=== PATIENT | female | born 1940 | race Caucasian/White ===

== ENCOUNTER → 2017-01-25 | Outpatient (CLI) | payer BC, MEDICARE ==
[2017-01-25 11:00] LABS: Anion Gap 10 mmol/L; Blood Urea Nitrogen 24 mg/dL (7-17); Calcium 8.8 mg/dL (8.4-10.2); Carbon Dioxide 24 mmol/L (22-30); Chloride 103 mmol/L (98-107); Glucose 117 mg/dL (74-99); Non-African American GFR(MDRD) >60 (>60 ml/min/1.73 sqM); Sodium 137 mmol/L (137-145)
[2017-01-26 11:56] LABS: Hemoglobin A1C 6.5 % (4.2-6.1)
== END | disposition home or self-care (01) ==
LOC: LABWHC1 09:34
PROVIDERS: ATTEND Internal Medicine
DX: E87.8 Other disorders of electrolyte and fluid balance, not elsewhere classified (principal); E11.69 Type 2 diabetes mellitus with other specified complication
CPT/HCPCS: 36415; 80048; 83036

== ENCOUNTER → 2017-06-18 | Outpatient (CLI) | payer MEDICARE ==
[2017-06-18 10:38] LABS: ALT 47 U/L (9-52); AST 24 U/L (14-36); Cholesterol 118 mg/dL (<200); HDL Cholesterol 54 mg/dL (40-60)
== END | disposition home or self-care (01) ==
LOC: LABWHC1 09:17
PROVIDERS: ATTEND Internal Medicine Cardiovascular Disease
DX: E78.2 Mixed hyperlipidemia (principal)
CPT/HCPCS: 36415; 80061; 84450; 84460

== ENCOUNTER → 2017-07-08 | Outpatient (CLI) | payer MEDICARE ==
[2017-07-08 09:24] LABS: CH 33.3; CHCM 33.7; HDW 2.33; HGB 11.8 gm/dL (11.4-16.0); MCH 31.8 pg (25.0-35.0); MCHC 31.9 g/dL (31.0-37.0); MCV 99.5 fL (80.0-100.0); Mean Platelet Volume 6.3; RBC 3.72 m/uL (3.80-5.40); RDW 12.3 % (11.5-15.5); WBC 5.9 k/uL (3.8-10.6)
[2017-07-08 10:07] LABS: ALT 44 U/L (9-52); AST 25 U/L (14-36); Alkaline Phosphatase 61 U/L (38-126); Anion Gap 11 mmol/L; Blood Urea Nitrogen 17 mg/dL (7-17); Calcium 9.1 mg/dL (8.4-10.2); Carbon Dioxide 25 mmol/L (22-30); Chloride 91 mmol/L (98-107); Glucose 118 mg/dL (74-99); Non-African American GFR(MDRD) >60 (>60 ml/min/1.73 sqM); Potassium 4.8 mmol/L (3.5-5.1); Sodium 127 mmol/L (137-145); Total Bilirubin 0.4 mg/dL (0.2-1.3); Total Protein 6.8 g/dL (6.3-8.2)
== END | disposition home or self-care (01) ==
LOC: LABWHC1 08:13
PROVIDERS: ATTEND Internal Medicine
DX: E87.8 Other disorders of electrolyte and fluid balance, not elsewhere classified (principal); E11.69 Type 2 diabetes mellitus with other specified complication; R53.83 Other fatigue
CPT/HCPCS: 36415; 80053; 83036; 84443; 85027

== ENCOUNTER → 2017-10-21 | Outpatient (CLI) | payer MEDICARE ==
[2017-10-21 10:24] LABS: Anion Gap 13 mmol/L; Blood Urea Nitrogen 17 mg/dL (7-17); Calcium 9.4 mg/dL (8.4-10.2); Carbon Dioxide 26 mmol/L (22-30); Chloride 95 mmol/L (98-107); Glucose 111 mg/dL (74-99); Potassium 4.8 mmol/L (3.5-5.1); Sodium 134 mmol/L (137-145)
[2017-10-21 15:54] LABS: Hemoglobin A1C 5.7 % (4.0-6.0)
== END | disposition home or self-care (01) ==
LOC: LABWHC1 09:09
PROVIDERS: ATTEND Internal Medicine
DX: E87.8 Other disorders of electrolyte and fluid balance, not elsewhere classified (principal); E11.69 Type 2 diabetes mellitus with other specified complication; M79.1 Myalgia
CPT/HCPCS: 36415; 80048; 83036; 84443

== ENCOUNTER → 2017-10-21 | Outpatient (CLI) | payer MEDICARE ==
--- NOTE | 2017-10-21 09:58 | XR ---
EXAMINATION TYPE: XR chest 2V DATE OF EXAM: 10/21/2017 COMPARISON: 08/11/2016 TECHNIQUE: PA and lateral views submitted. HISTORY: Breast cancer FINDINGS: The lungs are clear and there is no pneumothorax, pleural effusion, or focal pneumonia. Postsurgica l change involving the mediastinum. Atherosclerotic change aorta. Arthropathy of the right shoulder. No overt failure. Subsegmental linear changes at the lung bases most typical atelectasis. Degenerativ e change of the spine. Surgical clips in the abdomen. The lateral view there is vascular calcificatio ns anteriorly likely related to the aorta. IMPRESSION: 1. No acute process.
== END | disposition home or self-care (01) ==
LOC: RADXRMAIN 09:27
PROVIDERS: ATTEND Internal Medicine Hematology & Oncology
DX: C50.411 Malignant neoplasm of upper-outer quadrant of right female breast (principal); C50.112 Malignant neoplasm of central portion of left female breast; R60.9 Edema, unspecified; Z17.0 Estrogen receptor positive status [ER+]
CPT/HCPCS: 71046

== ENCOUNTER → 2018-01-20 | Outpatient (CLI) | payer MEDICARE ==
[2018-01-20 10:22] LABS: Basophils % (A) 0 %; Eosinophils # (A) 0.1 k/uL (0-0.7); Eosinophils % (A) 1 %; HCT 33.1 % (34.0-46.0); HGB 11.2 gm/dL (11.4-16.0); Lymphocytes # (A) 1.5 k/uL (1.0-4.8); Lymphocytes % (A) 28 %; MCHC 33.9 g/dL (31.0-37.0); MCV 94.3 fL (80.0-100.0); Mean Platelet Volume 6.7; Monocytes # (A) 0.3 k/uL (0-1.0); Monocytes % (A) 6 %; Neutrophils # (A) 3.3 k/uL (1.3-7.7); Neutrophils % (A) 62 %; Platelet Count 210 k/uL (150-450); RBC 3.51 m/uL (3.80-5.40); RDW 12.6 % (11.5-15.5); WBC 5.3 k/uL (3.8-10.6)
[2018-01-20 10:58] LABS: Anion Gap 12 mmol/L; Blood Urea Nitrogen 15 mg/dL (7-17); Calcium 8.7 mg/dL (8.4-10.2); Carbon Dioxide 26 mmol/L (22-30); Chloride 94 mmol/L (98-107); Cholesterol 103 mg/dL (<200); Glucose 111 mg/dL (74-99); HDL Cholesterol 52 mg/dL (40-60); LDL Cholesterol,Calculated 35 mg/dL (0-99); Potassium 4.5 mmol/L (3.5-5.1); Sodium 132 mmol/L (137-145); Triglycerides 80 mg/dL (<150)
[2018-01-20 17:15] LABS: Hemoglobin A1C 5.4 % (4.0-6.0)
== END | disposition home or self-care (01) ==
LOC: LABWHC1 09:11
PROVIDERS: ATTEND Internal Medicine
DX: E78.4 Other hyperlipidemia (principal); E11.69 Type 2 diabetes mellitus with other specified complication; E87.8 Other disorders of electrolyte and fluid balance, not elsewhere classified; R53.83 Other fatigue
CPT/HCPCS: 36415; 80048; 80061; 83036; 84443; 85025

== ENCOUNTER → 2018-02-24 | Outpatient (CLI) | payer MEDICARE ==
--- NOTE | 2018-02-24 12:19 | P.GSHP ---
History of Present Illness H&P Date: 02/24/18 Patient is a 78-year-old white female status post bilateral mastectomy for Cancer of both breasts. The left side was removed initially approximately 7 or 8 years ago in the right side was removed and August 2016. The patient did not receive any chemo radiation or hormonal therapy. The patient does not complain of any lumps or masses on her chest wall. She does have intermittent right axillary shooting discomfort. Family history: 1. Maternal grandmother cancer uncertain of the type Past surgical history: 1. Bilateral mastectomy 2. Cholecystectomy 3. Hysterectomy ovaries were not removed 4. Open heart surgery 5. Cardiac stents placed 6. Hemorrhoidectomy 7. Trigeminal neuralgia surgery Past medical history: 1. Hypertension 2. High cholesterol 3. Diabetes 4. Arthritis Social history: Smoke: Negative Alcohol: Negative Drugs: Negative - Constitutional Constitutional: Denies chills, Denies fever - EENT Comment: wears glasses Eyes: denies blurred vision, denies pain Ears: deny: decreased hearing, tinnitus Ears, nose, mouth and throat: Reports headache, Denies sore throat - Breasts Breasts: bilateral: as per HPI - Cardiovascular Comment: bypass times 5 Cardiovascular: Denies shortness of breath - Respiratory Respiratory: Denies cough, Denies 7 - Gastrointestinal Gastrointestinal: Denies abdominal pain, Denies diarrhea, Denies nausea, Denies vomiting - Genitourinary (Female) Genitourinary: Denies dysuria, Denies hematuria - Menstruation Menstruation: Reports as per HPI - Musculoskeletal Comment: arthritis - Integumentary Integumentary: Denies pruritus, Denies rash - Neurological Neurological: Reports numbness, Denies weakness - Psychiatric Psychiatric: Reports anxiety, Denies depression - Endocrine Endocrine: Reports weight change, Denies fatigue - Hematologic/Lymphatic Comment: aspirin, plavix - Allergic/Immunologic Allergic/Immunologic: Reports seasonal allergies Past Medical History Past Medical History: Coronary Artery Disease (CAD), Cancer, Chest Pain / Angina , Diabetes Mellitus, Hyperlipidemia, Hypertension, Thyroid Disorder Additional Past Medical History / Comment(s): frequent constipation, arthritis, anemia, hx breast cancer History of Any Multi-Drug Resistant Organisms: None Reported Past Surgical History: Breast Surgery, Cholecystectomy, Coronary Bypass/CABG, Heart Catheterization, Hysterectomy Additional Past Surgical History / Comment(s): left mastectomy, trigeminal nerve surgery, hemorrhoidectomy Past Anesthesia/Blood Transfusion Reactions: Motion Sickness Past Psychological History: No Psychological Hx Reported Smoking Status: Former smoker Past Alcohol Use History: Rare Past Drug Use History: None Reported - Past Family History Mother Family Medical History: No Reported History Medications and Allergies Home Medications Medication Instructions Recorded Confirmed Type Acarbose [Precose] 50 mg PO TID 04/29/15 08/18/16 History Aspirin 81 mg PO DAILY 04/29/15 08/18/16 History Gabapentin [Neurontin] 300 mg PO BID 04/29/15 08/18/16 History Levothyroxine Sodium [Synthroid] 150 mcg PO DAILY 04/29/15 08/18/16 History Metoprolol Succinate [Toprol XL] 50 mg PO AC-LUNCH 04/29/15 08/18/16 History Pioglitazone HCl [Actos] 45 mg PO HS 04/29/15 08/18/16 History carBAMazepine [TEGretol] 200 mg PO Q12H 04/29/15 08/18/16 History glipiZIDE [Glucotrol] 5 mg PO 1200 04/29/15 08/18/16 History metFORMIN HCL 1,000 mg PO BID 04/29/15 08/18/16 History Ascorbic Acid [Vitamin C] 500 mg PO DAILY@1200 04/30/15 08/18/16 History Cinnamon Bark [Cinnamon] 500 mg PO DAILY 04/30/15 08/18/16 History Multivit-Min/FA/Lycopene/Lut 1 each PO DAILY 04/30/15 08/18/16 History [Centrum Silver Tablet] Ubidecarenone [Co Q-10] 400 mg PO DAILY 04/30/15 08/18/16 History Vitamin B Complex 1 each PO DAILY 04/30/15 08/18/16 History Atorvastatin [Lipitor] 80 mg PO HS #30 tab 05/02/15 08/18/16 Rx Clopidogrel [Plavix] 75 mg PO DAILY #30 tab 05/02/15 08/18/16 Rx Isosorbide Mononitrate ER [Imdur] 30 mg PO DAILY #30 tab.er.24h 05/02/15 Rx Nitroglycerin Sl Tabs [Nitrostat] 0.4 mg SUBLINGUAL Q5M PRN #25 tab 05/02/1502/26 Rx amLODIPine [Norvasc] 10 mg PO HS #30 tab 05/02/15 08/18/16 Rx Losartan [Cozaar] 50 mg PO 1200,1700 08/17/16 08/18/16 History Allergies Allergy/AdvReac Type Severity Reaction Status Date / Time doxycycline calcium Allergy Unknown Verified 08/18/16 19:45 [From Vibramycin] doxycycline hyclate Allergy Unknown Verified 08/18/16 19:45 [From Vibramycin] doxycycline monohydrate Allergy Unknown Verified 08/18/16 19:45 [From Vibramycin] Penicillins Allergy Rash/Hives Verified 08/18/16 19:45 Sulfa (Sulfonamide Allergy Rash/Hives Verified 08/18/16 19:45 Antibiotics) sulfamethoxazole Allergy Unknown Verified 08/18/16 19:45 [From Septra] trimethoprim [From Septra] Allergy Unknown Verified 08/18/16 19:45 Surgical - Exam - General obese - Eyes normal ocular movement, no icteric - ENT no hearing loss, no congestion - Neck no masses, trachea midline - Respiratory normal respiratory effort, clear to auscultation - Cardiovascular Rhythm: regular Heart Sounds: normal: S1, S2 - Abdomen Abdomen: soft, non tender, no guarding, no rigid, no rebound - Integumentary incisions clean and dry no rash - Neurologic no disoriented, no combative - Musculoskeletal normal gait, normal posture - Psychiatric oriented to time, oriented to person, oriented to place, speech is normal, memory intact chest wall: no evidence of recurrent cancer, no axillary adenopathy of concern incisions clean and dry Assessment and Plan Assessment: Incision clean and dry: 1. Status post bilateral mastectomy for breast cancer 2. Diabetes 3. Arthritis 4. Anxiety related to family issues Plan: 1. Follow-up in 6 months related to breast cancer 2. Medical management of medical problems Cc: Dr. Crow
[2018-02-24 12:35] VITALS: BP 183/71; PULSE 64; TEMP 98.5; BMI 30.9
== END | disposition home or self-care (01) ==
LOC: WWCWWP 11:33
PROVIDERS: ATTEND Surgery
DX: Z53.9 Procedure and treatment not carried out, unspecified reason (principal)

== ENCOUNTER → 2018-08-26 | Outpatient (CLI) | payer MEDICARE ==
[2018-08-26 12:10] VITALS: BP 163/77; PULSE 70; RESP 20; TEMP 98.7; BMI 27.9
--- NOTE | 2018-08-26 12:33 | P.PN ---
Subjective Progress Note Date: 08/26/18 Principal diagnosis: bilateral breast cancer 78-year-old white female status post bilateral mastectomy for cancer. Left side was removed approximately 8 years ago in the right side was removed in August 2016. Patient did not have any chemo or radiation or hormonal therapy. The patient does complain of some intermittent right axillary shooting discomfort the pain may occur approximately once a month. It occurs when she raises her arm clinically. It does not last. It is not debilitating for the patient. The patient has had weight loss related to stress. Medical history: 1. Hypertension 2. High cholesterol 3. Diabetes 4. Arthritis Surgical history: 1. Bilateral mastectomy 2. Cholecystectomy 3. Hysterectomy ovaries were not removed 4. Open heart surgery 5. Cardiac stents 6. Hemorrhoidectomy 7. Trigeminal neuralgia surgery Social history: Smoke: Negative Alcohol: Negative Drugs: Negative Objective - Vital Signs Vital signs: Vital Signs Temp 98.7 F 08/26/18 11:54 Pulse 70 08/26/18 11:54 Resp 20 08/26/18 11:54 BP 163/77 08/26/18 11:54 Pulse Ox 96 08/26/18 11:54 Intake & Output 08/25/18 08/26/18 08/26/18 18:59 06:59 18:59 Weight 64.864 kg - Exam BMI 27.9 - Constitutional General appearance: Present: average body habitus, cooperative - EENT Eyes: Present: EOMI - Neck Neck: Present: normal ROM - Respiratory Respiratory: bilateral: CTA - Cardiovascular Rhythm: regular Heart sounds: normal: S1, S2 - Gastrointestinal General gastrointestinal: Present: soft - Integumentary Integumentary Comment(s): Small raised skin area on her left cheek Integumentary: Present: normal turgor - Psychiatric Psychiatric: Present: A&O x's 3, appropriate affect, intact judgment & insight - Additional findings Additional findings: chest wall: no recurrent cancer on the chest wall Assessment and Plan Assessment: Impression: 1. bilateral breast cancer 2. Skin change left cheek 3. Hypertension 4. High cholesterol 5. Diabetes 6. Arthritis Plan: 1. Repeat examination here in 6 months related to bilateral mastectomy 2. Consider dermatology evaluation for skin cheek lesion left cheek 3. Medical management of medical conditions Cc: Dr. Solis
== END ==
LOC: WWCWWP 11:25
PROVIDERS: ATTEND Surgery
DX: Z53.9 Procedure and treatment not carried out, unspecified reason (principal)

== ENCOUNTER → 2018-09-15 | Outpatient (CLI) | payer MEDICARE ==
--- NOTE | 2018-09-15 15:29 | BD ---
EXAMINATION TYPE: Axial Bone Density DATE OF EXAM: 09/15/2018 COMPARISON: NONE CLINICAL HISTORY: Postmenopausal female. Osteoporosis screening. Height: 5 FT Weight: 151 FRAX RISK QUESTIONS: RISK FACTORS HISTORY OF: Postmenopausal woman: PART HYST LATE 30'S Take estrogen and/or progesterone medications: STATES SHE TOOK NOT SURE WHEN OR FOR HOW LONG Poor Health: YES MEDICATIONS: Thyroid Medications: YES Which medication: LEVOTHYROXINE How Long: LONG TIME Osteoporosis Medications: YES Which medication: ACTONEL How Long: UNSURE HOW LONG Additional Medications: PLAVIX, ASPIRIN, LOPRESSOR, IMDUR, NORVASC, FEMARAL,ACTONEL , LEVOTHYROXINE, TEGRETOL, PRECOSE,METFORMIN,GLIPIZIDE, LOSARTIN, LIPITOR,NEURONTIN Additional History: EXAM MEASUREMENTS: Bone mineral densitometry was performed using the [employer] System. Bone mineral density as measured about the Lumbar spine is: ----- L1-L4(G/cm2): 0.988 T Score Values are as follows: ----- L2: -1.9 ----- L3: -1.5 ----- L4: -1.4 ----- L1-L4: -1.6 Bone mineral density has: DECREASED -2.1 % since study of: 2015 Bone mineral density about the R hip (g/cm2): 0.672 Bone mineral density about the L hip (g/cm2): 0.708 T Score values are as follows: -----R Neck: -2.6 -----L Neck: -2.4 -----R Total: -2.7 -----L Total: -2.3 Bone mineral density has: DECREASED -0.9 % since study of: 2015 IMPRESSION: Osteoporosis (T Score less than -2.5) with regards to the right femur. There is increased fracture risk and therapy is usually indicated based on age. Re-Screen 1-2 years. NOTE: T-SCORE=SD OF THE YOUNG ADULT MEAN.
== END | disposition home or self-care (01) ==
LOC: RADBDWWP 13:10
PROVIDERS: ATTEND Internal Medicine Hematology & Oncology
DX: M81.0 Age-related osteoporosis without current pathological fracture (principal); C50.411 Malignant neoplasm of upper-outer quadrant of right female breast
CPT/HCPCS: 77080

== ENCOUNTER → 2019-03-10 | Outpatient (CLI) | payer MEDICARE ==
[2019-03-10 10:17] VITALS: BP 178/67; PULSE 57; RESP 16; TEMP 98.1
--- NOTE | 2019-03-10 10:50 | P.PN ---
Subjective Progress Note Date: 03/10/19 Principal diagnosis: Right breast Stage 1A, Left breast ? stage (9 years ago) Michelle is an 79 year old white female with a history of bilateral breast cancer, and bilateral mastectomy. The patient did not have any chemo or radiation therapy. She is on an aromatase inhibitor at this time. She has no complaints related to her breast. She continues to follow with Dr. Deutsch. Family history: 1. maternal grandmother: cancer ? type 2. daughter: breast cancer Surgical history: 1. Bilateral mastectomy 2. Cholecystectomy 3. Hysterectomy ovaries not removed 4. Open heart surgery 5. Cardiac stents 6. Hemorrhoidectomy 7. Trigeminal neuralgia Medical history: 1. Hypertension 2. High cholesterol 3. Diabetes 4. Arthritis Social history: Smoke: Negative Alcohol: Negative Drugs: Negative Review of systems: HEENT: Wears glasses, diabetic retinopathy in eye lungs: negative heart: HTN GI: constipation : negative, hysterectomy Musculoskeletal: Arthritis Psychiatric: negative Objective - Vital Signs Vital signs: Vital Signs Temp 98.1 F 03/10/19 09:59 Pulse 57 L 03/10/19 09:59 Resp 16 03/10/19 09:59 BP 178/67 03/10/19 09:59 Pulse Ox 98 03/10/19 09:59 Intake & Output 03/09/19 03/10/19 03/10/19 18:59 06:59 18:59 Weight 69.853 kg - Exam BMI 30.1 - Constitutional General appearance: Present: obese - EENT Eyes: Present: EOMI ENT: Present: hearing grossly normal - Neck Neck: Present: normal ROM - Respiratory Respiratory: bilateral: CTA - Cardiovascular Rhythm: regular Heart sounds: normal: S1, S2 - Gastrointestinal Gastrointestinal Comment(s): no guarding or rebound General gastrointestinal: Present: soft - Integumentary Integumentary: Present: normal turgor - Musculoskeletal Musculoskeletal Comment(s): gait "wobbly" - Psychiatric Psychiatric: Present: A&O x's 3, appropriate affect, intact judgment & insight - Additional findings Additional findings: Breast exam: Breast biopsy absolutely well. Chest wall: No evidence of recurrent disease incision clean and dry well-healed Right axilla: No adenopathy of concern Left chest wall: Incision clean and dry well-healed no evidence of recurrent disease Left axilla: No adenopathy of concern Assessment and Plan Assessment: Impression: 1. Hypertension 2. High cholesterol 3. Diabetes 4. Arthritis 5. bilateral breast cancer, no evidence of recurrence 6. patient on Letrazole Plan: 1. continue present therapy 2. medical management of medical conditions 3. follow up in 6 months CC: DR. Solis
== END ==
LOC: WWCWWP 09:52
PROVIDERS: ATTEND Surgery
DX: Z53.9 Procedure and treatment not carried out, unspecified reason (principal)

== ENCOUNTER → 2019-03-24 | Outpatient (CLI) | payer MEDICARE ==
--- NOTE | 2019-03-24 12:34 | XR ---
EXAMINATION TYPE: XR chest 2V DATE OF EXAM: 03/24/2019 COMPARISON: 10/21/2017 TECHNIQUE: PA and lateral views submitted. HISTORY: Chest pain FINDINGS: The lungs are clear and there is no pneumothorax, pleural effusion, or focal pneumonia. Postsurgica l changes are seen in the pulmonary arteries are prominent compatible with pulmonary arterial hyperte nsion. No overt failure. Arthropathy of the shoulders. IMPRESSION: 1. No acute process. Correlate for pulmonary arterial hypertension.
== END | disposition home or self-care (01) ==
LOC: RADXRMAIN 12:08
PROVIDERS: ATTEND Internal Medicine
DX: R07.9 Chest pain, unspecified (principal)
CPT/HCPCS: 71046

== ENCOUNTER → 2019-09-22 | Outpatient (CLI) | payer MEDICARE ==
[2019-09-22 11:16] VITALS: BP 185/67; PULSE 54; RESP 18; TEMP 98.2
--- NOTE | 2019-09-22 11:35 | P.PN ---
Subjective Progress Note Date: 09/22/19 Principal diagnosis: surveillance bilateral breast cancer; right Stage IA, ? left Michelle is an 79 year old white female with a history of bilateral breast cancer, and bilateral mastectomy. Her first mastectomy was the left breast 9-10 years ago. She had the right mastectomy August 18, 2016. The patient did not have any chemo or radiation therapy after either of the surgeries. She is presently taking Femara (letrazole). She has no complaints related to her chest wall. She does not complain of any lumps masses or nodules on her chest wall. She continues to follow with Dr. Deutsch. Family history: 1. maternal grandmother: cancer ? type 2. daughter: breast cancer Surgical history: 1. Bilateral mastectomy 2. Cholecystectomy 3. Hysterectomy ovaries not removed 4. Open heart surgery 5. Cardiac stents 6. Hemorrhoidectomy 7. Trigeminal neuralgia Medical history: 1. Hypertension 2. High cholesterol 3. Diabetes 4. Arthritis 5. history of bilateral breast cancer Social history: Smoke: Negative Alcohol: Negative Drugs: Negative Review of systems: HEENT: Wears glasses, diabetic retinopathy in eye lungs: negative heart: HTN, status post cardiac surgery GI: constipation : negative, hysterectomy Musculoskeletal: Arthritis Psychiatric: negative hematologic: aspirin/plavix integument: none allergies: as per HPI/ seasonal allergies history of bilateral breast cancer Objective - Vital Signs Vital signs: Intake & Output 09/21/19 09/22/19 09/22/19 18:59 06:59 18:59 Weight 72.575 kg - Exam BMI 31.2 - Constitutional General appearance: Present: average body habitus - EENT Eyes: Present: EOMI ENT: Present: hearing grossly normal - Neck Neck: Present: lymphadenopathy, normal ROM Thyroid: bilateral: normal size - Respiratory Respiratory: bilateral: CTA - Cardiovascular Rhythm: regular Heart sounds: normal: S1, S2 - Gastrointestinal General gastrointestinal: Present: normal bowel sounds, soft - Integumentary Integumentary: Present: normal turgor - Musculoskeletal Musculoskeletal Comment(s): kyphosis gait unstable - Psychiatric Psychiatric: Present: A&O x's 3, appropriate affect, intact judgment & insight - Additional findings Additional findings: breast exam: Chest wall: Right side no evidence of recurrent disease Right axilla: No adenopathy of concern Left chest wall: No evidence of recurrent disease Left axilla: No adenopathy of concern Assessment and Plan Assessment: Impression: 1. Status post bilateral mastectomy; right breast [id number] ER/AK+ Her2-; stage 1A; ? stage on the left side 2. Patient on Femara 3. No evidence of recurrent cancer at this time 4. Hypertension 5. High cholesterol 6. Diabetes 7. Arthritis 8. Back pain 9. Unstable gait Plan: 1. Continue femora 2. Have given the patient option of radiographs of her back suspect she has some arthritis however at this time she has declined 3. Medical management of medical conditions 4. repeat appointment in 6 months Cc: Dr. Mena encounter 20 minutes > 50% of time in planning or counselling Time with Patient: Less than 30
== END ==
LOC: WWCWWP 10:49
PROVIDERS: ATTEND Surgery
DX: Z53.9 Procedure and treatment not carried out, unspecified reason (principal)

== ENCOUNTER → 2020-03-22 | Outpatient (CLI) | payer MEDICARE ==
[2020-03-22 11:03] VITALS: BP 161/74; PULSE 60; RESP 16; TEMP 98.1
--- NOTE | 2020-03-22 11:32 | P.PN ---
Subjective Progress Note Date: 03/22/20 Principal diagnosis: bilateral mastectomies/ bilateral breast cancer left January 2007, right mastectomy August 2016 Michelle is an 80 year old white female with a history of bilateral breast cancer, and bilateral mastectomy. Her first mastectomy was the left breast January 2007. She had the right mastectomy, August 2016. The patient did not have any chemo or radiation therapy after either of the surgeries. She is presently taking Femara (letrazole). She has no complaints related to her chest wall. She does not complain of any lumps masses or nodules on her chest wall. She does complain of intermittent right axillary discomfort, and some limitation of motion which has not changed. She states she sees a chiropractor regarding back pain. She continues to follow with Dr. Deutsch. Family history: 1. maternal grandmother: cancer ? type 2. daughter: breast cancer Surgical history: 1. Bilateral mastectomy 2. Cholecystectomy 3. Hysterectomy ovaries not removed 4. Open heart surgery 5. Cardiac stents 6. Hemorrhoidectomy 7. Trigeminal neuralgia Medical history: 1. Hypertension 2. High cholesterol 3. Diabetes 4. Arthritis 5. history of bilateral breast cancer Social history: Smoke: Negative Alcohol: Negative Drugs: Negative Review of systems: HEENT: Wears glasses, diabetic retinopathy in eye lungs: negative heart: HTN, status post cardiac surgery GI: constipation : negative, hysterectomy Musculoskeletal: Arthritis Psychiatric: negative hematologic: aspirin/plavix integument: none allergies: as per HPI/ seasonal allergies history of bilateral breast cancer Objective - Vital Signs Vital signs: Vital Signs Temp 98.1 F 03/22/20 10:58 Pulse 60 03/22/20 10:58 Resp 16 03/22/20 10:58 BP 161/74 03/22/20 10:58 Pulse Ox 97 03/22/20 10:58 Intake & Output 03/21/20 03/22/20 03/22/20 18:59 06:59 18:59 Weight 73.482 kg - Exam BMI 31.6 - Constitutional General appearance: Present: average body habitus - EENT Eyes: Present: EOMI ENT: Present: hearing grossly normal - Neck Neck: Present: normal ROM - Respiratory Respiratory: bilateral: CTA - Cardiovascular Rhythm: regular Heart sounds: normal: S1, S2 - Gastrointestinal General gastrointestinal: Present: normal bowel sounds, soft - Integumentary Integumentary: Present: normal turgor - Musculoskeletal Musculoskeletal Comment(s): gait normal - Psychiatric Psychiatric: Present: A&O x's 3, appropriate affect, intact judgment & insight - Additional findings Additional findings: Chest wall examination: Bilateral mastectomy incisions clean and dry no evidence of any recurrent cancer Right axilla: No adenopathy of concern Left axilla: No adenopathy of concern Patient has some limited mobility of the right shoulder but this does not appear to be related to the mastectomy or axillary surgery she is seeing presently a chiropractor Assessment and Plan Assessment: Impression: 1. Hypertension 2. High cholesterol 3. Diabetes 4. Arthritis 5. history of bilateral breast cancer/no evidence of recurrence at this time 6. Somewhat limited mobility right shoulder this is not changed Plan: 1. Continued surveillance for breast cancer follow-up in 6 months 2. Patient is continuing on Femara as per Dr. Beckman 3. Medical management of medical conditions 4. Patient was given the option to see a physical therapist and does not wish to at this time CC: Dr. Mena encounter 20 minutes, > 50% of time in planning and counselling
== END | disposition home or self-care (01) ==
LOC: WWCWWP 10:48
PROVIDERS: ATTEND Surgery
DX: Z53.9 Procedure and treatment not carried out, unspecified reason (principal)

== ENCOUNTER → 2020-09-16 | Outpatient (CLI) | payer MEDICARE ==
--- NOTE | 2020-09-16 14:46 | BD ---
EXAMINATION TYPE: Axial Bone Density DATE OF EXAM: 09/16/2020 COMPARISON: 09/11/2016 CLINICAL HISTORY: 78-year-old female postmenopausal screening Height: 4 FT 11 1/2 IN Weight: 162 FRAX RISK QUESTIONS: Alcohol (3 or more units per day): NO Family History (Parent hip fracture): NO Glucocorticoids (More than 3mos): NO (Ex: prednisone, prednisolone, methylprednisolone, dexamethasone, and hydrocortisone). History of Fracture in Adulthood: NO Secondary Osteoporosis: 1. Type 1 Diabetes: NO 2. Hyperthyroidism: NO 3. Menopause before 45: UNSURE 4. Malnutrition: NO 5. Chronic liver disease: NO Rheumatoid Arthritis: NO Current Tobacco Use: NO RISK FACTORS HISTORY OF: Family History of Osteoporosis: UNKNOWN Active: YES Diet low in dairy products/other sources of calcium: NO Postmenopausal woman: PART HYST LATE 30'S Take estrogen and/or progesterone medications: TOOK HRT NOT SURE WHEN AND FOR HOW LONG Lost more than 2 inches in height since high school: YES Frequent falls: HAS FALLEN NOT RECENTLY MEDICATIONS: Thyroid Medications: YES Which medication: LEVOTHYROXINE How Long: A LONG TIME Osteoporosis Medications: YES Which medication: ACTONEL How Long: UNSURE Additional Medications: LEVOTHYROXINE, TEGRETOL, NEURONTIN, PRECOSE, GLUCOPHAGE, GLUCOTROL, COZAAR, L IPITOR, FEERA, ACTONEL,PLAVIX, ASPIRIN, IMDUR, NORVASC Additional History: BREAST CANCER 2015AND 2008 NO CHEMO OR RADIATION ON FEMERA EXAM MEASUREMENTS: Bone mineral densitometry was performed using the [employer] System. Bone mineral density as measured about the Lumbar spine is: ----- L1-L4(G/cm2): 1.062 T Score Values are as follows: ----- L2: -2.1 ----- L3: -0.8 ----- L4: 0.1 ----- L1-L4: -1.0 Bone mineral density has: INCREASED 6.9 % since study of: 2015 Bone mineral density about the R hip (g/cm2): 0.676 Bone mineral density about the L hip (g/cm2): 0.702 T Score values are as follows: -----R Neck: -2.6 -----L Neck: -2.4 -----R Total: -3.2 -----L Total: -2.9 Bone mineral density has: DECREASED -10.3 % since study of: 2016 IMPRESSION: Osteoporosis (T Score less than -2.5). There is increased fracture risk and therapy is usually indicated based on age. Re-Screen 1-2 years. NOTE: T-SCORE=SD OF THE YOUNG ADULT MEAN.
== END | disposition home or self-care (01) ==
LOC: RADBDWWP 12:45
PROVIDERS: ATTEND Internal Medicine Hematology & Oncology
DX: M81.0 Age-related osteoporosis without current pathological fracture (principal); Z88.0 Allergy status to penicillin; Z88.2 Allergy status to sulfonamides; Z79.890 Hormone replacement therapy
CPT/HCPCS: 36415; 77080; 82565; 84520

== ENCOUNTER → 2020-09-20 | Outpatient (CLI) | payer MEDICARE ==
[2020-09-20 11:53] VITALS: BP 145/76; PULSE 64; RESP 18; TEMP 98.1
--- NOTE | 2020-09-20 12:04 | P.PN ---
Subjective Progress Note Date: 09/20/20 Principal diagnosis: bilateral breast cancer bilateral mastectomies/ bilateral breast cancer left January 2007, right mastectomy August 2016 Michelle is an 80 year old white female with a history of bilateral breast cancer, and bilateral mastectomy. Her first mastectomy was the left breast January 2007. She had the right mastectomy, August 2016. The patient did not have any chemo or radiation therapy after either of the surgeries. She is presently taking Femara (letrazole). She does complain of some discomfort on her right chest wall. She does not complain of any lumps masses or nodules on her chest wall. She does complain of intermittent right axillary discomfort, and some limitation of motion which has not changed. She states she sees a chiropractor regarding back pain. She continues to follow with Dr. Deutsch. Family history: 1. maternal grandmother: cancer ? type 2. daughter: breast cancer Surgical history: 1. Bilateral mastectomy 2. Cholecystectomy 3. Hysterectomy ovaries not removed 4. Open heart surgery 5. Cardiac stents 6. Hemorrhoidectomy 7. Trigeminal neuralgia 8. left cataract surgery Medical history: 1. Hypertension 2. High cholesterol 3. Diabetes 4. Arthritis 5. history of bilateral breast cancer Social history: Smoke: Negative Alcohol: Negative Drugs: Negative Review of systems: HEENT: Wears glasses, diabetic retinopathy in eye lungs: negative heart: HTN, status post cardiac surgery GI: constipation : negative, hysterectomy Musculoskeletal: Arthritis Psychiatric: negative hematologic: aspirin/plavix integument: none allergies: as per HPI/ seasonal allergies history of bilateral breast cancer Objective - Vital Signs Vital signs: Vital Signs Temp 98.1 F 09/20/20 11:48 Pulse 64 09/20/20 11:48 Resp 18 09/20/20 11:48 BP 145/76 09/20/20 11:48 Pulse Ox 97 09/20/20 11:48 Intake & Output 09/19/20 09/20/20 09/20/20 18:59 06:59 18:59 Weight 73.482 kg - Exam BMI 32.7 - Constitutional General appearance: Present: average body habitus - EENT Eyes: Present: EOMI ENT: Present: hearing grossly normal - Neck Neck: Present: normal ROM - Respiratory Respiratory: bilateral: CTA - Cardiovascular Rhythm: regular Heart sounds: normal: S1, S2 - Gastrointestinal General gastrointestinal: Present: normal bowel sounds, soft - Integumentary Integumentary: Present: normal turgor - Musculoskeletal Musculoskeletal: Present: gait normal - Psychiatric Psychiatric: Present: A&O x's 3 - Additional findings Additional findings: chest wall exam: Incisions bilateral clean and dry no evidence of any recurrent cancer Assessment and Plan Assessment: Impression: 1. Hypertension 2. High cholesterol 3. Diabetes 4. Arthritis 5. history of bilateral breast cancer Plan: 1. Repeat examination in one year 2. Patient to call sooner if any concerns 3. Patient encouraged to use creams or heating pad on the chest wall if it is uncomfortable. This time there is no evidence of any recurrent cancer CC: Dr. Mena encounter 10 minutes, > 50% of time on planning and counselling
== END | disposition home or self-care (01) ==
LOC: WWCWWP 11:39
PROVIDERS: ATTEND Surgery
DX: Z53.9 Procedure and treatment not carried out, unspecified reason (principal)

== ENCOUNTER → 2021-07-30 | Outpatient (CLI) | payer MEDICARE ==
--- NOTE | 2021-07-31 02:13 | US ---
EXAMINATION TYPE: US kidneys/renal and bladder DATE OF EXAM: 07/30/2021 COMPARISON: NONE CLINICAL HISTORY: N28.9 CKD. Diabetic. EXAM MEASUREMENTS: Right Kidney: 9.3 x 5.2 x 4.3 cm Left Kidney: 8.6 x 5.5 x 4.5 cm Post Void Residual Volume: NA as patient stated was unable to void. Right Kidney: No hydronephrosis. No shadowing nephrolithiasis. Normal cortical thickness. Mildly incr eased cortical echogenicity. There are simple benign renal cysts of the interpolar kidney measuring 1 .3 cm and the lower pole measuring 0.7 cm. Trace nonspecific extracapsular perinephric edema. Left Kidney: No hydronephrosis. No shadowing nephrolithiasis. Normal cortical thickness. Mildly incre ased cortical echogenicity. Simple benign cyst of the upper pole measuring 1.2 cm. Bladder: Incompletely distended. Bilateral Jets seen: yes IMPRESSION: 1. No hydronephrosis bilaterally. 2. Mildly increased cortical echogenicity may represent medical renal disease. 3. Incomplete distention of the urinary bladder.
== END ==
LOC: RADUSWWP 16:04
PROVIDERS: ATTEND Family Medicine
DX: E11.22 Type 2 diabetes mellitus with diabetic chronic kidney disease (principal); N18.9 Chronic kidney disease, unspecified
CPT/HCPCS: 76770

== ENCOUNTER → 2021-08-01 | Outpatient (CLI) | payer MEDICARE ==
[2021-08-01 18:44] LABS: HCT 31.4 % (37.2-46.3); HGB 10.7 g/dL (12.0-15.0); MCH 33.9 pg (27.0-32.0); MCHC 34.1 g/dL (32.0-37.0); MCV 99.4 fL (80.0-97.0); Mean Platelet Volume 9.1 fL (9.5-12.2); Platelet Count 176 X 10*3/uL (140-440); RBC 3.16 X 10*6/uL (4.10-5.20); RDW 12.4 % (11.5-14.5); WBC 6.47 X 10*3/uL (4.50-10.00)
[2021-08-01 20:03] LABS: African American GFR (CKD) 60.8 (60.0-200.0); Anion Gap 10.5 mmol/L (4.00-12.00); BUN/Creat Ratio 27.5 Ratio (12.00-20.00); Blood Urea Nitrogen 27.5 mg/dL (9.0-27.0); Calcium 8.4 mg/dL (8.7-10.3); Carbon Dioxide 23.5 mmol/L (21.6-31.8); Non-African American GFR(CKD) 52.4 (60.0-200.0); Potassium 5.1 mmol/L (3.5-5.5)
== END | disposition home or self-care (01) ==
LOC: LABWHC1 12:05
PROVIDERS: ATTEND Internal Medicine Cardiovascular Disease
DX: R07.2 Precordial pain (principal)
CPT/HCPCS: 36415; 80048; 85027

== ENCOUNTER 2021-08-21 01:44 | Observation (INO) | payer MEDICARE ==
--- NOTE | 2021-08-21 02:13 | ED ---
Chest Pain HPI - General Stated Complaint: Chest Pain Time Seen by Provider: 08/21/21 01:45 Source: RN notes reviewed, old records reviewed Limitations: no limitations - History of Present Illness Initial Comments: This is a 81-year-old female to the emergency. Patient Dese for eval should've chest pain chest pain or back jaw and arm. Symptoms began with his own arrival. Patient states she felt lightheaded like she may pass out but those symptoms quickly went away. She has history of diabetes high blood pressure high cholesterol. History of CAD. Patient has no other complaints no fever cough or congestion. Patient states her chest pain is improved on arrival to the emergency department. Patient states her heart rate is always low MD Complaint: chest pain, other (Shortness of breath) -: hour(s) Onset: during rest Pain Location: substernal Pain Radiation: LUE Severity: mild Severity scale (1-10): 3 Quality: tightness Consistency: constant Improves With: nothing Worsens With: nothing Anginal Symptoms: sense of impending doom Other Symptoms: cough, palpitations Treatments Prior to Arrival: none - Related Data Home Medications Medication Instructions Recorded Confirmed Acarbose [Precose] 50 mg PO BID 04/29/15 09/20/20 Aspirin 81 mg PO PC-LUNCH 04/29/15 09/20/20 Gabapentin [Neurontin] 300 mg PO BID 04/29/15 09/20/20 Levothyroxine Sodium [Synthroid] 137 mcg PO QAM 04/29/15 09/20/20 carBAMazepine [TEGretol] 200 mg PO BID 04/29/15 09/20/20 glipiZIDE [Glucotrol] 5 mg PO 1200 04/29/15 09/20/20 metFORMIN HCL [Glucophage] 1,000 mg PO HS 04/29/15 09/20/20 Multivit-Min/FA/Lycopene/Lut 1 each PO QAM 04/30/15 09/20/20 [Centrum Silver Tablet] Ubidecarenone [Co Q-10] 1 tablet PO QAM 04/30/15 09/20/20 Losartan [Cozaar] 50 mg PO BID 08/17/16 09/20/20 Isosorbide Mononitrate ER [Imdur] 30 mg PO PC-SUPPER 02/24/18 09/20/20 Letrozole 2.5 mg PO QAM 02/24/18 09/20/20 Risedronate Sodium [Actonel] 35 mg PO Q7DAYS 02/24/18 09/20/20 Calcium Carbonate/Vitamin D3 1 each PO QAM 09/27/19 09/20/20 [Caltrate 600 Plus D3 Tablet] Clopidogrel [Plavix] 75 mg PO QAM 09/27/19 09/20/20 Cyanocobalamin (Vitamin B-12) 1,000 mcg PO QAM 09/27/19 09/20/20 [Vitamin B-12] Krill/Om-3/Dha/Epa/Phospho/Ast 500 mg PO QAM 09/27/19 09/20/20 [Grover-3 Krill Oil 300 mg Sfgl] Cod Liver Oil 1 each PO QAM 03/22/20 09/20/20 Turmeric Root Extract [Turmeric] 500 mg PO QAM 03/22/20 09/20/20 Previous Rx's Medication Instructions Recorded Atorvastatin [Lipitor] 80 mg PO HS #30 tab 05/02/15 Nitroglycerin Sl Tabs [Nitrostat] 0.4 mg SUBLINGUAL Q5M PRN #25 tab 05/02/15 amLODIPine [Norvasc] 10 mg PO HS #30 tab 05/02/15 Allergies Allergy/AdvReac Type Severity Reaction Status Date / Time doxycycline calcium Allergy Unknown Verified 09/20/20 11:54 [From Vibramycin] doxycycline hyclate Allergy Unknown Verified 09/20/20 11:54 [From Vibramycin] doxycycline monohydrate Allergy Unknown Verified 09/20/20 11:54 [From Vibramycin] Penicillins Allergy Rash/Hives Verified 09/20/20 11:54 Sulfa (Sulfonamide Allergy Rash/Hives Verified 09/20/20 11:54 Antibiotics) sulfamethoxazole Allergy Unknown Verified 09/20/20 11:54 [From Septra] trimethoprim [From Septra] Allergy Unknown Verified 09/20/20 11:54 Review of Systems ROS Statement: Those systems with pertinent positive or pertinent negative responses have been documented in the HPI. ROS Other: All systems not noted in ROS Statement are negative. EKG Findings - EKG Comments: EKG Findings:: EKG shows sinus tachycardia 101 WI 128 QRS 100 QTc 448. Repeat. EKG shows abnormal P axis 57 WI 132 QRS 96 QTc 422. Repeat. EKG shows sinus bradycardia 50 WI 140 QRS 108 QTc 41 Past Medical History Past Medical History: Coronary Artery Disease (CAD), Cancer, Chest Pain / Angina, Diabetes Mellitus, Hyperlipidemia, Hypertension, Thyroid Disorder Additional Past Medical History / Comment(s): frequent constipation, arthritis, anemia, hx breast cancer History of Any Multi-Drug Resistant Organisms: None Reported Past Surgical History: Breast Surgery, Cholecystectomy, Coronary Bypass/CABG, Heart Catheterization, Hysterectomy Additional Past Surgical History / Comment(s): left mastectomy, trigeminal nerve surgery, hemorrhoidectomy, right mastectomy 08/2016 Past Anesthesia/Blood Transfusion Reactions: Motion Sickness Past Psychological History: No Psychological Hx Reported Smoking Status: Former smoker Past Alcohol Use History: Rare Past Drug Use History: None Reported - Past Family History Mother Family Medical History: No Reported History General Exam General appearance: alert, in no apparent distress, anxious Head exam: Present: atraumatic, normocephalic, normal inspection Eye exam: Present: normal appearance, PERRL, EOMI. Absent: scleral icterus, conjunctival injection, periorbital swelling ENT exam: Present: normal exam, mucous membranes moist Neck exam: Present: normal inspection. Absent: tenderness, meningismus, lymphadenopathy Respiratory exam: Present: normal lung sounds bilaterally. Absent: respiratory distress, wheezes, rales, rhonchi, stridor Cardiovascular Exam: Present: normal rhythm, bradycardia, normal heart sounds. Absent: systolic murmur, diastolic murmur, rubs, gallop, clicks GI/Abdominal exam: Present: soft, normal bowel sounds. Absent: distended, tenderness, guarding, rebound, rigid Extremities exam: Present: normal inspection, full ROM, normal capillary refill. Absent: tenderness, pedal edema, joint swelling, calf tenderness Back exam: Present: normal inspection Neurological exam: Present: alert, oriented X3, CN II-XII intact Psychiatric exam: Present: normal affect, normal mood Skin exam: Present: warm, dry, intact, normal color. Absent: rash Course Vital Signs 08/21/21 08/21/21 01:52 02:52 Temperature 97.7 F Pulse Rate 99 50 L Respiratory 20 18 Rate Blood Pressure 147/89 145/61 O2 Sat by Pulse 99 97 Oximetry - Reevaluation(s) Reevaluation #1: 08/21/21 02:24 Record is reviewed Reevaluation #2: 08/21/21 02:24 Patient still has mild chest pain here in the emergency department Reevaluation #3: 08/21/21 04:03 She does so with episodic chest pain here in the ER Reevaluation #4: 08/21/21 04:06 Patient informed results and questions answered - Consultations Consultation #1: Spoke with sound physician stool admit this patient Chest Pain MDM - MDM 81 female DF for evaluation of chest pain with history of [place] and CAD. Patient be admitted for chest pain observation indeterminate jump and troponin. Chest pain is typical in nature. Critical Care Time Critical Care Time: Yes Total Critical Care Time: 31 Disposition Clinical Impression: Hx of CABG, Chest pain, Unstable angina pectoris Disposition: ADMITTED IP TO THIS HOSP Condition: Fair Is patient prescribed a controlled substance at d/c from ED?: No Referrals: Daniela Mena MD [Primary Care Provider] - 1-2 days
--- NOTE | 2021-08-21 02:38 | XR ---
EXAMINATION TYPE: XR chest 2V DATE OF EXAM: 08/21/2021 COMPARISON: NONE HISTORY: Chest pain TECHNIQUE: 2 views FINDINGS: There is no heart failure nor confluent pneumonic infiltrate. There are chest leads. There are sternal wires. Costophrenic angles are clear. IMPRESSION: No active cardiopulmonary disease. No adverse change.
[2021-08-21 02:45] LABS: Basophils % (A) 0 %; Eosinophils # (A) 0.2 k/uL (0-0.7); Eosinophils % (A) 2 %; HCT 39.7 % (34.0-46.0); Lymphocytes % (A) 21 %; MCH 33.2 pg (25.0-35.0); MCHC 32.8 g/dL (31.0-37.0); MCV 101.1 fL (80.0-100.0); Mean Platelet Volume 6.9; Monocytes # (A) 0.5 k/uL (0-1.0); Monocytes % (A) 5 %; Neutrophils # (A) 6.8 k/uL (1.3-7.7); Neutrophils % (A) 71 %; Platelet Count 212 k/uL (150-450); RBC 3.93 m/uL (3.80-5.40); RDW 13.1 % (11.5-15.5); WBC 9.7 k/uL (3.8-10.6)
[2021-08-21 02:52] LABS: INR 0.9 (<1.2); Prothrombin Time 9.6 sec (9.0-12.0)
[2021-08-21 02:59] LABS: Appearance,Urine Clear (Clear); Bilirubin,Urine Negative (Negative); Blood,Urine Negative (Negative); Color,Urine Light Yellow; Glucose,Urine (UA) Negative (Negative); Ketones,Urine Negative (Negative); Leukocyte Esterase,Urine Negative (Negative); Nitrite,Urine Negative (Negative); Protein,Urine 2+ (Negative); RBC,Urine <1 /hpf (0-5); Specific Gravity,Urine 1.006 (1.001-1.035); Urobilinogen,Urine <2.0 mg/dL (<2.0); WBC,Urine 1 /hpf (0-5)
[2021-08-21 03:12] LABS: Partial Thromboplastin Time 21.3 sec (22.0-30.0)
[2021-08-21 03:17] LABS: Albumin 4.6 g/dL (3.5-5.0); Calcium 9.2 mg/dL (8.4-10.2); Total Bilirubin 0.4 mg/dL (0.2-1.3); Total Protein 7.6 g/dL (6.3-8.2)
[2021-08-21 03:57] LABS: Magnesium 1.5 mg/dL (1.6-2.3); Phosphorus 4.4 mg/dL (2.5-4.5); Potassium 4.6 mmol/L (3.5-5.1)
[2021-08-21] MEDS ORDERED: HEPARIN SODIUM 1,000 UN/ML (10ML VL) IV ONE (04:02)
[2021-08-21] MEDS ORDERED: MORPHINE SULFATE 4 MG/ML SYRINGE IV PRN (04:02)
[2021-08-21] MEDS ORDERED: NITROGLYCERIN SL TABS 0.4 MG TAB SUBLINGUAL PRN (04:02)
[2021-08-21] MEDS ORDERED: ASPIRIN 81 MG PO STA (04:02)
[2021-08-21] MEDS: HEPARIN SOD,PORK IN 0.45% NACL 25,000 UNIT in 0.45% NACL 1 250ML.BAG IV SCH (04:34)
[2021-08-21] MEDS ORDERED: PANTOPRAZOLE 40 MG/10 ML VIAL IVP ONE (05:32)
--- NOTE | 2021-08-21 05:41 | P.HPIM ---
History of Present Illness H&P Date: 08/21/21 Chief Complaint: chest pain 81 year old female with HTN , CAD s/p stents 6 years ago , DM Patient comes in today with sudden onset chest pain started around 11:30 PM she wasn't able to get comfortable eventually she started taking some nitro with no improvement she describes the pain as heaviness retrosternal in the middle of her chest radiating to her jaw after taking multiple nitro medications she noticed no improvement she started having diaphoresis and shortness of breath while sitting doing nothing pain was getting worse for which she decided to come to the hospital for evaluation he was feeling nauseous but no vomiting. Otherwise she reports that she's been at her baseline status of health able to do chores around the house and walk around with no limitations but sometimes if she pushes herself she would get some shortness of breath. She denies any fevers chills coughing denies any vomiting changes in her bowel habits or urinary habits denies any abdominal pain. She does recall having a heavy dinner with some pepper sauce sometimes she does get some upset stomach however this time the pain was so severe that she was worried about her heart. Patient denies any recent traveling or hospitalization patient denies any traumas. Initial workup in the ED showed lactic acidosis, hyponatremia, hypomagnesemia. Troponins were negative. EKG showed no acute ST changes Review of Systems Pertinent positives as noted in HPI. All other systems were reviewed and are negative Past Medical History Past Medical History: Coronary Artery Disease (CAD), Cancer, Chest Pain / Sonal na, Diabetes Mellitus, Hyperlipidemia, Hypertension, Thyroid Disorder Additional Past Medical History / Comment(s): frequent constipation, arthritis, anemia, hx breast cancer History of Any Multi-Drug Resistant Organisms: None Reported Past Surgical History: Breast Surgery, Cholecystectomy, Coronary Bypass/CABG, Heart Catheterization, Hysterectomy Additional Past Surgical History / Comment(s): left mastectomy, trigeminal nerve surgery, hemorrhoidectomy, right mastectomy 08/2016 Past Anesthesia/Blood Transfusion Reactions: Motion Sickness Past Psychological History: No Psychological Hx Reported Smoking Status: Former smoker Past Alcohol Use History: Rare Past Drug Use History: None Reported - Past Family History Mother Family Medical History: No Reported History Medications and Allergies Home Medications Medication Instructions Recorded Confirmed Type Acarbose [Precose] 50 mg PO BID 04/29/15 09/20/20 History Aspirin 81 mg PO PC-LUNCH 04/29/15 09/20/20 History Gabapentin [Neurontin] 300 mg PO BID 04/29/15 09/20/20 History Levothyroxine Sodium [Synthroid] 137 mcg PO QAM 04/29/15 09/20/20 History carBAMazepine [TEGretol] 200 mg PO BID 04/29/15 09/20/20 History glipiZIDE [Glucotrol] 5 mg PO 1200 04/29/15 09/20/20 History metFORMIN HCL [Glucophage] 1,000 mg PO HS 04/29/15 09/20/20 History Multivit-Min/FA/Lycopene/Lut 1 each PO QAM 04/30/15 09/20/20 History [Centrum Silver Tablet] Ubidecarenone [Co Q-10] 1 tablet PO QAM 04/30/15 09/20/20 History Atorvastatin [Lipitor] 80 mg PO HS #30 tab 05/02/15 09/20/20 Rx Nitroglycerin Sl Tabs [Nitrostat] 0.4 mg SUBLINGUAL Q5M PRN #25 tab 05/02/15 09/20/20 Rx amLODIPine [Norvasc] 10 mg PO HS #30 tab 05/02/15 09/20/20 Rx Losartan [Cozaar] 50 mg PO BID 08/17/16 09/20/20 History Isosorbide Mononitrate ER [Imdur] 30 mg PO PC-SUPPER 02/24/18 09/20/20 History Letrozole 2.5 mg PO QAM 02/24/18 09/20/20 History Risedronate Sodium [Actonel] 35 mg PO Q7DAYS 02/24/18 09/20/20 History Calcium Carbonate/Vitamin D3 1 each PO QAM 09/27/19 09/20/20 History [Caltrate 600 Plus D3 Tablet] Clopidogrel [Plavix] 75 mg PO QAM 09/27/19 09/20/20 History Cyanocobalamin (Vitamin B-12) 1,000 mcg PO QAM 09/27/19 09/20/20 History [Vitamin B-12] Krill/Om-3/Dha/Epa/Phospho/Ast 500 mg PO QAM 09/27/19 09/20/20 History [[place]-3 Krill Oil 300 mg Sfgl] Cod Liver Oil 1 each PO QAM 03/22/20 09/20/20 History Turmeric Root Extract [Turmeric] 500 mg PO QAM 03/22/20 09/20/20 History Allergies Allergy/AdvReac Type Severity Reaction Status Date / Time doxycycline calcium Allergy Unknown Verified 09/20/20 11:54 [From Vibramycin] doxycycline hyclate Allergy Unknown Verified 09/20/20 11:54 [From Vibramycin] doxycycline monohydrate Allergy Unknown Verified 09/20/20 11:54 [From Vibramycin] Penicillins Allergy Rash/Hives Verified 09/20/20 11:54 Sulfa (Sulfonamide Allergy Rash/Hives Verified 09/20/20 11:54 Antibiotics) sulfamethoxazole Allergy Unknown Verified 09/20/20 11:54 [From Septra] trimethoprim [From Septra] Allergy Unknown Verified 09/20/20 11:54 Physical Exam Vitals: Vital Signs Temp Pulse Resp BP Pulse Ox 08/21/21 04:41 52 L 18 162/66 97 08/21/21 03:14 56 L 18 145/72 98 08/21/21 02:52 50 L 18 145/61 97 08/21/21 01:52 97.7 F 99 20 147/89 99 Intake and Output 08/20/21 08/20/21 08/21/21 14:59 22:59 06:59 Other: Weight 73.936 kg Constitutional: No acute distress, conversant, pleasant Eyes: Anicteric sclerae, moist conjunctiva, Pupils equal round reactive to light ENMT: NC/AT Oropharynx clear, no erythema, or exudates Neck: Supple, FROM, no masses, or JVD No carotid bruits No thyromegaly Lungs: Clear to auscultation Clear to percussion Normal respiratory effort, no accessory muscle use Cardiovascular: Heart regular in rate and rhythm, No murmurs, gallops, or rubs No peripheral edema Abdominal: Soft Nontender, no guarding, rebound or rigidity Abdomen moving with respiration Normoactive bowel sounds No hepatomegaly, No splenomegaly No palpable mass No abdominal wall hernia noted Skin: Normal temperature, tone, texture, turgor No induration No subcutaneous nodules No rash, lesions No ulcers Extremities: No digital cyanosis No clubbing Pedal pulses intact and symmetrical Radial pulses intact and symmetrical No calf tenderness Psychiatric: Alert and oriented to person, place and time Appropriate affect fair judgement Neuro Muscles Strength 4/5 in all 4 extremities Sensation to light touch grossly present throughout Cranial nerves II-XII grossly intact No focal sensory deficits Lymphatics: no palpable cervical or supraclavicular , or inguinal lymph nodes Results CBC & Chem 7: 08/21/21 02:25 08/21/21 02:25 Labs: Abnormal Lab Results - Last 24 Hours (Table) 08/21/21 08/21/21 08/21/21 Range/Units 02:25 02:25 02:25 MCV 101.1 H (80.0-100.0) fL APTT 21.3 L (22.0-30.0) sec Sodium (137-145) mmol/L Chloride (98-107) mmol/L Carbon Dioxide (22-30) mmol/L BUN (7-17) mg/dL Glucose (74-99) mg/dL Plasma Lactic Acid Nino (0.7-2.0) mmol/L Magnesium (1.6-2.3) mg/dL AST (14-36) U/L ALT (4-34) U/L Urine Protein 2+ H (Negative) 08/21/21 08/21/21 Range/Units 02:25 02:25 MCV (80.0-100.0) fL APTT (22.0-30.0) sec Sodium 132 L (137-145) mmol/L Chloride 97 L (98-107) mmol/L Carbon Dioxide 21 L (22-30) mmol/L BUN 26 H (7-17) mg/dL Glucose 121 H (74-99) mg/dL Plasma Lactic Acid Nino 3.0 H* (0.7-2.0) mmol/L Magnesium 1.5 L (1.6-2.3) mg/dL AST 45 H (14-36) U/L ALT 43 H (4-34) U/L Urine Protein (Negative) Assessment and Plan Assessment: Atypical chest pain rule out ACS History of CAD status post stents 6 years ago Patient initiated on heparin drip, full dose aspirin Continue statin Monitor and trend troponins night monitor Monitor vital signs Cardiology consult Check echocardiogram Check lipid profile Hypomagnesemia replace and follow-up levels Hyponatremia possible component of dehydration Lactic acidosis Patient initiated on IV fluid hydration with normal saline Chronic conditions Hypertension resume cardiac home meds Diabetes mellitus hold oral hypoglycemic agents, initiate insulin sliding scale Hypothyroidism resume levothyroxine Patient is full code DVT prophylaxis currently on heparin drip for ACS protocol Anticipated length of stay less than 2 midnights
[2021-08-21 07:57] LABS: Glucose,Whole Blood 147 mg/dL (75-99)
[2021-08-21] MEDS: LEVOTHYROXINE 137 MCG TAB PO SCH (07:57)
[2021-08-21] MEDS: INSULIN ASPART (NovoLOG) 100 UNIT/ML VIAL SQ SCH ×4 (08:37→21:33)
[2021-08-21] MEDS ORDERED: ALPRAZolam 0.5 MG TAB PO PRN (08:56)
[2021-08-21] MEDS ORDERED: ALPRAZolam 0.25 MG TAB PO PRN (08:56)
[2021-08-21] MEDS: CHOLECALCIFEROL 25 MCG (1000 IU) TABLET PO SCH (10:08)
[2021-08-21] MEDS: carBAMazepine 200 MG TAB PO SCH ×2 (10:08→21:33)
[2021-08-21] MEDS: CLOPIDOGREL 75 MG TAB PO SCH (10:08)
[2021-08-21] MEDS: CYANOCOBALAMIN 500 MCG TAB PO SCH (10:08)
[2021-08-21] MEDS: CALCIUM CARB-VIT D 500 MG-5 MCG TAB PO SCH (10:08)
[2021-08-21] MEDS ORDERED: Magnesium Replacement Protocol 1 EACH MISC MISCELLANE PRN (10:09)
[2021-08-21] MEDS: LETROZOLE 2.5 MG TAB PO SCH (10:10)
[2021-08-21] MEDS: LOSARTAN 50 MG TAB PO SCH ×2 (10:10→21:33)
[2021-08-21] MEDS: METOPROLOL SUCCINATE (ER) 50 MG TAB.ER.24H PO SCH (10:10)
--- NOTE | 2021-08-21 10:14 | P.CRDCN ---
History of Present Illness History of present illness: HISTORY OF PRESENTING ILLNESS This is a pleasant 81-year-old female past medical history significant for coronary artery disease s/p 5 vessel CABG 1996 (MOODY-LAD, VG-OM1, VG-OM2, VG-D1, VG-RCA), PCI to SVG to circumflex 2014, type 2 diabetes, hypertension, dyslipidemia. She follows in the office with Dr. Ventura. We have been asked to see in consultation for chest pain. Patient presents to the emergency department with complaints of chest pressure.She states she was going to bed last night 08/20/21, and felt chest pressure in the center of her chest. It radiated up to her neck/jaw bilaterally. She had associated nausea and diaphoresis. She states she took old nitro, with no relief. She opened a new bottle of nitroglycerin and took 2 additional nitros with no relief. EMS was called. Patient continued to have constant chest pressure. She was given 4 81mg aspirins from EMS, by the time she presented to the emergency department her chest pressure was relieving. She denies chest pressure at this time. She denies any specific aggravating or alleviating factors.she denies any shortness of breath, lightheadedness, dizziness, syncope or near syncope. She denies any symptoms of orthopnea or PND. In March 2021 patient underwent a Lexiscan stress test in the office that was abnormal, revealed inferolateral reversible perfusion defect. Dr. Ventura spoke to patient about undergoing cardiac catheterization, she opted for medical therapy. DIAGNOSTICS -Initial EKG Reveals sinus tachycardia, heart rate 101, ST depression and downsloping in the inferior lateral leads. -EKG this morning reveals improvement in the ST changes, sinus bradycardia, heart rate 50, incomplete left bundle branch block. -Last Cardiac Catheterization 04/2015, which revealed all the [place] vessels are closed off with MOODY to LAD patent, vein graft to the obtuse marginal branch had a 95% stenosis in the body of the graft which was stented and vein graft to diagonal branch -which was patent in 2010 is closed off. She underwent PCI to SVG to circumflex. -Telemetry tracings indicate Sinus bradycardia HR in the upper 50s -Most recent echocardiogram 2012- EF 60%, mild concentric hypertrophy, moderate ly dilated left atrium, mild aortic regurgitation, mild mitral rotation, mild tricuspid regurgitation. -Chest xray no acute cardiopulmonary process. -Laboratory reviewed, troponin 0.18-->0.38, sodium 132, potassium 4.6, BUN 26, serum crit 0.8, lactate 3.0. repeat 1.7, magnesium 1.5, proBNP 829, COVID 19 PCR negative -Current home medications include amlodipine 10 mg nightly, metoprolol succinate 50 mg daily, losartan 50 mg twice a day, Imdur 60 mg daily, Plavix 75 mg daily, atorvastatin 80 mg nightly, aspirin 81 mg daily, metformin, glipizide gabapentin REVIEW OF SYSTEMS At the time of my exam: CONSTITUTIONAL: Denies fever or chills. +diaphoresis CARDIOVASCULAR: +chest pain, Denies shortness of breath, orthopnea, PND or palpitations. RESPIRATORY: Denies cough. GASTROINTESTINAL: +nausea Denies abdominal pain, diarrhea, constipation, vomiting. MUSCULOSKELETAL: Denies myalgias. NEUROLOGIC: Denies numbness, tingling, headache or weakness. ENDOCRINE: Denies fatigue, weight change, polydipsia or polyurina. GENITOURINARY: Denies burning, hematuria or urgency with micturation. HEMATOLOGIC: Denies history of anemia or bleeding. PHYSICAL EXAMINATION Blood pressure 154/91, heart rate 50, afebrile, oxygen saturation is greater than 92% on room air CONSTITUTIONAL: No apparent distress. HEENT: Head is normocephalic. Pupils are equal, round. Sclerae anicteric. Mucous membranes of the mouth are moist. No JVD. No carotid bruit. CHEST EXAMINATION: Lungs are clear to auscultation. No chest wall tenderness is noted on palpation or with deep breathing. HEART EXAMINATION: Regular rate and rhythm. S1, S2 heard. No murmurs, gallops or rub. ABDOMEN: Soft, nontender. Positive bowel sounds. EXTREMITIES: 2+ peripheral pulses, trace bilateral lower extremity edema and no calf tenderness. SKIN: warm, dry NEUROLOGIC EXAMINATION: Patient is awake, alert and oriented x3. ASSESSMENT NSTEMI Coronary artery disease s/p 5 vessel CABG 1996 (MOODY-LAD, VG-OM1, VG-OM2, VG-D1, VG-RCA), PCI to SVG to circumflex 2014 Type 2 diabetes Hypertension Dyslipidemia PLAN -We recommend cardiac catheterization. Patient is agreeable, however, wants to talk to her family and today. Will plan for cardiac catheterization with Dr. Ventura 08/22/21 -Obtain 2D echocardiogram and doppler study to assess cardiac structure and function. -Continue IV heparin -Continue aspirin, statin, Plavix, Imdur, losartan, metoprolol succinate -I have discussed the risks, benefits and alternative therapies for the above- mentioned procedure and for both sedation/analgesia as well as necessary blood product administration, if indicated, as they pertain to this patient. The patient has indicated understanding and acceptance of the risks and procedures discussed. Questions have been answered appropriately and she is agreeable to move forward with the above-stated procedure. NPO after midnight Thank you kindly for this consultation. Nurse Practitioner note has been reviewed, I agree with a documented findings and plan of care. Patient was seen and examined. lact Past Medical History Past Medical History: Coronary Artery Disease (CAD), Cancer, Chest Pain / A ngina, Diabetes Mellitus, Hyperlipidemia, Hypertension, Thyroid Disorder Additional Past Medical History / Comment(s): frequent constipation, arthritis, anemia, hx breast cancer History of Any Multi-Drug Resistant Organisms: None Reported Past Surgical History: Breast Surgery, Cholecystectomy, Coronary Bypass/CABG, Heart Catheterization, Hysterectomy Additional Past Surgical History / Comment(s): left mastectomy, trigeminal nerve surgery, hemorrhoidectomy, right mastectomy 08/2016 Past Anesthesia/Blood Transfusion Reactions: Motion Sickness Past Psychological History: No Psychological Hx Reported Smoking Status: Former smoker Past Alcohol Use History: Rare Past Drug Use History: None Reported - Past Family History Mother Family Medical History: No Reported History Medications and Allergies Home Medications Medication Instructions Recorded Confirmed Type Acarbose [Precose] 50 mg PO TID 04/29/15 08/21/21 History Aspirin 81 mg PO W/LUNCH 04/29/15 08/21/21 History Gabapentin [Neurontin] 300 mg PO BID@1200,1700 04/29/15 08/21/21 History Levothyroxine Sodium [Synthroid] 137 mcg PO DAILY 04/29/15 08/21/21 History carBAMazepine [TEGretol] 200 mg PO BID 04/29/15 08/21/21 History glipiZIDE [Glucotrol] 5 mg PO DAILY@1200 04/29/15 08/21/21 History metFORMIN HCL [Glucophage] 1,000 mg PO W/SUPPER 04/29/15 08/21/21 History Multivit-Min/FA/Lycopene/Lut 1 tab PO DAILY 04/30/15 08/21/21 History [Centrum Silver Tablet] Atorvastatin [Lipitor] 80 mg PO HS #30 tab 05/02/15 08/21/21 Rx Nitroglycerin Sl Tabs [Nitrostat] 0.4 mg SUBLINGUAL Q5M PRN #25 tab 05/02/15 08/21/21 Rx amLODIPine [Norvasc] 10 mg PO HS #30 tab 05/02/15 08/21/21 Rx Losartan [Cozaar] 50 mg PO BID@1200,1700 08/17/16 08/21/21 History Letrozole 2.5 mg PO DAILY 02/24/18 08/21/21 History Risedronate Sodium [Actonel] 35 mg PO MITCHELL 02/24/18 08/21/21 History Calcium Carbonate/Vitamin D3 1 tab PO DAILY 09/27/19 08/21/21 History [Caltrate 600 Plus D3 Tablet] Clopidogrel [Plavix] 75 mg PO DAILY 09/27/19 08/21/21 History Cyanocobalamin (Vitamin B-12) 1,000 mcg PO DAILY 09/27/19 08/21/21 History [Vitamin B-12] Cod Liver Oil 1 cap PO BID 03/22/20 08/21/21 History Cholecalciferol [Vitamin D3 (25 50 mcg PO DAILY 08/21/21 08/21/21 History Mcg = 1000 Iu)] Extra Strength Krill Oil 500 mg PO DAILY 08/21/21 08/21/21 History Isosorbide Mononitrate ER [Imdur] 60 mg PO DAILY 08/21/21 08/21/21 History Metoprolol Succinate (ER) [Toprol 50 mg PO DAILY 08/21/21 08/21/21 History Xl] Ubidecarenone [Co Q-10] 400 mg PO DAILY 08/21/21 08/21/21 History Allergies Allergy/AdvReac Type Severity Reaction Status Date / Time doxycycline calcium Allergy Unknown Verified 08/21/21 07:12 [From Vibramycin] doxycycline hyclate Allergy Unknown Verified 08/21/21 07:12 [From Vibramycin] doxycycline monohydrate Allergy Unknown Verified 08/21/21 07:12 [From Vibramycin] Penicillins Allergy Rash/Hives Verified 08/21/21 07:12 Sulfa (Sulfonamide Allergy Rash/Hives Verified 08/21/21 07:12 Antibiotics) sulfamethoxazole Allergy Unknown Verified 08/21/21 07:12 [From ] trimethoprim [From ] Allergy Unknown Verified 08/21/21 07:12 Physical Exam Vitals: Vital Signs Temp Pulse Resp BP Pulse Ox 08/21/21 08:06 50 L 16 154/91 98 08/21/21 04:41 52 L 18 162/66 97 08/21/21 03:14 56 L 18 145/72 98 08/21/21 02:52 50 L 18 145/61 97 08/21/21 01:52 97.7 F 99 20 147/89 99 Intake and Output 08/20/21 08/21/21 08/21/21 22:59 06:59 14:59 Other: Weight 73.936 kg Results 08/21/21 02:25 08/21/21 02:25 Cardiac Enzymes 08/21/21 08/21/21 08/21/21 Range/Units 02:25 02:25 06:19 AST 45 H (14-36) U/L Troponin I 0.018 0.384 H* (0.000-0.034) ng/mL Coagulation 08/21/21 Range/Units 02:25 PT 9.6 (9.0-12.0) sec APTT 21.3 L (22.0-30.0) sec CBC 08/21/21 Range/Units 02:25 WBC 9.7 (3.8-10.6) k/uL RBC 3.93 (3.80-5.40) m/uL Hgb 13.0 (11.4-16.0) gm/dL Hct 39.7 (34.0-46.0) % Plt Count 212 (150-450) k/uL Comprehensive Metabolic Panel 08/21/21 Range/Units 02:25 Sodium 132 L (137-145) mmol/L Potassium 4.6 (3.5-5.1) mmol/L Chloride 97 L (98-107) mmol/L Carbon Dioxide 21 L (22-30) mmol/L BUN 26 H (7-17) mg/dL Creatinine 0.87 (0.52-1.04) mg/dL Glucose 121 H (74-99) mg/dL Calcium 9.2 (8.4-10.2) mg/dL AST 45 H (14-36) U/L ALT 43 H (4-34) U/L Alkaline Phosphatase 61 (38-126) U/L Total Protein 7.6 (6.3-8.2) g/dL Albumin 4.6 (3.5-5.0) g/dL Current Medications Generic Name Dose Route Start Last Admin Trade Name Freq PRN Reason Stop Dose Admin Amlodipine Besylate 10 mg 08/21/21 21:00 Amlodipine 10 Mg Tab PO HS [facility] Aspirin 81 mg 08/22/21 09:00 Aspirin 81 Mg PO DAILY [facility] Atorvastatin Calcium 80 mg 08/21/21 21:00 Atorvastatin 80 Mg Tab PO HS [facility] Calcium Carbonate 1 each 08/21/21 09:00 Calcium Carb-Vit D 500 Mg-5 Mcg Tab PO DAILY [facility] Carbamazepine 200 mg 08/21/21 09:00 Carbamazepine 200 Mg Tab PO BID [facility] Cholecalciferol 50 mcg 08/21/21 09:00 Cholecalciferol 25 Mcg (1000 Iu) Tablet PO DAILY [facility] Clopidogrel Bisulfate 75 mg 08/21/21 09:00 Clopidogrel 75 Mg Tab PO QAM [facility] Cyanocobalamin 1,000 mcg 08/21/21 09:00 Cyanocobalamin 500 Mcg Tab PO DAILY [facility] Gabapentin 300 mg 08/21/21 12:00 Gabapentin 300 Mg Cap PO BID@1200,1700 [facility] Heparin Sodium/Sodium Chloride 250 mls @ 8.872 mls/hr 08/21/21 04:15 08/21/21 04:34 25,000 unit/ Sodium Chloride IV 12 units/kg/hr .Q24H [place] 8.872 mls/hr Administration Protocol 12 UNITS/KG/HR Insulin Aspart 0 unit 08/21/21 07:30 08/21/21 08:37 Insulin Aspart (Novolog) 100 Unit/Ml Vial SQ Not Given ACHS [facility] Protocol Isosorbide Mononitrate 30 mg 08/21/21 18:30 Isosorbide Mononitrate Er 30 Mg Tab.Er.24h PO PC-SUPPER [facility] Letrozole 2.5 mg 08/21/21 09:00 Letrozole 2.5 Mg Tab PO DAILY [facility] Levothyroxine Sodium 137 mcg 08/21/21 06:30 08/21/21 07:57 Levothyroxine 137 Mcg Tab PO 137 mcg QAM@0630 [facility] Administration Losartan Potassium 50 mg 08/21/21 09:00 Losartan 50 Mg Tab PO BID [place] Metoprolol Succinate 50 mg 08/21/21 09:00 Metoprolol Succinate (Er) 50 Mg Tab.Er.24h PO DAILY [place] Morphine Sulfate 4 mg 08/21/21 04:02 Morphine Sulfate 4 Mg/Ml Syringe IV Q4HR PRN Chest Pain Nitroglycerin 0.4 mg 08/21/21 04:02 Nitroglycerin Sl Tabs 0.4 Mg Tab SUBLINGUAL Q5M PRN Chest Pain Pantoprazole Sodium 40 mg 08/22/21 07:30 Pantoprazole 40 Mg Tablet PO AC-BRKFST [facility] Intake and Output 08/20/21 08/21/21 08/21/21 22:59 06:59 14:59 Other: Weight 73.936 kg 08/21/21 02:25 08/21/21 02:25
[2021-08-21] MEDS: GABAPENTIN 300 MG CAP PO SCH ×2 (11:48→16:45)
[2021-08-21] MEDS: MAGNESIUM SULFATE-D5W PMX 1 GM in DEXTROSE/WATER 1 100ML.BAG IVPB SCH ×2 (11:48→13:03)
--- NOTE | 2021-08-21 12:41 | ECHOF ---
Referral Reason:elevTrop MEASUREMENTS -------- HEIGHT: 152.4 cm WEIGHT: 73.9 kg BP: 162/66 IVSd: 1.3 cm (0.6 - 1.1) LVIDd: 4.9 cm (3.9 - 5.3) LVPWd: 1.3 cm (0.6 - 1.1) EDV(Teich): 110 ml IVSs: 1.7 cm LVIDs: 3.1 cm LVPWs: 1.6 cm %IVS Thck: 36 % ESV(Teich): 39 ml EF(Teich): 65 % %FS: 36 % SV(Teich): 71 ml LVOT Diam: 2.0 cm LA Diam: 4.3 cm (2.7 - 3.8) RVIDd: 3.3 cm (< 3.3) LALs A4C: 5.1 cm LAAs A4C: 20.4 cm LAESV A-L A4C: 69 ml LAESV MOD A4C: 66 ml LALs A2C: 5.2 cm LAAs A2C: 19.4 cm LAESV A-L A2C: 61 ml LAESV MOD A2C: 59 ml LAESV(A-L): 66 ml LAESV Index (A-L): 38.42 ml/m Ao Diam: 3.0 cm (2.0 - 3.7) AV Cusp: 1.3 cm (1.5 - 2.6) EPSS: 0.7 cm MV E Ben: 1.34 m/s MV DecT: 204 ms MV Dec Scurry: 6.6 m/s MV A Ben: 0.90 m/s MV E/A Ratio: 1.50 MV PHT: 59 ms LVOT Vmax: 0.85 m/s LVOT maxP.86 mmHg AV Vmax: 2.31 m/s AV maxP.33 mmHg RAFAEL Vmax, Pt: 1.1 cm AV Vmax: 2.33 m/s AV Vmean: 1.48 m/s AV maxP.65 mmHg AV meanP.33 mmHg AV Env.Ti: 383 ms AV VTI: 56.6 cm RAFAEL Vmax, Pt: 1.1 cm AR Vmax: 4.01 m/s AR maxP.21 mmHg AR PHT: 427 ms AR Dec Time: 1474 ms AR Dec Scurry: 2.7 m/s TR Vmax: 2.65 m/s TR maxP.10 mmHg RAP: 5.00 mmHg RVSP: 33.10 mmHg MV EF SLOPE: 41.49 mm/s (70 - 150) MV EXCURSION: 14.64 mm (> 18.000) FINDINGS -------- Suboptimal image quality - poor subcostal views. The left ventricular size is normal. There is mild concentric left ventricular hypertrophy. Overa ll left ventricular systolic function is normal with, an EF between 65 - 70 %. The right ventricle is mildly enlarged. LA is moderately dilated 34-39 ml/m2 The right atrium is normal in size. Interatrial and interventricular septum intact. There is mild aortic valve sclerosis. There is mild aortic regurgitation. There is mild aortic st enosis present. Peak/mean gradient across the Aortic Valve is 21.65mmHg / 10.33mmHg. Mild mitral regurgitation is present. Mild tricuspid regurgitation present. There is borderline pulmonary hypertension. The right ventr icular systolic pressure, as measured by Doppler, is 33.10mmHg. Trace/mild (physiologic) pulmonic regurgitation. The aortic root size is normal. IVC Not well visulized. There is no pericardial effusion. CONCLUSIONS -------- 1. The left ventricular size is normal. 2. There is mild concentric left ventricular hypertrophy. 3. Overall left ventricular systolic function is normal with, an EF between 65 - 70 %. 4. The right ventricle is mildly enlarged. 5. LA is moderately dilated 34-39 ml/m2 6. There is mild aortic valve sclerosis. 7. There is mild aortic regurgitation. 8. There is mild aortic stenosis present. 9. Peak/mean gradient across the Aortic Valve is 21.65mmHg / 10.33mmHg. 10. Mild mitral regurgitation is present. 11. Mild tricuspid regurgitation present. 12. There is borderline pulmonary hypertension. 13. The right ventricular systolic pressure, as measured by Doppler, is 33.10mmHg. 14. Trace/mild (physiologic) pulmonic regurgitation. 15. There is no pericardial effusion. PACKAGING TECHNICIAN: Eugenie Valiente RDCS
--- NOTE | 2021-08-21 12:52 | P.PN ---
Progress Note - Text Progress Note Date: 08/21/21 I saw and evaluated patient independently today and I agree with the documented assessment and plan by my colleague earlier this morning. Patient has a non-ST elevation FL, with increasing troponins. Her pain is well-controlled at this time. She is on aspirin, Plavix, statin, metoprolol, heparin drip, Imdur. Plan for left heart catheterization on 08/22. Patient will be nothing by mouth at midnight
[2021-08-21] MEDS: ISOSORBIDE MONONITRATE ER 30 MG TAB.ER.24H PO SCH (16:45)
[2021-08-21 16:50] LABS: Glucose,Whole Blood 113 mg/dL (75-99)
[2021-08-21 20:34] LABS: Glucose,Whole Blood 153 mg/dL (75-99)
[2021-08-21] MEDS: ATORVASTATIN 80 MG TAB PO SCH (21:33)
[2021-08-21] MEDS: amLODIPine 10 MG TAB PO SCH (21:33)
[2021-08-22 05:59] LABS: Glucose,Whole Blood 142 mg/dL (75-99)
[2021-08-22] MEDS: CLOPIDOGREL 75 MG TAB PO SCH (06:20)
[2021-08-22] MEDS: METOPROLOL SUCCINATE (ER) 50 MG TAB.ER.24H PO SCH (06:20)
[2021-08-22] MEDS: ASPIRIN 81 MG PO SCH (06:20)
[2021-08-22] MEDS: PANTOPRAZOLE 40 MG TABLET PO SCH (06:20)
[2021-08-22] MEDS: INSULIN ASPART (NovoLOG) 100 UNIT/ML VIAL SQ SCH ×4 (06:21→21:16)
[2021-08-22] MEDS: LEVOTHYROXINE 137 MCG TAB PO SCH (06:21)
[2021-08-22] MEDS ORDERED: HEPARIN SODIUM,PORCINE 10,000 UNIT in SODIUM CHLORIDE 0.9% 1,000 ML IRRIGATION PRN (07:00)
[2021-08-22] MEDS ORDERED: HEPARIN SODIUM,PORCINE 2,500 UNIT in SODIUM CHLORIDE 0.9% 250 ML IRRIGATION PRN (07:00)
[2021-08-22] MEDS ORDERED: IV FLUID CONTINUATION 600 ML IV ONE (07:30)
[2021-08-22] MEDS ORDERED: LIDOCAINE 1% INJ 10MG/ML (20 ML MDV) ONE (07:35)
[2021-08-22] MEDS: MIDAZOLAM 2 MG/2 ML VIAL IV ONE ×2 (07:42→07:53)
[2021-08-22] MEDS ORDERED: fentaNYL (PF) 50 MCG/ML 5 ML AMP IV ONE (07:42)
[2021-08-22] MEDS ORDERED: LIDOCAINE 2% (PF) 20 MG/ML 5 ML VIAL SQ ONE (07:45)
[2021-08-22] MEDS ORDERED: HEPARIN SODIUM 1,000 UN/ML (10ML VL) ONE (08:11)
[2021-08-22] MEDS ORDERED: HEPARIN SODIUM 1,000 UN/ML (10ML VL) IV ONE (08:12)
[2021-08-22] MEDS ORDERED: niCARdipine Syringe (1,000 mcg/10 mL) INTRACORON ONE (08:20)
[2021-08-22] MEDS ORDERED: niCARdipine 25 MG/10 ML VIAL ONE (08:20)
[2021-08-22] MEDS ORDERED: MAG HYDROX/AL HYDROX/SIMETH 30 ML CUP PO PRN (08:33)
[2021-08-22] MEDS ORDERED: ATROPINE SULFATE 0.1 MG/ML 10ML SYRINGE IV PRN (08:33)
[2021-08-22] MEDS ORDERED: RX INFO: IV CONTRAST WAS GIVEN 1 EACH MISC MISCELLANE PRN (08:33)
[2021-08-22] MEDS ORDERED: NITROGLYCERIN SL TABS 0.4 MG TAB SUBLINGUAL PRN (08:33)
[2021-08-22] MEDS ORDERED: ZOLPIDEM 5 MG TAB PO PRN (08:33)
[2021-08-22] MEDS ORDERED: CLOPIDOGREL 75 MG TAB ONE (08:33)
[2021-08-22] MEDS ORDERED: SODIUM CHLORIDE 0.9% 1,000 ML IV SCH (08:45)
[2021-08-22] MEDS ORDERED: CLOPIDOGREL 75 MG TAB PO ONE (08:45)
[2021-08-22] MEDS ORDERED: ASPIRIN 325 MG TAB PO SCH (09:00)
--- NOTE | 2021-08-22 09:29 | CONS ---
CONSULTATION INDICATION: Acute tkt-[id number]-elevation MN. PROCEDURE NOTE: After obtaining informed consent, left heart catheterization, coronary angiogram and selective injection of the bypass grafts were performed via the right femoral artery using standard Loulou catheters. The right Loulou was used to engage the venous graft and the MOODY. The patient received moderate conscious sedation. Total sedation time was 28 minutes. FINDINGS: HEMODYNAMICS: Central aortic pressure is 180/90 mm. LEFT VENTRICULOGRAM: Left ventriculogram is not performed. CORONARY ANGIOGRAM: [place] CORONARIES: LEFT MAIN CORONARY ARTERY appears patent, divides into left anterior descending coronary artery and circumflex coronary artery. LEFT ANTERIOR DESCENDING CORONARY ARTERY: LAD appears totally occluded in the proximal part. CIRCUMFLEX CORONARY ARTERY: Circumflex coronary artery shows a 90% stenosis proximally. It is diffusely diseased throughout. There are [id number] collaterals to the distal RCA. RIGHT CORONARY ARTERY: Right coronary artery is totally occluded proximally. VENOUS GRAFT TO DIAG: Occluded which is a chronic occlusion. VENOUS GRAFT TO THE OM BRANCH appears patent. There is an area of plaque rupture in the body of the graft with 70% stenosis. MOODY to LAD appears patent and is free of significant stenosis both at the proximal and distal anastomotic site. There is no stenosis. The body of the graft is patent and the tuscarora LAD is free of significant disease. CONCLUSIONS: Severe three-vessel coronary artery disease with a chronically occluded venous graft to diagonal, patent MOODY to LAD, patent venous graft to circ, previously occluded venous graft to the right coronary artery. PLAN: Patient will undergo angioplasty of the venous graft to the circ which seems to be the culprit vessel angiogram. Angiograms were reviewed by Dr. Nelson the on-call back up machine operator who will proceed with angioplasty of the same. MMODL / IJN: [id number] /
--- NOTE | 2021-08-22 09:35 | PTCA ---
PERCUTANEOUSTRANS CORORONARY ANGIOGRAPHY DATE OF SERVICE: August 22, 2021. PERFORMING PHYSICIAN: Gabriel Nelson MD. PROCEDURE PERFORMED: 1. Successful stenting of the SVG to diagonal using a 3.25 x 15 mm Xience LEEANN with an excellent angiographic results and reduction of stenosis from 70% to 0%. INDICATIONS: This is an 81-year-old female patient who sees Dr. Ventura in the office as an outpatient with history of coronary artery disease and prior coronary artery bypass grafting as well as stenting, who was admitted to the hospital with chest discomfort and ruled in for acute coronary event. She underwent a heart catheterization by Dr. Ventura earlier today and that revealed severe triple-vessel coronary artery disease with patent MOODY to LAD and severe disease involving the SVG to diagonal. APPROACH: Right common femoral artery. COMPLICATION: None. LEVEL OF SEDATION: Moderate with sedation length of 11 minutes. PROCEDURE DESCRIPTION: After obtaining informed consent, the patient was brought to the cardiac catheterization laboratory technician. Please refer to the diagnostic part of the procedure, which was performed by Dr. Ventura. Anticoagulation was initiated using heparin. The patient was given a total of 3000 units of heparin IV. After that I did engage the SVG to diagonal using LCB guide. I did wire it using a run- through wire. After that, I did direct stenting of the lesion using 3.25 x 15 mm Xience drug-eluting stent where the stent was positioned under fluoroscopy guidance and deployed under its nominal pressure. The following angiogram showed excellent angiographic results and the procedure was completed without any complication. POSTPROCEDURE MANAGEMENT: 1. Dual anti-platelet therapy. 2. Aggressive cholesterol control. 3. Risk factor modifications. 4. Follow up with the patient. MMODL / IJN: [id number] /
[2021-08-22] MEDS: CALCIUM CARB-VIT D 500 MG-5 MCG TAB PO SCH ×2 (10:00→13:55)
[2021-08-22] MEDS: carBAMazepine 200 MG TAB PO SCH ×2 (10:00→21:15)
[2021-08-22] MEDS: LETROZOLE 2.5 MG TAB PO SCH (10:01)
[2021-08-22] MEDS: CHOLECALCIFEROL 25 MCG (1000 IU) TABLET PO SCH ×2 (10:01→13:55)
[2021-08-22] MEDS: LOSARTAN 50 MG TAB PO SCH ×2 (10:01→21:16)
[2021-08-22] MEDS: CYANOCOBALAMIN 500 MCG TAB PO SCH ×2 (10:01→13:55)
[2021-08-22 11:01] VITALS: BMI 31.8
[2021-08-22] MEDS ORDERED: hydrALAZINE HCL 20 MG/ML 1 ML VIAL ONE (11:37)
[2021-08-22] MEDS ORDERED: HYDROmorphone 1 MG/ML 1 ML SYRINGE ONE (12:14)
[2021-08-22] MEDS ORDERED: HYDROmorphone 1 MG/ML 1 ML SYRINGE IVP ONE (12:15)
[2021-08-22] MEDS ORDERED: ONDANSETRON 4 MG/2 ML VIAL IVP ONE (12:16)
[2021-08-22] MEDS ORDERED: ONDANSETRON 4 MG/2 ML VIAL ONE (12:18)
[2021-08-22 13:11] LABS: Basophils % (A) 0 %; Eosinophils # (A) 0.1 k/uL (0-0.7); Eosinophils % (A) 1 %; HCT 36.3 % (34.0-46.0); HGB 12.2 gm/dL (11.4-16.0); Lymphocytes # (A) 2.1 k/uL (1.0-4.8); Lymphocytes % (A) 37 %; MCH 34.1 pg (25.0-35.0); MCHC 33.6 g/dL (31.0-37.0); MCV 101.4 fL (80.0-100.0); Macrocytosis Slight; Mean Platelet Volume 6.7; Monocytes # (A) 0.3 k/uL (0-1.0); Monocytes % (A) 5 %; Neutrophils # (A) 3.1 k/uL (1.3-7.7); Neutrophils % (A) 54 %; Platelet Count 210 k/uL (150-450); RBC 3.59 m/uL (3.80-5.40); RDW 13.2 % (11.5-15.5); WBC 5.7 k/uL (3.8-10.6)
[2021-08-22 13:54] LABS: Calcium 8.3 mg/dL (8.4-10.2)
[2021-08-22] MEDS: GABAPENTIN 300 MG CAP PO SCH ×2 (14:03→17:21)
[2021-08-22 14:28] LABS: Magnesium 1.8 mg/dL (1.6-2.3)
[2021-08-22] MEDS: SODIUM CHLORIDE 0.9% 1,000 ML in EMPTY BAG 1 BAG IV SCH ×3 (14:28→21:17)
[2021-08-22 16:43] LABS: Glucose,Whole Blood 178 mg/dL (75-99)
[2021-08-22] MEDS: ISOSORBIDE MONONITRATE ER 30 MG TAB.ER.24H PO SCH (17:21)
--- NOTE | 2021-08-22 17:23 | P.PN ---
Subjective Progress Note Date: 08/22/21 No new complaints, doing well after her catheterization today in which she had the drug-eluting stent to the SVG that leads to the left circumflex. Doing well postoperatively Objective - Vital Signs Vital signs: Vital Signs Temp 98.2 F 08/22/21 13:30 Pulse 54 L 08/22/21 13:30 Resp 20 08/22/21 13:30 BP 155/68 08/22/21 13:30 Pulse Ox 95 08/22/21 13:30 Intake & Output 08/21/21 08/22/21 08/22/21 18:59 06:59 18:59 Intake Total 240 450 Output Total 200 850 Balance 240 -200 -400 Weight 73.936 kg 73.936 kg Intake: IV 450 Oral 240 Output: Urine 200 850 Other: Voiding Method Toilet # Voids 1 - Exam Gen: awake, alert HEENT: normocephalic, atraumatic, good hearing acuity, moist mucous membranes Resp: good air exchange, breathing comfortably with no accessory muscle use CVS: good distal perfusion x 4, GI: soft, NTTP, ND : no SPT, no CVAT, pierce catheter not present MSK: no pitting edema, no clubbing Neuro: non-focal, moving all extremities Psych: cooperative, euthymic mood - Labs CBC & Chem 7: 08/22/21 12:53 08/22/21 12:53 Labs: Abnormal Lab Results - Last 24 Hours (Table) 08/21/21 08/22/21 08/22/21 Range/Units 20:27 05:55 12:53 RBC 3.59 L (3.80-5.40) m/uL MCV 101.4 H (80.0-100.0) fL Sodium (137-145) mmol/L BUN (7-17) mg/dL Glucose (74-99) mg/dL POC Glucose (mg/dL) 153 H 142 H (75-99) mg/dL Calcium (8.4-10.2) mg/dL 08/22/21 08/22/21 Range/Units 12:53 16:41 RBC (3.80-5.40) m/uL MCV (80.0-100.0) fL Sodium 132 L (137-145) mmol/L BUN 18 H (7-17) mg/dL Glucose 162 H (74-99) mg/dL POC Glucose (mg/dL) 178 H (75-99) mg/dL Calcium 8.3 L (8.4-10.2) mg/dL Assessment and Plan Assessment: NSTEMI History of CAD status post stents 6 years ago Patient initiated on heparin drip, full dose aspirin Continue statin Monitor and trend troponins property assessment monitor Monitor vital signs Cardiology consult Check echocardiogram Check lipid profile Hypomagnesemia replace and follow-up levels Hyponatremia possible component of dehydration Lactic acidosis Patient initiated on IV fluid hydration with normal saline Chronic conditions Hypertension resume cardiac home meds Diabetes mellitus hold oral hypoglycemic agents, initiate insulin sliding scale Hypothyroidism resume levothyroxine Patient is full code DVT prophylaxis currently on heparin drip for ACS protocol Anticipated length of stay less than 2 midnights
[2021-08-22 20:45] LABS: Glucose,Whole Blood 214 mg/dL (75-99)
[2021-08-22] MEDS: ATORVASTATIN 80 MG TAB PO SCH (21:15)
[2021-08-22] MEDS: amLODIPine 10 MG TAB PO SCH (21:15)
[2021-08-23] MEDS: HEPARIN SOD,PORK IN 0.45% NACL 25,000 UNIT in 0.45% NACL 1 250ML.BAG IV SCH (01:50)
[2021-08-23 03:22] VITALS: RESP 16
[2021-08-23 05:59] LABS: Glucose,Whole Blood 120 mg/dL (75-99)
[2021-08-23] MEDS: INSULIN ASPART (NovoLOG) 100 UNIT/ML VIAL SQ SCH (06:02)
[2021-08-23] MEDS: LEVOTHYROXINE 137 MCG TAB PO SCH (06:05)
[2021-08-23] MEDS: PANTOPRAZOLE 40 MG TABLET PO SCH (06:05)
--- NOTE | 2021-08-23 07:03 | P.PN ---
Subjective Progress Note Date: 08/23/21 Principal diagnosis: Acute coronary syndrome The patient is a pleasant 81-year-old female patient with coronary artery disease and prior revascularization who was admitted to the hospital with a chest discomfort and ruled in for acute coronary event. She underwent a heart catheterization and stenting of the SVG to diagonal. She was seen today [place] is chest pain-free. Hemodynamically she is stable. The right groin is soft and nontender and without any bruises. From a ca rdiovascular standpoint of view, she can be discharged home Objective - Vital Signs Vital signs: Vital Signs Temp 98.6 F 08/23/21 03:21 Pulse 56 L 08/23/21 03:21 Resp 16 08/23/21 03:21 BP 154/64 08/23/21 03:21 Pulse Ox 96 08/23/21 03:21 Intake & Output 08/22/21 08/23/21 08/23/21 18:59 06:59 18:59 Intake Total 450 Output Total 850 Balance -400 Weight 73.936 kg 73.7 kg Intake: IV 450 Output: Urine 850 Other: Voiding Method Toilet # Voids 1 - Constitutional General appearance: Present: no acute distress - Respiratory Respiratory: bilateral: CTA - Cardiovascular Rhythm: regular Heart sounds: normal: S1, S2 - Labs CBC & Chem 7: 08/22/21 12:53 08/23/21 04:01 Labs: Abnormal Lab Results - Last 24 Hours (Table) 08/22/21 08/22/21 08/22/21 Range/Units 12:53 12:53 16:41 RBC 3.59 L (3.80-5.40) m/uL MCV 101.4 H (80.0-100.0) fL Sodium 132 L (137-145) mmol/L BUN 18 H (7-17) mg/dL Glucose 162 H (74-99) mg/dL POC Glucose (mg/dL) 178 H (75-99) mg/dL Calcium 8.3 L (8.4-10.2) mg/dL 08/22/21 08/23/21 Range/Units 20:35 05:53 RBC (3.80-5.40) m/uL MCV (80.0-100.0) fL Sodium (137-145) mmol/L BUN (7-17) mg/dL Glucose (74-99) mg/dL POC Glucose (mg/dL) 214 H 120 H (75-99) mg/dL Calcium (8.4-10.2) mg/dL Assessment and Plan Assessment: Assessment #1 acute coronary syndrome #2 CAD with prior revascularization #3 hypertension #4 hyperlipidemia Plan #1 the patient can be discharged home #2 follow-up with Dr. Ventura
[2021-08-23] MEDS: LOSARTAN 50 MG TAB PO SCH (08:40)
[2021-08-23] MEDS: CLOPIDOGREL 75 MG TAB PO SCH (08:40)
[2021-08-23] MEDS: carBAMazepine 200 MG TAB PO SCH (08:40)
[2021-08-23] MEDS: LETROZOLE 2.5 MG TAB PO SCH (08:40)
[2021-08-23] MEDS: ASPIRIN 81 MG PO SCH (08:40)
[2021-08-23] MEDS: CYANOCOBALAMIN 500 MCG TAB PO SCH (08:40)
[2021-08-23] MEDS: CHOLECALCIFEROL 25 MCG (1000 IU) TABLET PO SCH (08:40)
[2021-08-23] MEDS: CALCIUM CARB-VIT D 500 MG-5 MCG TAB PO SCH (08:40)
[2021-08-23] MEDS: METOPROLOL SUCCINATE (ER) 50 MG TAB.ER.24H PO SCH (08:40)
[2021-08-23 09:28] LABS: Chol/HDL Ratio 2.11 Ratio; LDL Cholesterol,Calculated 47.6 mg/dL (0.0-131.0); VLDL Calculation 19.76 mg/dL (5.00-40.00)
[2021-08-23 09:54] VITALS: BP 130/56; PULSE 57; TEMP 97.9
--- NOTE | 2021-08-23 10:41 | P.DS ---
Providers Date of admission: 08/21/21 09:16 Expected date of discharge: 08/23/21 Attending physician: Blaze Shannon MD Consults: 08/21/21 04:02 Consult Physician Urgent Consulting Provider: Cari Esqueda Consult Reason/Comments: cp Do you want consulting provider notified?: Yes 08/22/21 08:33 Consult Physician Routine Consulting Provider: [facility] Consult Reason/Comments: Post Interventional patient Do you want consulting provider notified?: Already Contacted Primary care physician: Daniela Mena [facility] Course: NSTEMI History of CAD status post stents 6 years ago Patient admitted for chest pain. She had her ASA/Plavix/Statin resumed and patient initiated on heparin drip. Cardiology was consulted. Troponins trended up. Pt was taken to labor relations officer on 08/22 and had LEEANN placed to SVG leading to LCx. She was stable following the procedure and cleared by cardiology to go home with f/u. Echo with good EF and no WMA. Imdur dose was reduced to 30mg, otherwise no change to medications. Hypertension resumed cardiac home meds with changes noted above Diabetes mellitus resumed oral hypoglycemic agents on discharge Hypothyroidism patients home dose levothyroxine was supposed to be 137mcg but she was receiving 150mcg pills, these were reordered appropriately and sent to pharmacy. I spent 35 minutes coordinating this discharge. Assessment: Gen: awake, alert HEENT: normocephalic, atraumatic, good hearing acuity, moist mucous membranes Resp: good air exchange, breathing comfortably with no accessory muscle use CVS: good distal perfusion x 4, GI: soft, NTTP, ND : no SPT, no CVAT, pierce catheter not present MSK: no pitting edema, no clubbing Neuro: non-focal, moving all extremities Psych: cooperative, euthymic mood Patient Condition at Discharge: Good Plan - Discharge Summary Discharge Rx Participant: No New Discharge Prescriptions: New Levothyroxine Sodium [Synthroid] 137 mcg PO QAM@0630 #30 tab Continue carBAMazepine [TEGretol] 200 mg PO BID Acarbose [Precose] 50 mg PO TID glipiZIDE [Glucotrol] 5 mg PO DAILY@1200 Aspirin 81 mg PO W/LUNCH Gabapentin [Neurontin] 300 mg PO BID@1200,1700 metFORMIN HCL [Glucophage] 1,000 mg PO W/SUPPER Multivit-Min/FA/Lycopene/Lut [Centrum Silver Tablet] 1 tab PO DAILY Atorvastatin [Lipitor] 80 mg PO HS #30 tab Nitroglycerin Sl Tabs [Nitrostat] 0.4 mg SUBLINGUAL Q5M PRN #25 tab PRN Reason: Chest Pain amLODIPine [Norvasc] 10 mg PO HS #30 tab Losartan [Cozaar] 50 mg PO BID@1200,1700 Risedronate Sodium [Actonel] 35 mg PO MITCHELL Letrozole 2.5 mg PO DAILY Cyanocobalamin (Vitamin B-12) [Vitamin B-12] 1,000 mcg PO DAILY Clopidogrel [Plavix] 75 mg PO DAILY Calcium Carbonate/Vitamin D3 [Caltrate 600 Plus D3 20 Mcg (800 Iu)] 1 tab PO DAILY Cod Liver Oil 1 cap PO BID Extra Strength Krill Oil 500 mg PO DAILY Cholecalciferol [Vitamin D3 (25 Mcg = 1000 Iu)] 50 mcg PO DAILY Metoprolol Succinate (ER) [Toprol XL] 50 mg PO DAILY Ubidecarenone [Co Q-10] 400 mg PO DAILY Changed Isosorbide Mononitrate ER [Imdur] 30 mg PO DAILY #0 Discontinued Levothyroxine Sodium [Synthroid] 137 mcg PO DAILY Discharge Medication List Acarbose [Precose] 50 mg PO TID 04/29/15 [History] Aspirin 81 mg PO W/LUNCH 04/29/15 [History] Gabapentin [Neurontin] 300 mg PO BID@1200,1700 04/29/15 [History] carBAMazepine [TEGretol] 200 mg PO BID 04/29/15 [History] glipiZIDE [Glucotrol] 5 mg PO DAILY@1200 04/29/15 [History] metFORMIN HCL [Glucophage] 1,000 mg PO W/SUPPER 04/29/15 [History] Multivit-Min/FA/Lycopene/Lut [Centrum Silver Tablet] 1 tab PO DAILY 04/30/15 [History] Atorvastatin [Lipitor] 80 mg PO HS #30 tab 05/02/15 [Rx] Nitroglycerin Sl Tabs [Nitrostat] 0.4 mg SUBLINGUAL Q5M PRN #25 tab 05/02/15 [Rx] amLODIPine [Norvasc] 10 mg PO HS #30 tab 05/02/15 [Rx] Losartan [Cozaar] 50 mg PO BID@1200,1700 08/17/16 [History] Letrozole 2.5 mg PO DAILY 02/24/18 [History] Risedronate Sodium [Actonel] 35 mg PO MITCHELL 02/24/18 [History] Calcium Carbonate/Vitamin D3 [Caltrate 600 Plus D3 20 Mcg (800 Iu)] 1 tab PO DAILY 09/27/19 [History] Clopidogrel [Plavix] 75 mg PO DAILY 09/27/19 [History] Cyanocobalamin (Vitamin B-12) [Vitamin B-12] 1,000 mcg PO DAILY 09/27/19 [History] Cod Liver Oil 1 cap PO BID 03/22/20 [History] Cholecalciferol [Vitamin D3 (25 Mcg = 1000 Iu)] 50 mcg PO DAILY 08/21/21 [History] Extra Strength Krill Oil 500 mg PO DAILY 08/21/21 [History] Metoprolol Succinate (ER) [Toprol XL] 50 mg PO DAILY 08/21/21 [History] Ubidecarenone [Co Q-10] 400 mg PO DAILY 08/21/21 [History] Isosorbide Mononitrate ER [Imdur] 30 mg PO DAILY #0 08/23/21 [Rx] Levothyroxine Sodium [Synthroid] 137 mcg PO QAM@0630 #30 tab 08/23/21 [Rx] Follow up Appointment(s)/Referral(s): [facility], [NON-STAFF] - Daniela Mena MD [Primary Care Provider] - 1-2 days Amadou Ventura MD [STAFF PHYSICIAN] - 1 Week Patient Instructions/Handouts: Chest Pain (DC) Discharge Disposition: HOME WITH HOME HEALTH SERVICES
== END 2021-08-23 11:28 | disposition home health service (06) ==
LOC: EC 01:44 → 1SOBS 04:02 → 3SCARD 09:14 → OBSVTOIN 09:16 → INTOOBSV 09:16 → 3SCARD 15:24 → UNDODISIN 08-23 11:28
PROVIDERS: ADMIT Internal Medicine; ATTEND Internal Medicine
PROC: 027034Z Dilation of Coronary Artery, One Artery with Drug-eluting Intraluminal Device, Percutaneous Approach (ICD-10-PCS; principal; 2021-08-22 07:30)
PROC: B2111ZZ Fluoroscopy of Multiple Coronary Arteries using Low Osmolar Contrast (ICD-10-PCS; 2021-08-22 07:30)
PROC: B2131ZZ Fluoroscopy of Multiple Coronary Artery Bypass Grafts using Low Osmolar Contrast (ICD-10-PCS; 2021-08-22 07:30)
PROC: 4A023N7 Measurement of Cardiac Sampling and Pressure, Left Heart, Percutaneous Approach (ICD-10-PCS; 2021-08-22 07:30)
PROC: B2181ZZ Fluoroscopy of Left Internal Mammary Bypass Graft using Low Osmolar Contrast (ICD-10-PCS; 2021-08-22 07:30)
DX: I21.4 Non-ST elevation (NSTEMI) myocardial infarction (principal); E87.2 Acidosis; E87.1 Hypo-osmolality and hyponatremia; I25.710 Atherosclerosis of autologous vein coronary artery bypass graft(s) with unstable angina pectoris; I11.9 Hypertensive heart disease without heart failure; I25.110 Atherosclerotic heart disease of native coronary artery with unstable angina pectoris; I08.3 Combined rheumatic disorders of mitral, aortic and tricuspid valves; E11.9 Type 2 diabetes mellitus without complications; E83.42 Hypomagnesemia; E78.00 Pure hypercholesterolemia, unspecified; E78.5 Hyperlipidemia, unspecified; E03.9 Hypothyroidism, unspecified; D64.9 Anemia, unspecified; K59.00 Constipation, unspecified; M19.90 Unspecified osteoarthritis, unspecified site; I25.2 Old myocardial infarction; I44.7 Left bundle-branch block, unspecified; R00.1 Bradycardia, unspecified; Z20.822 Contact with and (suspected) exposure to COVID-19; Z79.82 Long term (current) use of aspirin; Z79.890 Hormone replacement therapy; Z79.84 Long term (current) use of oral hypoglycemic drugs; Z79.811 Long term (current) use of aromatase inhibitors; Z79.02 Long term (current) use of antithrombotics/antiplatelets; Z79.899 Other long term (current) drug therapy; Z88.0 Allergy status to penicillin; Z88.1 Allergy status to other antibiotic agents; Z88.2 Allergy status to sulfonamides; Z95.1 Presence of aortocoronary bypass graft; Z95.5 Presence of coronary angioplasty implant and graft; Z87.891 Personal history of nicotine dependence; Z90.49 Acquired absence of other specified parts of digestive tract; Z90.13 Acquired absence of bilateral breasts and nipples; Z85.3 Personal history of malignant neoplasm of breast; Z90.710 Acquired absence of both cervix and uterus
CPT/HCPCS: 96365; 96366; 96375; 99291; 36415; 93005; 93306; 93455; 83880; 80061; 80053; 80048; 82565; 83605; 83735 ×2; 84100; 84484; 85025 ×2; 85610; 85730; 81001; 87635; 71046; G0378 ×4; C9604; C1769 ×4; C1887; C1894; C1874; J2250; J2405; J3010; J1644 ×3; J1170; J3475; C9113; J2001

== ENCOUNTER → 2021-09-19 | Outpatient (CLI) | payer MEDICARE ==
--- NOTE | 2021-09-19 12:18 | P.PN ---
Subjective Progress Note Date: 09/19/21 Principal diagnosis: bilateral breast cancer bilateral breast cancer bilateral mastectomies/ bilateral breast cancer left January 2007, right mastectomy August 2016 Michelle is an 81 year old white female with a history of bilateral breast cancer, and bilateral mastectomy. Her first mastectomy was the left breast January 2007. She had the right mastectomy, August 2016. The patient did not have any chemo or radiation therapy after either of the surgeries. She is presently taking Femara (letrazole). She is not complaining of any pain in her chest at this time. She does not complain of any lumps masses or nodules on her chest wall. She had a coronary stent placed on [id number]. She does complain of intermittent right axillary discomfort, and some limitation of motion which has not changed. She continues to follow with Dr[place] [id number] reviewed Family history: 1. maternal grandmother: cancer ? type 2. daughter: breast cancer Surgical history: 1. Bilateral mastectomy 2. Cholecystectomy 3. Hysterectomy ovaries not removed 4. Open heart surgery 5. Cardiac stents 6. Hemorrhoidectomy 7. Trigeminal neuralgia 8. left cataract surgery 9. Coronary stint 08-22-21 Medical history: 1. Hypertension 2. High cholesterol 3. Diabetes 4. Arthritis 5. history of bilateral breast cancer 6. 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 [place] GI: constipation : negative, hysterectomy Musculoskeletal: Arthritis Psychiatric: negative hematologic: aspirin/plavix integument: none allergies: as per HPI/ seasonal allergies history of bilateral breast cancer Objective - Constitutional General appearance: Present: cooperative - EENT Eyes: Present: EOMI ENT: Present: hearing grossly normal - Neck Neck: Present: normal ROM - Respiratory Respiratory: bilateral: CTA - Cardiovascular Rhythm: regular Heart sounds: normal: S1, S2 - Gastrointestinal General gastrointestinal: Present: soft - Integumentary Integumentary: Present: normal turgor - Psychiatric Psychiatric: Present: A&O x's 3, appropriate affect, intact judgment & insight - Additional findings Additional findings: Chest Wall Exam: Inspection: Status post bilateral mastectomies Palpation: Right chest wall: No evidence of recurrent disease Right axilla: No adenopathy of concern Left chest wall: No evidence of recurrent disease Left axilla: No adenopathy of concern Assessment and Plan Assessment: Impression: 1. Hypertension 2. High cholesterol 3. Diabetes 4. Arthritis 5. history of bilateral breast cancer 6. [place] 7. No evidence of any recurrent breast cancer Plan: 1. Continue Femara 2. Continue follow-up with medical oncology 3. Follow-up urine 1 year 4. Follow up sooner if any questions or concerns 5. There is no anatomic lesion identified which would be causing discomfort intermittently in the right axilla on the left chest wall CC: Beatriz Angeles
[2021-09-19 12:29] VITALS: RESP 16
== END ==
LOC: WWCWWP 11:30
PROVIDERS: ATTEND Surgery
DX: Z85.3 Personal history of malignant neoplasm of breast (principal); I10 Essential (primary) hypertension; E78.00 Pure hypercholesterolemia, unspecified; E11.9 Type 2 diabetes mellitus without complications; M19.90 Unspecified osteoarthritis, unspecified site; I25.2 Old myocardial infarction; Z88.1 Allergy status to other antibiotic agents; Z88.0 Allergy status to penicillin; Z88.2 Allergy status to sulfonamides

== ENCOUNTER → 2022-03-24 | Outpatient (CLI) | payer MEDICARE | END | disposition home or self-care (01) | LOC: LABWHC1 10:21 | PROVIDERS: ATTEND Internal Medicine Interventional Cardiology | DX: I48.0 Paroxysmal atrial fibrillation (principal) | CPT/HCPCS: 36415; 84443; 84450; 84460 ==

== ENCOUNTER → 2022-07-31 | Outpatient (CLI) | payer MEDICARE ==
--- NOTE | 2022-07-31 16:13 | US ---
EXAMINATION TYPE: US carotid duplex BILAT DATE OF EXAM: 07/31/2022 COMPARISON: NONE CLINICAL HISTORY: I65.22 occulsion stenosis left carotid artery. bruit on the left TECHNIQUE: Carotid duplex ultrasound examination. Indirect Doppler criteria was utilized. FINDINGS: EXAM MEASUREMENTS: RIGHT: Peak Systolic Velocity (PSV) cm/sec ----- Right CCA: 82.5 ----- Right ICA: 94.8 ----- Right ECA: 80.9 ICA/CCA ratio: 1.1 RIGHT: End Diastole cm/sec ----- Right CCA: 11.0 ----- Right ICA: 24.1 ----- Right ECA: 10.6 LEFT: Peak Systolic Velocity (PSV) cm/sec ----- Left CCA: 91.9 ----- Left ICA: 92.7 ----- Left ECA: 81.4 ICA/CCA ratio: 1.0 LEFT: End Diastole cm/sec ----- Left CCA: 11.6 ----- Left ICA: 26.4 ----- Left ECA: 9.0 VERTEBRALS (direction of flow): Right Vertebral: Antegrade Left Vertebral: Antegrade Rhythm: Normal PULMONARY DISEASE SPECIALIST NOTES: Heterogeneous plaque with no significant stenosis IMPRESSION: No evidence for hemodynamically significant stenosis. Criteria for Assigning % of Stenosis / Diameter reduction (Estimation based on the indirect measurements of the internal carotid artery velocities (ICA PSV). 1. Normal (no stenosis)=ICA PSV < 125 cm/s: ratio < 2.0: ICA EDV<40 cm/s. 2. Less than 50% stenosis=ICA PSV < 125 cm/s: ratio < 2.0: ICA EDV<40 cm/s. 3. 50 to 69% stenosis=ICA PSV of 125 to 230 cm/s: ration 2.0 ? 4.0: ICA EDV 40-100 cm/s. 4. Greater than 70% stenosis to near occlusion= ICA PSV > 230 cm/s: ratio > 4.0: ICA EDV > 100 cm/s. 5. Near occlusion= ICA PSV velocities may be low or undetectable: variable ratio and ICA EDV. 6. Total occlusion=unable to detect flow.
== END | disposition home or self-care (01) ==
LOC: RADUSWWP 14:50
PROVIDERS: ATTEND Internal Medicine Geriatric Medicine
DX: I65.22 Occlusion and stenosis of left carotid artery (principal)
CPT/HCPCS: 93880

== ENCOUNTER → 2022-09-18 | Outpatient (CLI) | payer MEDICARE ==
[2022-09-18 11:23] VITALS: BP 188/68; PULSE 52; RESP 18; TEMP 98.1
--- NOTE | 2022-09-18 11:29 | P.PN ---
Subjective Progress Note Date: 09/18/22 Principal diagnosis: bilateral breast cancer/bilateral mastectomies bilateral breast cancer bilateral mastectomies/ bilateral breast cancer left January 2007, right mastectomy August 2016 Michelle is an 82 year old white female with a history of bilateral breast cancer, and bilateral mastectomy. Her first mastectomy was the left breast January 2007. She had the right mastectomy, August 2016. The patient did not have any chemo or radiation therapy after either of the surgeries. She is presently taking Femara (letrazole). She is not complaining of any pain in her chest at this time. She does not complain of any lumps masses or nodules on her chest wall. She had a coronary stent placed on 12091014. She does complain of intermittent right axillary discomfort, this has been present since 2015 and some limitation of motion which has not changed. She continues to follow with Dr. Deutsch. Family history: 1. maternal grandmother: cancer ? type 2. daughter: breast cancer Surgical history: 1. Bilateral mastectomy 2. Cholecystectomy 3. Hysterectomy ovaries not removed 4. Open heart surgery 5. Cardiac stents 6. Hemorrhoidectomy 7. Trigeminal neuralgia 8. left cataract surgery 9. Coronary stint 08-22-21 Medical history: 1. Hypertension 2. High cholesterol 3. Diabetes 4. Arthritis 5. history of bilateral breast cancer 6. [place] 7. 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 [place] GI: constipation : negative, hysterectomy Musculoskeletal: Arthritis Psychiatric: negative hematologic: aspirin/plavix integument: none allergies: as per HPI/ seasonal allergies history of bilateral breast cancer Objective - Vital Signs Vital signs: Intake & Output 09/17/22 09/18/22 09/18/22 18:59 06:59 18:59 Weight 72.575 kg - Constitutional General appearance: Present: cooperative - EENT Eyes: Present: EOMI ENT: Present: hearing grossly normal - Neck Neck: Present: normal ROM - Respiratory Respiratory: bilateral: CTA - Cardiovascular Heart sounds: normal: S1, S2 Abnormal Heart Sounds: Present: systolic murmur - Gastrointestinal General gastrointestinal: Present: soft - Integumentary Integumentary: Present: normal turgor - Psychiatric Psychiatric: Present: A&O x's 3, appropriate affect, intact judgment & insight - Additional findings Additional findings: Chest Wall Exam: Inspection: Status post bilateral mastectomies Palpation: Right chest wall: No evidence of recurrent disease Right axilla: No adenopathy of concern Left chest wall: No evidence of recurrent disease Left axilla: No adenopathy of concern Assessment and Plan Assessment: Impression: 1. Hypertension 2. High cholesterol 3. Diabetes 4. Arthritis 5. history of bilateral breast cancer 6. [place] 7. No evidence of any recurrent breast cancer 8. heart murmur Plan: 1. Continue Femara 2. Continue follow-up with medical oncology 3. Follow-up here 1 year 4. Follow up sooner if any questions or concerns 5. There is no anatomic lesion identified which would be causing discomfort intermittently in the right axilla on the left chest wall 6. recent bone density will follow with Dr. Deutsch CC: DR. Oreilly
== END ==
LOC: WWCWWP 09:57
PROVIDERS: ATTEND Surgery
DX: R92.8 Other abnormal and inconclusive findings on diagnostic imaging of breast (principal); I10 Essential (primary) hypertension; E78.00 Pure hypercholesterolemia, unspecified; E11.9 Type 2 diabetes mellitus without complications; M19.90 Unspecified osteoarthritis, unspecified site; I25.2 Old myocardial infarction; Z88.0 Allergy status to penicillin; Z88.2 Allergy status to sulfonamides; Z88.1 Allergy status to other antibiotic agents

== ENCOUNTER → 2022-09-18 | Outpatient (CLI) | payer MEDICARE ==
--- NOTE | 2022-09-18 11:02 | BD ---
EXAMINATION TYPE: Axial Bone Density DATE OF EXAM: 09/18/2022 COMPARISON: 09.16.2020 CLINICAL HISTORY: 82 years year old Female. ICD-10 CODE: M81.0 Osteoporosis Height: 58.8 Weight: 160 FRAX RISK QUESTIONS: Secondary Osteoporosis: YES 3. Menopause before 45: YES RISK FACTORS HISTORY OF: Family History of Osteoporosis: YES, SISTER AND MOTHER Postmenopausal woman: HYST LATE 30's.... Take estrogen and/or progesterone medications: YES, FOR SHORT WHILE, NONE NOW Lost more than 2 inches in height since high school: YES Frequent falls: MAYBE Hyperparathyroidism: NO Adrenal Insufficiency: NO MEDICATIONS: Thyroid Medications: YES, SYNTHROID...MANY YRS Osteoporosis Medications: YES, ACTONEL, FOR 4 YRS Additional Medications: BP MEDS, GLUCOTROL, GLUCOPHAGE, METFORMIN, THYROID, FEMARA, CHOLESTEROL MEDS. PAIN MEDS, HEART MEDS, HX OF BREAST CANCER, BILAT MASTECTOMY, MULTIVITAMIN, LASIX, CALCIUM AND VIT D Additional History: DIABETIC, CHOLESTEROL, HX OF BREAST CANCER WITH MASTECTOMY, LASIX, BLOOD THINNERS , HEART CONDITION, PAIN, THYROID, HYPERTENSION, EXAM MEASUREMENTS: Bone mineral densitometry was performed using the [employer] System. Bone mineral density as measured about the Lumbar spine is: ----- L1-L4(G/cm2): 1.087 T Score Values are as follows: ----- L1: -1.0 ----- L2: -1.5 ----- L3: -1.1 ----- L4: 0.1 ----- L1-L4: -0.8 Bone mineral density has: Increased 2.4% since study of: 09.16.2020 Bone mineral density about the R hip (g/cm2): 0.668 Bone mineral density about the L hip (g/cm2): 0.683 T Score values are as follows: -----R Neck: -2.6 -----L Neck: -2.4 -----R Total: -2.7 -----L Total: -2.6 Bone mineral density has: Increased 7.8% since study of: 09.16.2020 FRAX%s: The graph provided illustrates a 19.2% chance for a major osteoporotic fx and a 7.0% chance f or the hips probability for fx in 10 years time. IMPRESSION: Osteoporosis (T Score less than -2.5). There is increased fracture risk and therapy is usually indicated based on age. Re-Screen 1-2 years. NOTE: T-SCORE=SD OF THE YOUNG ADULT MEAN.
== END | disposition home or self-care (01) ==
LOC: RADBDWWP 09:59
PROVIDERS: ATTEND Internal Medicine Hematology & Oncology
DX: M81.0 Age-related osteoporosis without current pathological fracture (principal); M85.89 Other specified disorders of bone density and structure, multiple sites; Z78.0 Asymptomatic menopausal state; Z79.890 Hormone replacement therapy
CPT/HCPCS: 77080

== ENCOUNTER 2023-04-22 05:00 | Observation (INO) | payer MEDICARE ==
--- NOTE | 2023-04-22 05:22 | ED ---
General Adult HPI - General Chief complaint: Chest Pain Stated complaint: Chest Pain Time Seen by Provider: 04/22/23 05:01 Source: patient, EMS, RN notes reviewed, old records reviewed Mode of arrival: EMS - History of Present Illness Initial comments: 83-year-old female presenting for evaluation of chest pain and palpitations. Patient has history of atrial fibrillation. She was transported by paramedics with chief complaint of chest pain. Noted to be in atrial fibrillation with rapid ventricular response. Patient had taken 3 total nitroglycerin without significant relief. She states she does have anginal chest pain from time to time which is typically relieved by nitroglycerin. No cough or fever. No vomiting. Chest pain resolved at the time my evaluation. - Related Data Home Medications Medication Instructions Recorded Confirmed Acarbose [Precose] 50 mg PO TID-W/MEALS 04/29/15 09/18/22 glipiZIDE [Glucotrol] 5 mg PO W/LUNCH 04/29/15 09/18/22 metFORMIN HCL [Glucophage] 1,000 mg PO W/SUPPER 04/29/15 09/18/22 Multivit-Min/FA/Lycopene/Lut 1 tab PO DAILY 04/30/15 09/18/22 [Centrum Silver Tablet] Losartan [Cozaar] 50 mg PO BID@1200,1700 08/17/16 09/18/22 Letrozole 2.5 mg PO DAILY 02/24/18 09/18/22 Risedronate Sodium [Actonel] 35 mg PO MITCHELL 02/24/18 09/18/22 Calcium Carbonate/Vitamin D3 1 tab PO DAILY 09/27/19 09/18/22 [Caltrate 600 Plus D3 20 Mcg (800 Iu)] Clopidogrel [Plavix] 75 mg PO DAILY 09/27/19 09/18/22 Cyanocobalamin (Vitamin B-12) 1,000 mcg PO Q7D 09/27/19 09/18/22 [Vitamin B-12] Isosorbide Mononitrate ER [Imdur] 30 mg PO DAILY 01/27/22 09/18/22 Ubidecarenone [Co Q-10] 100 mg PO DAILY 01/27/22 09/18/22 Zinc 50 mg PO Q7D 01/27/22 09/18/22 Fluticasone Nasal [place]ell [Flonase 1 puff NASAL DAILY PRN 09/18/22 09/18/22 Nasal [place]ell] Propranolol HCl [Inderal] 60 mg PO DAILY 09/18/22 09/18/22 Previous Rx's Medication Instructions Recorded Atorvastatin [Lipitor] 80 mg PO HS #30 tab 05/02/15 Nitroglycerin Sl Tabs [Nitrostat] 0.4 mg SUBLINGUAL Q5M PRN #25 tab 05/02/15 amLODIPine [Norvasc] 10 mg PO HS #30 tab 05/02/15 Apixaban [Eliquis] 5 mg PO BID 30 Days #30 tab 01/29/22 Levothyroxine Sodium [Synthroid] 125 mcg PO DAILY@0630 30 Days #30 01/29/22 tab Allergies Allergy/AdvReac Type Severity Reaction Status Date / Time doxycycline calcium Allergy Unknown Verified 09/18/22 11:06 [From Vibramycin] doxycycline hyclate Allergy Unknown Verified 09/18/22 11:06 [From Vibramycin] doxycycline monohydrate Allergy Unknown Verified 09/18/22 11:06 [From Vibramycin] Penicillins Allergy Rash/Hives Verified 09/18/22 11:06 Sulfa (Sulfonamide Allergy Rash/Hives Verified 09/18/22 11:06 Antibiotics) sulfamethoxazole Allergy Unknown Verified 09/18/22 11:06 [From Septra] trimethoprim [From Septra] Allergy Unknown Verified 09/18/22 11:06 Review of Systems ROS Statement: Those systems with pertinent positive or pertinent negative responses have been documented in the HPI. ROS Other: All systems not noted in ROS Statement are negative. Past Medical History Past Medical History: Coronary Artery Disease (CAD), Cancer, Chest Pain / Angin a, Diabetes Mellitus, Hyperlipidemia, Hypertension, Thyroid Disorder Additional Past Medical History / Comment(s): frequent constipation, arthritis, anemia, hx breast cancer, [place] 08/21/21 History of Any Multi-Drug Resistant Organisms: None Reported Past Surgical History: Breast Surgery, Cholecystectomy, Coronary Bypass/CABG, Heart Catheterization, Heart Catheterization With Stent, Hysterectomy Additional Past Surgical History / Comment(s): left mastectomy, trigeminal nerve surgery, hemorrhoidectomy, right mastectomy 08/2016, stent 08/22/21 Past Anesthesia/Blood Transfusion Reactions: Motion Sickness Date of Last Stent Placement:: unknown Past Psychological History: No Psychological Hx Reported Smoking Status: Never smoker Past Alcohol Use History: Rare Past Drug Use History: None Reported - Past Family History Mother Family Medical History: No Reported History General Exam General appearance: alert, in no apparent distress Head exam: Present: atraumatic, normocephalic Eye exam: Present: normal appearance, PERRL ENT exam: Present: normal exam Neck exam: Present: normal inspection. Absent: tenderness Respiratory exam: Present: normal lung sounds bilaterally. Absent: respiratory distress, wheezes Cardiovascular Exam: Present: regular rate, normal rhythm GI/Abdominal exam: Present: soft. Absent: distended, tenderness, guarding Extremities exam: Present: normal inspection, normal capillary refill. Absent: pedal edema Neurological exam: Present: alert, oriented X3 Psychiatric exam: Present: normal affect, normal mood Skin exam: Present: warm, dry, intact. Absent: cyanosis, diaphoretic Course Vital Signs 04/22/23 04/22/23 05:04 06:11 Temperature 98.7 F Pulse Rate 125 H 56 L Respiratory 19 17 Rate Blood Pressure 159/84 146/74 O2 Sat by Pulse 100 Oximetry Medical Decision Making - Medical Decision Making Was pt. sent in by a medical professional or institution (, PA, DIRECTOR FACILITIES MAINTENANCE, urgent care, hospital, or detention...) When possible be specific @ -No Did you speak to anyone other than the patient for history (EMS, parent, family, police, friend...)? What history was obtained from this source @ -No Did you review nursing and triage notes (agree or disagree)? Why? @ -I reviewed and agree with nursing and triage notes Were old charts reviewed (outside hosp., previous admission, EMS record, old EKG, old radiological studies, urgent care reports/EKG's, detention records)? Report findings @ -No old charts were reviewed Differential Diagnosis (chest pain, altered mental status, abdominal pain women, abdominal pain men, vaginal bleeding, weakness, fever, dyspnea, syncope, headache, dizziness, GI bleed, back pain, seizure, CVA, palpatations, mental health, musculoskeletal)? @ Differential Chest Pain: Stable Angina, Unstable Angina, STEMI, NSTEMI Aortic Dissection, Pneumothorax, Musculoskeletal, Esophageal Spasm GERD, Cholecystitis, Pancreatitis, Zoster, this is not meant to be an all-inclusive list. EKG interpreted by me (3pts min.). @ -[Initial EKG at 0 510 showing a 2 fibrillation with rapid ventricular response with diffuse ST segment depression and ST segment elevation in aVR. Ventricular rate of 132, QRS duration 114, QTC 320 Repeat EKG at 05 20, showing no complex regular rhythm suspect sinus mechanism rate of 54, AZ interval 105, QRS duration 106, QTC 411 X-rays interpreted by me (1pt min.). @ -No acute cardiopulmonary findings CT interpreted by me (1pt min.). @ -None done U/S interpreted by me (1pt. min.). @ -None done What testing was considered but not performed or refused? (CT, X-rays, U/S, labs)? Why? @ -None What meds were considered but not given or refused? Why? @ -None Did you discuss the management of the patient with other professionals (professionals i.e. , PA, DIRECTOR FACILITIES MAINTENANCE, lab, RT, psych nurse, neonatal social worker, him analyst, teacher, environmental compliance officer, dependency case manager)? Give summary @ -[EMH Was smoking cessation discussed for >3mins.? @ -No Was critical care preformed (if so, how long)? @ -No Were there social determinants of health that impacted care today? How? (Homelessness, low income, unemployed, alcoholism, drug addiction, transportation, low edu. Level, literacy, decrease access to med. care, fdc, rehab)? @ -No Was there de-escalation of care discussed even if they declined (Discuss DNR or withdrawal of care, Hospice)? DNR status @ -No What co-morbidities impacted this encounter? (DM, HTN, Smoking, COPD, CAD, Cancer, CVA, ARF, Chemo, Hep., AIDS, mental health diagnosis, sleep apnea, morbid obesity)? @ -[Atrial fibrillation Was patient admitted / discharged? Hospital course, mention meds given and route, prescriptions, significant lab abnormalities, going to OR and other pertinent info. @83-year-old female presenting for evaluation of chest pain which was resolved by the time I evaluated the patient. She was initially in nature fibrillation with rapid ventricular response but spontaneously converted to sinus rhythm which did alleviate her symptoms of chest pain. Her EKG in rapid A. fib was ischemic-appearing but her repeat EKG did not show any ST segment elevation or depression. Patient remained chest pain-free while in sinus rhythm. She had a negative initial troponin but will be observed over night for serial cardiac enzymes, telemetry, cardiology consultation. Undiagnosed new problem with uncertain prognosis? @ -No Drug Therapy requiring intensive monitoring for toxicity (Heparin, Nitro, Ins ulin, Cardizem)? @ -No Were any procedures done? @ -No Diagnosis/symptom? @ -A fibrillation with RVR, chest pain Acute, or Chronic, or Acute on Chronic? @ -acute Uncomplicated (without systemic symptoms) or Complicated (systemic symptoms)? @ -default Side effects of treatment? @ -No Exacerbation, Progression, or Severe Exacerbation? @ -No Poses a threat to life or bodily function? How? (Chest pain, USA, PA, pneumonia, PE, COPD, DKA, ARF, appy, cholecystitis, CVA, Diverticulitis, Homicidal, Suicidal, threat to staff... and all critical care pts) @ -[Yes, arrhythmia, chest pain - Lab Data Result diagrams: 04/22/23 05:18 04/22/23 05:18 Lab Results 04/22/23 04/22/23 04/22/23 Range/Units 05:18 05:18 05:18 WBC 8.0 (3.8-10.6) k/uL RBC 3.70 L (3.80-5.40) m/uL Hgb 11.7 (11.4-16.0) gm/dL Hct 34.5 (34.0-46.0) % MCV 93.4 (80.0-100.0) fL MCH 31.8 (25.0-35.0) pg MCHC 34.0 (31.0-37.0) g/dL RDW 14.5 (11.5-15.5) % Plt Count 167 (150-450) k/uL MPV 7.6 Neutrophils % 62 % Lymphocytes % 27 % Monocytes % 4 % Eosinophils % 5 % Basophils % 0 % Neutrophils # 5.0 (1.3-7.7) k/uL Lymphocytes # 2.1 (1.0-4.8) k/uL Monocytes # 0.3 (0-1.0) k/uL Eosinophils # 0.4 (0-0.7) k/uL Basophils # 0.0 (0-0.2) k/uL PT 10.5 (9.0-12.0) sec INR 1.0 (<1.2) APTT 22.7 (22.0-30.0) sec Sodium 137 (137-145) mmol/L Potassium 4.5 (3.5-5.1) mmol/L Chloride 105 (98-107) mmol/L Carbon Dioxide 19 L (22-30) mmol/L Anion Gap 13 mmol/L BUN 44 H (7-17) mg/dL Creatinine 1.22 H (0.52-1.04) mg/dL Est GFR (CKD-EPI)AfAm 47 (>60 ml/min/1.73 sqM) Est GFR (CKD-EPI)NonAf 41 (>60 ml/min/1.73 sqM) Glucose 153 H (74-99) mg/dL Calcium 9.3 (8.4-10.2) mg/dL Magnesium 1.9 (1.6-2.3) mg/dL Total Bilirubin 0.5 (0.2-1.3) mg/dL AST 36 (14-36) U/L ALT 28 (4-34) U/L Alkaline Phosphatase 71 (38-126) U/L Troponin I (0.000-0.034) ng/mL Total Protein 7.1 (6.3-8.2) g/dL Albumin 4.3 (3.5-5.0) g/dL 04/22/23 Range/Units 05:18 WBC (3.8-10.6) k/uL RBC (3.80-5.40) m/uL Hgb (11.4-16.0) gm/dL Hct (34.0-46.0) % MCV (80.0-100.0) fL MCH (25.0-35.0) pg MCHC (31.0-37.0) g/dL RDW (11.5-15.5) % Plt Count (150-450) k/uL MPV Neutrophils % % Lymphocytes % % Monocytes % % Eosinophils % % Basophils % % Neutrophils # (1.3-7.7) k/uL Lymphocytes # (1.0-4.8) k/uL Monocytes # (0-1.0) k/uL Eosinophils # (0-0.7) k/uL Basophils # (0-0.2) k/uL PT (9.0-12.0) sec INR (<1.2) APTT (22.0-30.0) sec Sodium (137-145) mmol/L Potassium (3.5-5.1) mmol/L Chloride (98-107) mmol/L Carbon Dioxide (22-30) mmol/L Anion Gap mmol/L BUN (7-17) mg/dL Creatinine (0.52-1.04) mg/dL Est GFR (CKD-EPI)AfAm (>60 ml/min/1.73 sqM) Est GFR (CKD-EPI)NonAf (>60 ml/min/1.73 sqM) Glucose (74-99) mg/dL Calcium (8.4-10.2) mg/dL Magnesium (1.6-2.3) mg/dL Total Bilirubin (0.2-1.3) mg/dL AST (14-36) U/L ALT (4-34) U/L Alkaline Phosphatase (38-126) U/L Troponin I 0.015 (0.000-0.034) ng/mL Total Protein (6.3-8.2) g/dL Albumin (3.5-5.0) g/dL Disposition Clinical Impression: Chest pain, Atrial fibrillation with RVR Disposition: ADMITTED IP TO THIS HOSP Condition: Stable Is patient prescribed a controlled substance at d/c from ED?: No Time of Disposition: 06:15
[2023-04-22 05:35] LABS: Basophils % (A) 0 %; Eosinophils # (A) 0.4 k/uL (0-0.7); Eosinophils % (A) 5 %; HCT 34.5 % (34.0-46.0); HGB 11.7 gm/dL (11.4-16.0); Lymphocytes # (A) 2.1 k/uL (1.0-4.8); Lymphocytes % (A) 27 %; MCH 31.8 pg (25.0-35.0); MCV 93.4 fL (80.0-100.0); Mean Platelet Volume 7.6; Monocytes # (A) 0.3 k/uL (0-1.0); Monocytes % (A) 4 %; Neutrophils % (A) 62 %; Platelet Count 167 k/uL (150-450); RDW 14.5 % (11.5-15.5)
[2023-04-22 05:43] LABS: Partial Thromboplastin Time 22.7 sec (22.0-30.0); Prothrombin Time 10.5 sec (9.0-12.0)
[2023-04-22 05:45] LABS: ALT 28 U/L (4-34); AST 36 U/L (14-36); African American GFR (CKD) 47 (>60 ml/min/1.73 sqM); Albumin 4.3 g/dL (3.5-5.0); Alkaline Phosphatase 71 U/L (38-126); Anion Gap 13 mmol/L; Blood Urea Nitrogen 44 mg/dL (7-17); Calcium 9.3 mg/dL (8.4-10.2); Carbon Dioxide 19 mmol/L (22-30); Chloride 105 mmol/L (98-107); Glucose 153 mg/dL (74-99); Magnesium 1.9 mg/dL (1.6-2.3); Non-African American GFR(CKD) 41 (>60 ml/min/1.73 sqM); Potassium 4.5 mmol/L (3.5-5.1); Sodium 137 mmol/L (137-145); Total Bilirubin 0.5 mg/dL (0.2-1.3); Total Protein 7.1 g/dL (6.3-8.2)
[2023-04-22] MEDS ORDERED: ACETAMINOPHEN TAB 325 MG TAB PO PRN (06:10)
[2023-04-22] MEDS ORDERED: NALOXONE 0.4 MG/ML 1 ML VIAL IV PRN (06:10)
--- NOTE | 2023-04-22 06:45 | XR ---
EXAMINATION TYPE: XR chest 2V DATE OF EXAM: 04/22/2023 5:44 AM COMPARISON: Chest radiographs from 01/27/2022 TECHNIQUE: XR chest 2V Frontal and lateral views of the chest. CLINICAL INDICATION:Female, 83 years old with history of Chest Pain; FINDINGS: Lungs/Pleura: There is no evidence of pleural effusion, focal consolidation, or pneumothorax. Chroni c senescent parenchymal change. Similar elevation the right hemidiaphragm. Pulmonary vascularity: Unremarkable. Heart/mediastinum: Cardiomediastinal silhouette is enlarged and stable. Atherosclerotic calcificatio ns are seen in the aorta. Musculoskeletal: No acute osseous pathology. Midline sternotomy wires are noted and stable. Degenerat ginger changes of the thoracic spine. Other: surgical clips in the upper abdomen. IMPRESSION: Chronic changes without evidence for acute process.
[2023-04-22] MEDS ORDERED: DRONEDARONE 400 MG TAB PO SCH (10:45)
[2023-04-22] MEDS: APIXABAN 5 MG TAB PO SCH ×2 (11:43→19:42)
[2023-04-22] MEDS: DRONEDARONE 400 MG TAB PO SCH ×2 (12:07→17:06)
[2023-04-22] MEDS: METOPROLOL TARTRATE 25 MG TAB PO SCH ×2 (12:34→19:41)
--- NOTE | 2023-04-22 12:48 | P.CRDCN ---
History of Present Illness History of present illness: HISTORY OF PRESENT ILLNESS: This is a 83-year-old female with a past medical history significant for coronary artery disease with previous CABG, hypertension, hyperlipidemia, diabetes, and paroxysmal atrial fibrillation. Patient follows in the office with Dr. Ventura. We have been asked to see the patient in consultation for A. fib with RVR. Patient examined at the bedside in the emergency room. Patient presented to the hospital for chief complaint of chest pain and shaking of her extremities. She does not recall having palpitations. She states that she used to be on amiodarone however this was discontinued by Dr. Acevedo. She is unsure of the reason it was discontinued. She states that she has had shaking in her extremities since her amio was discontinued. The patient was found to be in A. fib with RVR. She has since converted and is maintaining sinus mechanism at the time of examination. * EKG reveals A. fib with RVR with ST depression. Repeat EKG reveals sinus mechanism with incomplete right bundle branch block and ST depression in lead 1 and V4V6 * Chest xray chronic changes without evidence for acute process * Laboratory data: WBC 8.0. Hemoglobin 11.7. Platelet count 167. Sodium 137. Potassium 4.5. BUN 44. Creatinine 1.22. Troponin 0.015. 1.620 * Current home cardiac medications include Eliquis 5mg BID, aspirin 81 mg daily, Lipitor 80 mg at night, Lasix 20 mg every 2 days, Imdur 30 mg daily, losartan 50 mg daily, propanolol 60 mg with breakfast, amlodipine 10mg at night * Most recent echocardiogram obtained in January 2022 revealed ejection fraction 50- 55%, moderate MR, mild TR * Cardiac catheterization history: August 2021 with stenting of SVG to diagonal REVIEW OF SYSTEMS: At the time of my exam: CONSTITUTIONAL: Denies fever or chills. HEENT: Denies blurred vision, vision changes, or eye pain. Denies hemoptysis CARDIOVASCULAR: Denies chest pain. Denies orthopnea. Denies PND. Denies pal pitations RESPIRATORY: Denies shortness of breath. GASTROINTESTINAL: Denies abdominal pain. Denies nausea or vomiting. HEMATOLOGIC: Denies bleeding disorders. GENITOURINARY: Denies any blood in urine. SKIN: Denies pruitis. Denies rash. PHYSICAL EXAM: VITAL SIGNS: Reviewed. GENERAL: Well-developed in no acute distress. HEENT: Head is normocephalic. Pupils are equal, round. Sclerae anicteric. Mucous membranes of the mouth are moist. Neck supple. No JVD or thyromegaly LUNGS: Respirations even and unlabored. Lungs essentially clear to auscultation bilaterally. HEART: Regular rate and rhythm. S1 and S2 heard. Systolic murmur noted ABDOMEN: Soft. Nondistended. Nontender. EXTREMITIES: Normal range of motion. No clubbing or cyanosis. Peripheral pulses intact. No lower extremity edema NEUROLOGIC: Awake and alert. Oriented x 3. ASSESSMENT: Paroxysmal atrial fibrillation with RVR Chest pain, secondary to above Elevated troponin secondary to type II [place] Coronary artery disease with previous CABG and subsequent stenting Hypertension Hyperlipidemia Diabetes PLAN: Resume home cardiac medications Check TSH Discontinue propanolol Begin metoprolol tartrate 25 mg twice a day Begin Multaq 400mg BID Continue telemetry monitoring Continue Eliquis. Patient states this is expensive for her and she is requesting further information on co-pays for other blood thinners. Will consult case management for assistance. Further recommendations pending patient course Nurse practitioner note has been reviewed by physician. Signing provider agrees with the documented findings, assessment, and plan of care. Past Medical History Past Medical History: Coronary Artery Disease (CAD), Cancer, Chest Pain / Angina, Diabetes Mellitus, Hyperlipidemia, Hypertension, Thyroid Disorder Additional Past Medical History / Comment(s): frequent constipation, arthritis, anemia, hx breast cancer, [place] 08/21/21 History of Any Multi-Drug Resistant Organisms: None Reported Past Surgical History: Breast Surgery, Cholecystectomy, Coronary Bypass/CABG, Heart Catheterization, Heart Catheterization With Stent, Hysterectomy Additional Past Surgical History / Comment(s): left mastectomy, trigeminal nerve surgery, hemorrhoidectomy, right mastectomy 08/2016, stent 08/22/21 Past Anesthesia/Blood Transfusion Reactions: Motion Sickness Date of Last Stent Placement:: unknown Past Psychological History: No Psychological Hx Reported Smoking Status: Never smoker Past Alcohol Use History: Rare Past Drug Use History: None Reported - Past Family History Mother Family Medical History: No Reported History Medications and Allergies Home Medications Medication Instructions Recorded Confirmed Type Acarbose [Precose] 50 mg PO TID-W/MEALS 04/29/15 04/22/23 History glipiZIDE [Glucotrol] 5 mg PO W/LUNCH 04/29/15 04/22/23 History metFORMIN HCL [Glucophage] 1,000 mg PO W/SUPPER 04/29/15 04/22/23 History Multivit-Min/FA/Lycopene/Lut 1 tab PO W/BRKFST 04/30/15 04/22/23 History [Centrum Silver Tablet] Atorvastatin [Lipitor] 80 mg PO HS #30 tab 05/02/15 04/22/23 Rx amLODIPine [Norvasc] 10 mg PO HS #30 tab 05/02/15 04/22/23 Rx Losartan [Cozaar] 50 mg PO AC-BID@1200,1700 08/17/16 04/22/23 History Letrozole 2.5 mg PO DAILY 02/24/18 04/22/23 History Risedronate Sodium [Actonel] 35 mg PO MITCHELL 02/24/18 04/22/23 History Calcium Carbonate/Vitamin D3 1 tab PO W/BRKFST 09/27/19 04/22/23 History [Caltrate 600 Plus D3 20 Mcg (800 Iu)] Cyanocobalamin (Vitamin B-12) 5,000 mcg PO Q7D 09/27/19 04/22/23 History [Vitamin B-12] Isosorbide Mononitrate ER [Imdur] 30 mg PO AC-BRKFST 01/27/22 04/22/23 History Ubidecarenone [Co Q-10] 100 mg PO DAILY 01/27/22 04/22/23 History Zinc 50 mg PO Q7D 01/27/22 04/22/23 History Apixaban [Eliquis] 5 mg PO BID@1030,2230 04/22/23 04/22/23 History Aspirin EC [Ecotrin Low Dose] 81 mg PO DAILY 04/22/23 04/22/23 History Docusate [Colace] 100 mg PO DAILY 04/22/23 04/22/23 History Furosemide [Lasix] 20 mg PO Q2D 04/22/23 04/22/23 History Gabapentin [Neurontin] 100 mg PO HS 04/22/23 04/22/23 History Levothyroxine Sodium [Synthroid] 125 mcg PO AC-BRKFST 04/22/23 04/22/23 History Nitroglycerin Sl Tabs [Nitrostat] 0.4 mg SL Q5M PRN 04/22/23 04/22/23 History Propranolol LA [Inderal LA] 60 mg PO W/BRKFST 04/22/23 04/22/23 History Allergies Allergy/AdvReac Type Severity Reaction Status Date / Time doxycycline calcium Allergy Unknown Verified 04/22/23 11:41 [From Vibramycin] doxycycline hyclate Allergy Unknown Verified 04/22/23 11:41 [From Vibramycin] doxycycline monohydrate Allergy Unknown Verified 04/22/23 11:41 [From Vibramycin] Penicillins Allergy Rash/Hives Verified 04/22/23 11:41 Sulfa (Sulfonamide Allergy Rash/Hives Verified 04/22/23 11:42 Antibiotics) sulfamethoxazole Allergy Rash/Hives Verified 04/22/23 11:42 [From Septra] trimethoprim [From Septra] Allergy Rash/Hives Verified 04/22/23 11:42 Physical Exam Vitals: Vital Signs Temp Pulse Resp BP Pulse Ox 04/22/23 07:08 57 L 17 156/67 04/22/23 06:11 56 L 17 146/74 04/22/23 05:04 98.7 F 125 H 19 159/84 100 Intake and Output 04/21/23 04/22/23 04/22/23 22:59 06:59 14:59 Other: Weight 69.4 kg Results 04/22/23 05:18 04/22/23 05:18 Cardiac Enzymes 04/22/23 04/22/23 Range/Units 05:18 05:18 AST 36 (14-36) U/L Troponin I 0.015 (0.000-0.034) ng/mL Coagulation 04/22/23 Range/Units 05:18 PT 10.5 (9.0-12.0) sec APTT 22.7 (22.0-30.0) sec CBC 04/22/23 Range/Units 05:18 WBC 8.0 (3.8-10.6) k/uL RBC 3.70 L (3.80-5.40) m/uL Hgb 11.7 (11.4-16.0) gm/dL Hct 34.5 (34.0-46.0) % Plt Count 167 (150-450) k/uL Comprehensive Metabolic Panel 04/22/23 Range/Units 05:18 Sodium 137 (137-145) mmol/L Potassium 4.5 (3.5-5.1) mmol/L Chloride 105 (98-107) mmol/L Carbon Dioxide 19 L (22-30) mmol/L BUN 44 H (7-17) mg/dL Creatinine 1.22 H (0.52-1.04) mg/dL Glucose 153 H (74-99) mg/dL Calcium 9.3 (8.4-10.2) mg/dL AST 36 (14-36) U/L ALT 28 (4-34) U/L Alkaline Phosphatase 71 (38-126) U/L Total Protein 7.1 (6.3-8.2) g/dL Albumin 4.3 (3.5-5.0) g/dL Current Medications Generic Name Dose Route Start Last Admin Trade Name Freq PRN Reason Stop Dose Admin Acetaminophen 650 mg 04/22/23 06:10 Acetaminophen Tab 325 Mg Tab PO Q6HR PRN Mild Pain or Fever > 100.5 Naloxone HCl 0.2 mg 04/22/23 06:10 Naloxone 0.4 Mg/Ml 1 Ml Vial IV Q2M PRN Opioid Reversal Intake and Output 04/21/23 04/22/23 04/22/23 22:59 06:59 14:59 Other: Weight 69.4 kg 04/22/23 05:18 04/22/23 05:18
--- NOTE | 2023-04-22 12:58 | HP ---
HISTORY AND PHYSICAL CHIEF COMPLAINT: Chest pain. HISTORY OF PRESENT ILLNESS: This is an 83-year-old woman with a past medical history of multiple medical problems including atrial fibrillation, who was found to have chest pain. The patient was found to have atrial fibrillation with rapid ventricular rate. The patient took some nitroglycerin without relief. The patient came to [facility]. The patient was given Multaq. The heart rate is better. There is no history of any fever, rigor, or chills. Cardiology evaluation in progress. PAST MEDICAL HISTORY: Reviewed includes CAD. Rest of the history and rest of the chart also reviewed. HOME MEDICATIONS: Not confirmed include Glucophage. Doses and rest of the medications reviewed. ALLERGIES: Reviewed include doxycycline. Multiple allergies are reviewed. FAMILY HISTORY: No history of heart disease or stroke in the family. SOCIAL HISTORY: No history of smoking or alcohol intake. REVIEW OF SYSTEMS: Fourteen-point review is negative except as mentioned earlier. PHYSICAL EXAMINATION: VITAL SIGNS: Pulse is 57, irregular. Blood pressure 156/57. Respirations 17. HEENT: Conjunctivae are normal. NECK: No jugular venous distention. CARDIOVASCULAR: S1 and S2. Irregular. CHEST: Clear to auscultation. ABDOMEN: Soft. NERVOUS SYSTEM: Nonfocal. LABORATORY DATA: Labs are reviewed. EKG reviewed. ASSESSMENT: 1. Chest pain, possible unstable angina. 2. Atrial fibrillation with rapid ventricular rate, paroxysmal, reverted to normal sinus rhythm. 3. History of coronary artery disease. 4. Diabetes mellitus, type 2. 5. Hypertension. 6. Hyperlipidemia. 7. Multiple medical issues. RECOMMENDATIONS AND DISCUSSION: In this 83-year-old woman presented with multiple complex medical issues, we will monitor the patient closely. We will obtain Cardiology consultation and resume the home medications. Prognosis is guarded because of multiple complex medical issues as detailed above. Further recommendations to follow. Discussed with the patient. Follow closely with Cardiology. MMODL / IJN: [id number] /
[2023-04-22 14:14] LABS: T4, Free (Free Thyroxine) 1.95 ng/dL (0.78-2.19)
[2023-04-22 16:30] LABS: Glucose,Whole Blood 185 mg/dL (70-110)
[2023-04-22] MEDS: LOSARTAN 50 MG TAB PO SCH (17:05)
[2023-04-22 20:17] LABS: Glucose,Whole Blood 203 mg/dL (70-110)
[2023-04-22] MEDS ORDERED: amLODIPine 10 MG TAB PO SCH (21:00)
[2023-04-22] MEDS ORDERED: ATORVASTATIN 80 MG TAB PO SCH (21:00)
[2023-04-23 06:02] LABS: Glucose,Whole Blood 139 mg/dL (70-110)
[2023-04-23] MEDS: DRONEDARONE 400 MG TAB PO SCH (06:06)
[2023-04-23] MEDS ORDERED: ISOSORBIDE MONONITRATE ER 30 MG TAB.ER.24H PO SCH (07:30)
[2023-04-23] MEDS ORDERED: FUROSEMIDE 20 MG TAB PO SCH (09:00)
[2023-04-23] MEDS ORDERED: ASPIRIN 81 MG PO SCH (09:00)
[2023-04-23] MEDS: METOPROLOL TARTRATE 25 MG TAB PO SCH (09:15)
[2023-04-23] MEDS: APIXABAN 5 MG TAB PO SCH (09:16)
[2023-04-23 11:45] LABS: Glucose,Whole Blood 251 mg/dL (70-110)
[2023-04-23 12:18] VITALS: BP 93/52; PULSE 56; RESP 19; TEMP 98.4
[2023-04-23] MEDS ORDERED: AMIODARONE 200 MG TAB PO SCH (12:30)
--- NOTE | 2023-04-23 12:43 | P.PN ---
Subjective HISTORY OF PRESENT ILLNESS: This is a 83-year-old female with a past medical history significant for coronary artery disease with previous CABG, hypertension, hyperlipidemia, diabetes, and paroxysmal atrial fibrillation. Patient follows in the office with Dr. Ventura. We have been asked to see the patient in consultation for A. fib with RVR. Patient examined at the bedside in the emergency room. Patient presented to the hospital for chief complaint of chest pain and shaking of her extremities. She does not recall having palpitations. She states that she used to be on amiodarone however this was discontinued by Dr. Acevedo. She is unsure of the reason it was discontinued. She states that she has had shaking in her e xtremities since her amio was discontinued. The patient was found to be in A. fib with RVR. She has since converted and is maintaining sinus mechanism at the time of examination. * EKG reveals A. fib with RVR with ST depression. Repeat EKG reveals sinus mechanism with incomplete right bundle branch block and ST depression in lead 1 and V4V6 * Chest xray chronic changes without evidence for acute process * Laboratory data: WBC 8.0. Hemoglobin 11.7. Platelet count 167. Sodium 137. Potassium 4.5. BUN 44. Creatinine 1.22. Troponin 0.015. 1.620 * Current home cardiac medications include Eliquis 5mg BID, aspirin 81 mg daily, Lipitor 80 mg at night, Lasix 20 mg every 2 days, Imdur 30 mg daily, losartan 50 mg daily, propanolol 60 mg with breakfast, amlodipine 10mg at night * Most recent echocardiogram obtained in January 2022 revealed ejection fraction 50- 55%, moderate MR, mild TR * Cardiac catheterization history: August 2021 with stenting of SVG to diagonal 04/23/2023 Patient examined this morning at the bedside. Patient denies chest pain or pressure. Denies SOB. Telemetry reveals sinus bradycardia. Vital signs are stable. PHYSICAL EXAM: VITAL SIGNS: Reviewed. GENERAL: Well-developed in no acute distress. HEENT: Head is normocephalic. Pupils are equal, round. Sclerae anicteric. Mucous membranes of the mouth are moist. Neck supple. No JVD or thyromegaly LUNGS: Respirations even and unlabored. Lungs essentially clear to auscultation bilaterally. HEART: Regular rate and rhythm. S1 and S2 heard. Systolic murmur noted ABDOMEN: Soft. Nondistended. Nontender. EXTREMITIES: Normal range of motion. No clubbing or cyanosis. Peripheral pulses intact. No lower extremity edema NEUROLOGIC: Awake and alert. Oriented x 3. ASSESSMENT: Paroxysmal atrial fibrillation with RVR Chest pain, secondary to above Elevated troponin secondary to type II DC Coronary artery disease with previous CABG and subsequent stenting Hypertension Hyperlipidemia Diabetes PLAN: Patient unable to afford Multaq as its $188 a month. Will discontinue Multaq begin amiodarone 400 mg daily. After 1 month, patient to decrease dose to 200 mg daily Case management checked coverage for various anticoagulants. Pradaxa was the cheapest at $39 a month. She states this is cheaper than her Eliquis that she is currently taking. Will DC Eliquis and start patient on Pradaxa Continue metoprolol Patient may be discharged home today from a cardiac standpoint Nurse practitioner note has been reviewed by physician. Signing provider agrees with the documented findings, assessment, and plan of care. Objective - Vital Signs Vital signs: Vital Signs Temp 98.4 F 04/23/23 11:50 Pulse 56 L 04/23/23 11:50 Resp 19 04/23/23 11:50 BP 93/52 04/23/23 11:50 Pulse Ox 97 04/23/23 11:50 FiO2 Intake & Output 04/22/23 04/23/23 04/23/23 18:59 06:59 18:59 Intake Total 236 Output Total 400 700 600 Balance -164 -700 -600 Weight 69.4 kg Intake: Oral 236 Output: Urine 400 700 600 Other: Voiding Method External Catheter External Catheter # Voids 1 # Bowel Movements 1 - Labs CBC & Chem 7: 04/22/23 05:18 04/22/23 05:18 Labs: Abnormal Lab Results - Last 24 Hours (Table) 04/22/23 04/22/23 04/22/23 Range/Units 12:15 12:15 16:27 POC Glucose (mg/dL) 185 H (70-110) mg/dL Troponin I 3.900 H* (0.000-0.034) ng/mL TSH 0.284 L (0.465-4.680) mIU/L 04/22/23 04/23/23 04/23/23 Range/Units 20:16 06:00 11:38 POC Glucose (mg/dL) 203 H 139 H 251 H (70-110) mg/dL Troponin I (0.000-0.034) ng/mL TSH (0.465-4.680) mIU/L
[2023-04-23] MEDS: LOSARTAN 50 MG TAB PO SCH ×2 (13:23→13:24)
[2023-04-23] MEDS ORDERED: DABIGATRAN 150 MG CAP PO SCH (21:00)
--- NOTE | 2023-04-26 15:21 | P.DS ---
Providers Date of admission: 04/22/23 06:11 Expected date of discharge: 04/23/23 Attending physician: Giovana Alonzo Consults: 04/22/23 06:10 Consult Physician Routine Consulting Provider: Gabriel Nelson Consult Reason/Comments: CP Do you want consulting provider notified?: Yes Primary care physician: Elmer Oreilly [facility] Course: Final diagnosis Chest pain, possible unstable angina Atrial fibrillation with RVR, paroxysmal refer to to normal sinus rhythm History of coronary artery disease with previous CABG and stenting Elevated troponins, secondary to type II myocardial infarction Diabetes mellitus, type II Hypertension history Hyperlipidemia history Obesity with a BMI of 36.9 GI prophylaxis DVT Proflex is Full code Discharge disposition Patient is being discharged in a stable condition with guarded prognosis to home . Patient will follow-up with Dr. Oreilly in the outpatient setting upon discharge. Patient is to continue with current medications as prescribed below and close outpatient follow-up with cardiology as scheduled. Total time taken is greater than 35 minutes. Hospital course This is a 83-year-old female who was recently admitted with chest pain found to be in atrial fibrillation with RVR. Patient was started on change in medications per cardiology and encouraged to follow-up in the outpatient setting and has been cleared for discharge. Patient also noted to have some elevation in troponins although cardiology feels secondary to atrial fibrillation with RVR. Patient to follow-up with pairer inspector this week. Please refer to cardiology notes for further HPI. Patient is extremely anxious and wants to go home reports feeling fine. Patient denies any chest pain or palpitations. Currently no reports of chest pain, shortness of breath, or palpitations. Patient is afebrile. No reports of nausea or vomiting and patient is tolerating diet. Patient will be discharged home today. Guarded prognosis. Physical exam: Gen: This is a 83-year-old female who is awake, alert and oriented 3, well- developed, well-nourished, obese HEENT: Head is atraumatic, normocephalic. Pupils equal, round. Sclerae is anicteric. NECK: Supple. No JVD. No lymphadenopathy. No thyromegaly. LUNGS: Clear to auscultation. No wheezes or rhonchi. No intercostal retractions. HEART: S1, S2 are muffled ABDOMEN: Soft. Bowel sounds are present. No masses. No tenderness. EXTREMITIES: No pedal edema. No calf tenderness. NEUROLOGICAL: Patient is awake, alert and oriented x3. Cranial nerves 2 through 12 are grossly intact. Please refer to medication reconciliation sheet for a list of medications. The impression and plan of care has been dictated by Betty Longoria, Nurse Practitioner as directed. Dr. Clinton MD I have performed a history and examination and MDM of this patient, discussed the same with the dictator, and agree with the dictator's assessment and plan as written ,documented as a scribe. Based on total visit time, I have performed more than 50% of the visit. Patient Condition at Discharge: Stable Plan - Discharge Summary Discharge Rx Participant: Yes New Discharge Prescriptions: New Metoprolol Tartrate [Lopressor] 25 mg PO BID #60 tab Acetaminophen Tab [Tylenol] 650 mg PO Q6HR PRN tab PRN Reason: Mild Pain Or Fever > 100.5 Dabigatran [Pradaxa] 150 mg PO BID #60 capsule Amiodarone [Cordarone] 200 mg PO DAILY #120 tab Continue Acarbose [Precose] 50 mg PO TID-W/MEALS glipiZIDE [Glucotrol] 5 mg PO W/LUNCH metFORMIN HCL [Glucophage] 1,000 mg PO W/SUPPER Multivit-Min/FA/Lycopene/Lut [Centrum Silver Tablet] 1 tab PO W/BRKFST Atorvastatin [Lipitor] 80 mg PO HS #30 tab amLODIPine [Norvasc] 10 mg PO HS #30 tab Losartan [Cozaar] 50 mg PO AC-BID@1200,1700 Risedronate Sodium [Actonel] 35 mg PO MITCHELL Letrozole 2.5 mg PO DAILY Cyanocobalamin (Vitamin B-12) [Vitamin B-12] 5,000 mcg PO Q7D Calcium Carbonate/Vitamin D3 [Caltrate 600 Plus D3 20 Mcg (800 Iu)] 1 tab PO W/BRKFST Zinc 50 mg PO Q7D Isosorbide Mononitrate ER [Imdur] 30 mg PO AC-BRKFST Ubidecarenone [Co Q-10] 100 mg PO DAILY Levothyroxine Sodium [Synthroid] 125 mcg PO AC-BRKFST Nitroglycerin Sl Tabs [Nitrostat] 0.4 mg SL Q5M PRN PRN Reason: Chest Pain Gabapentin [Neurontin] 100 mg PO HS Docusate [Colace] 100 mg PO DAILY Furosemide [Lasix] 20 mg PO Q2D Aspirin EC [Ecotrin Low Dose] 81 mg PO DAILY Discontinued Propranolol LA [Inderal LA] 60 mg PO W/BRKFST Apixaban [Eliquis] 5 mg PO BID@1030,2230 Discharge Medication List Acarbose [Precose] 50 mg PO TID-W/MEALS 04/29/15 [History] glipiZIDE [Glucotrol] 5 mg PO W/LUNCH 04/29/15 [History] metFORMIN HCL [Glucophage] 1,000 mg PO W/SUPPER 04/29/15 [History] Multivit-Min/FA/Lycopene/Lut [Centrum Silver Tablet] 1 tab PO W/BRKFST 04/30/15 [History] Atorvastatin [Lipitor] 80 mg PO HS #30 tab 05/02/15 [Rx] amLODIPine [Norvasc] 10 mg PO HS #30 tab 05/02/15 [Rx] Losartan [Cozaar] 50 mg PO AC-BID@1200,1700 08/17/16 [History] Letrozole 2.5 mg PO DAILY 02/24/18 [History] Risedronate Sodium [Actonel] 35 mg PO MITCHELL 02/24/18 [History] Calcium Carbonate/Vitamin D3 [Caltrate 600 Plus D3 20 Mcg (800 Iu)] 1 tab PO W/BRKFST 09/27/19 [History] Cyanocobalamin (Vitamin B-12) [Vitamin B-12] 5,000 mcg PO Q7D 09/27/19 [History] Isosorbide Mononitrate ER [Imdur] 30 mg PO AC-BRKFST 01/27/22 [History] Ubidecarenone [Co Q-10] 100 mg PO DAILY 01/27/22 [History] Zinc 50 mg PO Q7D 01/27/22 [History] Aspirin EC [Ecotrin Low Dose] 81 mg PO DAILY 04/22/23 [History] Docusate [Colace] 100 mg PO DAILY 04/22/23 [History] Furosemide [Lasix] 20 mg PO Q2D 04/22/23 [History] Gabapentin [Neurontin] 100 mg PO HS 04/22/23 [History] Levothyroxine Sodium [Synthroid] 125 mcg PO AC-BRKFST 04/22/23 [History] Nitroglycerin Sl Tabs [Nitrostat] 0.4 mg SL Q5M PRN 04/22/23 [History] Acetaminophen Tab [Tylenol] 650 mg PO Q6HR PRN tab 04/23/23 [Rx] Amiodarone [Cordarone] 200 mg PO DAILY #120 tab 04/23/23 [Rx] Dabigatran [Pradaxa] 150 mg PO BID #60 capsule 04/23/23 [Rx] Metoprolol Tartrate [Lopressor] 25 mg PO BID #60 tab 04/23/23 [Rx] Follow up Appointment(s)/Referral(s): Elmer Oreilly MD [Primary Care Provider] - 1-2 days (Wednesday, April 26 11:30) Amadou Ventura MD [STAFF PHYSICIAN] - 1 Week (April 29 8:15) Patient Instructions/Handouts: A-fib (Atrial Fibrillation) (DC) Activity/Diet/Wound Care/Special Instructions: Activity Limited until follow-up Follow-up with primary care provider on discharge Follow-up with cardiology this week Continue taking medications as prescribed Recommending holding blood pressure medications of blood pressure is systolic 110 or less and notify cardiology Discharge Disposition: HOME SELF-CARE
== END 2023-04-23 14:39 | disposition home or self-care (01) ==
LOC: EC 05:00 → 3SCARD 06:11
PROVIDERS: ADMIT Hospitalist; ATTEND Hospitalist
DX: I48.0 Paroxysmal atrial fibrillation (principal); I21.A1 Myocardial infarction type 2; I10 Essential (primary) hypertension; E78.5 Hyperlipidemia, unspecified; E11.9 Type 2 diabetes mellitus without complications; I45.10 Unspecified right bundle-branch block; D64.9 Anemia, unspecified; K59.00 Constipation, unspecified; M19.90 Unspecified osteoarthritis, unspecified site; I25.2 Old myocardial infarction; R00.1 Bradycardia, unspecified; E66.9 Obesity, unspecified; Z68.36 Body mass index [BMI] 36.0-36.9, adult; Z79.02 Long term (current) use of antithrombotics/antiplatelets; Z79.01 Long term (current) use of anticoagulants; Z79.84 Long term (current) use of oral hypoglycemic drugs; Z79.890 Hormone replacement therapy; Z79.811 Long term (current) use of aromatase inhibitors; Z79.899 Other long term (current) drug therapy; Z79.82 Long term (current) use of aspirin; Z88.0 Allergy status to penicillin; Z88.1 Allergy status to other antibiotic agents; Z88.2 Allergy status to sulfonamides; Z95.1 Presence of aortocoronary bypass graft; Z95.5 Presence of coronary angioplasty implant and graft; Z85.3 Personal history of malignant neoplasm of breast; Z90.49 Acquired absence of other specified parts of digestive tract; Z90.710 Acquired absence of both cervix and uterus; Z90.13 Acquired absence of bilateral breasts and nipples; Z98.890 Other specified postprocedural states
CPT/HCPCS: 99285; 36415; 94760; 93005; 84439; 80053; 84443; 83735; 84484; 85025; 85610; 85730; 71046; G0378 ×2

== ENCOUNTER 2023-08-31 18:07 | Inpatient (IN) | payer MEDICARE ==
[2023-08-31] MEDS ORDERED: NITROGLYCERIN OINT 1 INCH/GM PACKET TOPICAL STA (19:09)
[2023-08-31] MEDS ORDERED: ASPIRIN 81 MG PO STA (19:09)
[2023-08-31 20:02] LABS: Basophils % (A) 0 %; Eosinophils # (A) 0.2 k/uL (0-0.7); Eosinophils % (A) 2 %; HCT 32.5 % (34.0-46.0); HGB 10.8 gm/dL (11.4-16.0); Lymphocytes # (A) 1.2 k/uL (1.0-4.8); Lymphocytes % (A) 16 %; MCHC 33.2 g/dL (31.0-37.0); MCV 96.6 fL (80.0-100.0); Mean Platelet Volume 7.3; Monocytes # (A) 0.3 k/uL (0-1.0); Monocytes % (A) 4 %; Neutrophils # (A) 6.1 k/uL (1.3-7.7); Neutrophils % (A) 77 %; Platelet Count 245 k/uL (150-450); RBC 3.37 m/uL (3.80-5.40); RDW 13.7 % (11.5-15.5); WBC 7.9 k/uL (3.8-10.6)
[2023-08-31 20:11] LABS: INR 1.1 (<1.2); Partial Thromboplastin Time 28.7 sec (22.0-30.0); Prothrombin Time 12.2 sec (10.0-12.5)
--- NOTE | 2023-08-31 20:16 | XR ---
EXAMINATION TYPE: XR chest 2V DATE OF EXAM: 08/31/2023 8:12 PM CLINICAL INDICATION:Female, 83 years old with history of Chest Pain; COMPARISON: Chest radiograph 04/22/2023. TECHNIQUE: XR chest 2V Frontal and lateral views of the chest. FINDINGS: Lungs/Pleura: Hazy airspace opacities are present in the right middle lung with partial obscuration o f the right heart border. No evidence of pleural effusion or pneumothorax. Pulmonary vascularity: Unremarkable. Heart/mediastinum: The heart silhouette is mildly prominent in size. Musculoskeletal: No acute osseous pathology. Rhinotomy wires are identified. IMPRESSION: Findings concerning for right middle lung airspace disease.
[2023-08-31 20:35] LABS: ALT 28 U/L (4-34); AST 39 U/L (14-36); African American GFR (CKD) 37 (>60 ml/min/1.73 sqM); Albumin 3.6 g/dL (3.5-5.0); Alkaline Phosphatase 67 U/L (38-126); Anion Gap 10 mmol/L; Blood Urea Nitrogen 32 mg/dL (7-17); Calcium 8.6 mg/dL (8.4-10.2); Carbon Dioxide 20 mmol/L (22-30); Chloride 105 mmol/L (98-107); Glucose 251 mg/dL (74-99); Non-African American GFR(CKD) 32 (>60 ml/min/1.73 sqM); Potassium 4.4 mmol/L (3.5-5.1); Sodium 135 mmol/L (137-145); Total Bilirubin 0.5 mg/dL (0.2-1.3); Total Protein 6.3 g/dL (6.3-8.2)
[2023-08-31 20:43] LABS: NT-Pro-B-Type Natriuretic Pept 8480 pg/mL
[2023-08-31] MEDS ORDERED: HEPARIN SODIUM 1,000 UN/ML (10ML VL) IV PRN (20:52)
[2023-08-31] MEDS ORDERED: HEPARIN SODIUM 1,000 UN/ML (10ML VL) IV ONE (20:52)
--- NOTE | 2023-08-31 20:54 | ED ---
Chest Pain HPI - General Chief Complaint: Chest Pain Stated Complaint: Chest Pain Time Seen by Provider: 08/31/23 19:00 Source: patient, EMS Mode of arrival: EMS Limitations: no limitations - History of Present Illness Initial Comments: This 83-year-old female presents with complaint of some chest pain. She states that it is in the midsternal region and describes as pressure in nature. It will radiate into her jaw as well as into her back. She denies any difficulty in breathing. There is no leg pain or swelling. She denies any history of DVT or PE. She does relate a significant cardiac history. She had a 5 vessel CABG when she was in her 30s. She's had a couple of cardiac stents since. She had a stress test last week and was told by her pulverizer tender that it is abnormal in that she needs a heart catheterization. She has been waiting for the office to get back with her scheduled a heart catheterization. She states that this chest pain has been intermittent over the past one week. It'll come on with any degree of exertion and will resolve with rest and sublingual nitroglycerin. No other complaints or modifying factors. - Related Data Home Medications Medication Instructions Recorded Confirmed Acarbose [Precose] 50 mg PO TID-W/MEALS 04/29/15 04/22/23 glipiZIDE [Glucotrol] 5 mg PO W/LUNCH 04/29/15 04/22/23 metFORMIN HCL [Glucophage] 1,000 mg PO W/SUPPER 04/29/15 04/22/23 Multivit-Min/FA/Lycopene/Lut 1 tab PO W/BRKFST 04/30/15 04/22/23 [Centrum Silver Tablet] Losartan [Cozaar] 50 mg PO AC-BID@1200,1700 08/17/16 04/22/23 Letrozole 2.5 mg PO DAILY 02/24/18 04/22/23 Risedronate Sodium [Actonel] 35 mg PO MITCHELL 02/24/18 04/22/23 Calcium Carbonate/Vitamin D3 1 tab PO W/BRKFST 09/27/19 04/22/23 [Caltrate 600 Plus D3 20 Mcg (800 Iu)] Cyanocobalamin (Vitamin B-12) 5,000 mcg PO Q7D 09/27/19 04/22/23 [Vitamin B-12] Isosorbide Mononitrate ER [Imdur] 30 mg PO -BRKFST 01/27/22 04/22/23 Ubidecarenone [Co Q-10] 100 mg PO DAILY 01/27/22 04/22/23 Zinc 50 mg PO Q7D 01/27/22 04/22/23 Aspirin EC [Ecotrin Low Dose] 81 mg PO DAILY 04/22/23 04/22/23 Docusate [Colace] 100 mg PO DAILY 04/22/23 04/22/23 Furosemide [Lasix] 20 mg PO Q2D 04/22/23 04/22/23 Gabapentin [Neurontin] 100 mg PO HS 04/22/23 04/22/23 Levothyroxine Sodium [Synthroid] 125 mcg PO -KT 04/22/23 04/22/23 Nitroglycerin Sl Tabs [Nitrostat] 0.4 mg SL Q5M PRN 04/22/23 04/22/23 rOPINIRole HCL [Requip] 0.25 - 0.5 mg PO HS 08/31/23 08/31/23 Previous Rx's Medication Instructions Recorded Atorvastatin [Lipitor] 80 mg PO HS #30 tab 05/02/15 amLODIPine [Norvasc] 10 mg PO HS #30 tab 05/02/15 Acetaminophen Tab [Tylenol] 650 mg PO Q6HR PRN tab 04/23/23 Dabigatran [Pradaxa] 150 mg PO BID #60 capsule 04/23/23 Metoprolol Tartrate [Lopressor] 25 mg PO BID #60 tab 04/23/23 Allergies Allergy/AdvReac Type Severity Reaction Status Date / Time doxycycline calcium Allergy Unknown Verified 08/31/23 18:26 [From Vibramycin] doxycycline hyclate Allergy Unknown Verified 08/31/23 18:26 [From Vibramycin] doxycycline monohydrate Allergy Unknown Verified 08/31/23 18:26 [From Vibramycin] Penicillins Allergy Rash/Hives Verified 08/31/23 18:26 Sulfa (Sulfonamide Allergy Rash/Hives Verified 08/31/23 18:26 Antibiotics) sulfamethoxazole Allergy Rash/Hives Verified 08/31/23 18:26 [From Septra] trimethoprim [From Septra] Allergy Rash/Hives Verified 08/31/23 18:26 Review of Systems ROS Statement: Those systems with pertinent positive or pertinent negative responses have been documented in the HPI. ROS Other: All systems not noted in ROS Statement are negative. Past Medical History Past Medical History: Coronary Artery Disease (CAD), Cancer, Chest Pain / Angina, Diabetes Mellitus, Hyperlipidemia, Hypertension, Thyroid Disorder Additional Past Medical History / Comment(s): frequent constipation, arthritis, anemia, hx breast cancer, ID 08/21/21 History of Any Multi-Drug Resistant Organisms: None Reported Past Surgical History: Breast Surgery, Cholecystectomy, Coronary Bypass/CABG, Heart Catheterization, Heart Catheterization With Stent, Hysterectomy Additional Past Surgical History / Comment(s): left mastectomy, trigeminal nerve surgery, hemorrhoidectomy, right mastectomy 08/2016, stent 08/22/21 Past Anesthesia/Blood Transfusion Reactions: Motion Sickness Date of Last Stent Placement:: unknown Past Psychological History: No Psychological Hx Reported Smoking Status: Never smoker Past Alcohol Use History: Rare Past Drug Use History: None Reported - Past Family History Mother Family Medical History: No Reported History General Exam - General Exam Comments Initial Comments: GENERAL: The patient is well nourished and well hydrated. VITAL SIGNS: Heart rate, blood pressure, respiratory rate reviewed as recorded in nurse's notes. EYES: Pupils are round and reactive. Extraocular movements are intact. No conjunctival / lid redness or swelling. ENT: No external evidence of injury, swelling, or ecchymosis. Airway is patent. Throat is clear. NECK: Nontender. No swelling or evidence of injury. No subcutaneous emphysema. Trachea is midline. No thyroid mass. HEART: Regular rate and rhythm. Good peripheral pulses. LUNGS/CHEST: Breath sounds clear and equal bilaterally. No rales, rhonchi, or wheezes. No ecchymosis, subcutaneous emphysema, or tenderness. ABDOMEN: Abdomen soft without tenderness. No palpable masses or organomegaly. No peritoneal signs. No abdominal wall swelling or ecchymosis. EXTREMITIES: No extremity tenderness. Normal muscle tone and function. No thoracolumbar tenderness. NEUROLOGIC: Sensation is grossly intact. Cranial nerve exam reveals face is symmetrical, tongue is midline, speech is clear. SKIN: No abrasions or ecchymosis is noted. No induration or masses noted. PSYCHIATRIC: Alert and oriented. Appropriate behavior and judgment. Limitations: no limitations Course Vital Signs 12/19/23 12/19/23 12/19/23 18:19 19:15 21:37 Temperature 98.1 F Pulse Rate 89 69 63 Respiratory 20 18 20 Rate Blood Pressure 133/86 125/70 116/62 O2 Sat by Pulse 93 L 97 98 Oximetry Chest Pain MDM - MDM The patient was seen and examined. All diagnostics are reviewed. IV is established and patient is placed on the monitor car operator. No ectopy is identified. The patient also had a EKG done which shows a sinus rhythm at a rate of 91. There is some T-wave inversions in the inferior leads which appear to be new as compared to old EKG per my interpretation. No ST elevation is identified. Intervals are normal. The chest x-ray does not show any acute significant abnormalities per my interpretation. Per radiology interpretation, there is possible right airspace disease noted. Patient does not seem to correlate with any degree of pneumonia at this time and it is felt as though her symptoms are fairly classic for cardiac disease. Her laboratory came back showing elevation of the troponin. She also has mild anemia as well as some renal insufficiency and hyperglycemia. It is felt as though patient likely does have a non-ST elevation myocardial infarction. Case is discussed with internal medicine and they're agreeable to admission. Case also was discussed with pulverizer tender and they are agreeable with admission and would like to hold the Pradexa and start heparin. Patient is in no distress on recheck. She also receives aspirin as well as Nitropaste. She is admitted to telemetry. Was pt. sent in by a medical professional or institution ([facility], [employer], urgent care, hospital, or skilled nursing...) When possible be specific @ -[No] Did you speak to anyone other than the patient for history (EMS, parent, family, police, friend...)? What history was obtained from this source @ -[No] Did you review nursing and triage notes (agree or disagree)? Why? @ -[I reviewed and agree with nursing and triage notes] Were old charts reviewed (outside hosp., previous admission, EMS record, old EKG, old radiological studies, urgent care reports/EKG's, skilled nursing records)? Report findings @ -Old records were reviewed in additional past medical history is obtained. Differential Diagnosis (chest pain, altered mental status, abdominal pain women, abdominal pain men, vaginal bleeding, weakness, fever, dyspnea, syncope, headache, dizziness, GI bleed, back pain, seizure, CVA, palpatations, mental health, musculoskeletal)? @ -Chest pain, non-ST elevation myocardial infarction, myocardial infarction EKG interpreted by me (3pts min.). @ -[As above] X-rays interpreted by me (1pt min.). @ -As above CT interpreted by me (1pt min.). @ -[None done] U/S interpreted by me (1pt. min.). @ -[None done] What testing was considered but not performed or refused? (CT, X-rays, U/S, labs)? Why? @ -[None] What meds were considered but not given or refused? Why? @ -[None] Did you discuss the management of the patient with other professionals (professionals i.e. , PA, PLANT PROPAGATOR, lab, RT, psych nurse, elementary school social worker, vibrating screen operator, teacher, correction officer penitentiary, leather case finisher)? Give summary @ -Case is discussed with internal medicine was agreeable with admission. Case is discussed with cardiology who does give additional recommendations and care. Was smoking cessation discussed for >3mins.? @ -[No] Was critical care preformed (if so, how long)? @ -30 minutes critical care time was utilized and the treatment of the patient. Were there social determinants of health that impacted care today? How? (Homelessness, low income, unemployed, alcoholism, drug addiction, transportation, low edu. Level, literacy, decrease access to med. care, [facility], rehab)? @ -[No] Was there de-escalation of care discussed even if they declined (Discuss DNR or withdrawal of care, Hospice)? DNR status @ -[No] What co-morbidities impacted this encounter? (DM, HTN, Smoking, COPD, CAD, Cancer, CVA, ARF, Chemo, Hep., AIDS, mental health diagnosis, sleep apnea, morbid obesity)? @ -Coronary artery disease, myocardial infarction, diabetes mellitus. Was patient admitted / discharged? Hospital course, mention meds given and route, prescriptions, significant lab abnormalities, going to OR and other pertinent info. @ -Patient is admitted, please see above. Undiagnosed new problem with uncertain prognosis? @ -[No] Drug Therapy requiring intensive monitoring for toxicity (Heparin, Nitro, Insulin, Cardizem)? @ -[No] Were any procedures done? @ -[No] Diagnosis/symptom? @ -Non-ST elevation myocardial infarction, chest pain, hyperglycemia, diabetes mellitus Acute, or Chronic, or Acute on Chronic? @ -Acute Uncomplicated (without systemic symptoms) or Complicated (systemic symptoms)? @ -Uncomplicated Side effects of treatment? @ -[No] Exacerbation, Progression, or Severe Exacerbation? @ -[No] Poses a threat to life or bodily function? How? (Chest pain, [place], ID, pneumonia, PE, COPD, DKA, ARF, appy, cholecystitis, CVA, Diverticulitis, Homicidal, Suicidal, threat to staff... and all critical care pts) @ -Yes, a myocardial infarction is potentially life threatening. Disposition Clinical Impression: Acute non-ST elevation myocardial infarction (NSTEMI), Chest pain, Hyperglycemia, Renal insufficiency, Anemia, Elevated troponin Disposition: ADMITTED IP TO THIS HOSP Condition: Fair Is patient prescribed a controlled substance at d/c from ED?: No Time of Disposition: 20:53 Decision Date: 08/31/23 Decision Time: 20:53
[2023-08-31] MEDS ORDERED: HEPARIN SOD,PORK IN 0.45% NACL 25,000 UNIT in 0.45% NACL 1 250ML.BAG IV SCH (21:00)
[2023-08-31] MEDS ORDERED: NITROGLYCERIN SL TABS 0.4 MG TAB SUBLINGUAL PRN (21:09)
[2023-08-31] MEDS ORDERED: ACETAMINOPHEN TAB 325 MG TAB PO PRN (22:02)
[2023-08-31] MEDS: NITROGLYCERIN OINT 1 INCH/GM PACKET TOPICAL SCH (23:17)
[2023-09-01 03:03] LABS: Basophils % (A) 0 %; Eosinophils # (A) 0.2 k/uL (0-0.7); Eosinophils % (A) 2 %; HCT 32.7 % (34.0-46.0); HGB 10.9 gm/dL (11.4-16.0); Lymphocytes # (A) 2.8 k/uL (1.0-4.8); Lymphocytes % (A) 26 %; MCHC 33.4 g/dL (31.0-37.0); MCV 95.7 fL (80.0-100.0); Mean Platelet Volume 7.8; Monocytes # (A) 0.4 k/uL (0-1.0); Monocytes % (A) 4 %; Neutrophils # (A) 7.2 k/uL (1.3-7.7); Neutrophils % (A) 66 %; Platelet Count 264 k/uL (150-450); RBC 3.42 m/uL (3.80-5.40); WBC 10.9 k/uL (3.8-10.6)
[2023-09-01 03:35] LABS: INR 1.2 (<1.2); Prothrombin Time 12.4 sec (10.0-12.5)
[2023-09-01 06:09] LABS: Glucose,Whole Blood 98 mg/dL (70-110)
[2023-09-01] MEDS: NITROGLYCERIN OINT 1 INCH/GM PACKET TOPICAL SCH ×3 (06:19→17:32)
[2023-09-01] MEDS: MULTIVITAMINS, THERA 1 EACH TAB PO SCH (06:20)
[2023-09-01] MEDS: LEVOTHYROXINE 125 MCG TAB PO SCH (06:20)
[2023-09-01] MEDS: CALCIUM CARB-VIT D 500 MG-5 MCG TAB PO SCH (06:20)
[2023-09-01] MEDS: ACARBOSE 25 MG TAB PO SCH ×3 (06:21→17:28)
[2023-09-01] MEDS ORDERED: HEPARIN SODIUM,PORCINE 10,000 UNIT in SODIUM CHLORIDE 0.9% 1,000 ML IRRIGATION PRN (07:00)
[2023-09-01] MEDS ORDERED: HEPARIN SODIUM,PORCINE (1 ML) 2,500 UNIT in SODIUM CHLORIDE 0.9% 250 ML IRRIGATION PRN (07:00)
[2023-09-01] MEDS ORDERED: ALPRAZolam 0.5 MG TAB PO PRN (07:44)
[2023-09-01] MEDS ORDERED: ALPRAZolam 0.25 MG TAB PO PRN (07:44)
[2023-09-01] MEDS ORDERED: ASPIRIN 325 MG TAB PO STA (07:44)
[2023-09-01] MEDS ORDERED: NITROGLYCERIN SL TABS 0.4 MG TAB SUBLINGUAL PRN ×3 (07:44→15:56)
[2023-09-01] MEDS ORDERED: ATORVASTATIN 80 MG TAB PO STA (07:44)
[2023-09-01] MEDS: ASPIRIN 81 MG PO SCH (07:47)
[2023-09-01] MEDS: DOCUSATE 100 MG CAP PO SCH (07:56)
[2023-09-01] MEDS: METOPROLOL TARTRATE 25 MG TAB PO SCH ×2 (07:57→21:46)
[2023-09-01] MEDS: LETROZOLE 2.5 MG TAB PO SCH (07:57)
[2023-09-01] MEDS: FAMOTIDINE 20 MG/2 ML VIAL IV SCH ×2 (07:57→21:47)
[2023-09-01] MEDS: SODIUM CHLORIDE 0.9% 1,000 ML IV SCH ×3 (08:03→16:34)
--- NOTE | 2023-09-01 08:59 | P.HPIM ---
History of Present Illness This is a pleasant 83 years old female with multiple medical problems including a previous history of cardiac bypass surgery since her age of 29 days and since then she has been having different issue with her heart. 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 Ventura for chest pain and she underwent stress test, Dr. Ventura call her back and asked her to come to the hospital for possible cardiac cath. She denies any dyspnea or coughing. No change in urine or bowel habits. Past headache dizziness weakness or numbness. She denies smoking alcohol or illicit drugs. Vitals are stable, currently blood pressure 116/60 She has mild leukocytosis at 10.9, hemoglobin 10.9. Creatinine is slightly elevated 1.4 and she follow up with Dr. Do already consulted. Troponin were elevated 0.8, 2.6, 4.2. 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 Chest x-ray showing right middle lung airway disease with his E opacity, I reviewed the chest x-ray it looks to me more of pulmonary vascular congestion EKG showing junctional rhythm at [address] depression in the inferior lead, II, III and aVF with Q waves in V1 to V4. Review of Systems Review of systems CONSTITUTIONAL: No fever, no malaise, no fatigue. HEENT: No recent visual problems or hearing problems. Denied any sore throat. CARDIOVASCULAR: No orthopnea, PND, no palpitations, no syncope. PULMONARY: No shortness of breath, no cough, no hemoptysis. GASTROINTESTINAL: No diarrhea, no nausea, no vomiting, no abdominal pain. Normoactive bowel sounds. NEUROLOGICAL: No headaches, no weakness, no numbness. HEMATOLOGICAL: Denies any bleeding or petechiae. GENITOURINARY: Denies any burning micturition, frequency, or urgency. MUSCULOSKELETAL/RHEUMATOLOGICAL: Denies any joint pain, swelling, or any muscle pain. ENDOCRINE: Denies any polyuria or polydipsia. Past Medical History Past Medical History: Coronary Artery Disease (CAD), Cancer, Chest Pain / Angina, Diabetes Mellitus, Hyperlipidemia, Hypertension, Thyroid Disorder Additional Past Medical History / Comment(s): frequent constipation, arthritis, anemia, hx breast cancer, ID 08/21/21 History of Any Multi-Drug Resistant Organisms: None Reported Past Surgical History: Breast Surgery, Cholecystectomy, Coronary Bypass/CABG, Heart Catheterization, Heart Catheterization With Stent, Hysterectomy Additional Past Surgical History / Comment(s): left mastectomy, trigeminal nerve surgery, hemorrhoidectomy, right mastectomy 08/2016, stent 08/22/21 Past Anesthesia/Blood Transfusion Reactions: Motion Sickness Date of Last Stent Placement:: 08/22/21 Past Psychological History: No Psychological Hx Reported Smoking Status: Never smoker Past Alcohol Use History: Rare Past Drug Use History: None Reported - Past Family History Mother Family Medical History: No Reported History Medications and Allergies Home Medications Medication Instructions Recorded Confirmed Type Acarbose [Precose] 50 mg PO TID-W/MEALS 04/29/15 08/31/23 History glipiZIDE [Glucotrol] 5 mg PO W/LUNCH 04/29/15 08/31/23 History metFORMIN HCL [Glucophage] 1,000 mg PO W/SUPPER 04/29/15 08/31/23 History Multivit-Min/FA/Lycopene/Lut 1 tab PO W/BRKFST 04/30/15 08/31/23 History [Centrum Silver Tablet] Atorvastatin [Lipitor] 80 mg PO HS #30 tab 05/02/15 08/31/23 Rx amLODIPine [Norvasc] 10 mg PO HS #30 tab 05/02/15 08/31/23 Rx Losartan [Cozaar] 50 mg PO AC-BID@1200,1700 08/17/16 08/31/23 History Letrozole 2.5 mg PO DAILY 02/24/18 08/31/23 History Risedronate Sodium [Actonel] 35 mg PO MITCHELL 02/24/18 08/31/23 History Calcium Carbonate/Vitamin D3 1 tab PO W/BRKFST 09/27/19 08/31/23 History [Caltrate 600 Plus D3 20 Mcg (800 Iu)] Cyanocobalamin (Vitamin B-12) 5,000 mcg PO Q7D 09/27/19 08/31/23 History [Vitamin B-12] Isosorbide Mononitrate ER [Imdur] 30 mg PO AC-BRKFST 01/27/22 08/31/23 History Ubidecarenone [Co Q-10] 100 mg PO DAILY 01/27/22 08/31/23 History Zinc 50 mg PO Q7D 01/27/22 08/31/23 History Aspirin EC [Ecotrin Low Dose] 81 mg PO DAILY 04/22/23 08/31/23 History Docusate [Colace] 100 mg PO DAILY 04/22/23 08/31/23 History Furosemide [Lasix] 20 mg PO Q2D 04/22/23 08/31/23 History Gabapentin [Neurontin] 100 mg PO HS 04/22/23 08/31/23 History Levothyroxine Sodium [Synthroid] 125 mcg PO AC-BRKFST 04/22/23 08/31/23 History Nitroglycerin Sl Tabs [Nitrostat] 0.4 mg SL Q5M PRN 04/22/23 08/31/23 History Acetaminophen Tab [Tylenol] 650 mg PO Q6HR PRN tab 04/23/23 08/31/23 Rx Dabigatran [Pradaxa] 150 mg PO BID #60 capsule 04/23/23 08/31/23 Rx Metoprolol Tartrate [Lopressor] 25 mg PO BID #60 tab 04/23/23 08/31/23 Rx rOPINIRole HCL [Requip] 0.25 - 0.5 mg PO HS 08/31/23 08/31/23 History Allergies Allergy/AdvReac Type Severity Reaction Status Date / Time doxycycline calcium Allergy Unknown Verified 08/31/23 22:03 [From Vibramycin] doxycycline hyclate Allergy Unknown Verified 08/31/23 22:03 [From Vibramycin] doxycycline monohydrate Allergy Unknown Verified 08/31/23 22:03 [From Vibramycin] Penicillins Allergy Rash/Hives Verified 08/31/23 22:03 Sulfa (Sulfonamide Allergy Rash/Hives Verified 08/31/23 22:03 Antibiotics) sulfamethoxazole Allergy Rash/Hives Verified 08/31/23 22:03 [From Septra] trimethoprim [From Septra] Allergy Rash/Hives Verified 08/31/23 22:03 Physical Exam Vitals: Vital Signs Temp Pulse Pulse Resp BP BP Pulse Ox 09/01/23 07:46 98 F 74 18 129/74 97 09/01/23 04:28 70 16 116/60 97 09/01/23 02:00 76 08/31/23 22:56 97.9 F 76 16 134/67 95 08/31/23 21:37 63 20 116/62 98 08/31/23 19:15 69 18 125/70 97 08/31/23 18:19 98.1 F 89 20 133/86 93 L Intake and Output 08/31/23 09/01/23 09/01/23 22:59 06:59 14:59 Intake Total 53.971 Output Total 50 Balance 3.971 Intake: Intake, IV Titration 53.971 Amount Heparin Sod,Pork in 0.45% 53.971 NaCl 25,000 unit In 0.45 % NaCl 1 250ml.bag @ 12 UNITS/KG/HR 8.219 mls/hr IV .Q24H COUNTS INCLUDE 234 BEDS AT THE [facility] Rx#: [id number] Output: Urine 50 Other: Voiding Method External Catheter Weight 68.492 kg -GENERAL: The patient is alert and oriented x3, not in any acute distress. Obese HEENT: Pupils are round and equally reacting to light. EOMI. No scleral icterus. No conjunctival pallor. Normocephalic, atraumatic. No pharyngeal erythema. No thyromegaly. CARDIOVASCULAR: S1 and S2 present. No murmurs, rubs, or gallops. PULMONARY: Chest is clear to auscultation, no wheezing , no crackles. ABDOMEN: Soft, nontender, nondistended, normoactive bowel sounds. No palpable organomegaly. MUSCULOSKELETAL: No joint swelling or deformity. EXTREMITIES: No cyanosis, clubbing, or pedal edema. NEUROLOGICAL: Gross neurological examination did not reveal any focal deficits. SKIN: No rashes. no petechiae. Results CBC & Chem 7: 09/01/23 02:38 08/31/23 19:51 Labs: Abnormal Lab Results - Last 24 Hours (Table) 08/31/23 08/31/23 08/31/23 Range/Units 19:51 19:51 19:53 WBC (3.8-10.6) k/uL RBC 3.37 L (3.80-5.40) m/uL Hgb 10.8 L (11.4-16.0) gm/dL Hct 32.5 L (34.0-46.0) % INR (<1.2) APTT (22.0-30.0) sec Sodium 135 L (137-145) mmol/L Carbon Dioxide 20 L (22-30) mmol/L BUN 32 H (7-17) mg/dL Creatinine 1.48 H (0.52-1.04) mg/dL Glucose 251 H (74-99) mg/dL AST 39 H (14-36) U/L Troponin I 0.850 H* (0.000-0.034) ng/mL 08/31/23 09/01/23 09/01/23 Range/Units 22:59 02:38 02:38 WBC 10.9 H (3.8-10.6) k/uL RBC 3.42 L (3.80-5.40) m/uL Hgb 10.9 L (11.4-16.0) gm/dL Hct 32.7 L (34.0-46.0) % INR (<1.2) APTT 105.0 H* (22.0-30.0) sec Sodium (137-145) mmol/L Carbon Dioxide (22-30) mmol/L BUN (7-17) mg/dL Creatinine (0.52-1.04) mg/dL Glucose (74-99) mg/dL AST (14-36) U/L Troponin I 2.640 H* (0.000-0.034) ng/mL 09/01/23 09/01/23 Range/Units 02:38 02:38 WBC (3.8-10.6) k/uL RBC (3.80-5.40) m/uL Hgb (11.4-16.0) gm/dL Hct (34.0-46.0) % INR 1.2 H (<1.2) APTT (22.0-30.0) sec Sodium (137-145) mmol/L Carbon Dioxide (22-30) mmol/L BUN (7-17) mg/dL Creatinine (0.52-1.04) mg/dL Glucose (74-99) mg/dL AST (14-36) U/L Troponin I 4.250 H* (0.000-0.034) ng/mL Thrombosis Risk Factor Assmnt - Choose All That Apply Any of the Below Risk Factors Present?: No Other Risk Factors: Yes Each Risk Factor Represents 3 Points: Age 75 years or older Other congenital or acquired thrombophilia - If yes, enter type in comment: No Thrombosis Risk Factor Assessment Total Risk Factor Score: 3 Thrombosis Risk Factor Assessment Level: Moderate Risk Assessment and Plan Assessment: Acute non-ST elevation myocardial infarction Possible acute CHF Chronic kidney disease stage III with mild elements of acute kidney injury possible History of breast cancer on letrozole Osteoporosis on risedronate Diabetes mellitus Hypertension Obesity with BMI of 30.5 Plan: Cardiology team on the case for possible cardiac cath Continue with heparin drip and aspirin 81 mg Nephrology consult as she is known to their service Labs and medication were reviewed.. Continue same treatment. Continue with symptomatic treatment. Resume home medication. Monitor labs and vitals. DVT and GI prophylaxis. Further recommendations as per clinical course of the patient DVT prophylaxis: heparin GI Prophylaxis: Pepcid PT/OT: Pending Prognosis is guarded
[2023-09-01] MEDS ORDERED: CYANOCOBALAMIN 500 MCG TAB PO SCH (09:00)
[2023-09-01] MEDS ORDERED: NON FORMULARY DRUG (Aspirin Ec 81 MG Tablet) PO SCH (09:00)
[2023-09-01] MEDS ORDERED: NON FORMULARY DRUG (Ubidecarenone [Co Q-10] 100 MG Capsule) PO SCH (09:00)
[2023-09-01] MEDS ORDERED: ZINC SULFATE 220 MG CAP PO SCH (09:00)
[2023-09-01 09:18] LABS: LDL Cholesterol,Calculated 37.6 mg/dL (0.0-131.0); VLDL Calculation 12.42 mg/dL (5.00-40.00)
--- NOTE | 2023-09-01 09:57 | P.CRDCN ---
History of Present Illness Consult date: 09/01/23 Reason for Consult (text): NSTEMI History of present illness: HISTORY OF PRESENT ILLNESS: This is an 83-year-old female patient of Dr. Vik Ventura with a past medical history significant for coronary artery disease with previous CABG, hypertension, hyperlipidemia, diabetes, and paroxysmal atrial fibrillation. Patient follows in the office with Dr. Ventura. We have been asked to see the patient non-ST elevated myocardial infarction. The patient recently underwent stress test on 08/24 and back abnormal and patient was contacted regarding scheduling a cardiac catheterization. This all occurred last week. On Wednesday she still has not heard back for scheduling. She has had ongoing episodes of chest pain and since Wednesday she states become very bad. She is at least taking 2 nitroglycerin per day and trying to limit it to only 2. She came into the emergency center for further evaluation and troponins were elevated and patient was diagnosed with a non-ST elevated ME. She last took Pradaxa yesterday morning. She states it was recently changed from eliquis 2 Pradaxa she can no longer afford the eliquis. Patient has been started on heparin drip. Regarding renal function, patient states that she has not been eating and drinking very much this week. Daughter was contacted over the phone by Dr. Kincaid and given update as requested by the patient. EKG reveals sinus rhythm with nonspecific ST-T wave changes Chest xray concerning for right middle lung airspace disease. WBC 10.9, hemoglobin 10.9, platelet count 264. Sodium 135, potassium 4.4, chloride 105, CO2 20, BUN 32 creatinine 1.48. Troponins 0.85, 2.64, 4.25. Pr oBNP 8480. Triglycerides 62, cholesterol 100, LDL 37, HDL 50. Current home cardiac medications: Amlodipine 10 mg daily, aspirin 81 mg daily, Lipitor 80 mg daily, Pradaxa 150 mg twice daily, Lasix 20 mg every 2 days, Imdur 30 mg daily, losartan 50 mg twice daily, Lopressor 25 mg twice daily, Nitrostat as needed, patient also on levothyroxine 125 g daily. Most recent echocardiogram obtained in January 2022 revealed ejection fraction 50- 55%, moderate MR, mild TR Cardiac catheterization history: August 2021 with stenting of SVG to diagonal REVIEW OF SYSTEMS: At the time of my exam: CONSTITUTIONAL: Denies fever or chills. HEENT: Denies blurred vision, vision changes, or eye pain. Denies hemoptysis CARDIOVASCULAR: + chest pain. Denies orthopnea. Denies PND. Denies palpitations RESPIRATORY: Denies shortness of breath. GASTROINTESTINAL: Denies abdominal pain. Denies nausea or vomiting. HEMATOLOGIC: Denies bleeding disorders. GENITOURINARY: Denies any blood in urine. SKIN: Denies pruitis. Denies rash. PHYSICAL EXAM: VITAL SIGNS: Reviewed. GENERAL: Well-developed in no acute distress. HEENT: Head is normocephalic. Pupils are equal, round. Sclerae anicteric. Mucous membranes of the mouth are moist. Neck supple. No JVD or thyromegaly LUNGS: Respirations even and unlabored. Lungs essentially clear to auscultation bilaterally. HEART: Regular rate and rhythm. S1 and S2 heard. ABDOMEN: Soft. Nontender. EXTREMITIES: Normal range of motion. No clubbing or cyanosis. Peripheral pu lses intact. No lower extremity edema NEUROLOGIC: Awake and alert. Oriented x 3. ASSESSMENT: NSTEMI Coronary artery disease with previous CABG and subsequent stenting Acute kidney injury Paroxysmal atrial fibrillation, as dose of Pradaxa 08/31 a.m. Hypertension Hyperlipidemia Diabetes PLAN: Continue patient on heparin drip and discontinue at 10 a.m. Patient scheduled for cardiac catheterization today at noon with Dr. Vik Ventura Resume home cardiac medications except for Pradaxa Hold metformin and losartan for acute kidney injury Start patient on IV fluids 75 mL per hour Repeat CBC and BMP in the morning Obtain 2-D echocardiogram Further recommendations as patient progresses. Nurse practitioner note has been reviewed by physician. Signing provider agrees with the documented findings, assessment, and plan of care. Past Medical History Past Medical History: Coronary Artery Disease (CAD), Cancer, Chest Pain / Angina, Diabetes Mellitus, Hyperlipidemia, Hypertension, Thyroid Disorder Additional Past Medical History / Comment(s): frequent constipation, arthritis, anemia, hx breast cancer, ME 08/21/21 History of Any Multi-Drug Resistant Organisms: None Reported Past Surgical History: Breast Surgery, Cholecystectomy, Coronary Bypass/CABG, Heart Catheterization, Heart Catheterization With Stent, Hysterectomy Additional Past Surgical History / Comment(s): left mastectomy, trigeminal nerve surgery, hemorrhoidectomy, right mastectomy 08/2016, stent 08/22/21 Past Anesthesia/Blood Transfusion Reactions: Motion Sickness Date of Last Stent Placement:: 08/22/21 Past Psychological History: No Psychological Hx Reported Smoking Status: Never smoker Past Alcohol Use History: Rare Past Drug Use History: None Reported - Past Family History Mother Family Medical History: No Reported History Medications and Allergies Home Medications Medication Instructions Recorded Confirmed Type Acarbose [Precose] 50 mg PO TID-W/MEALS 04/29/15 08/31/23 History glipiZIDE [Glucotrol] 5 mg PO W/LUNCH 04/29/15 08/31/23 History metFORMIN HCL [Glucophage] 1,000 mg PO W/SUPPER 04/29/15 08/31/23 History Multivit-Min/FA/Lycopene/Lut 1 tab PO W/BRKFST 04/30/15 08/31/23 History [Centrum Silver Tablet] Atorvastatin [Lipitor] 80 mg PO HS #30 tab 05/02/15 08/31/23 Rx amLODIPine [Norvasc] 10 mg PO HS #30 tab 05/02/15 08/31/23 Rx Losartan [Cozaar] 50 mg PO AC-BID@1200,1700 08/17/16 08/31/23 History Letrozole 2.5 mg PO DAILY 02/24/18 08/31/23 History Risedronate Sodium [Actonel] 35 mg PO MITCHELL 02/24/18 08/31/23 History Calcium Carbonate/Vitamin D3 1 tab PO W/BRKFST 09/27/19 08/31/23 History [Caltrate 600 Plus D3 20 Mcg (800 Iu)] Cyanocobalamin (Vitamin B-12) 5,000 mcg PO Q7D 09/27/19 08/31/23 History [Vitamin B-12] Isosorbide Mononitrate ER [Imdur] 30 mg PO AC-BRKFST 01/27/22 08/31/23 History Ubidecarenone [Co Q-10] 100 mg PO DAILY 01/27/22 08/31/23 History Zinc 50 mg PO Q7D 01/27/22 08/31/23 History Aspirin EC [Ecotrin Low Dose] 81 mg PO DAILY 04/22/23 08/31/23 History Docusate [Colace] 100 mg PO DAILY 04/22/23 08/31/23 History Furosemide [Lasix] 20 mg PO Q2D 04/22/23 08/31/23 History Gabapentin [Neurontin] 100 mg PO HS 04/22/23 08/31/23 History Levothyroxine Sodium [Synthroid] 125 mcg PO AC-BRKFST 04/22/23 08/31/23 History Nitroglycerin Sl Tabs [Nitrostat] 0.4 mg SL Q5M PRN 04/22/23 08/31/23 History Acetaminophen Tab [Tylenol] 650 mg PO Q6HR PRN tab 04/23/23 08/31/23 Rx Dabigatran [Pradaxa] 150 mg PO BID #60 capsule 04/23/23 08/31/23 Rx Metoprolol Tartrate [Lopressor] 25 mg PO BID #60 tab 04/23/23 08/31/23 Rx rOPINIRole HCL [Requip] 0.25 - 0.5 mg PO HS 08/31/23 08/31/23 History Allergies Allergy/AdvReac Type Severity Reaction Status Date / Time doxycycline calcium Allergy Unknown Verified 08/31/23 22:03 [From Vibramycin] doxycycline hyclate Allergy Unknown Verified 08/31/23 22:03 [From Vibramycin] doxycycline monohydrate Allergy Unknown Verified 08/31/23 22:03 [From Vibramycin] Penicillins Allergy Rash/Hives Verified 08/31/23 22:03 Sulfa (Sulfonamide Allergy Rash/Hives Verified 08/31/23 22:03 Antibiotics) sulfamethoxazole Allergy Rash/Hives Verified 08/31/23 22:03 [From Septra] trimethoprim [From Septra] Allergy Rash/Hives Verified 08/31/23 22:03 Physical Exam Vitals: Vital Signs Temp Pulse Pulse Resp BP BP Pulse Ox 09/01/23 04:28 70 16 116/60 97 09/01/23 02:00 76 08/31/23 22:56 97.9 F 76 16 134/67 95 08/31/23 21:37 63 20 116/62 98 08/31/23 19:15 69 18 125/70 97 08/31/23 18:19 98.1 F 89 20 133/86 93 L Intake and Output 08/31/23 09/01/23 09/01/23 22:59 06:59 14:59 Intake Total 53.971 Output Total 50 Balance 3.971 Intake: Intake, IV Titration 53.971 Amount Heparin Sod,Pork in 0.45% 53.971 NaCl 25,000 unit In 0.45 % NaCl 1 250ml.bag @ 12 UNITS/KG/HR 8.219 mls/hr IV .Q24H [facility] Rx#: [id number] Output: Urine 50 Other: Voiding Method External Catheter Weight 68.492 kg Results 09/01/23 02:38 08/31/23 19:51 Cardiac Enzymes 08/31/23 08/31/23 08/31/23 Range/Units 19:51 19:53 22:59 AST 39 H (14-36) U/L Troponin I 0.850 H* 2.640 H* (0.000-0.034) ng/mL 09/01/23 Range/Units 02:38 AST (14-36) U/L Troponin I 4.250 H* (0.000-0.034) ng/mL Coagulation 08/31/23 09/01/23 09/01/23 Range/Units 19:51 02:38 02:38 PT 12.2 12.4 (10.0-12.5) sec APTT 28.7 105.0 H* (22.0-30.0) sec CBC 08/31/23 09/01/23 Range/Units 19:51 02:38 WBC 7.9 10.9 H (3.8-10.6) k/uL RBC 3.37 L 3.42 L (3.80-5.40) m/uL Hgb 10.8 L 10.9 L (11.4-16.0) gm/dL Hct 32.5 L 32.7 L (34.0-46.0) % Plt Count 245 264 (150-450) k/uL Comprehensive Metabolic Panel 08/31/23 Range/Units 19:51 Sodium 135 L (137-145) mmol/L Potassium 4.4 (3.5-5.1) mmol/L Chloride 105 (98-107) mmol/L Carbon Dioxide 20 L (22-30) mmol/L BUN 32 H (7-17) mg/dL Creatinine 1.48 H (0.52-1.04) mg/dL Glucose 251 H (74-99) mg/dL Calcium 8.6 (8.4-10.2) mg/dL AST 39 H (14-36) U/L ALT 28 (4-34) U/L Alkaline Phosphatase 67 (38-126) U/L Total Protein 6.3 (6.3-8.2) g/dL Albumin 3.6 (3.5-5.0) g/dL Current Medications Generic Name Dose Route Start Last Admin Trade Name Freq PRN Reason Stop Dose Admin Acarbose 50 mg 09/01/23 07:30 09/01/23 06:21 Acarbose 25 Mg Tab PO 50 mg TID-W/MEALS [facility] Administration Acetaminophen 650 mg 08/31/23 22:02 Acetaminophen Tab 325 Mg Tab PO Q6HR PRN Mild Pain or Fever > 100.5 Alprazolam 0.25 mg 09/01/23 07:44 Alprazolam 0.25 Mg Tab PO Q6HR PRN Mild Anxiety Alprazolam 0.5 mg 09/01/23 07:44 Alprazolam 0.5 Mg Tab PO Q6HR PRN Moderate Anxiety Amlodipine Besylate 10 mg 09/01/23 21:00 Amlodipine 10 Mg Tab PO HS [facility] Aspirin 81 mg 09/01/23 09:00 Aspirin 81 Mg PO DAILY [facility] Aspirin 325 mg 09/01/23 07:44 Aspirin 325 Mg Tab PO 09/01/23 07:45 ONCE STA Atorvastatin Calcium 80 mg 09/01/23 21:00 Atorvastatin 80 Mg Tab PO HS [facility] Atorvastatin Calcium 80 mg 09/01/23 07:44 Atorvastatin 80 Mg Tab PO 09/01/23 07:45 ONCE STA Calcium Carbonate 1 each 09/01/23 07:30 09/01/23 06:20 Calcium Carb-Vit D 500 Mg-5 Mcg Tab PO 1 each W/BRKFST [facility] Administration Cyanocobalamin 5,000 mcg 09/01/23 09:00 Cyanocobalamin 500 Mcg Tab PO Q7D [facility] Docusate Sodium 100 mg 09/01/23 09:00 Docusate 100 Mg Cap PO DAILY [facility] Famotidine 10 mg 09/01/23 09:00 Famotidine 20 Mg/2 Ml Vial IV Q12HR [facility] Furosemide 20 mg 09/02/23 09:00 Furosemide 20 Mg Tab PO Q2D [facility] Gabapentin 100 mg 09/01/23 21:00 Gabapentin 100 Mg Cap PO HS [facility] Glipizide 5 mg 09/01/23 12:30 Glipizide 5 Mg Tab PO W/LUNCH [place] Heparin Sodium (Porcine) 0 unit 08/31/23 20:52 Heparin Sodium 1,000 Un/Ml (10ml Vl) IV PER PROTOCOL PRN Low PTT Protocol Heparin Sodium/Sodium Chloride 250 mls @ 8.219 mls/hr 08/31/23 21:00 09/01/23 05:23 25,000 unit/ Sodium Chloride IV 9 units/kg/hr .Q24H [place] 6.164 mls/hr Titration Protocol 12 UNITS/KG/HR Sodium Chloride 1,000 mls @ 75 mls/hr 09/01/23 07:45 Saline 0.9% IV .[id number] [facility] Heparin Sodium (Porcine) 10, 1,001 mls @ 999 mls/hr 09/02/23 07:00 000 unit/ Sodium Chloride IRRIGATION 09/02/23 23:00 ONCE PRN INTRA-OP Heparin Sodium (Porcine) 2,500 250.5 mls @ 250 mls/hr 09/02/23 07:00 unit/ Sodium Chloride IRRIGATION 09/02/23 23:00 ONCE PRN INTRA-OP Letrozole 2.5 mg 09/01/23 09:00 Letrozole 2.5 Mg Tab PO DAILY [facility] Levothyroxine Sodium 125 mcg 09/01/23 07:30 09/01/23 06:20 Levothyroxine 125 Mcg Tab PO 125 mcg AC-BRKFST [facility] Administration Metoprolol Tartrate 25 mg 09/01/23 09:00 Metoprolol Tartrate 25 Mg Tab PO BID [facility] Multivitamins 1 each 09/01/23 07:30 09/01/23 06:20 Multivitamins, Thera 1 Each Tab PO 1 each W/BRKFST [facility] Administration Nitroglycerin 0.4 mg 08/31/23 21:09 09/01/23 02:37 Nitroglycerin Sl Tabs 0.4 Mg Tab SUBLINGUAL 0.4 mg Q5M PRN Administration Chest Pain Nitroglycerin 1 inch 09/01/23 00:00 09/01/23 06:19 Nitroglycerin Oint 1 Inch/Gm Packet TOPICAL 1 inch Q6HR [place] Administration Nitroglycerin 0.4 mg 09/01/23 07:44 Nitroglycerin Sl Tabs 0.4 Mg Tab SUBLINGUAL Q5M PRN Chest Pain Non-Formulary Medication 35 mg 09/05/23 09:00 Risedronate Sodium [Actonel] PO MITCHELL [place] Ropinirole HCl 0.5 mg 09/01/23 21:00 Ropinirole Hcl 0.25 Mg Tab PO HS [place] Zinc Sulfate 220 mg 09/01/23 09:00 Zinc Sulfate 220 Mg Cap PO Q7D [place] Intake and Output 08/31/23 09/01/23 09/01/23 22:59 06:59 14:59 Intake Total 53.971 Output Total 50 Balance 3.971 Intake: Intake, IV Titration 53.971 Amount Heparin Sod,Pork in 0.45% 53.971 NaCl 25,000 unit In 0.45 % NaCl 1 250ml.bag @ 12 UNITS/KG/HR 8.219 mls/hr IV .Q24H [facility] Rx#: [id number] Output: Urine 50 Other: Voiding Method External Catheter Weight 68.492 kg 09/01/23 02:38 08/31/23 19:51
[2023-09-01 11:28] LABS: Glucose,Whole Blood 123 mg/dL (70-110)
[2023-09-01 11:36] LABS: African American GFR (CKD) 43 (>60 ml/min/1.73 sqM); Anion Gap 9 mmol/L; Blood Urea Nitrogen 25 mg/dL (7-17); Calcium 8.7 mg/dL (8.4-10.2); Carbon Dioxide 23 mmol/L (22-30); Chloride 107 mmol/L (98-107); Glucose 122 mg/dL (74-99); Non-African American GFR(CKD) 37 (>60 ml/min/1.73 sqM); Potassium 4.4 mmol/L (3.5-5.1); Sodium 139 mmol/L (137-145)
--- NOTE | 2023-09-01 11:50 | P.NPCON ---
History of Present Illness - Reason for Consult acute renal failure - History of Present Illness Patient is an 83-year-old female with history of coronary artery disease status post coronary artery bypass surgery at the age of 29. Patient has underlying type 2 diabetes. She is admitted to the hospital with complaints of chest pain. Stress test was positive as outpatient. Troponin was elevated at 4.2. Scheduled for cardiac catheterization today. Serum creatinine was 1.48 yesterday and it is 1.32 today. Previous creatinine noted to be 1.2 on 04/22/2023 and 0.9 on 01/27/2022. Blood pressure is slightly on the lower side although not significantly low. Patient is maintained on IV fluids. No significant urinary symptoms. Patient was maintained on Glucophage and Cozaar at home and these are currently on hold. Review of Systems As per HPI Past Medical History Past Medical History: Coronary Artery Disease (CAD), Cancer, Chest Pain / Angina, Diabetes Mellitus, Hyperlipidemia, Hypertension, Thyroid Disorder Additional Past Medical History / Comment(s): frequent constipation, arthritis, anemia, hx breast cancer, MT 08/21/21 History of Any Multi-Drug Resistant Organisms: None Reported Past Surgical History: Breast Surgery, Cholecystectomy, Coronary Bypass/CABG, Heart Catheterization, Heart Catheterization With Stent, Hysterectomy Additional Past Surgical History / Comment(s): left mastectomy, trigeminal nerve surgery, hemorrhoidectomy, right mastectomy 08/2016, stent 08/22/21 Past Anesthesia/Blood Transfusion Reactions: Motion Sickness Date of Last Stent Placement:: 08/22/21 Past Psychological History: No Psychological Hx Reported Smoking Status: Never smoker Past Alcohol Use History: Rare Past Drug Use History: None Reported - Past Family History Mother Family Medical History: No Reported History Medications and Allergies Home Medications Medication Instructions Recorded Confirmed Type Acarbose [Precose] 50 mg PO TID-W/MEALS 04/29/15 08/31/23 History glipiZIDE [Glucotrol] 5 mg PO W/LUNCH 04/29/15 08/31/23 History metFORMIN HCL [Glucophage] 1,000 mg PO W/SUPPER 04/29/15 08/31/23 History Multivit-Min/FA/Lycopene/Lut 1 tab PO W/BRKFST 04/30/15 08/31/23 History [Centrum Silver Tablet] Atorvastatin [Lipitor] 80 mg PO HS #30 tab 05/02/15 08/31/23 Rx amLODIPine [Norvasc] 10 mg PO HS #30 tab 05/02/15 08/31/23 Rx Losartan [Cozaar] 50 mg PO AC-BID@1200,1700 08/17/16 08/31/23 History Letrozole 2.5 mg PO DAILY 02/24/18 08/31/23 History Risedronate Sodium [Actonel] 35 mg PO MITCHELL 02/24/18 08/31/23 History Calcium Carbonate/Vitamin D3 1 tab PO W/BRKFST 09/27/19 08/31/23 History [Caltrate 600 Plus D3 20 Mcg (800 Iu)] Cyanocobalamin (Vitamin B-12) 5,000 mcg PO Q7D 09/27/19 08/31/23 History [Vitamin B-12] Isosorbide Mononitrate ER [Imdur] 30 mg PO AC-BRKFST 01/27/22 08/31/23 History Ubidecarenone [Co Q-10] 100 mg PO DAILY 01/27/22 08/31/23 History Zinc 50 mg PO Q7D 01/27/22 08/31/23 History Aspirin EC [Ecotrin Low Dose] 81 mg PO DAILY 04/22/23 08/31/23 History Docusate [Colace] 100 mg PO DAILY 04/22/23 08/31/23 History Furosemide [Lasix] 20 mg PO Q2D 04/22/23 08/31/23 History Gabapentin [Neurontin] 100 mg PO HS 04/22/23 08/31/23 History Levothyroxine Sodium [Synthroid] 125 mcg PO AC-BRKFST 04/22/23 08/31/23 History Nitroglycerin Sl Tabs [Nitrostat] 0.4 mg SL Q5M PRN 04/22/23 08/31/23 History Acetaminophen Tab [Tylenol] 650 mg PO Q6HR PRN tab 04/23/23 08/31/23 Rx Dabigatran [Pradaxa] 150 mg PO BID #60 capsule 04/23/23 08/31/23 Rx Metoprolol Tartrate [Lopressor] 25 mg PO BID #60 tab 04/23/23 08/31/23 Rx rOPINIRole HCL [Requip] 0.25 - 0.5 mg PO HS 08/31/23 08/31/23 History Allergies Allergy/AdvReac Type Severity Reaction Status Date / Time doxycycline calcium Allergy Unknown Verified 08/31/23 22:03 [From Vibramycin] doxycycline hyclate Allergy Unknown Verified 08/31/23 22:03 [From Vibramycin] doxycycline monohydrate Allergy Unknown Verified 08/31/23 22:03 [From Vibramycin] Penicillins Allergy Rash/Hives Verified 08/31/23 22:03 Sulfa (Sulfonamide Allergy Rash/Hives Verified 08/31/23 22:03 Antibiotics) sulfamethoxazole Allergy Rash/Hives Verified 08/31/23 22:03 [From Septra] trimethoprim [From Septra] Allergy Rash/Hives Verified 08/31/23 22:03 Physical Exam Vitals: Vital Signs Temp Pulse Pulse Resp BP BP Pulse Ox 09/01/23 08:00 74 09/01/23 07:46 98 F 74 18 129/74 97 09/01/23 04:28 70 16 116/60 97 09/01/23 02:00 76 08/31/23 22:56 97.9 F 76 16 134/67 95 08/31/23 21:37 63 20 116/62 98 08/31/23 19:15 69 18 125/70 97 08/31/23 18:19 98.1 F 89 20 133/86 93 L Intake and Output 08/31/23 09/01/23 09/01/23 22:59 06:59 14:59 Intake Total 53.971 28.457 Output Total 50 Balance 3.971 28.457 Intake: Intake, IV Titration 53.971 28.457 Amount Heparin Sod,Pork in 0.45% 53.971 28.457 NaCl 25,000 unit In 0.45 % NaCl 1 250ml.bag @ 12 UNITS/KG/HR 8.219 mls/hr IV .Q24H [facility] Rx#: [id number] Output: Urine 50 Other: Voiding Method External Catheter Weight 68.492 kg Patient is awake, comfortable, no acute distress. Examination of the heart S1 and S2 Examination of the lungs bilateral breath sounds are heard Abdomen is soft nontender Examination of lower extremities shows no significant edema ENGINE INSPECTOR exam grossly intact Results - Lab Results Most recent lab results Calcium 8.7 mg/dL (8.4-10.2) 09/01/23 10:52 Magnesium 2.0 mg/dL (1.6-2.3) 08/31/23 19:51 09/01/23 02:38 09/01/23 10:52 Assessment and Plan Assessment: 1. Acute kidney injury likely ATN currently nonoliguric. Check UA. Maintained on angiotensin receptor blockers at home prior to admission, currently on hold. Blood pressure not significantly low. Patient is scheduled for cardiac catheterization today. She is maintained on IV fluids. 2. Rule out chronic kidney disease 3. Non-ST elevation MT scheduled for cardiac catheterization today and 4. Hypertension currently controlled 5. Coronary artery disease with history of coronary artery bypass surgery at about 29 years of age 6. Type 2 diabetes 7. Paroxysmal A. fib Plan: Continue with IV fluids May resume losartan in the next 24 hours if renal function is stable. Check UA Check ultrasound of the kidneys May resume metformin as well if sugars are elevated. Thank you for the consultation. We will continue to follow the patient with you during her hospitalization.
[2023-09-01] MEDS: glipiZIDE 5 MG TAB PO SCH (11:56)
[2023-09-01] MEDS ORDERED: MIDAZOLAM 2 MG/2 ML VIAL IVP ONE (12:00)
[2023-09-01] MEDS ORDERED: LOSARTAN 50 MG TAB PO SCH (12:00)
[2023-09-01] MEDS ORDERED: IV FLUID CONTINUATION 1,000 ML IV ONE ×2 (12:00→14:25)
[2023-09-01] MEDS ORDERED: fentaNYL (PF) 50 MCG/ML 2 ML AMP IVP ONE (12:00)
[2023-09-01] MEDS ORDERED: LIDOCAINE 1% INJ 10MG/ML (20 ML MDV) SQ ONE (12:04)
[2023-09-01] MEDS: HEPARIN SODIUM 1,000 UN/ML (10ML VL) IV ONE ×2 (12:46→12:51)
[2023-09-01] MEDS ORDERED: CLOPIDOGREL 75 MG TAB PO ONE (12:57)
[2023-09-01] MEDS ORDERED: MORPHINE SULFATE 4 MG/ML SYRINGE IVP ONE (13:00)
[2023-09-01] MEDS ORDERED: FUROSEMIDE 10 MG/ML 4 ML VIAL IV ONE ×2 (13:00→14:41)
--- NOTE | 2023-09-01 13:03 | CA ---
Transthoracic Echo Report Name: Michelle Laboy Age: 83 Gender: F : 1940 Exam Date: 09/01/2023 09:23 Exam Location: [facility] Ht (in): 59 Wt (lb): 151 Ordering Physician: Felix Aleman DO Attending/Referring Phys: [id number] Coordinator Of Evaluation Kenyetta Isidro [facility] Procedure CPT: Indications: CP Cardiac Hx: Technical Quality: Contrast 1: Total Dose (mL): Contrast 2: Total Dose (mL): MEASUREMENTS (Male / Female) Normal Values 2D ECHO LV Diastolic Diameter PLAX 5.2 cm 4.2 - 5.9 / 3.9 - 5.3 cm LV Systolic Diameter PLAX 3.7 cm IVS Diastolic Thickness 1.1 cm 0.6 - 1.0 / 0.6 - 0.9 cm LVPW Diastolic Thickness 1.0 cm 0.6 - 1.0 / 0.6 - 0.9 cm LV Relative Wall Thickness 0.4 LVOT Diameter 2.0 cm LV Diastolic Volume MOD BP 103.1 cm??? 67 - 155 / 56 - 104 cm??? LV Systolic Volume MOD BP 59.6 cm??? 22 - 58 / 19 - 49 cm??? LV Ejection Fraction MOD BP 42.2 % >= 55 % LV Diastolic Volume MOD 4C 103.8 cm??? LV Systolic Volume MOD 4C 58.1 cm??? LV Ejection Fraction MOD 4C 44.0 % LV Diastolic Length 4C 7.3 cm LV Systolic Length 4C 6.5 cm LV Diastolic Volume MOD 2C 102.1 cm??? LV Systolic Volume MOD 2C 60.6 cm??? LV Ejection Fraction MOD 2C 40.6 % LV Diastolic Length 2C 7.4 cm LV Systolic Length 2C 6.4 cm Ascending Aorta Diameter 3.2 cm M-MODE Aortic Root Diameter MM 2.4 cm LA Systolic Diameter MM 4.7 cm LA Ao Ratio MM 1.9 AV Cusp Separation MM 0.9 cm DOPPLER AV Peak Velocity 201.2 cm/s AV Peak Gradient 16.2 mmHg AV Mean Velocity 158.4 cm/s AV Mean Gradient 10.8 mmHg AV Velocity Time Integral 47.5 cm AI Peak Velocity 316.4 cm/s AI Peak Gradient 40.0 mmHg AI Pressure Half Time 607.5 ms LVOT Peak Velocity 89.9 cm/s LVOT Peak Gradient 3.2 mmHg LVOT Velocity Time Integral 21.0 cm LVOT Stroke Volume 63.8 cm??? LVOT Stroke Volume Index 39.0 ml/m??? AV Area Cont Eq vti 1.3 cm??? AV Area Cont Eq pk 1.4 cm??? MV Peak Velocity 190.2 cm/s MV Peak Gradient 14.5 mmHg MV Mean Velocity 76.8 cm/s MV Mean Gradient 3.3 mmHg MV Velocity Time Integral 55.6 cm MR Peak Velocity 465.5 cm/s MR Peak Gradient 86.7 mmHg Mitral E Point Velocity 151.0 cm/s Mitral A Point Velocity 84.8 cm/s Mitral E to A Ratio 1.8 MV Deceleration Time 245.1 ms LV E' Lateral Velocity 6.2 cm/s Mitral E to LV E' Lateral Ratio 24.3 LV E' Septal Velocity 3.4 cm/s Mitral E to LV E' Septal Ratio 44.8 TR Peak Velocity 235.8 cm/s TR Peak Gradient 22.2 mmHg Right Atrial Pressure 8.0 mmHg Pulmonary Artery Systolic Pressu 30.2 mmHg Right Ventricular Systolic Press 30.2 mmHg FINDINGS Left Ventricle Mildly increased left ventricular wall thickness. Left ventricular cavity size at the upper limits of normal. Mildly increased left ventricular systolic volume. Moderately decreased left ventricular ejection fraction. [place] [employer] hypokinetic. Anteroapical and apical lateral hypokinesis. Left ventricular ejection fraction is estimated at 35-40 %. Right Ventricle Right ventricle at upper limits of normal. Right Atrium Normal right atrial size. Left Atrium Severe left atrial dilatation. Mitral Valve Mitral valve thickened. Mitral annular calcification. [id number] mitral regurgitation. Aortic Valve Diffuse thickening of the aortic valve cusps with reduced excursion. Aortic valve sclerosis. Mild aortic regurgitation. Tricuspid Valve Structurally normal tricuspid valve. Mild tricuspid regurgitation. Pulmonic Valve Pulmonic valve not well visualized. Mild pulmonic regurgitation. Pericardium No pericardial effusion. Aorta Normal size aortic root and proximal ascending aorta. CONCLUSIONS 1. Moderately impaired left ventricle systolic function with segmental wall motion abnormality 2. Moderate severe mitral regurgitation 3. Mild aortic, tricuspid and pulmonic regurgitation. Previewed by: Dr. Cari Esqueda MD (Electronically Signed) Final Date: 01 September 2023 13:02
[2023-09-01] MEDS ORDERED: ATROPINE SULFATE 0.1 MG/ML 10ML SYRINGE IV PRN ×2 (13:05→15:56)
[2023-09-01] MEDS ORDERED: RX INFO: IV CONTRAST WAS GIVEN 1 EACH MISC MISCELLANE PRN ×2 (13:05→15:56)
[2023-09-01] MEDS ORDERED: MAG HYDROX/AL HYDROX/SIMETH 30 ML CUP PO PRN ×2 (13:05→15:56)
[2023-09-01] MEDS ORDERED: ZOLPIDEM 5 MG TAB PO PRN (13:05)
[2023-09-01] MEDS ORDERED: IOPAMIDOL-370 100ML BTL INJ ONE ×3 (13:08→15:45)
[2023-09-01] MEDS ORDERED: SODIUM CHLORIDE 0.9% 1,000 ML in EMPTY BAG 1 BAG IV SCH ×2 (13:15→16:00)
[2023-09-01 13:50] LABS: Glucose,Whole Blood 355 mg/dL (70-110)
[2023-09-01] MEDS ORDERED: FUROSEMIDE 10 MG/ML 4 ML VIAL ONE (13:57)
[2023-09-01] MEDS ORDERED: MORPHINE SULFATE 2 MG/ML SYRINGE IVP STA (14:06)
--- NOTE | 2023-09-01 14:22 | XR ---
EXAMINATION TYPE: XR chest 1V portable DATE OF EXAM: 09/01/2023 COMPARISON: 08/31/2023 HISTORY: Difficulty in breathing FINDINGS: There are bilateral pleural effusions with cardiomegaly and bibasilar infiltrate. There is a diffuse interstitial pattern. Postmedian sternotomy changes. Diffuse osteopenia. IMPRESSION: 1. Correlate for CHF.
[2023-09-01] MEDS ORDERED: HEPARIN SODIUM 1,000 UN/ML (10ML VL) IV ONE (14:57)
[2023-09-01 15:45] LABS: ABG Base Excess -8.8 mmol/L; ABG HCO3 18 mmol/L (21-25); ABG Oxygen Saturation 98.1 % (94-97); ABG PCO2 41 mmHg (35-45); ABG PH 7.26 (7.35-7.45); ABG PO2 291 mmHg (83-108); ABG TCO2 20 mmol/L (19-24)
--- NOTE | 2023-09-01 15:49 | P.PCN ---
Date of Procedure: 09/01/23 Operative Findings: PERCUTANEOUS CORONARY INTERVENTION Performing physician Gabriel Nelson M.D. Procedure Performed: 1. Successful stenting of the SVG to diagonal using 2.0 x 15 mm Alf drug- eluting stent with an excellent angiographic results. Indication: Acute coronary syndrome in this 83-year-old female patient who underwent a heart catheterization by Dr. Acevedo and was found to have occluded SVG to diagonal Approach: Right common femoral artery Complications: None Level of Sedation: Moderate with a sedation length of 22minutes Procedure Discussion: Please refer to diagnostic heart catheterization was performed earlier. After that anticoagulation was initiated using heparin with continuous ACT monitoring. Subsequently I did engage the graft using an AL-1 guiding catheter. I did where it using a whisper wire. Predilatation was performed using 20 mm balloon before I deployed 2 x 15 mm Alf LEEANN where the stent was positioned under fluoroscopy guidance and deployed under 14 son we subsequently the stent balloon was pulled into the overlap between the old and new stent and inflated under 16 son for 20 seconds with final angiogram showed an excellent angiographic results and the procedure was completed was no complication Postprocedure Management: 1. Dual antiplatelet therapy using aspirin and Plavix for at least 12 months
--- NOTE | 2023-09-01 16:04 | P.CARDCATH ---
Date of Procedure: 09/01/23 Description of Procedure: PERCUTANEOUS TRANSLUMINAL CORONARY ANGIOPLASTY CLINICAL INFORMATION: The patient is an 83-year-old female with known history of CAD status post CABG who underwent stenting of the SVG to the diagonal branch earlier today by Dr. Nelson and while on the floor started complaining of chest discomfort, hypertension and underwent repeat cardiac catheterization by Dr. Ventura and was found to have acute occlusion of the graft at the stented segment. Recommendations were made regarding angioplasty and stenting. The procedure as well as the risks and the complications were discussed with the patient who was in full understanding and agreement. PROCEDURE: A 6 [place] AL1 guiding catheter was introduced into the system. After cannulating the ostium of the graft, a 0.014 BMW J-wire was advanced across the lesion and positioned distally. Following that a 2.25 x 12 mm Treck balloon was advanced and inflated at 8 atmosphere. Following that a 2.25 x 15 mm Xience mary [place] point stent was deployed. It was dilated at 16 son. Following that a 2.5 x 12 mm NC Treck was advanced and multiple inflation at 12 son were done, a 2.5 x 8 mm NC Treck was advanced in the distal segment and inflation at 12 son were done. Subsequently a [employer] [place] eye IVUS catheter was advanced and images were obtained. After removing the catheter is 3.0 x 15 mm NC Treck balloon was advanced and inflation in the proximal segment of the stent were done at 12 son. After the last inflation, after appropriate wait, the balloon and the guidewire were withdrawn back into the guiding catheter. Images were obtained and repeated. Those images reveal stable successful stenting. At that point, the guiding catheter, the balloon, and guidewire were removed. The sheath was removed. Hemostasis was obtained with deployment of an Angio-Seal. There were no immediate complications. The patient was returned to the room in stable condition. Of note, the patient received 3000 units of heparin as well as continued Plavix. His ACT was followed. There was no immediate complications. She was hemodynamically stable at the end of the procedure with stabilizing blood pressure and resolution of the chest discomfort RESULTS: Successful stenting of the SVG to the diagonal with reduction of stenosis from 100 % to less than 5 % with intravascular ultrasound imaging. RECOMMENDATIONS: The patient will continue on aspirin and clopidogrel in addition to aggressive coronary risk modification, and attempting to maintain LDL below 70 mg/dL. She will continue dual antiplatelets treatment for at least one year. Close follow-up of her renal function will be done .The findings and recommendations were discussed with the patient and the family, they are in full understanding and agreement. Duration of sedation: 45 minutes
[2023-09-01 16:08] LABS: Glucose,Whole Blood 283 mg/dL (70-110)
[2023-09-01] MEDS ORDERED: metFORMIN 500 MG TAB PO SCH (17:30)
[2023-09-01] MEDS ORDERED: DEXTROSE 50% SYRINGE 50 ML IVP PRN ×2 (17:42)
[2023-09-01 17:44] LABS: Glucose,Whole Blood 311 mg/dL (70-110)
[2023-09-01 17:45] LABS: Appearance,Urine Clear (Clear); Bilirubin,Urine Negative (Negative); Blood,Urine Trace (Negative); Color,Urine Colorless; Glucose,Urine (UA) Negative (Negative); Ketones,Urine Negative (Negative); Leukocyte Esterase,Urine Moderate (Negative); Mucus,Urine Rare /hpf; Nitrite,Urine Negative (Negative); Protein,Urine Negative (Negative); RBC,Urine 2 /hpf (0-5); Specific Gravity,Urine 1.036 (1.001-1.035); Squamous Epithelial Cell,Urine <1 /hpf (0-4); Urobilinogen,Urine <2.0 mg/dL (<2.0); WBC,Urine 18 /hpf (0-5)
[2023-09-01] MEDS: INSULIN ASPART (NovoLOG) 100 UNIT/ML VIAL SQ SCH ×2 (17:52→21:46)
[2023-09-01 20:37] LABS: Glucose,Whole Blood 224 mg/dL (70-110)
[2023-09-01] MEDS ORDERED: amLODIPine 10 MG TAB PO SCH (21:00)
[2023-09-01] MEDS: GABAPENTIN 100 MG CAP PO SCH (21:46)
[2023-09-01] MEDS: ATORVASTATIN 80 MG TAB PO SCH (21:46)
--- NOTE | 2023-09-01 23:08 | CC ---
CARDIAC CATHETERIZATION REPORT INDICATION: This is an 83-year-old lady with history of coronary artery disease, status post prior bypass surgery, status post stent of the venous graft to the diagonal, who recently presented to me with symptoms of chest pain and underwent a stress test that showed ischemia. I called her to ask her to undergo cardiac catheterization. 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 I told her to talk to her daughter and call us. She subsequently has had chest pains and came to the ER yesterday and ruled in for myocardial infarction and has non ST-segment elevation AR. Due to this, I advised her to undergo cardiac catheterization for further evaluation. She had been explained of risks, benefits, and alternatives including contrast-induced nephropathy. PROCEDURE NOTE: After obtaining informed consent, left heart catheterization and coronary angiogram were performed via the right femoral artery using standard Loulou catheters. I attempted to engage the MOODY using Loulou and Jennifer catheters. I was unsuccessful. Dr. Nelson is going to obtain selective images of the MOODY. The patient received moderate conscious sedation. Total sedation time was 30 minutes. FINDINGS: 1. HEMODYNAMICS: Left ventricular end-diastolic pressure is 30 mm. There is no significant gradient across the aortic valve. 2. LEFT VENTRICULOGRAM: Left ventriculogram was not performed. 3. ANGIOGRAPHIC DATA: a.[place] coronary artery: Right coronary artery is chronically occluded. It appears heavily calcified. b.Left main coronary artery appears calcified, it divides into LAD and circumflex coronary artery. LAD is totally occluded proximally. Circumflex coronary artery appears diffusely diseased. c.Selective injection of the venous graft to diagonal: There is previously placed stent appears patent. There is a 90% stenosis in the distal graft and acute anastomosis to the seneca coronary. d. MOODY to LAD will be injected by Dr. Nelson. CONCLUSION: Severe three-vessel coronary artery disease with severe stenosis involving the venous graft to the diagonal. PLAN: The patient will undergo angioplasty with stent placement of the venous graft. MMODL / IJN: [id number] / MTDD
[2023-09-02] MEDS: NITROGLYCERIN OINT 1 INCH/GM PACKET TOPICAL SCH ×4 (00:39→16:43)
--- NOTE | 2023-09-02 00:44 | US ---
EXAMINATION TYPE: US kidneys/renal and bladder DATE OF EXAM: 09/01/2023 COMPARISON: NONE CLINICAL INDICATION: Female, 83 years old with history of patricia; PATRICIA EXAM MEASUREMENTS: Right Kidney: 8.8 x 3.9 x 3.6 cm Left Kidney: 8.4 x 4.5 x 3.9 cm Technical limitations due to patient's condition, unable to roll from supine position, and large am ount of overlying bowel gas Right Kidney: anechoic lesion superolaterally = 1.6 x 1.4 x 1.4cm , no evidence of hydronephrosis Left Kidney: limited evaluation, lobulated contour, no evidence of hydronephrosis Bladder: Decompressed with Baron catheter in place There is no evidence for hydronephrosis at this point in time. No nephrolithiasis is seen. No missael s are identified. IMPRESSION: 1. No evidence of shadowing renal calculi or hydronephrosis. 2. A 1.6 cm right renal cyst. 3. Bladder decompressed by Baron and not well evaluated.
--- NOTE | 2023-09-02 01:47 | CC ---
CARDIAC CATHETERIZATION REPORT INDICATION: This is an 83-year-old lady, who presented to the hospital with xss-RA-iasccvd elevation NC and underwent cardiac catheterization by me that revealed significant lesion within the venous graft to the diagonal branch. She underwent angioplasty with stent placement by Dr. Nelson and went to the floor. Following which, she developed severe 10/10 intensity chest pain and EKG showed changes of subendocardial ischemia and anterior wall myocardial infarction. Dr. Nelson, the equipment monitor phototypesetting, who performed the intervention was tied up in another procedure and asked me to perform angiogram. I have proceeded with angiogram. PROCEDURE NOTE: The patient already had a femoral sheath in place and I proceeded to obtain selective injection of the bypass graft, which is the only image I obtained. The patient has evidence of acute stent thrombosis. Dr. Nelson, who is still tied up in the procedure and he is finding another equipment monitor phototypesetting to work on the patient. The patient is short of breath and hypoxic and she is on non-rebreather at the moment and we will call Respiratory to support the respiratory status and if necessary we may have to intubate the patient if necessary . she is critically ill. MMODL / IJN: [id number] / MTDD
[2023-09-02 06:38] LABS: Glucose,Whole Blood 178 mg/dL (70-110)
[2023-09-02] MEDS: MULTIVITAMINS, THERA 1 EACH TAB PO SCH (06:54)
[2023-09-02] MEDS: INSULIN ASPART (NovoLOG) 100 UNIT/ML VIAL SQ SCH ×4 (06:54→20:52)
[2023-09-02] MEDS: CALCIUM CARB-VIT D 500 MG-5 MCG TAB PO SCH (06:54)
[2023-09-02] MEDS: ACARBOSE 25 MG TAB PO SCH ×3 (06:54→16:17)
[2023-09-02] MEDS: LEVOTHYROXINE 125 MCG TAB PO SCH (06:54)
[2023-09-02 07:26] LABS: Basophils % (A) 0 %; Eosinophils # (A) 0.1 k/uL (0-0.7); Eosinophils % (A) 1 %; HCT 32.4 % (34.0-46.0); HGB 10.6 gm/dL (11.4-16.0); Hypochromasia Slight; Lymphocytes % (A) 8 %; MCH 32.5 pg (25.0-35.0); MCHC 32.6 g/dL (31.0-37.0); MCV 99.9 fL (80.0-100.0); Mean Platelet Volume 7.5; Monocytes # (A) 0.6 k/uL (0-1.0); Monocytes % (A) 5 %; Neutrophils # (A) 10.4 k/uL (1.3-7.7); Neutrophils % (A) 85 %; Platelet Count 236 k/uL (150-450); RBC 3.25 m/uL (3.80-5.40); RDW 13.6 % (11.5-15.5); WBC 12.2 k/uL (3.8-10.6)
[2023-09-02 07:54] LABS: African American GFR (CKD) 29 (>60 ml/min/1.73 sqM); Anion Gap 12 mmol/L; Blood Urea Nitrogen 35 mg/dL (7-17); Carbon Dioxide 19 mmol/L (22-30); Chloride 107 mmol/L (98-107); Glucose 142 mg/dL (74-99); Non-African American GFR(CKD) 25 (>60 ml/min/1.73 sqM); Potassium 4.5 mmol/L (3.5-5.1); Sodium 138 mmol/L (137-145)
[2023-09-02] MEDS: METOPROLOL TARTRATE 25 MG TAB PO SCH ×2 (08:56→21:41)
[2023-09-02] MEDS: CLOPIDOGREL 75 MG TAB PO SCH (08:56)
[2023-09-02] MEDS: ASPIRIN 81 MG PO SCH (08:56)
[2023-09-02] MEDS: FAMOTIDINE 20 MG/2 ML VIAL IV SCH ×2 (08:56→20:58)
[2023-09-02] MEDS: DOCUSATE 100 MG CAP PO SCH (08:56)
[2023-09-02] MEDS: LETROZOLE 2.5 MG TAB PO SCH (08:56)
[2023-09-02] MEDS ORDERED: FUROSEMIDE 20 MG TAB PO SCH (09:00)
--- NOTE | 2023-09-02 11:14 | P.PN ---
Subjective This is a pleasant 83 years old female with multiple medical problems including a previous history of cardiac bypass surgery since her age of 29 days and since then she has been having different issue with her heart. He saw her director of operations for therapy about one week ago with Dr. Ventura for chest pain and she underwent stress test, Dr. Ventura call her back and asked her to come to the hospital for possible cardiac cath. She denies any dyspnea or coughing. No change in urine or bowel habits. Past headache dizziness weakness or numbness. She denies smoking alcohol or illicit drugs. Vitals are stable, currently blood pressure 116/60 She has mild leukocytosis at 10.9, hemoglobin 10.9. Creatinine is slightly elevated 1.4 and she follow up with Dr. Do already consulted. Troponin were elevated 0.8, 2.6, 4.2. TRANSPORTATION OFFICER is high 8480. Chest x-ray showing right middle lung airway disease with his E opacity, I reviewed the chest x-ray it looks to me more of pulmonary vascular congestion EKG showing junctional rhythm at [address] depression in the inferior lead, II, III and aVF with Q waves in V1 to V4. 09/02/2023 Patient developed respiratory distress and chest pain after the first cardiac cath yesterday after the first cardiac cath and stent, Patient underwent Successful stenting of the SVG to the diagonal As well. Patient currently awake and alert in the ICU, sitting up in bed, mildly tachypneic, she is currently on 6 L oxygen via nasal cannula. She denies chest pain. No other new complaints. She is currently on aspirin and Plavix and subcu heparin. Creatinine went up to 1.8, WBC is 12,000, hemoglobin 10.6 echocardiogram showing ejection fraction 35-40% with moderate severe mitral regurgitation Probably patient will benefit from more diuresis, we will defer management to nephrology and cartilage team on the case Review of systems CONSTITUTIONAL: No fever, no malaise, no fatigue. HEENT: No recent visual problems or hearing problems. Denied any sore throat. CARDIOVASCULAR: No orthopnea, PND, no palpitations, no syncope. PULMONARY: No chest wall tenderness, no cough, no hemoptysis. GASTROINTESTINAL: No diarrhea, no nausea, no vomiting, no abdominal pain. Normoactive bowel sounds. Active Medications Generic Name Dose Route Start Last Admin Trade Name Freq PRN Reason Stop Dose Admin Acarbose 50 mg 09/01/23 07:30 09/02/23 06:54 Acarbose 25 Mg Tab PO 50 mg TID-W/MEALS [place] Administration Acetaminophen 650 mg 08/31/23 22:02 Acetaminophen Tab 325 Mg Tab PO Q6HR PRN Mild Pain or Fever > 100.5 Al Hydroxide/Mg Hydroxide 30 ml 09/01/23 15:56 Mag Hydrox/Al Hydrox/Simeth 30 Ml Cup PO Q4HR PRN Heartburn Alprazolam 0.25 mg 09/01/23 07:44 Alprazolam 0.25 Mg Tab PO Q6HR PRN Mild Anxiety Alprazolam 0.5 mg 09/01/23 07:44 Alprazolam 0.5 Mg Tab PO Q6HR PRN Moderate Anxiety Amlodipine Besylate 10 mg 09/01/23 21:00 09/01/23 21:46 Amlodipine 10 Mg Tab PO 10 mg HS [facility] Administration Aspirin 81 mg 09/01/23 09:00 09/02/23 08:56 Aspirin 81 Mg PO 81 mg DAILY [facility] Administration Atorvastatin Calcium 80 mg 09/01/23 21:00 09/01/23 21:46 Atorvastatin 80 Mg Tab PO 80 mg HS [facility] Administration Atropine Sulfate 0.5 mg 09/01/23 15:56 Atropine Sulfate 0.1 Mg/Ml 10ml Syringe IV ONCE PRN Symptomatic Bradycardia Calcium Carbonate 1 each 09/01/23 07:30 09/02/23 06:54 Calcium Carb-Vit D 500 Mg-5 Mcg Tab PO 1 each W/BRKFST [place] Administration Clopidogrel Bisulfate 75 mg 09/02/23 09:00 09/02/23 08:56 Clopidogrel 75 Mg Tab PO 75 mg DAILY [facility] Administration Protocol Cyanocobalamin 5,000 mcg 09/01/23 09:00 09/01/23 07:55 Cyanocobalamin 500 Mcg Tab PO 5,000 mcg Q7D [facility] Administration Dextrose/Water 25 ml 09/01/23 17:42 Dextrose 50% Syringe 50 Ml IVP PER PROTOCOL PRN Hypoglycemia Protocol Dextrose/Water 50 ml 09/01/23 17:42 Dextrose 50% Syringe 50 Ml IVP PER PROTOCOL PRN Hypoglycemia Protocol Docusate Sodium 100 mg 09/01/23 09:00 09/02/23 08:56 Docusate 100 Mg Cap PO 100 mg DAILY [facility] Administration Famotidine 10 mg 09/01/23 09:00 09/02/23 08:56 Famotidine 20 Mg/2 Ml Vial IV 10 mg Q12HR [facility] Administration Gabapentin 100 mg 09/01/23 21:00 09/01/23 21:46 Gabapentin 100 Mg Cap PO 100 mg HS [facility] Administration Glipizide 5 mg 09/01/23 12:30 09/01/23 11:56 Glipizide 5 Mg Tab PO Not Given W/LUNCH [facility] Heparin Sodium (Porcine) 5,000 unit 09/02/23 21:00 Heparin Sodium,Porcine 5,000 Unit/Ml 1 Ml Vial SQ Q12HR [facility] Sodium Chloride 1,000 mls @ 75 mls/hr 09/01/23 07:45 09/01/23 16:34 Saline 0.9% IV 75 mls/hr .[id number] [facility] Administration Insulin Aspart 0 unit 09/01/23 17:44 09/02/23 06:54 Insulin Aspart (Novolog) 100 Unit/Ml Vial SQ 1 unit ACHS [facility] Administration Protocol Letrozole 2.5 mg 09/01/23 09:00 09/02/23 08:56 Letrozole 2.5 Mg Tab PO 2.5 mg DAILY [facility] Administration Levothyroxine Sodium 125 mcg 09/01/23 07:30 09/02/23 06:54 Levothyroxine 125 Mcg Tab PO 125 mcg AC-BRKFST [place] Administration Metoprolol Tartrate 25 mg 09/01/23 09:00 09/02/23 08:56 Metoprolol Tartrate 25 Mg Tab PO 25 mg BID [facility] Administration Miscellaneous Information 1 each 09/01/23 15:56 Rx Info: Iv Contrast Was Given 1 Each Misc MISCELLANE 09/03/23 15:56 DAILY PRN Per Protocol Multivitamins 1 each 09/01/23 07:30 09/02/23 06:54 Multivitamins, Thera 1 Each Tab PO 1 each W/BRKFST [facility] Administration Nitroglycerin 1 inch 09/01/23 00:00 09/02/23 06:54 Nitroglycerin Oint 1 Inch/Gm Packet TOPICAL 1 inch Q6HR [facility] Administration Nitroglycerin 0.4 mg 09/01/23 15:56 Nitroglycerin Sl Tabs 0.4 Mg Tab SUBLINGUAL Q5M PRN Chest Pain Non-Formulary Medication 35 mg 09/05/23 09:00 Risedronate Sodium [Actonel] PO [place] [facility] Ropinirole HCl 0.5 mg 09/01/23 21:00 09/01/23 21:47 Ropinirole Hcl 0.25 Mg Tab PO 0.5 mg HS [facility] Administration Zinc Sulfate 220 mg 09/01/23 09:00 09/01/23 07:55 Zinc Sulfate 220 Mg Cap PO 220 mg Q7D [place] Administration Zolpidem Tartrate 5 mg 09/01/23 15:56 Zolpidem 5 Mg Tab PO HS PRN Insomnia Objective - Vital Signs Vital signs: Vital Signs Temp 98.1 F 09/02/23 08:00 Pulse 62 09/02/23 10:00 Resp 12 09/02/23 10:00 BP 106/53 09/02/23 10:00 Pulse Ox 95 09/02/23 10:00 FiO2 40 09/01/23 21:00 Intake & Output 09/01/23 09/02/23 09/02/23 18:59 06:59 18:59 Intake Total 303.457 900 300 Output Total 975 835 65 Balance -671.543 65 235 Weight 70.6 kg 70.6 kg Intake: IV 125 Intake, IV Titration 178.457 900 300 Amount Heparin Sod,Pork in 0.45% 28.457 NaCl 25,000 unit In 0.45 % NaCl 1 250ml.bag @ 12 UNITS/KG/HR 8.219 mls/hr IV .Q24H [facility] Rx#: [id number] Sodium Chloride 0.9% 1, 150 900 300 000 ml In Empty Bag 1 bag @ 75 mls/hr IV .[id number] [facility] Rx#:[id number] Output: Urine 975 835 65 Uretheral (Baron) 550 Other: Voiding Method Indwelling Catheter Indwelling Catheter - Exam GENERAL: The patient is alert and oriented x3, not in any acute distress. Well developed, well nourished. HEENT: Pupils are round and equally reacting to light. EOMI. No scleral icterus. No conjunctival pallor. Normocephalic, atraumatic. No pharyngeal erythema. No thyromegaly. CARDIOVASCULAR: S1 and S2 present. No murmurs, rubs, or gallops. -PULMONARY: Chest is clear to auscultation, no wheezing , bilateral basal crackles. ABDOMEN: Soft, nontender, nondistended, normoactive bowel sounds. No palpable organomegaly. MUSCULOSKELETAL: No joint swelling or deformity. EXTREMITIES: No cyanosis, clubbing, or pedal edema. NEUROLOGICAL: Gross neurological examination did not reveal any focal deficits. SKIN: No rashes. no petechiae. Bilateral basal - Labs CBC & Chem 7: 09/02/23 07:01 09/02/23 07:01 Labs: Abnormal Lab Results - Last 24 Hours (Table) 09/01/23 09/01/23 09/01/23 Range/Units 10:52 10:52 11:24 WBC (3.8-10.6) k/uL RBC (3.80-5.40) m/uL Hgb (11.4-16.0) gm/dL Hct (34.0-46.0) % Neutrophils # (1.3-7.7) k/uL APTT 43.7 H (22.0-30.0) sec ABG pH (7.35-7.45) ABG pO2 (83-108) mmHg ABG HCO3 (21-25) mmol/L ABG O2 Saturation (94-97) % Carbon Dioxide (22-30) mmol/L BUN 25 H (7-17) mg/dL Creatinine 1.32 H (0.52-1.04) mg/dL Glucose 122 H (74-99) mg/dL POC Glucose (mg/dL) 123 H (70-110) mg/dL Calcium (8.4-10.2) mg/dL Ur Specific [place] (1.001-1.035) Urine Blood (Negative) Ur Leukocyte Esterase (Negative) Urine WBC (0-5) /hpf Urine Mucus (None) /hpf 09/01/23 09/01/23 09/01/23 Range/Units 13:49 15:42 16:07 WBC (3.8-10.6) k/uL RBC (3.80-5.40) m/uL Hgb (11.4-16.0) gm/dL Hct (34.0-46.0) % Neutrophils # (1.3-7.7) k/uL APTT (22.0-30.0) sec ABG pH 7.26 L (7.35-7.45) ABG pO2 291 H (83-108) mmHg ABG HCO3 18 L (21-25) mmol/L ABG O2 Saturation 98.1 H (94-97) % Carbon Dioxide (22-30) mmol/L BUN (7-17) mg/dL Creatinine (0.52-1.04) mg/dL Glucose (74-99) mg/dL POC Glucose (mg/dL) 355 H 283 H (70-110) mg/dL Calcium (8.4-10.2) mg/dL Ur Specific [place] (1.001-1.035) Urine Blood (Negative) Ur Leukocyte Esterase (Negative) Urine WBC (0-5) /hpf Urine Mucus (None) /hpf 09/01/23 09/01/23 09/01/23 Range/Units 17:05 17:43 20:35 WBC (3.8-10.6) k/uL RBC (3.80-5.40) m/uL Hgb (11.4-16.0) gm/dL Hct (34.0-46.0) % Neutrophils # (1.3-7.7) k/uL APTT (22.0-30.0) sec ABG pH (7.35-7.45) ABG pO2 (83-108) mmHg ABG HCO3 (21-25) mmol/L ABG O2 Saturation (94-97) % Carbon Dioxide (22-30) mmol/L BUN (7-17) mg/dL Creatinine (0.52-1.04) mg/dL Glucose (74-99) mg/dL POC Glucose (mg/dL) 311 H 224 H (70-110) mg/dL Calcium (8.4-10.2) mg/dL Ur Specific [place] 1.036 H (1.001-1.035) Urine Blood Trace H (Negative) Ur Leukocyte Esterase Moderate H (Negative) Urine WBC 18 H (0-5) /hpf Urine Mucus Rare H (None) /hpf 09/02/23 09/02/23 09/02/23 Range/Units 06:37 07:01 07:01 WBC 12.2 H (3.8-10.6) k/uL RBC 3.25 L (3.80-5.40) m/uL Hgb 10.6 L (11.4-16.0) gm/dL Hct 32.4 L (34.0-46.0) % Neutrophils # 10.4 H (1.3-7.7) k/uL APTT (22.0-30.0) sec ABG pH (7.35-7.45) ABG pO2 (83-108) mmHg ABG HCO3 (21-25) mmol/L ABG O2 Saturation (94-97) % Carbon Dioxide 19 L (22-30) mmol/L BUN 35 H (7-17) mg/dL Creatinine 1.81 H (0.52-1.04) mg/dL Glucose 142 H (74-99) mg/dL POC Glucose (mg/dL) 178 H (70-110) mg/dL Calcium 8.0 L (8.4-10.2) mg/dL Ur Specific Kendrick (1.001-1.035) Urine Blood (Negative) Ur Leukocyte Esterase (Negative) Urine WBC (0-5) /hpf Urine Mucus (None) /hpf Assessment and Plan Assessment: Acute non-ST elevation myocardial infarction, status post cardiac cath and Successful stenting of the SVG to diagonal Possible acute CHF, systolic with ejection fraction 35-40% moderate severe mitral regurgitation Chronic kidney disease stage III with mild elements of acute kidney injury possible History of breast cancer on letrozole Osteoporosis on risedronate Diabetes mellitus Hypertension Obesity with BMI of 30.5 Plan: Continue with aspirin and Plavix Continue patient monitor in the ICU Continue with oxygen, currently on 6 L/m Cardiology team on the case Continue with Plavix and aspirin Nephrology consult as she is known to their service Labs and medication were reviewed.. Continue same treatment. Continue with symptomatic treatment. Resume home medication. Monitor labs and vitals. DVT and GI prophylaxis. Further recommendations as per clinical course of the patient DVT prophylaxis: heparin GI Prophylaxis: Pepcid PT/OT: Pending Prognosis is guarded
[2023-09-02 11:17] LABS: Glucose,Whole Blood 397 mg/dL (70-110)
[2023-09-02 11:18] VITALS: BMI 31.4
[2023-09-02] MEDS ORDERED: FUROSEMIDE 10 MG/ML 4 ML VIAL IV STA (12:06)
[2023-09-02] MEDS ORDERED: MIDODRINE 5 MG TAB PO ONE (12:11)
[2023-09-02] MEDS: glipiZIDE 5 MG TAB PO SCH (12:34)
--- NOTE | 2023-09-02 13:09 | P.PN ---
Subjective Patient is seen for follow-up for acute kidney injury. Status post cardiac catheterization 2 yesterday. Patient initially underwent angioplasty with stent placement but shortly afterwards developed severe chest pain with EKG findings of subendocardial ischemia and anterior wall AL. Patient subsequently had another stent placed to SVG to the diagonal branch. Currently not complaining of any chest pain. Maintained on IV fluids at 75 mL an hour. Serum creatinine increased to 1.8 today. Blood pressure is noted to be low with systolic blood pressure around 100-10 5 mmHg. Urine output at 15-20 mL an hour. Chest x-ray from yesterday shows evidence of pulmonary vascular congestion with diffuse interstitial pattern. Objective - Vital Signs Vital signs: Vital Signs Temp 98.1 F 09/02/23 12:00 Pulse 56 L 09/02/23 12:30 Resp 24 09/02/23 12:30 BP 100/52 09/02/23 12:30 Pulse Ox 90 L 09/02/23 12:30 FiO2 40 09/01/23 21:00 Intake & Output 09/01/23 09/02/23 09/02/23 18:59 06:59 18:59 Intake Total 303.457 900 375 Output Total 975 835 100 Balance -671.543 65 275 Weight 70.6 kg 70.6 kg Intake: IV 125 Intake, IV Titration 178.457 900 375 Amount Heparin Sod,Pork in 0.45% 28.457 NaCl 25,000 unit In 0.45 % NaCl 1 250ml.bag @ 12 UNITS/KG/HR 8.219 mls/hr IV .Q24H [facility] Rx#: [id number] Sodium Chloride 0.9% 1, 150 900 375 000 ml In Empty Bag 1 bag @ 75 mls/hr IV .[id number] [facility] Rx#:[id number] Output: Urine 975 835 100 Uretheral (Baron) 550 Other: Voiding Method Indwelling Catheter Indwelling Catheter - Exam Patient is awake, comfortable, in no acute distress Examination of the heart S1 and S2 Examination of the lungs decreased breath sounds at the bases [place] abdomen is soft nontender Examination of lower extremities shows no significant edema 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 exam grossly intact - Labs CBC & Chem 7: 09/02/23 07:01 09/02/23 07:01 Labs: Abnormal Lab Results - Last 24 Hours (Table) 09/01/23 09/01/23 09/01/23 Range/Units 13:49 15:42 16:07 WBC (3.8-10.6) k/uL RBC (3.80-5.40) m/uL Hgb (11.4-16.0) gm/dL Hct (34.0-46.0) % Neutrophils # (1.3-7.7) k/uL ABG pH 7.26 L (7.35-7.45) ABG pO2 291 H (83-108) mmHg ABG HCO3 18 L (21-25) mmol/L ABG O2 Saturation 98.1 H (94-97) % Carbon Dioxide (22-30) mmol/L BUN (7-17) mg/dL Creatinine (0.52-1.04) mg/dL Glucose (74-99) mg/dL POC Glucose (mg/dL) 355 H 283 H (70-110) mg/dL Hemoglobin A1c (<=6.0) % Calcium (8.4-10.2) mg/dL Ur Specific [place] (1.001-1.035) Urine Blood (Negative) Ur Leukocyte Esterase (Negative) Urine WBC (0-5) /hpf Urine Mucus (None) /hpf 09/01/23 09/01/23 09/01/23 Range/Units 17:05 17:43 20:35 WBC (3.8-10.6) k/uL RBC (3.80-5.40) m/uL Hgb (11.4-16.0) gm/dL Hct (34.0-46.0) % Neutrophils # (1.3-7.7) k/uL ABG pH (7.35-7.45) ABG pO2 (83-108) mmHg ABG HCO3 (21-25) mmol/L ABG O2 Saturation (94-97) % Carbon Dioxide (22-30) mmol/L BUN (7-17) mg/dL Creatinine (0.52-1.04) mg/dL Glucose (74-99) mg/dL POC Glucose (mg/dL) 311 H 224 H (70-110) mg/dL Hemoglobin A1c (<=6.0) % Calcium (8.4-10.2) mg/dL Ur Specific [place] 1.036 H (1.001-1.035) Urine Blood Trace H (Negative) Ur Leukocyte Esterase Moderate H (Negative) Urine WBC 18 H (0-5) /hpf Urine Mucus Rare H (None) /hpf 09/02/23 09/02/23 09/02/23 Range/Units 06:37 07:01 07:01 WBC (3.8-10.6) k/uL RBC (3.80-5.40) m/uL Hgb (11.4-16.0) gm/dL Hct (34.0-46.0) % Neutrophils # (1.3-7.7) k/uL ABG pH (7.35-7.45) ABG pO2 (83-108) mmHg ABG HCO3 (21-25) mmol/L ABG O2 Saturation (94-97) % Carbon Dioxide 19 L (22-30) mmol/L BUN 35 H (7-17) mg/dL Creatinine 1.81 H (0.52-1.04) mg/dL Glucose 142 H (74-99) mg/dL POC Glucose (mg/dL) 178 H (70-110) mg/dL Hemoglobin A1c 6.4 H (<=6.0) % Calcium 8.0 L (8.4-10.2) mg/dL Ur Specific [place] (1.001-1.035) Urine Blood (Negative) Ur Leukocyte Esterase (Negative) Urine WBC (0-5) /hpf Urine Mucus (None) /hpf 09/02/23 09/02/23 Range/Units 07:01 11:16 WBC 12.2 H (3.8-10.6) k/uL RBC 3.25 L (3.80-5.40) m/uL Hgb 10.6 L (11.4-16.0) gm/dL Hct 32.4 L (34.0-46.0) % Neutrophils # 10.4 H (1.3-7.7) k/uL ABG pH (7.35-7.45) ABG pO2 (83-108) mmHg ABG HCO3 (21-25) mmol/L ABG O2 Saturation (94-97) % Carbon Dioxide (22-30) mmol/L BUN (7-17) mg/dL Creatinine (0.52-1.04) mg/dL Glucose (74-99) mg/dL POC Glucose (mg/dL) 397 H (70-110) mg/dL Hemoglobin A1c (<=6.0) % Calcium (8.4-10.2) mg/dL Ur Specific [place] (1.001-1.035) Urine Blood (Negative) Ur Leukocyte Esterase (Negative) Urine WBC (0-5) /hpf Urine Mucus (None) /hpf Assessment and Plan Assessment: 1. Acute kidney injury likely ATN currently nonoliguric. UA is benign. Maintained on angiotensin receptor blockers at home prior to admission, currently on hold. Blood pressure has been low. She is maintained on IV fluids. Serum creatinine is worse today secondary to hypotension. It is still too early for contrast-induced nephropathy. 2. Rule out chronic kidney disease 3. Non-ST elevation AL scheduled for cardiac catheterization today and 4. Hypertension currently controlled 5. Coronary artery disease with history of coronary artery bypass surgery at out 29 years of age 6. Type 2 diabetes 7. Paroxysmal A. fib 8. Volume overload Plan: DC IV fluids and Lasix IV 1 Midodrine 5 mg 1 Repeat labs in a.m. Avoid nephrotoxic agents.
[2023-09-02 16:10] LABS: Glucose,Whole Blood 308 mg/dL (70-110)
--- NOTE | 2023-09-02 16:13 | P.CNPUL ---
History of Present Illness Consult date: 09/02/23 Requesting physician: Callie Alvarez Reason for consult: dyspnea, hypoxemia Chief complaint: Chest pain History of present illness: This a very pleasant 83-year-old female patient with a known history of coronary artery disease with previous coronary bypass grafting 5 back in her 30s. She's had multiple stent placements since that time. She also had a recent stress test revealing reversible ischemia and is waiting to be scheduled for a cardiac catheterization. She presented here to the emergency room on 08/31/2023 with midsternal chest discomfort radiating to her back and into her jaw. On 09/01/2023 she had undergone cardiac catheterization that revealed 90% stenosis of the distal graft to the diagonal. She had undergone successful stenting of the SVG to the diagonal. After returning the to the floor she revealed severe intense chest pain 10 out of 10 and was returned back to the [employer]. The stent had an acute thrombosis. She had again undergone successful stenting of the same SVG to the diagonal with reduction of 100% stenosis to 5%. Echocardiogram revealed moderately impaired left ventricular systolic function with an ejection fraction 35-40%. She was transferred to the intensive care unit. She has remained stable however she was still requiring 6 L high flow nasal cannula we are consulted today for the same. Today's chest x-ray revealed bilateral pleural effusions with cardiomegaly and bibasilar infiltrates. Diffuse interstitial pattern. Consistent with congestive heart failure. White count 12.2. Hemoglobin 10.6. Platelets 236. Sodium 13. Potassium 4.5. Bicarb 19. BUN 35. Creatinine 1.81. Glucose 142. She was given Lasix today per nephrology. The patient has had minimal urine output. Follow-up chest x- ray pending. She is seen today in consultation. She is sitting up in a chair. Awake and alert in no acute distress. Maintaining O2 saturations in the 90s on 6 L high flow nasal cannula. She currently denies any chest pain. No worsening shortness of breath, cough or congestion. She's been afebrile. Hemodynamically stable. No IV fluids. She initially did require BiPAP support 10/5 and 30% FiO2. She does not have home oxygen. Review of Systems REVIEW OF SYSTEMS: CONSTITUTIONAL: Denies any recent significant weight loss or weight gain. EYES: Denies change in vision. EARS, NOSE, MOUTH, THROAT: Denies headaches, denies sore throat. CARDIOVASCULAR: Positive for chest pain, no palpitations or syncopal episodes. RESPIRATORY: Denies shortness of breath, cough, congestion or hemoptysis. GASTROINTESTINAL: Denies change in appetite, denies abdominal pain GENITOURINARY: Denies hematuria, denies infections. MUSKULOSKELETAL: Denies pain, denies swelling. INTEGUMENTARY: Denies rash, denies eczema. NEUROLOGICAL: Denies recent memory loss, no recent seizure activity. PSYCHIATRIC: Denies anxiety, denies depression. HEMATOLOGIC/LYMPHATIC: Denies anemia, denies enlarged lymph nodes. Past Medical History Past Medical History: Coronary Artery Disease (CAD), Cancer, Chest Pain / Angina, Diabetes Mellitus, Hyperlipidemia, Hypertension, Thyroid Disorder Additional Past Medical History / Comment(s): frequent constipation, arthritis, anemia, hx breast cancer, OR 08/21/21 History of Any Multi-Drug Resistant Organisms: None Reported Past Surgical History: Breast Surgery, Cholecystectomy, Coronary Bypass/CABG, Heart Catheterization, Heart Catheterization With Stent, Hysterectomy Additional Past Surgical History / Comment(s): left mastectomy, trigeminal nerve surgery, hemorrhoidectomy, right mastectomy 08/2016, stent 08/22/21 Past Anesthesia/Blood Transfusion Reactions: Motion Sickness Date of Last Stent Placement:: 08/22/21 Past Psychological History: No Psychological Hx Reported Smoking Status: Never smoker Past Alcohol Use History: Rare Past Drug Use History: None Reported - Past Family History Mother Family Medical History: No Reported History Medications and Allergies Home Medications Medication Instructions Recorded Confirmed Type Acarbose [Precose] 50 mg PO TID-W/MEALS 04/29/15 08/31/23 History glipiZIDE [Glucotrol] 5 mg PO W/LUNCH 04/29/15 08/31/23 History metFORMIN HCL [Glucophage] 1,000 mg PO W/SUPPER 04/29/15 08/31/23 History Multivit-Min/FA/Lycopene/Lut 1 tab PO W/BRKFST 04/30/15 08/31/23 History [Centrum Silver Tablet] Atorvastatin [Lipitor] 80 mg PO HS #30 tab 05/02/15 08/31/23 Rx amLODIPine [Norvasc] 10 mg PO HS #30 tab 05/02/15 08/31/23 Rx Losartan [Cozaar] 50 mg PO AC-BID@1200,1700 08/17/16 08/31/23 History Letrozole 2.5 mg PO DAILY 02/24/18 08/31/23 History Risedronate Sodium [Actonel] 35 mg PO MITCHELL 02/24/18 08/31/23 History Calcium Carbonate/Vitamin D3 1 tab PO W/BRKFST 09/27/19 08/31/23 History [Caltrate 600 Plus D3 20 Mcg (800 Iu)] Cyanocobalamin (Vitamin B-12) 5,000 mcg PO Q7D 09/27/19 08/31/23 History [Vitamin B-12] Isosorbide Mononitrate ER [Imdur] 30 mg PO AC-BRKFST 01/27/22 08/31/23 History Ubidecarenone [Co Q-10] 100 mg PO DAILY 01/27/22 08/31/23 History Zinc 50 mg PO Q7D 01/27/22 08/31/23 History Aspirin EC [Ecotrin Low Dose] 81 mg PO DAILY 04/22/23 08/31/23 History Docusate [Colace] 100 mg PO DAILY 04/22/23 08/31/23 History Furosemide [Lasix] 20 mg PO Q2D 04/22/23 08/31/23 History Gabapentin [Neurontin] 100 mg PO HS 04/22/23 08/31/23 History Levothyroxine Sodium [Synthroid] 125 mcg PO AC-BRKFST 04/22/23 08/31/23 History Nitroglycerin Sl Tabs [Nitrostat] 0.4 mg SL Q5M PRN 04/22/23 08/31/23 History Acetaminophen Tab [Tylenol] 650 mg PO Q6HR PRN tab 04/23/23 08/31/23 Rx Dabigatran [Pradaxa] 150 mg PO BID #60 capsule 04/23/23 08/31/23 Rx Metoprolol Tartrate [Lopressor] 25 mg PO BID #60 tab 04/23/23 08/31/23 Rx rOPINIRole HCL [Requip] 0.25 - 0.5 mg PO HS 08/31/23 08/31/23 History Allergies Allergy/AdvReac Type Severity Reaction Status Date / Time doxycycline calcium Allergy Unknown Verified 08/31/23 22:03 [From Vibramycin] doxycycline hyclate Allergy Unknown Verified 08/31/23 22:03 [From Vibramycin] doxycycline monohydrate Allergy Unknown Verified 08/31/23 22:03 [From Vibramycin] Penicillins Allergy Rash/Hives Verified 08/31/23 22:03 Sulfa (Sulfonamide Allergy Rash/Hives Verified 08/31/23 22:03 Antibiotics) sulfamethoxazole Allergy Rash/Hives Verified 08/31/23 22:03 [From Septra] trimethoprim [From Septra] Allergy Rash/Hives Verified 08/31/23 22:03 Physical Exam Vitals: Vital Signs Temp Pulse Pulse Resp BP BP Pulse Ox 09/02/23 15:00 56 L 16 102/54 91 L 09/02/23 14:30 56 L 12 99/49 09/02/23 14:00 56 L 24 97/47 92 L 09/02/23 13:30 56 L 13 95/50 91 L 09/02/23 13:00 55 L 12 101/50 93 L 09/02/23 12:30 56 L 24 100/52 90 L 09/02/23 12:00 98.1 F 56 L 12 101/56 90 L 09/02/23 11:30 59 L 12 103/54 91 L 09/02/23 11:00 98.1 F 63 56 L 16 107/58 101/50 92 L 09/02/23 10:30 63 18 09/02/23 10:00 62 12 106/53 95 09/02/23 09:30 65 12 102/63 09/02/23 09:00 63 30 H 106/55 91 L 09/02/23 08:40 91 L 09/02/23 08:30 112/56 89 L 09/02/23 08:00 98.1 F 56 L 108/57 91 L 09/02/23 07:30 58 L 105/62 90 L 09/02/23 07:00 61 18 105/57 86 L 09/02/23 06:30 56 L 19 110/59 90 L 09/02/23 06:00 57 L 21 109/71 91 L 09/02/23 05:30 55 L 14 106/57 92 L 09/02/23 05:00 51 L 18 107/65 93 L 09/02/23 04:30 53 L 23 112/49 93 L 09/02/23 04:00 98.7 F 52 L 18 103/56 92 L 09/02/23 03:30 51 L 17 99/54 92 L 09/02/23 03:00 51 L 17 110/57 92 L 09/02/23 02:30 50 L 6 L 111/68 94 L 09/02/23 02:00 52 L 18 112/62 92 L 09/02/23 01:30 51 L 20 104/59 91 L 09/02/23 01:00 54 L 16 112/43 95 09/02/23 00:30 52 L 17 110/70 92 L 09/02/23 00:00 97.4 F L 54 L 22 108/65 93 L 09/01/23 23:30 54 L 18 113/61 93 L 09/01/23 23:00 57 L 19 120/65 95 09/01/23 22:30 61 17 123/68 87 L 09/01/23 22:10 61 14 123/68 92 L 09/01/23 22:00 64 8 L 109/79 91 L 09/01/23 21:30 57 L 18 115/64 94 L 09/01/23 21:00 60 20 115/66 95 09/01/23 20:30 61 8 L 106/65 90 L 09/01/23 20:11 09/01/23 20:00 98.5 F 59 L 17 119/67 92 L 09/01/23 19:30 61 11 L 124/62 97 09/01/23 19:00 57 L 16 113/61 98 09/01/23 18:30 56 L 14 118/63 97 09/01/23 18:00 97.4 F L 55 L 15 122/59 98 09/01/23 17:45 56 L 17 126/64 99 09/01/23 17:30 55 L 15 112/81 99 09/01/23 17:15 55 L 17 125/66 98 09/01/23 17:00 94.4 F L 55 L 18 127/72 95 09/01/23 16:45 54 L 18 126/61 09/01/23 16:30 56 L 22 112/64 09/01/23 16:15 94.2 F L 61 18 115/68 09/01/23 16:10 FiO2 09/02/23 15:00 09/02/23 14:30 09/02/23 14:00 09/02/23 13:30 09/02/23 13:00 09/02/23 12:30 09/02/23 12:00 09/02/23 11:30 09/02/23 11:00 09/02/23 10:30 09/02/23 10:00 09/02/23 09:30 09/02/23 09:00 09/02/23 08:40 09/02/23 08:30 09/02/23 08:00 09/02/23 07:30 09/02/23 07:00 09/02/23 06:30 09/02/23 06:00 09/02/23 05:30 09/02/23 05:00 09/02/23 04:30 09/02/23 04:00 09/02/23 03:30 09/02/23 03:00 09/02/23 02:30 09/02/23 02:00 09/02/23 01:30 09/02/23 01:00 09/02/23 00:30 09/02/23 00:00 09/01/23 23:30 09/01/23 23:00 09/01/23 22:30 09/01/23 22:10 09/01/23 22:00 09/01/23 21:30 09/01/23 21:00 40 09/01/23 20:30 09/01/23 20:11 50 09/01/23 20:00 50 09/01/23 19:30 09/01/23 19:00 09/01/23 18:30 09/01/23 18:00 100 09/01/23 17:45 09/01/23 17:30 09/01/23 17:15 09/01/23 17:00 09/01/23 16:45 09/01/23 16:30 09/01/23 16:15 09/01/23 16:10 100 Intake and Output 09/02/23 09/02/23 09/02/23 06:59 14:59 22:59 Intake Total 600 375 Output Total 305 120 30 Balance 295 255 -30 Intake: Intake, IV Titration 600 375 Amount Sodium Chloride 0.9% 1, 600 375 000 ml In Empty Bag 1 bag @ 75 mls/hr IV .[id number] [facility] Rx#:[id number] Output: Urine 305 120 30 Other: Voiding Method Indwelling Catheter Indwelling Catheter Weight 70.6 kg 70.6 kg GENERAL EXAM: Alert, very pleasant 83-year-old female, up in a chair, on 6 L high flow nasal cannula, comfortable in no apparent distress. HEAD: Normocephalic. EYES: Normal reaction of pupils, equal size. NOSE: Clear with pink turbinates. THROAT: No erythema or exudates. NECK: No masses, no JVD. CHEST: No chest wall deformity. LUNGS: Equal air entry with crackles in the bilateral bases. CVS: S1 and S2 normal with no audible murmur, regular rhythm. ABDOMEN: No hepatosplenomegaly, normal bowel sounds, no guarding or rigidity. SPINE: No scoliosis or deformity SKIN: No rashes CENTRAL NERVOUS SYSTEM: No focal deficits, tone is normal in all 4 extremities. EXTREMITIES: There is no peripheral edema. No clubbing, no cyanosis. Peripheral pulses are intact. Results - Laboratory Findings CBC and BMP: 09/02/23 07:01 09/02/23 07:01 ABG ABG pH 7.26 (7.35-7.45) L 09/01/23 15:42 ABG pCO2 41 mmHg (35-45) 09/01/23 15:42 ABG pO2 291 mmHg (83-108) H 09/01/23 15:42 ABG O2 Saturation 98.1 % (94-97) H 09/01/23 15:42 PT/INR, D-dimer PT 12.4 sec (10.0-12.5) 09/01/23 02:38 INR 1.2 (<1.2) H 09/01/23 02:38 Abnormal lab findings: Abnormal Labs 08/31/23 08/31/23 08/31/23 19:51 19:51 19:53 WBC RBC 3.37 L Hgb 10.8 L Hct 32.5 L Neutrophils # INR APTT ABG pH ABG pO2 ABG HCO3 ABG O2 Saturation Sodium 135 L Carbon Dioxide 20 L BUN 32 H Creatinine 1.48 H Glucose 251 H POC Glucose (mg/dL) Hemoglobin A1c Calcium AST 39 H Troponin I 0.850 H* Ur Specific [place] Urine Blood Ur Leukocyte Esterase Urine WBC Urine Mucus 08/31/23 09/01/23 09/01/23 22:59 02:38 02:38 WBC 10.9 H RBC 3.42 L Hgb 10.9 L Hct 32.7 L Neutrophils # INR APTT 105.0 H* ABG pH ABG pO2 ABG HCO3 ABG O2 Saturation Sodium Carbon Dioxide BUN Creatinine Glucose POC Glucose (mg/dL) Hemoglobin A1c Calcium AST Troponin I 2.640 H* Ur Specific [place] Urine Blood Ur Leukocyte Esterase Urine WBC Urine Mucus 09/01/23 09/01/23 09/01/23 02:38 02:38 10:52 WBC RBC Hgb Hct Neutrophils # INR 1.2 H APTT 43.7 H ABG pH ABG pO2 ABG HCO3 ABG O2 Saturation Sodium Carbon Dioxide BUN Creatinine Glucose POC Glucose (mg/dL) Hemoglobin A1c Calcium AST Troponin I 4.250 H* Ur Specific [place] Urine Blood Ur Leukocyte Esterase Urine WBC Urine Mucus 09/01/23 09/01/23 09/01/23 10:52 11:24 13:49 WBC RBC Hgb Hct Neutrophils # INR APTT ABG pH ABG pO2 ABG HCO3 ABG O2 Saturation Sodium Carbon Dioxide BUN 25 H Creatinine 1.32 H Glucose 122 H POC Glucose (mg/dL) 123 H 355 H Hemoglobin A1c Calcium AST Troponin I Ur Specific [place] Urine Blood Ur Leukocyte Esterase Urine WBC Urine Mucus 09/01/23 09/01/23 09/01/23 15:42 16:07 17:05 WBC RBC Hgb Hct Neutrophils # INR APTT ABG pH 7.26 L ABG pO2 291 H ABG HCO3 18 L ABG O2 Saturation 98.1 H Sodium Carbon Dioxide BUN Creatinine Glucose POC Glucose (mg/dL) 283 H Hemoglobin A1c Calcium AST Troponin I Ur Specific [place] 1.036 H Urine Blood Trace H Ur Leukocyte Esterase Moderate H Urine WBC 18 H Urine Mucus Rare H 09/01/23 09/01/23 09/02/23 17:43 20:35 06:37 WBC RBC Hgb Hct Neutrophils # INR APTT ABG pH ABG pO2 ABG HCO3 ABG O2 Saturation Sodium Carbon Dioxide BUN Creatinine Glucose POC Glucose (mg/dL) 311 H 224 H 178 H Hemoglobin A1c Calcium AST Troponin I Ur Specific [place] Urine Blood Ur Leukocyte Esterase Urine WBC Urine Mucus 09/02/23 09/02/23 09/02/23 07:01 07:01 07:01 WBC 12.2 H RBC 3.25 L Hgb 10.6 L Hct 32.4 L Neutrophils # 10.4 H INR APTT ABG pH ABG pO2 ABG HCO3 ABG O2 Saturation Sodium Carbon Dioxide 19 L BUN 35 H Creatinine 1.81 H Glucose 142 H POC Glucose (mg/dL) Hemoglobin A1c 6.4 H Calcium 8.0 L AST Troponin I Ur Specific [place] Urine Blood Ur Leukocyte Esterase Urine WBC Urine Mucus 09/02/23 11:16 WBC RBC Hgb Hct Neutrophils # INR APTT ABG pH ABG pO2 ABG HCO3 ABG O2 Saturation Sodium Carbon Dioxide BUN Creatinine Glucose POC Glucose (mg/dL) 397 H Hemoglobin A1c Calcium AST Troponin I Ur Specific [place] Urine Blood Ur Leukocyte Esterase Urine WBC Urine Mucus - Diagnostic Findings Chest x-ray: image reviewed Assessment and Plan Assessment: Acute non-ST segment elevation myocardial infarction secondary to occluded SVG t o the diagonal and had undergone successful stenting initially then later that same day developed acute in-stent restenosis return to the [employer] and had a second procedure with successful stenting again to the SVG to the diagonal reduction of 100% stenosis to 5%. History of coronary artery disease with previous coronary artery bypass grafting 5 in her 30s and subsequent stenting Ischemic cardiomyopathy with ejection fraction 35-40% Hypoxemic respiratory failure secondary to an acute exacerbation of systolic congestive heart failure Acute kidney injury Physical atrial fibrillation anticoagulated with Pradaxa Hypertension Hyperlipidemia Diabetes mellitus Lifelong nonsmoker Plan: The patient was seen and evaluated Chest x-ray, labs and medications reviewed Echocardiogram reviewed Patient was given IV Lasix 1 per nephrology Minimal urine output Follow-up chest x-ray pending Currently on 6 L high flow nasal cannula Continue to titrate down the FiO2 as tolerated We'll continue to follow and make further recommendations based on her clinical status I have personally seen and examined the patient, performed the documentation and the assessment and plan as written. Number of minutes spent on the visit: 20.
--- NOTE | 2023-09-02 16:32 | XR ---
EXAMINATION TYPE: XR chest 1V portable DATE OF EXAM: 09/02/2023 4:13 PM CLINICAL INDICATION:Female, 83 years old with history of increased oxygen needs.; COMPARISON: Chest radiographs from 09/01/2023 TECHNIQUE: XR chest 1V portable Frontal view of the chest. FINDINGS: Lungs/Pleura: No evidence of focal consolidation or pneumothorax. Blunting of the costophrenic angles is present. Pulmonary vascularity: Pulmonary vascular congestion. Heart/mediastinum: Cardiomediastinal silhouette is enlarged and stable. Musculoskeletal: No acute osseous pathology. Midline sternotomy wires are noted. Other findings: None IMPRESSION: Cardiomegaly, pulmonary vascular congestion and bilateral pleural effusions. Correlate with BNP for c ongestive heart failure.
[2023-09-02 20:51] LABS: Glucose,Whole Blood 116 mg/dL (70-110)
[2023-09-02] MEDS: GABAPENTIN 100 MG CAP PO SCH (20:58)
[2023-09-02] MEDS: HEPARIN SODIUM,PORCINE 5,000 UNIT/ML 1 ML VIAL SQ SCH (20:58)
[2023-09-02] MEDS: ATORVASTATIN 80 MG TAB PO SCH (20:58)
[2023-09-03] MEDS: NITROGLYCERIN OINT 1 INCH/GM PACKET TOPICAL SCH ×2 (00:40→06:37)
--- NOTE | 2023-09-03 01:26 | PN ---
PROGRESS NOTE SUBJECTIVE: Mrs. Laboy underwent stenting of vein graft to the diagonal yesterday by Dr. Esqueda. She was hemodynamically unstable, sent to ICU. She is doing better. She is still requiring quite a bit of oxygen, but hemodynamically stable. No chest pain. OBJECTIVE: HEART: S1, S2 heard normally, short systolic murmur noted. LUNGS: Reveal diminished air entry. ABDOMEN: Unremarkable. EXTREMITIES: Lower extremity exam is unremarkable. PLAN: Continue current medications and will request Dr. Hines to see the patient in view of her persistent hypoxia. Continue current medications which include dual antiplatelet therapy. MMODL / IJN: [id number] /
[2023-09-03 06:31] LABS: Glucose,Whole Blood 143 mg/dL (70-110)
[2023-09-03] MEDS: INSULIN ASPART (NovoLOG) 100 UNIT/ML VIAL SQ SCH ×4 (06:32→20:26)
[2023-09-03] MEDS: CALCIUM CARB-VIT D 500 MG-5 MCG TAB PO SCH (06:36)
[2023-09-03] MEDS: LEVOTHYROXINE 125 MCG TAB PO SCH (06:36)
[2023-09-03] MEDS: ACARBOSE 25 MG TAB PO SCH ×3 (06:36→16:53)
[2023-09-03] MEDS: MULTIVITAMINS, THERA 1 EACH TAB PO SCH (06:36)
[2023-09-03] MEDS: HEPARIN SODIUM,PORCINE 5,000 UNIT/ML 1 ML VIAL SQ SCH ×2 (08:10→20:20)
[2023-09-03] MEDS: FAMOTIDINE 20 MG/2 ML VIAL IV SCH ×2 (08:10→20:20)
[2023-09-03] MEDS: LETROZOLE 2.5 MG TAB PO SCH (08:10)
[2023-09-03] MEDS: DOCUSATE 100 MG CAP PO SCH (08:10)
[2023-09-03] MEDS: METOPROLOL TARTRATE 25 MG TAB PO SCH ×2 (08:10→20:18)
[2023-09-03] MEDS: CLOPIDOGREL 75 MG TAB PO SCH (08:10)
[2023-09-03] MEDS: ASPIRIN 81 MG PO SCH (08:10)
[2023-09-03 10:07] LABS: African American GFR (CKD) 24 (>60 ml/min/1.73 sqM); Anion Gap 12 mmol/L; Blood Urea Nitrogen 49 mg/dL (7-17); Calcium 7.9 mg/dL (8.4-10.2); Carbon Dioxide 20 mmol/L (22-30); Chloride 102 mmol/L (98-107); Glucose 143 mg/dL (74-99); Non-African American GFR(CKD) 21 (>60 ml/min/1.73 sqM); Potassium 4.4 mmol/L (3.5-5.1); Sodium 134 mmol/L (137-145)
--- NOTE | 2023-09-03 10:55 | PN ---
PROGRESS NOTE SUBJECTIVE: The patient is an 83-year-old lady, who had a stenting of a vein graft to the diagonal and that had occluded and had a re-stenting that performed within a few hours. She is doing well today. No chest pain. Shortness of breath has improved. FiO2 has come down from 6 to 3 L. She is actually looking better. OBJECTIVE: VITAL SIGNS: Stable. NECK: JVD 1 cm. No carotid bruit. HEART: S1 and S2 heard normally, short systolic murmur. LUNGS: Clear. ABDOMEN: Unchanged. EXTREMITIES: Lower extremities unchanged. PLAN: Plan is to increase activity, possible discharge in the next 24 hours, but we will request physical therapy to improve her activity today. MMODL / IJN: [id number] /
[2023-09-03 11:40] LABS: Glucose,Whole Blood 236 mg/dL (70-110)
[2023-09-03] MEDS: glipiZIDE 5 MG TAB PO SCH (11:54)
[2023-09-03] MEDS ORDERED: FUROSEMIDE 10 MG/ML 4 ML VIAL IV STA (12:07)
--- NOTE | 2023-09-03 12:07 | P.PN ---
Subjective Patient is seen for follow-up for acute kidney injury. Status post cardiac catheterization 2 on 09/01/2023. Patient initially underwent angioplasty with stent placement but shortly afterwards developed severe chest pain with EKG findings of subendocardial ischemia and anterior wall MS. Patient subsequently had another stent placed to SVG to the diagonal branch. Transferred out of ICU. Currently not complaining of any chest pain. Status post IV Lasix yesterday. Serum creatinine increased to 2.1 today. 24-hour urine output at 1810 mL Continues to be short of breath and O2 sats 92% on 4 L nasal cannula Objective - Vital Signs Vital signs: Vital Signs Temp 98 F 09/03/23 08:00 Pulse 58 L 09/03/23 11:44 Resp 18 09/03/23 11:44 BP 104/41 09/03/23 11:44 Pulse Ox 92 L 09/03/23 11:44 FiO2 30 09/03/23 00:39 Intake & Output 09/02/23 09/03/23 09/03/23 18:59 06:59 18:59 Intake Total 1935 200 465 Output Total 330 530 150 Balance 1605 -330 315 Weight 70.6 kg Intake: Intake, IV Titration 375 Amount Sodium Chloride 0.9% 1, 375 000 ml In Empty Bag 1 bag @ 75 mls/hr IV .[id number] [facility] Rx#:[id number] Oral 1560 200 465 Output: Urine 330 530 150 Other: Voiding Method Indwelling Catheter Indwelling Catheter Indwelling Catheter - Exam Patient is awake, comfortable, in no acute distress Examination of the heart S1 and S2 Examination of the lungs decreased breath sounds at the bases, basal crackles Abdomen is soft nontender Examination of lower extremities shows no significant edema DIRECTOR HEART exam grossly intact - Labs CBC & Chem 7: 09/02/23 07:01 09/03/23 08:15 Labs: Abnormal Lab Results - Last 24 Hours (Table) 09/02/23 09/02/23 09/03/23 Range/Units 16:09 20:50 06:29 Sodium (137-145) mmol/L Carbon Dioxide (22-30) mmol/L BUN (7-17) mg/dL Creatinine (0.52-1.04) mg/dL Glucose (74-99) mg/dL POC Glucose (mg/dL) 308 H 116 H 143 H (70-110) mg/dL Calcium (8.4-10.2) mg/dL 09/03/23 09/03/23 Range/Units 08:15 11:39 Sodium 134 L (137-145) mmol/L Carbon Dioxide 20 L (22-30) mmol/L BUN 49 H (7-17) mg/dL Creatinine 2.15 H (0.52-1.04) mg/dL Glucose 143 H (74-99) mg/dL POC Glucose (mg/dL) 236 H (70-110) mg/dL Calcium 7.9 L (8.4-10.2) mg/dL Assessment and Plan Assessment: 1. Acute kidney injury likely ATN currently nonoliguric. UA is benign. Maintained on angiotensin receptor blockers at home prior to admission, currently on hold. Blood pressure has been low. She is maintained on IV fluids. Serum creatinine is worse today secondary to hypotension. Monitor for contrast nephropathy. 2. Rule out chronic kidney disease 3. Non-ST elevation MS scheduled for cardiac catheterization today and 4. Hypertension currently controlled 5. Coronary artery disease with history of coronary artery bypass surgery at about 29 years of age 6. Type 2 diabetes 7. Paroxysmal A. fib 8. Volume overload Plan: Repeat IV Lasix Repeat labs in a.m. Accurate I's and O's Avoid nephrotoxic agents.
--- NOTE | 2023-09-03 14:31 | P.PN ---
Subjective Progress Note Date: 09/03/23 Principal diagnosis: Shortness of breath. This a very pleasant 83-year-old female patient with a known history of coronary artery disease with previous coronary bypass grafting 5 back in her 30s. She's had multiple stent placements since that time. She also had a recent stress test revealing reversible ischemia and is waiting to be scheduled for a cardiac catheterization. She presented here to the emergency room on 08/31/2023 with midsternal chest discomfort radiating to her back and into her jaw. On 09/01/2023 she had undergone cardiac catheterization that revealed 90% stenosis of the distal graft to the diagonal. She had undergone successful stenting of the SVG to the diagonal. After returning the to the floor she revealed severe intense chest pain 10 out of 10 and was returned back to the Motion Picture Photographer. The stent had an acute thrombosis. She had again undergone successful stenting of the same SVG to the diagonal with reduction of 100% stenosis to 5%. [place] rdiogram revealed moderately impaired left ventricular systolic function with an ejection fraction 35-40%. She was transferred to the intensive care unit. She has remained stable however she was still requiring 6 L high flow nasal cannula we are consulted today for the same. Today's chest x-ray revealed bilateral pleural effusions with cardiomegaly and bibasilar infiltrates. Diffuse interstitial pattern. Consistent with congestive heart failure. White count 12.2. Hemoglobin 10.6. Platelets 236. Sodium 13. Potassium 4.5. Bicarb 19. BUN 35. Creatinine 1.81. Glucose 142. She was given Lasix today per nephrology. The patient has had minimal urine output. Follow-up chest x-ray pe nding. She is seen today in consultation. She is sitting up in a chair. Awake and alert in no acute distress. Maintaining O2 saturations in the 90s on 6 L high flow nasal cannula. She currently denies any chest pain. No worsening shortness of breath, cough or congestion. She's been afebrile. Hemodynamically stable. No IV fluids. She initially did require BiPAP support 10/5 and 30% FiO2. She does not have home oxygen. Progress note dated 09/03/2023. 83-year-old female seen in consultation yesterday. The patient had increasing oxygen requirements, likely on the basis of fluid overload. She was seen in consultation yesterday, and given diuretic. Currently, she is on 4 L of oxygen. She is feeling better. No chest pain or chest discomfort. She did use the BiPAP device, with settings of 10/5, and 30%. Chest x-ray is much improved. She's not receiving any IV fluids. Labs include a sodium 134, potassium 4.4, chlorides 102, CO2 20, BUN 49, creatinine 2.15. Glucose is 143. Calcium 7.9. Objective - Vital Signs Vital signs: Vital Signs Temp 98 F 09/03/23 08:00 Pulse 58 L 09/03/23 11:44 Resp 18 09/03/23 11:44 BP 104/41 09/03/23 11:44 Pulse Ox 92 L 09/03/23 11:44 FiO2 30 09/03/23 00:39 Intake & Output 09/02/23 09/03/23 09/03/23 18:59 06:59 18:59 Intake Total 1935 200 465 Output Total 330 530 150 Balance 1605 -330 315 Weight 70.6 kg Intake: Intake, IV Titration 375 Amount Sodium Chloride 0.9% 1, 375 000 ml In Empty Bag 1 bag @ 75 mls/hr IV .[id number] [facility] Rx#:[id number] Oral 1560 200 465 Output: Urine 330 530 150 Other: Voiding Method Indwelling Catheter Indwelling Catheter Indwelling Catheter - Exam No acute distress, oriented 3. Currently on 4 L. HEENT examination is grossly unremarkable. Neck supple. Full range of motion. No adenopathy thyromegaly or neck vein distention. Cardiovascular examination reveals regular rhythm rate. S1-S2 normal. No S3 or S4. No discernible murmur noted. Heart rate is 58 bpm. Heart sounds are distant. Lungs reveal scattered rhonchi and crackles. No wheezes. Breath sounds equal bilaterally. 4 L saturation is 93%. Abdomen soft bowel sounds are heard. No masses or tenderness. Extremities are intact. No cyanosis clubbing or edema. Skin is without rash or lesion. Neurologic examination is brief but nonfocal. - Labs CBC & Chem 7: 09/02/23 07:01 09/03/23 08:15 Labs: Abnormal Lab Results - Last 24 Hours (Table) 09/02/23 09/02/23 09/03/23 Range/Units 16:09 20:50 06:29 Sodium (137-145) mmol/L Carbon Dioxide (22-30) mmol/L BUN (7-17) mg/dL Creatinine (0.52-1.04) mg/dL Glucose (74-99) mg/dL POC Glucose (mg/dL) 308 H 116 H 143 H (70-110) mg/dL Calcium (8.4-10.2) mg/dL 09/03/23 09/03/23 Range/Units 08:15 11:39 Sodium 134 L (137-145) mmol/L Carbon Dioxide 20 L (22-30) mmol/L BUN 49 H (7-17) mg/dL Creatinine 2.15 H (0.52-1.04) mg/dL Glucose 143 H (74-99) mg/dL POC Glucose (mg/dL) 236 H (70-110) mg/dL Calcium 7.9 L (8.4-10.2) mg/dL Assessment and Plan Assessment: Acute non-ST segment elevation myocardial infarction secondary to occluded SVG to the diagonal and had undergone successful stenting initially then later that same day developed acute in-stent restenosis return to the Motion Picture Photographer and had a second procedure with successful stenting again to the SVG to the diagonal reduction of 100% stenosis to 5%. History of coronary artery disease with previous coronary artery bypass grafting 5 in her 30s and subsequent stenting. Ischemic cardiomyopathy with ejection fraction 35-40%. Hypoxemic respiratory failure secondary to an acute exacerbation of systolic congestive heart failure. Acute kidney injury. Physical atrial fibrillation anticoagulated with Pradaxa. Hypertension. Hyperlipidemia. Diabetes mellitus. Lifelong nonsmoker. Plan: Plan dated 09/03/2023. The patient was seen in consultation yesterday, at the request of cardiology. The patient's chest x-ray suggested fluid overload/CHF. She was treated with diuretics. The patient appears to be improved. She was on 6 L of oxygen yesterday. She's down to between 3-4 L of oxygen today. Her breathing is much improved according to her. We will continue to follow and make recommendations along the way. Prognosis is guarded. Labs, x-rays, and medications are reviewed. Time with Patient: Less than 30
[2023-09-03 16:23] LABS: Glucose,Whole Blood 272 mg/dL (70-110)
--- NOTE | 2023-09-03 17:04 | P.PN ---
Subjective Progress Note Date: 09/03/23 83 years old female with multiple medical problems including a previous history of cardiac bypass surgery since her age of 29 days and since then she has been having different issue with her heart. He saw her senior foreman about one week ago with Dr. Ventura for chest pain and she underwent stress test, Dr. Ventura call her back and asked her to come to the hospital for possible cardiac cath. She denies any dyspnea or coughing. No change in urine or bowel habits. Past headache dizziness weakness or numbness. She denies smoking alcohol or illicit drugs. Vitals are stable, currently blood pressure 116/60 She has mild leukocytosis at 10.9, hemoglobin 10.9. Creatinine is slightly elevated 1.4 and she follow up with Dr. Do already consulted. Troponin were elevated 0.8, 2.6, 4.2. ECONOMIC MANAGER is high 8480. Chest x-ray showing right middle lung airway disease with his E opacity, I reviewed the chest x-ray it looks to me more of pulmonary vascular congestion EKG showing junctional rhythm at [address] depression in the inferior lead, II, III and aVF with Q waves in V1 to V4. Objective - Vital Signs Vital signs: Vital Signs Temp 98 F 09/03/23 08:00 Pulse 58 L 09/03/23 11:44 Resp 18 09/03/23 11:44 BP 104/41 09/03/23 11:44 Pulse Ox 92 L 09/03/23 11:44 FiO2 30 09/03/23 00:39 Intake & Output 09/02/23 09/03/23 09/03/23 18:59 06:59 18:59 Intake Total 1935 200 465 Output Total 330 530 150 Balance 1605 -330 315 Weight 70.6 kg Intake: Intake, IV Titration 375 Amount Sodium Chloride 0.9% 1, 375 000 ml In Empty Bag 1 bag @ 75 mls/hr IV .[id number] [facility] Rx#:[id number] Oral 1560 200 465 Output: Urine 330 530 150 Other: Voiding Method Indwelling Catheter Indwelling Catheter Indwelling Catheter - Exam GENERAL: The patient is alert and oriented x3, not in any acute distress. Well developed, well nourished. HEENT: Pupils are round and equally reacting to light. EOMI. No scleral icterus. No conjunctival pallor. Normocephalic, atraumatic. No pharyngeal erythema. No thyromegaly. CARDIOVASCULAR: S1 and S2 present. No murmurs, rubs, or gallops. -PULMONARY: Chest is clear to auscultation, no wheezing , bilateral basal crackles. ABDOMEN: Soft, nontender, nondistended, normoactive bowel sounds. No palpable organomegaly. MUSCULOSKELETAL: No joint swelling or deformity. EXTREMITIES: No cyanosis, clubbing, or pedal edema. NEUROLOGICAL: Gross neurological examination did not reveal any focal deficits. SKIN: No rashes. no petechiae. Bilateral basal - Labs CBC & Chem 7: 09/02/23 07:01 09/03/23 08:15 Labs: Abnormal Lab Results - Last 24 Hours (Table) 09/02/23 09/02/23 09/03/23 Range/Units 16:09 20:50 06:29 Sodium (137-145) mmol/L Carbon Dioxide (22-30) mmol/L BUN (7-17) mg/dL Creatinine (0.52-1.04) mg/dL Glucose (74-99) mg/dL POC Glucose (mg/dL) 308 H 116 H 143 H (70-110) mg/dL Calcium (8.4-10.2) mg/dL 09/03/23 09/03/23 Range/Units 08:15 11:39 Sodium 134 L (137-145) mmol/L Carbon Dioxide 20 L (22-30) mmol/L BUN 49 H (7-17) mg/dL Creatinine 2.15 H (0.52-1.04) mg/dL Glucose 143 H (74-99) mg/dL POC Glucose (mg/dL) 236 H (70-110) mg/dL Calcium 7.9 L (8.4-10.2) mg/dL Assessment and Plan Assessment: Acute non-ST elevation myocardial infarction, status post cardiac cath and Successful stenting of the SVG to diagonal Possible acute CHF, systolic with ejection fraction 35-40% moderate severe mitral regurgitation Chronic kidney disease stage III with mild elements of acute kidney injury possible History of breast cancer on letrozole Osteoporosis on risedronate Diabetes mellitus Hypertension Obesity with BMI of 30.5 Plan: Continue with aspirin and Plavix Continue patient monitor in the ICU Continue with oxygen, currently on 6 L/m Cardiology team on the case Continue with Plavix and aspirin Nephrology consult as she is known to their service Labs and medication were reviewed.. Continue same treatment. Continue with symptomatic treatment. Resume home medication. Monitor labs and vitals. DVT and GI prophylaxis. Further recommendations as per clinical course of the patient DVT prophylaxis: heparin GI Prophylaxis: Pepcid PT/OT: Pending Prognosis is guarded
[2023-09-03] MEDS: GABAPENTIN 100 MG CAP PO SCH (20:19)
[2023-09-03] MEDS: ATORVASTATIN 80 MG TAB PO SCH (20:19)
[2023-09-03] MEDS: ZOLPIDEM 5 MG TAB PO PRN (20:20)
[2023-09-03 20:25] LABS: Glucose,Whole Blood 274 mg/dL (70-110)
[2023-09-04 06:06] LABS: Glucose,Whole Blood 197 mg/dL (70-110)
[2023-09-04] MEDS: ACARBOSE 25 MG TAB PO SCH ×3 (06:24→17:02)
[2023-09-04] MEDS: MULTIVITAMINS, THERA 1 EACH TAB PO SCH (06:25)
[2023-09-04] MEDS: CALCIUM CARB-VIT D 500 MG-5 MCG TAB PO SCH (06:25)
[2023-09-04] MEDS: LEVOTHYROXINE 125 MCG TAB PO SCH (06:25)
[2023-09-04] MEDS: INSULIN ASPART (NovoLOG) 100 UNIT/ML VIAL SQ SCH ×4 (06:25→21:42)
[2023-09-04 08:09] LABS: Basophils % (A) 0 %; Eosinophils # (A) 0.1 k/uL (0-0.7); Eosinophils % (A) 1 %; HCT 30.8 % (34.0-46.0); HGB 10.4 gm/dL (11.4-16.0); Lymphocytes # (A) 1.5 k/uL (1.0-4.8); Lymphocytes % (A) 16 %; MCHC 33.9 g/dL (31.0-37.0); MCV 97.4 fL (80.0-100.0); Mean Platelet Volume 7.9; Monocytes # (A) 0.5 k/uL (0-1.0); Monocytes % (A) 5 %; Neutrophils # (A) 7.6 k/uL (1.3-7.7); Neutrophils % (A) 77 %; Platelet Count 227 k/uL (150-450); RBC 3.16 m/uL (3.80-5.40); RDW 13.7 % (11.5-15.5); WBC 9.9 k/uL (3.8-10.6)
[2023-09-04 08:53] LABS: African American GFR (CKD) 27 (>60 ml/min/1.73 sqM); Anion Gap 11 mmol/L; Blood Urea Nitrogen 56 mg/dL (7-17); Calcium 7.8 mg/dL (8.4-10.2); Carbon Dioxide 20 mmol/L (22-30); Chloride 102 mmol/L (98-107); Glucose 180 mg/dL (74-99); Non-African American GFR(CKD) 23 (>60 ml/min/1.73 sqM); Potassium 3.8 mmol/L (3.5-5.1); Sodium 133 mmol/L (137-145)
[2023-09-04] MEDS: FAMOTIDINE 20 MG/2 ML VIAL IV SCH ×2 (09:15→21:41)
[2023-09-04] MEDS: HEPARIN SODIUM,PORCINE 5,000 UNIT/ML 1 ML VIAL SQ SCH ×2 (09:15→21:41)
[2023-09-04] MEDS: LETROZOLE 2.5 MG TAB PO SCH (09:16)
[2023-09-04] MEDS: CLOPIDOGREL 75 MG TAB PO SCH (09:16)
[2023-09-04] MEDS: METOPROLOL TARTRATE 25 MG TAB PO SCH ×2 (09:16→21:41)
[2023-09-04] MEDS: DOCUSATE 100 MG CAP PO SCH (09:16)
[2023-09-04] MEDS: ASPIRIN 81 MG PO SCH (09:16)
--- NOTE | 2023-09-04 10:50 | P.PN ---
Subjective Patient is seen for follow-up for acute kidney injury. Status post cardiac catheterization 2 on 09/01/2023. Patient initially underwent angioplasty with stent placement but shortly afterwards developed severe chest pain with EKG findings of subendocardial ischemia and anterior wall WI. Patient subsequently had another stent placed to SVG to the diagonal branch. Transferred out of ICU. Currently not complaining of any chest pain. Status post IV Lasix yesterday. Serum creatinine at 1.9 today. 24-hour urine output at 1875 mL Continues to be short of breath on exertion. Stay x-ray from 09/02/2023 shows pulmonary vascular congestion. Objective - Vital Signs Vital signs: Vital Signs Temp 97.4 F L 09/04/23 08:00 Pulse 61 09/04/23 08:00 Resp 17 09/04/23 08:00 BP 108/68 09/04/23 08:00 Pulse Ox 97 09/04/23 08:50 FiO2 30 09/03/23 00:39 Intake & Output 09/03/23 09/04/23 09/04/23 18:59 06:59 18:59 Intake Total 925 240 Output Total 1175 700 Balance -250 -460 Weight 69.3 kg Intake: Oral 925 240 Output: Urine 1175 700 Other: Voiding Method Indwelling Catheter Indwelling Catheter - Exam Patient is awake, comfortable, in no acute distress Examination of the heart S1 and S2 Examination of the lungs decreased breath sounds at the bases, basal crackles Abdomen is soft nontender Examination of lower extremities shows no significant edema JIGSAWYER exam grossly intact - Labs CBC & Chem 7: 09/04/23 07:53 09/04/23 07:53 Labs: Abnormal Lab Results - Last 24 Hours (Table) 09/03/23 09/03/23 09/03/23 Range/Units 11:39 16:21 20:21 RBC (3.80-5.40) m/uL Hgb (11.4-16.0) gm/dL Hct (34.0-46.0) % Sodium (137-145) mmol/L Carbon Dioxide (22-30) mmol/L BUN (7-17) mg/dL Creatinine (0.52-1.04) mg/dL Glucose (74-99) mg/dL POC Glucose (mg/dL) 236 H 272 H 274 H (70-110) mg/dL Calcium (8.4-10.2) mg/dL 09/04/23 09/04/23 09/04/23 Range/Units 06:04 07:53 07:53 RBC 3.16 L (3.80-5.40) m/uL Hgb 10.4 L (11.4-16.0) gm/dL Hct 30.8 L (34.0-46.0) % Sodium 133 L (137-145) mmol/L Carbon Dioxide 20 L (22-30) mmol/L BUN 56 H (7-17) mg/dL Creatinine 1.94 H (0.52-1.04) mg/dL Glucose 180 H (74-99) mg/dL POC Glucose (mg/dL) 197 H (70-110) mg/dL Calcium 7.8 L (8.4-10.2) mg/dL Assessment and Plan Assessment: 1. Acute kidney injury, ATN currently nonoliguric. UA is benign. Maintained on angiotensin receptor blockers at home prior to admission, currently on hold. Blood pressure has been low. She is maintained on IV fluids. Renal function is somewhat improved today. 2. Rule out chronic kidney disease 3. Non-ST elevation WI scheduled for cardiac catheterization x 2 on 09/01/2023, status post coronary stent placement. 4. Hypertension currently controlled 5. Coronary artery disease with history of coronary artery bypass surgery at about 29 years of age 6. Type 2 diabetes 7. Paroxysmal A. fib 8. Volume overload Plan: Diuresis patient Consider decreasing dose of metoprolol as blood pressure remains low. Repeat labs in a.m. Accurate I's and O's Avoid nephrotoxic agents.
--- NOTE | 2023-09-04 11:03 | XR ---
EXAMINATION TYPE: XR chest 1V portable DATE OF EXAM: 09/04/2023 10:53 AM CLINICAL INDICATION:Female, 83 years old with history of Hypoxemia; PHH COMPARISON: Chest radiographs from 09/02/2023. TECHNIQUE: XR chest 1V portable Frontal view of the chest. FINDINGS: Lungs/Pleura: No evidence of focal consolidation or pneumothorax. Blunting of the costophrenic angles is present. Pulmonary vascularity: Pulmonary vascular congestion. Heart/mediastinum: Cardiomediastinal silhouette is enlarged and stable. Musculoskeletal: No acute osseous pathology. Midline sternotomy wires are noted. IMPRESSION: Cardiomegaly, pulmonary vascular congestion and bilateral pleural effusions. Correlate with BNP for c ongestive heart failure.
[2023-09-04 11:28] LABS: Glucose,Whole Blood 260 mg/dL (70-110)
[2023-09-04] MEDS: glipiZIDE 5 MG TAB PO SCH (12:51)
[2023-09-04] MEDS: FUROSEMIDE 10 MG/ML 4 ML VIAL IV SCH (12:52)
--- NOTE | 2023-09-04 12:52 | P.PN ---
Subjective Progress Note Date: 09/04/23 This a very pleasant 83-year-old female patient with a known history of coronary artery disease with previous coronary bypass grafting 5 back in her 30s. She's had multiple stent placements since that time. She also had a recent stress test revealing reversible ischemia and is waiting to be scheduled for a cardiac catheterization. She presented here to the emergency room on 08/31/2023 with midsternal chest discomfort radiating to her back and into her jaw. On 09/01/2023 she had undergone cardiac catheterization that revealed 90% stenosis of the distal graft to the diagonal. She had undergone successful stenting of the SVG to the diagonal. After returning the to the floor she revealed severe intense chest pain 10 out of 10 and was returned back to the Transformer Stock Clerk. The stent had an acute thrombosis. She had again undergone successful stenting of the same SVG to the diagonal with reduction of 100% stenosis to 5%. Echocardiogram revealed moderately impaired left ventricular systolic function with an ejection fraction 35-40%. She was transferred to the intensive care unit. She has remained stable however she was still requiring 6 L high flow nasal cannula we are consulted today for the same. Today's chest x-ray revealed bilateral pleural effusions with cardiomegaly and bibasilar infiltrates. Diffuse interstitial pattern. Consistent with congestive heart failure. White count 12.2. Hemoglobin 10.6. Platelets 236. Sodium 13. Potassium 4.5. Bicarb 19. BUN 35. Creatinine 1.81. Glucose 142. She was given Lasix today per nephrology. The patient has had minimal urine output. Follow-up chest x- ray pending. She is seen today in consultation. She is sitting up in a chair. Awake and alert in no acute distress. Maintaining O2 saturations in the 90s on 6 L high flow nasal cannula. She currently denies any chest pain. No worsening shortness of breath, cough or congestion. She's been afebrile. Hemodynamically stable. No IV fluids. She initially did require BiPAP support 10/5 and 30% FiO2. She does not have home oxygen. Progress note dated 09/03/2023. 83-year-old female seen in consultation yesterday. The patient had increasing oxygen requirements, likely on the basis of fluid overload. She was seen in consultation yesterday, and given diuretic. Currently, she is on 4 L of oxygen. She is feeling better. No chest pain or chest discomfort. She did use the BiPAP device, with settings of 10/5, and 30%. Chest x-ray is much. She's not receiving any IV fluids. Labs include a sodium 134, potassium 4.4, chlorides 102, CO2 20, BUN 49, creatinine 2.15. Glucose is 143. Calcium 7.9. The patient is seen today 09/04/2023 in follow-up on the selective care unit. She is awake and alert in no acute distress. She is maintaining good O2 saturations in the mid 90s on 3 L/m per nasal cannula. Follow-up chest x-ray reveals cardiomegaly with pulmonary vascular congestion and bilateral pleural effusions. Slightly improved compared to 09/02/2023. White count 9.9. Hemoglobin 10.4. Platelets 227. Sodium 133. Potassium 3.8. Bicarb 20. BUN 5 6. Creatinine 1.94. Glucose 180. Peggy on IV diuretics. Continued on heparin for DVT prophylaxis. Currently in a -700 ML balance. Objective - Vital Signs Vital signs: Vital Signs Temp 97.4 F L 09/04/23 08:00 Pulse 61 09/04/23 08:00 Resp 17 09/04/23 08:00 BP 108/68 09/04/23 08:00 Pulse Ox 97 09/04/23 08:50 FiO2 30 09/03/23 00:39 Intake & Output 09/03/23 09/04/23 09/04/23 18:59 06:59 18:59 Intake Total 925 240 Output Total 1175 700 260 Balance -250 -460 -260 Weight 69.3 kg Intake: Oral 925 240 Output: Urine 1175 700 260 Other: Voiding Method Indwelling Catheter Indwelling Catheter Indwelling Catheter - Exam GENERAL EXAM: Alert, pleasant 83-year-old female, on 3 L nasal cannula, fairly comfortable in no apparent distress. HEAD: Normocephalic. EYES: Normal reaction of pupils, equal size. NOSE: Clear with pink turbinates. THROAT: No erythema or exudates. NECK: No masses, no JVD. CHEST: No chest wall deformity. LUNGS: Equal air entry with crackles in the bilateral bases. CVS: S1 and S2 normal with no audible murmur, regular rhythm. ABDOMEN: No hepatosplenomegaly, normal bowel sounds, no guarding or rigidity. SPINE: No scoliosis or deformity SKIN: No rashes CENTRAL NERVOUS SYSTEM: No focal deficits, tone is normal in all 4 extremities. EXTREMITIES: There is no peripheral edema. No clubbing, no cyanosis. Peripheral pulses are intact. - Labs CBC & Chem 7: 09/04/23 07:53 09/04/23 07:53 Labs: Abnormal Lab Results - Last 24 Hours (Table) 09/03/23 09/03/23 09/04/23 Range/Units 16:21 20:21 06:04 RBC (3.80-5.40) m/uL Hgb (11.4-16.0) gm/dL Hct (34.0-46.0) % Sodium (137-145) mmol/L Carbon Dioxide (22-30) mmol/L BUN (7-17) mg/dL Creatinine (0.52-1.04) mg/dL Glucose (74-99) mg/dL POC Glucose (mg/dL) 272 H 274 H 197 H (70-110) mg/dL Calcium (8.4-10.2) mg/dL 09/04/23 09/04/23 09/04/23 Range/Units 07:53 07:53 11:27 RBC 3.16 L (3.80-5.40) m/uL Hgb 10.4 L (11.4-16.0) gm/dL Hct 30.8 L (34.0-46.0) % Sodium 133 L (137-145) mmol/L Carbon Dioxide 20 L (22-30) mmol/L BUN 56 H (7-17) mg/dL Creatinine 1.94 H (0.52-1.04) mg/dL Glucose 180 H (74-99) mg/dL POC Glucose (mg/dL) 260 H (70-110) mg/dL Calcium 7.8 L (8.4-10.2) mg/dL Assessment and Plan Assessment: Acute non-ST segment elevation myocardial infarction secondary to occluded SVG t o the diagonal and had undergone successful stenting initially then later that same day developed acute in-stent restenosis return to the Transformer Stock Clerk and had a second procedure with successful stenting again to the SVG to the diagonal reduction of 100% stenosis to 5%. History of coronary artery disease with previous coronary artery bypass grafting 5 in her 30s and subsequent stenting Ischemic cardiomyopathy with ejection fraction 35-40% Hypoxemic respiratory failure secondary to an acute exacerbation of systolic congestive heart failure Acute kidney injury Physical atrial fibrillation anticoagulated with Pradaxa Hypertension Hyperlipidemia Diabetes mellitus Lifelong nonsmoker Plan: The patient was seen and evaluated Chest x-ray, labs and medications reviewed Patient was given IV Lasix per nephrology Currently on 3 L nasal cannula Continue to titrate down the FiO2 as tolerated Increase her activity as tolerated We'll continue to follow I have personally seen and examined the patient, performed the documentation and the assessment and plan as written. Number of minutes spent on the visit: 10.
--- NOTE | 2023-09-04 14:54 | P.PN ---
Subjective Progress Note Date: 09/04/23 This is Stanislav Martin NP, I'm dictating on behalf of Dr. Medina's H&P and A&P. Patient was interviewed and examined. Patient is a pleasant 83-year-old female who presented to the hospital with non- ST elevated ID, and underwent successful stenting of the SVG to diagonal a couple days ago. Post-stent placement, the patient was unstable and sent to the ICU. She has since recovered well. She reports today that she's feeling okay. She has been walking in her room with baseline ability per the patient. She is denying chest pain, heart palpitations, shortness of breath. Catheter insertion site is closed with no evidence of bleeding. Pulses are strong. GENERAL: Well-appearing, well-nourished and in no acute distress. NECK: Supple without JVD or thyromegaly. LUNGS: Breath sounds clear to auscultation bilaterally. Respiration equal and unlabored. No wheezes, rales or rhonchi. HEART: Regular rate and rhythm without murmurs, rubs or gallops. S1 and S2 heard. EXTREMITIES: Normal range of motion, no edema. No clubbing or cyanosis. Peripheral pulses intact and strong. VITALS: Temp 97.4, pulse 61, respirations 17, blood pressure 108/68, O2 saturation 95% on 3 L TELEMETRY: Sinus mechanism LABS: White count 9.9, hemoglobin 10.4, platelets 227, sodium 133, potassium 3.8, B1 56, creatinine 1.94, calcium 7.8 IMPRESSION: 1. NSTEMI 2. Status post successful stenting of the SVG to diagonal 3. Coronary artery disease with previous CABG and stenting 4. Acute kidney injury 5. Paroxysmal atrial fibrillation 6. Hypertension 7. Hyperlipidemia 8. Diabetes PLAN: Continue all prescribed cardiac medications. From a cardiac standpoint the patient may be discharged home. Follow-up in the office as recommended. Thank you for allowing us to participate in the care of this patient. Objective - Vital Signs Vital signs: Vital Signs Temp 97.4 F L 09/04/23 08:00 Pulse 61 09/04/23 08:00 Resp 17 09/04/23 08:00 BP 108/68 09/04/23 08:00 Pulse Ox 97 09/04/23 08:50 FiO2 30 09/03/23 00:39 Intake & Output 09/03/23 09/04/23 09/04/23 18:59 06:59 18:59 Intake Total 925 240 240 Output Total 1175 700 260 Balance -250 -460 -20 Weight 69.3 kg Intake: Oral 925 240 240 Output: Urine 1175 700 260 Other: Voiding Method Indwelling Catheter Indwelling Catheter Indwelling Catheter - Labs CBC & Chem 7: 09/04/23 07:53 09/04/23 07:53 Labs: Abnormal Lab Results - Last 24 Hours (Table) 09/03/23 09/03/23 09/04/23 Range/Units 16:21 20:21 06:04 RBC (3.80-5.40) m/uL Hgb (11.4-16.0) gm/dL Hct (34.0-46.0) % Sodium (137-145) mmol/L Carbon Dioxide (22-30) mmol/L BUN (7-17) mg/dL Creatinine (0.52-1.04) mg/dL Glucose (74-99) mg/dL POC Glucose (mg/dL) 272 H 274 H 197 H (70-110) mg/dL Calcium (8.4-10.2) mg/dL 09/04/23 09/04/23 09/04/23 Range/Units 07:53 07:53 11:27 RBC 3.16 L (3.80-5.40) m/uL Hgb 10.4 L (11.4-16.0) gm/dL Hct 30.8 L (34.0-46.0) % Sodium 133 L (137-145) mmol/L Carbon Dioxide 20 L (22-30) mmol/L BUN 56 H (7-17) mg/dL Creatinine 1.94 H (0.52-1.04) mg/dL Glucose 180 H (74-99) mg/dL POC Glucose (mg/dL) 260 H (70-110) mg/dL Calcium 7.8 L (8.4-10.2) mg/dL
--- NOTE | 2023-09-04 15:19 | P.PN ---
Subjective Progress Note Date: 09/04/23 83 years old female with multiple medical problems including a previous history of cardiac bypass surgery since her age of 29 days and since then she has been having different issue with her heart. He saw her flake drier about one week ago with Dr. Ventura for chest pain and she underwent stress test, Dr. Ventura call her back and asked her to come to the hospital for possible cardiac cath. She denies any dyspnea or coughing. No change in urine or bowel habits. Past headache dizziness weakness or numbness. She denies smoking alcohol or illicit drugs. Vitals are stable, currently blood pressure 116/60 She has mild leukocytosis at 10.9, hemoglobin 10.9. Creatinine is slightly elevated 1.4 and she follow up with Dr. Do already consulted. Troponin were elevated 0.8, 2.6, 4.2. 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 Chest x-ray showing right middle lung airway disease with his E opacity, I reviewed the chest x-ray it looks to me more of pulmonary vascular congestion EKG showing junctional rhythm at [address] depression in the inferior lead, II, III and aVF with Q waves in V1 to V4. 24 hour interval change 09/04/2023 Patient is seen and evaluated in follow-up in room at bedside. She is awake and alert in no acute distress. She is maintaining good O2 saturations in the mid 90s on 3 L/m per nasal cannula. Follow-up chest x-ray reveals cardiomegaly with pulmonary vascular congestion and bilateral pleural effusions. Slightly improved compared to 09/02/2023. White count 9.9. Hemoglobin 10.4. Platelets 227. Sodium 133. Potassium 3.8. Bicarb 20. BUN 56. Creatinine 1.94. Glucose 180. Peggy on IV diuretics. Patient was given IV Lasix per nephrology Continued on heparin for DVT prophylaxis. Objective - Vital Signs Vital signs: Vital Signs Temp 97.4 F L 09/04/23 08:00 Pulse 61 09/04/23 08:00 Resp 17 09/04/23 08:00 BP 108/68 09/04/23 08:00 Pulse Ox 97 09/04/23 08:50 FiO2 30 09/03/23 00:39 Intake & Output 09/03/23 09/04/23 09/04/23 18:59 06:59 18:59 Intake Total 925 240 Output Total 1175 700 Balance -250 -460 Weight 69.3 kg Intake: Oral 925 240 Output: Urine 1175 700 Other: Voiding Method Indwelling Catheter Indwelling Catheter - Exam GENERAL: The patient is alert and oriented x3, not in any acute distress. Well developed, well nourished. HEENT: Pupils are round and equally reacting to light. EOMI. No scleral icterus. No conjunctival pallor. Normocephalic, atraumatic. No pharyngeal erythema. No thyromegaly. CARDIOVASCULAR: S1 and S2 present. No murmurs, rubs, or gallops. -PULMONARY: Chest is clear to auscultation, no wheezing , bilateral basal crackles. ABDOMEN: Soft, nontender, nondistended, normoactive bowel sounds. No palpable organomegaly. MUSCULOSKELETAL: No joint swelling or deformity. EXTREMITIES: No cyanosis, clubbing, or pedal edema. NEUROLOGICAL: Gross neurological examination did not reveal any focal deficits. SKIN: No rashes. no petechiae. Bilateral basal - Labs CBC & Chem 7: 09/04/23 07:53 09/04/23 07:53 Labs: Abnormal Lab Results - Last 24 Hours (Table) 09/03/23 09/03/23 09/03/23 Range/Units 11:39 16:21 20:21 RBC (3.80-5.40) m/uL Hgb (11.4-16.0) gm/dL Hct (34.0-46.0) % Sodium (137-145) mmol/L Carbon Dioxide (22-30) mmol/L BUN (7-17) mg/dL Creatinine (0.52-1.04) mg/dL Glucose (74-99) mg/dL POC Glucose (mg/dL) 236 H 272 H 274 H (70-110) mg/dL Calcium (8.4-10.2) mg/dL 09/04/23 09/04/23 09/04/23 Range/Units 06:04 07:53 07:53 RBC 3.16 L (3.80-5.40) m/uL Hgb 10.4 L (11.4-16.0) gm/dL Hct 30.8 L (34.0-46.0) % Sodium 133 L (137-145) mmol/L Carbon Dioxide 20 L (22-30) mmol/L BUN 56 H (7-17) mg/dL Creatinine 1.94 H (0.52-1.04) mg/dL Glucose 180 H (74-99) mg/dL POC Glucose (mg/dL) 197 H (70-110) mg/dL Calcium 7.8 L (8.4-10.2) mg/dL Assessment and Plan Assessment: Acute non-ST elevation myocardial infarction, status post cardiac cath and Successful stenting of the SVG to diagonal Possible acute CHF, systolic with ejection fraction 35-40% moderate severe mitral regurgitation Chronic kidney disease stage III with mild elements of acute kidney injury possible History of breast cancer on letrozole Osteoporosis on risedronate Diabetes mellitus Hypertension Obesity with BMI of 30.5 Plan: Continue with aspirin and Plavix Continue patient monitor in the ICU Continue with oxygen, currently on 6 L/m Cardiology team on the case Continue with Plavix and aspirin Nephrology consult as she is known to their service Labs and medication were reviewed.. Continue same treatment. Continue with symptomatic treatment. Resume home medication. Monitor labs and vitals. DVT and GI prophylaxis. Further recommendations as per clinical course of the patient DVT prophylaxis: heparin GI Prophylaxis: Pepcid PT/OT: Pending Prognosis is guarded
[2023-09-04 16:35] LABS: Glucose,Whole Blood 208 mg/dL (70-110)
[2023-09-04 20:17] LABS: Glucose,Whole Blood 150 mg/dL (70-110)
[2023-09-04] MEDS: ZOLPIDEM 5 MG TAB PO PRN (21:40)
[2023-09-04] MEDS: ATORVASTATIN 80 MG TAB PO SCH (21:40)
[2023-09-04] MEDS: GABAPENTIN 100 MG CAP PO SCH (21:40)
[2023-09-05 06:12] LABS: Glucose,Whole Blood 106 mg/dL (70-110)
[2023-09-05] MEDS: INSULIN ASPART (NovoLOG) 100 UNIT/ML VIAL SQ SCH ×2 (06:30→11:53)
[2023-09-05] MEDS: MULTIVITAMINS, THERA 1 EACH TAB PO SCH (06:31)
[2023-09-05] MEDS: ACARBOSE 25 MG TAB PO SCH ×2 (06:31→11:58)
[2023-09-05] MEDS: LEVOTHYROXINE 125 MCG TAB PO SCH (06:31)
[2023-09-05] MEDS: CALCIUM CARB-VIT D 500 MG-5 MCG TAB PO SCH (06:31)
[2023-09-05 07:57] LABS: Basophils % (A) 0 %; Eosinophils # (A) 0.2 k/uL (0-0.7); Eosinophils % (A) 3 %; HCT 29.8 % (34.0-46.0); HGB 9.8 gm/dL (11.4-16.0); Lymphocytes # (A) 1.2 k/uL (1.0-4.8); Lymphocytes % (A) 15 %; MCH 31.9 pg (25.0-35.0); MCHC 32.8 g/dL (31.0-37.0); MCV 97.3 fL (80.0-100.0); Mean Platelet Volume 7.8; Monocytes # (A) 0.4 k/uL (0-1.0); Monocytes % (A) 5 %; Neutrophils # (A) 6.2 k/uL (1.3-7.7); Neutrophils % (A) 75 %; Platelet Count 219 k/uL (150-450); RBC 3.06 m/uL (3.80-5.40); RDW 13.9 % (11.5-15.5); WBC 8.2 k/uL (3.8-10.6)
[2023-09-05] MEDS: ASPIRIN 81 MG PO SCH (08:31)
[2023-09-05] MEDS: HEPARIN SODIUM,PORCINE 5,000 UNIT/ML 1 ML VIAL SQ SCH (08:32)
[2023-09-05] MEDS: METOPROLOL TARTRATE 25 MG TAB PO SCH (08:32)
[2023-09-05] MEDS: DOCUSATE 100 MG CAP PO SCH (08:32)
[2023-09-05] MEDS: CLOPIDOGREL 75 MG TAB PO SCH (08:32)
[2023-09-05] MEDS: LETROZOLE 2.5 MG TAB PO SCH (08:32)
[2023-09-05] MEDS: FAMOTIDINE 20 MG/2 ML VIAL IV SCH (08:32)
[2023-09-05] MEDS: FUROSEMIDE 10 MG/ML 4 ML VIAL IV SCH (08:33)
[2023-09-05] MEDS ORDERED: RISEDRONATE SODIUM 35 MG PO SCH (09:00)
--- NOTE | 2023-09-05 10:47 | P.PN ---
Subjective Progress Note Date: 09/05/23 Principal diagnosis: Shortness of breath. This a very pleasant 83-year-old female patient with a known history of coronary artery disease with previous coronary bypass grafting 5 back in her 30s. She's had multiple stent placements since that time. She also had a recent stress test revealing reversible ischemia and is waiting to be scheduled for a cardiac catheterization. She presented here to the emergency room on 08/31/2023 with midsternal chest discomfort radiating to her back and into her jaw. On 09/01/2023 she had undergone cardiac catheterization that revealed 90% stenosis of the distal graft to the diagonal. She had undergone successful stenting of the SVG to the diagonal. After returning the to the floor she revealed severe intense chest pain 10 out of 10 and was returned back to the Lion Train[facility]. The stent had an acute thrombosis. She had again undergone successful stenting of the same SVG to the diagonal with reduction of 100% stenosis to 5%. [place]ch[place] rdiogram revealed moderately impaired left ventricular systolic function with an ejection fraction 35-40%. She was transferred to the intensive care unit. She has remained stable however she was still requiring 6 L high flow nasal cannula we are consulted today for the same. Today's chest x-ray revealed bilateral pleural effusions with cardiomegaly and bibasilar infiltrates. Diffuse interstitial pattern. Consistent with congestive heart failure. White count 12.2. Hemoglobin 10.6. Platelets 236. Sodium 13. Potassium 4.5. Bicarb 19. BUN 35. Creatinine 1.81. Glucose 142. She was given Lasix today per nephrology. The patient has had minimal urine output. Follow-up chest x-ray pe nding. She is seen today in consultation. She is sitting up in a chair. Awake and alert in no acute distress. Maintaining O2 saturations in the 90s on 6 L high flow nasal cannula. She currently denies any chest pain. No worsening shortness of breath, cough or congestion. She's been afebrile. Hemodynamically stable. No IV fluids. She initially did require BiPAP support 10/5 and 30% FiO2. She does not have home oxygen. Progress note dated 09/03/2023. 83-year-old female seen in consultation yesterday. The patient had increasing oxygen requirements, likely on the basis of fluid overload. She was seen in consultation yesterday, and given diuretic. Currently, she is on 4 L of oxygen. She is feeling better. No chest pain or chest discomfort. She did use the BiPAP device, with settings of 10/5, and 30%. Chest x-ray is much improved. She's not receiving any IV fluids. Labs include a sodium 134, potassium 4.4, chlorides 102, CO2 20, BUN 49, creatinine 2.15. Glucose is 143. Calcium 7.9. Progress note dated 09/05/2023. 83-year-old female seen in room 377. The patient has been weaned off of oxygen. She's not receiving any IV fluids. The patient's breathing is much improved. She does have mild shortness of breath on exertion. Labs include a white count 8.2, hemoglobin 9.8, hematocrit 29.8, and a normal platelet count. Glucose is 106. Objective - Vital Signs Vital signs: Vital Signs Temp 97.8 F 09/05/23 08:00 Pulse 64 09/05/23 08:00 Resp 14 09/05/23 08:00 BP 113/68 09/05/23 08:00 Pulse Ox 99 09/05/23 08:00 FiO2 30 09/03/23 00:39 Intake & Output 09/04/23 09/05/23 09/05/23 18:59 06:59 18:59 Intake Total 1096 340 Output Total 610 1900 Balance 486 -1900 340 Weight 69 kg Intake: Oral 1096 340 Output: Urine 610 1900 Other: Voiding Method Indwelling Catheter Indwelling Catheter - Exam No acute distress, oriented 3. Currently on room air. HEENT examination is grossly unremarkable. Neck supple. Full range of motion. No adenopathy thyromegaly or neck vein distention. Cardiovascular examination reveals regular rhythm rate. S1-S2 normal. No S3 or S4. No discernible murmur noted. Heart rate is 84 bpm. Heart sounds are distant. Lungs reveal scattered rhonchi and crackles. No wheezes. Breath sounds equal bilaterally. Room air saturation is 94%. Abdomen soft bowel sounds are heard. No masses or tenderness. Extremities are intact. No cyanosis clubbing or edema. Skin is without rash or lesion. Neurologic examination is brief but nonfocal. - Labs CBC & Chem 7: 09/05/23 07:16 09/04/23 07:53 Labs: Abnormal Lab Results - Last 24 Hours (Table) 09/04/23 09/04/23 09/04/23 Range/Units 11:27 16:34 20:16 RBC (3.80-5.40) m/uL Hgb (11.4-16.0) gm/dL Hct (34.0-46.0) % POC Glucose (mg/dL) 260 H 208 H 150 H (70-110) mg/dL 09/05/23 Range/Units 07:16 RBC 3.06 L (3.80-5.40) m/uL Hgb 9.8 L (11.4-16.0) gm/dL Hct 29.8 L (34.0-46.0) % POC Glucose (mg/dL) (70-110) mg/dL Assessment and Plan Assessment: Acute non-ST segment elevation myocardial infarction secondary to occluded SVG to the diagonal and had undergone successful stenting initially then later that same day developed acute in-stent restenosis return to the Lion [employer] and had a second procedure with successful stenting again to the SVG to the diagonal reduction of 100% stenosis to 5%. History of coronary artery disease with previous coronary artery bypass grafting 5 in her 30s and subsequent stenting. Ischemic cardiomyopathy with ejection fraction 35-40%. Hypoxemic respiratory failure secondary to an acute exacerbation of systolic congestive heart failure. Acute kidney injury. Physical atrial fibrillation anticoagulated with Pradaxa. Hypertension. Hyperlipidemia. Diabetes mellitus. Lifelong nonsmoker. Plan: Plan dated 09/03/2023. The patient was seen in consultation yesterday, at the request of cardiology. The patient's chest x-ray suggested fluid overload/CHF. She was treated with diuretics. The patient appears to be improved. She was on 6 L of oxygen yesterday. She's down to between 3-4 L of oxygen today. Her breathing is much improved according to her. We will continue to follow and make recommendations along the way. Prognosis is guarded. Labs, x-rays, and medications are reviewed. Plan dated 09/05/2023. The patient is doing much better. The patient is hoping for discharge in the near future. She states that she's been weaned off the oxygen, her saturations are 94% off oxygen. Labs, x-rays, and medications are reviewed. Her other vital signs are stable including temperature 97.8, heart rate 64, respiratory rate 14, and blood pressure 113/68 with a mean of 83. We will continue to follow make recommendations. Prognosis is guarded. Time with Patient: Less than 30
[2023-09-05 10:50] LABS: African American GFR (CKD) 30 (>60 ml/min/1.73 sqM); Anion Gap 10 mmol/L; Blood Urea Nitrogen 51 mg/dL (7-17); Calcium 7.9 mg/dL (8.4-10.2); Carbon Dioxide 22 mmol/L (22-30); Chloride 102 mmol/L (98-107); Glucose 89 mg/dL (74-99); Non-African American GFR(CKD) 26 (>60 ml/min/1.73 sqM); Potassium 3.8 mmol/L (3.5-5.1); Sodium 134 mmol/L (137-145)
--- NOTE | 2023-09-05 11:09 | P.PN ---
Subjective Patient is seen for follow-up for acute kidney injury. Status post cardiac catheterization 2 on 09/01/2023. Patient initially underwent angioplasty with stent placement but shortly afterwards developed severe chest pain with EKG findings of subendocardial ischemia and anterior wall WA. Patient subsequently had another stent placed to SVG to the diagonal branch. Currently not complaining of any chest pain. Maintained on IV Lasix. Serum creatinine at 1.79 today. 24-hour urine output at 2510 mL Shortness of breath has improved. Currently off of nasal cannula Objective - Vital Signs Vital signs: Vital Signs Temp 97.8 F 09/05/23 08:00 Pulse 64 09/05/23 08:00 Resp 14 09/05/23 08:00 BP 113/68 09/05/23 08:00 Pulse Ox 99 09/05/23 08:00 FiO2 30 09/03/23 00:39 Intake & Output 09/04/23 09/05/23 09/05/23 18:59 06:59 18:59 Intake Total 1096 340 Output Total 610 1900 Balance 486 -1900 340 Weight 69 kg Intake: Oral 1096 340 Output: Urine 610 1900 Other: Voiding Method Indwelling Catheter Indwelling Catheter - Exam Patient is awake, comfortable, in no acute distress Examination of the heart S1 and S2 Examination of the lungs decreased breath sounds at the bases Abdomen is soft nontender Examination of lower extremities shows no significant edema CARE TECH exam grossly intact - Labs CBC & Chem 7: 09/05/23 07:16 09/05/23 07:16 Labs: Abnormal Lab Results - Last 24 Hours (Table) 09/04/23 09/04/23 09/04/23 Range/Units 11:27 16:34 20:16 RBC (3.80-5.40) m/uL Hgb (11.4-16.0) gm/dL Hct (34.0-46.0) % Sodium (137-145) mmol/L BUN (7-17) mg/dL Creatinine (0.52-1.04) mg/dL POC Glucose (mg/dL) 260 H 208 H 150 H (70-110) mg/dL Calcium (8.4-10.2) mg/dL 09/05/23 09/05/23 Range/Units 07:16 07:16 RBC 3.06 L (3.80-5.40) m/uL Hgb 9.8 L (11.4-16.0) gm/dL Hct 29.8 L (34.0-46.0) % Sodium 134 L (137-145) mmol/L BUN 51 H (7-17) mg/dL Creatinine 1.79 H (0.52-1.04) mg/dL POC Glucose (mg/dL) (70-110) mg/dL Calcium 7.9 L (8.4-10.2) mg/dL Assessment and Plan Assessment: 1. Acute kidney injury, ATN currently nonoliguric. UA is benign. Maintained on angiotensin receptor blockers at home prior to admission, currently on hold. Blood pressure has been low. . Renal function has improved. 2. Rule out chronic kidney disease 3. Non-ST elevation WA scheduled for cardiac catheterization x 2 on 09/01/2023, status post coronary stent placement. 4. Hypertension currently controlled 5. Coronary artery disease with history of coronary artery bypass surgery at about 29 years of age 6. Type 2 diabetes 7. Paroxysmal A. fib 8. Volume overload Plan: Patient can be discharged from nephrology standpoint. Continue Lasix 40 mg daily post discharge. Follow-up as outpatient in 1-2 weeks.
[2023-09-05 11:45] LABS: Glucose,Whole Blood 154 mg/dL (70-110)
[2023-09-05] MEDS: glipiZIDE 5 MG TAB PO SCH (11:58)
[2023-09-05 12:10] VITALS: BP 116/55; PULSE 55; RESP 16; TEMP 98.3
--- NOTE | 2023-09-05 15:22 | P.DS ---
Providers Date of admission: 08/31/23 21:09 Expected date of discharge: 09/05/23 Attending physician: Giovana Alonzo Consults: 08/31/23 21:09 Consult Physician Urgent Consulting Provider: Chirag Medina Consult Reason/Comments: nstemi Do you want consulting provider notified?: Already Contacted 09/01/23 06:55 Consult Physician Urgent Consulting Provider: Kamila Do Consult Reason/Comments: kidney injury vs CKD Do you want consulting provider notified?: Yes 09/01/23 13:05 Consult Physician Routine Consulting Provider: [facility] Consult Reason/Comments: Post Interventional patient Do you want consulting provider notified?: Already Contacted 09/01/23 15:56 Consult Physician Routine Consulting Provider: [facility] Consult Reason/Comments: Post Interventional Patient Do you want consulting provider notified?: Already Contacted 09/02/23 12:15 Consult Physician Urgent Consulting Provider: Felix Hines Consult Reason/Comments: hypoxia, requiring increased oxygen. Do you want consulting provider notified?: Yes Primary care physician: Elmer Oreilly Patient Condition at Discharge: Fair Plan - Discharge Summary Discharge Rx Participant: No New Discharge Prescriptions: New Clopidogrel [Plavix] 75 mg PO DAILY 30 Days #30 tab Continue Acarbose [Precose] 50 mg PO TID-W/MEALS glipiZIDE [Glucotrol] 5 mg PO W/LUNCH metFORMIN HCL [Glucophage] 1,000 mg PO W/SUPPER Multivit-Min/FA/Lycopene/Lut [Centrum Silver Tablet] 1 tab PO W/BRKFST Atorvastatin [Lipitor] 80 mg PO HS #30 tab amLODIPine [Norvasc] 10 mg PO HS #30 tab Losartan [Cozaar] 50 mg PO AC-BID@1200,1700 Risedronate Sodium [Actonel] 35 mg PO MITCHELL Letrozole 2.5 mg PO DAILY Cyanocobalamin (Vitamin B-12) [Vitamin B-12] 5,000 mcg PO Q7D Calcium Carbonate/Vitamin D3 [Caltrate 600 Plus D3 20 Mcg (800 Iu)] 1 tab PO W/BRKFST Zinc 50 mg PO Q7D Isosorbide Mononitrate ER [Imdur] 30 mg PO AC-BRKFST Ubidecarenone [Co Q-10] 100 mg PO DAILY Levothyroxine Sodium [Synthroid] 125 mcg PO AC-BRKFST Nitroglycerin Sl Tabs [Nitrostat] 0.4 mg SL Q5M PRN PRN Reason: Chest Pain Gabapentin [Neurontin] 100 mg PO HS Metoprolol Tartrate [Lopressor] 25 mg PO BID #60 tab Acetaminophen Tab [Tylenol] 650 mg PO Q6HR PRN tab PRN Reason: Mild Pain Or Fever > 100.5 rOPINIRole HCL [Requip] 0.25 - 0.5 mg PO HS Docusate [Colace] 100 mg PO DAILY Furosemide [Lasix] 20 mg PO Q2D Aspirin EC [Ecotrin Low Dose] 81 mg PO DAILY Dabigatran [Pradaxa] 150 mg PO BID #60 capsule Discharge Medication List Acarbose [Precose] 50 mg PO TID-W/MEALS 04/29/15 [History] glipiZIDE [Glucotrol] 5 mg PO W/LUNCH 04/29/15 [History] metFORMIN HCL [Glucophage] 1,000 mg PO W/SUPPER 04/29/15 [History] Multivit-Min/FA/Lycopene/Lut [Centrum Silver Tablet] 1 tab PO W/BRKFST 04/30/15 [History] Atorvastatin [Lipitor] 80 mg PO HS #30 tab 05/02/15 [Rx] amLODIPine [Norvasc] 10 mg PO HS #30 tab 05/02/15 [Rx] Losartan [Cozaar] 50 mg PO AC-BID@1200,1700 08/17/16 [History] Letrozole 2.5 mg PO DAILY 02/24/18 [History] Risedronate Sodium [Actonel] 35 mg PO MITCHELL 02/24/18 [History] Calcium Carbonate/Vitamin D3 [Caltrate 600 Plus D3 20 Mcg (800 Iu)] 1 tab PO W/BRKFST 09/27/19 [History] Cyanocobalamin (Vitamin B-12) [Vitamin B-12] 5,000 mcg PO Q7D 09/27/19 [History] Isosorbide Mononitrate ER [Imdur] 30 mg PO AC-BRKFST 01/27/22 [History] Ubidecarenone [Co Q-10] 100 mg PO DAILY 01/27/22 [History] Zinc 50 mg PO Q7D 01/27/22 [History] Aspirin EC [Ecotrin Low Dose] 81 mg PO DAILY 04/22/23 [History] Docusate [Colace] 100 mg PO DAILY 04/22/23 [History] Furosemide [Lasix] 20 mg PO Q2D 04/22/23 [History] Gabapentin [Neurontin] 100 mg PO HS 04/22/23 [History] Levothyroxine Sodium [Synthroid] 125 mcg PO AC-BRKFST 04/22/23 [History] Nitroglycerin Sl Tabs [Nitrostat] 0.4 mg SL Q5M PRN 04/22/23 [History] Acetaminophen Tab [Tylenol] 650 mg PO Q6HR PRN tab 04/23/23 [Rx] Dabigatran [Pradaxa] 150 mg PO BID #60 capsule 04/23/23 [Rx] Metoprolol Tartrate [Lopressor] 25 mg PO BID #60 tab 04/23/23 [Rx] rOPINIRole HCL [Requip] 0.25 - 0.5 mg PO HS 08/31/23 [History] Clopidogrel [Plavix] 75 mg PO DAILY 30 Days #30 tab 09/05/23 [Rx] Follow up Appointment(s)/Referral(s): [facility] Visiting Nurse, [NON-STAFF] - As Needed Discharge Disposition: HOME SELF-CARE
--- NOTE | 2023-09-08 21:00 | CDI ---
Documentation Clarification Form Date: 09/08/2023 08:36:43 PM From: Vanessa Ambrosio Phone: Admit Date: 08/31/2023 09:09:00 PM Patient Name: Michelle Laboy Visit Number: [id number] Discharge Date: 09/05/2023 04:08:00 PM ATTENTION: The Clinical Documentation Specialists (CDI) and [facility] Coding Staff appreciate your assistance in clarifying documentation. Please respond to the clarification below the line at the bottom and electronically sign. The CDI & [facility] Coding staff will review the response and follow-up if needed. Please note: Queries are made part of the Legal Health Record. If you have any questions, please contact the author of this message via ITS. Dr. Kunal Oviedo Myocardial infarction (IL) is documented ED Note. Additional clarification regarding the type of IL is requested. Acute non-ST elevation myocardial infarction per ED Note EKG findings ofsub endocardial ischemiaandanterior wall IL Progress Note 09/02 History/Risk Factors: 83yo F, [place], ATNon CKD III, HTN, CAD w CABG (29yo), DMII, PAF, ACSHF, MR, ICM, Hx [place] Clinical Indicators: Troponin: 09/01 0.850 2.640 4.250 EKG Results: sinusrhythmat a rate of 91.There is some T-wave inversions in the inferior leads which appear to be new as compared to old EKG per my interpretation. NoSTelevationis identified. Intervals are normal. EKG showing junctionalrhythmat 91 with STdepressionin the inferior lead, II, III and aVF with Q waves in V1 to V4. H&P Note EKG showed changes ofsub endocardial ischemiaand anterior wall myocardial infarction. Dr. Nelson, the electric blanket packer, who performed the intervention was tied up in another procedure and asked me to perform angiogram. I have proceeded with angiogram. Treatment: PTCA, The patient was returned to the room in stable condition. Of note, the patient received 3000u heparin as well ascontinued Plavix. The patient is an 83-year-old female with known Hx CADstatus postCABGwho underwentstentingof the SVG to the diagonal branch earlier today byDr. Adrian while on the floor started complaining ofchest discomfort,HTNand underwent repeatcardiac Cathby Dr. Ventura and was found to have acuteocclusionof thegraftat thestentedsegment. Please clarify the type(s) of IL(s), if known and presentation status: [ ] STEMI (type 1), Present on Admission [#### ] NSTEMI (type 1), Present on Admission [ ] Unable to determine [ ] Other Condition, please specify [ ] STEMI (type 1), Not Present on Admission [ ] NSTEMI (type 1), Not Present on Admission [ ] Unable to determine [ ] Other Condition, please specify (Template Last Revised: November 2020) MTDD
--- NOTE | 2023-09-08 21:09 | CDI ---
Documentation Clarification Form Date: 09/08/2023 09:01:00 PM From: Vanessa Ambrosio Phone: Admit Date: 08/31/2023 09:09:00 PM Patient Name: Michelle Laboy Visit Number: [id number] Discharge Date: 09/05/2023 04:08:00 PM ATTENTION: The Clinical Documentation Specialists (CDI) and [facility] Coding Staff appreciate your assistance in clarifying documentation. Please respond to the clarification below the line at the bottom and electronically sign. The CDI & [facility] Coding staff will review the response and follow-up if needed. Please note: Queries are made part of the Legal Health Record. If you have any questions, please contact the author of this message via ITS. Dr. Kunal Oviedo Your patient has Hypoxemic respiratory failure per Consult 09/02. Based on this information and the findings below, is there an additional diagnosis that is clinically appropriate for this patient? History/Risk Factors: 83yo F, [place], ATN on CKD III, HTN, CAD w CABG (29yo), DMII, PAF, ACSHF, MR, ICM, Hx [place] Tobacco use: never Home oxygen: No Clinical Indicators: 08/2198.1 F 63 56 L 16 107/58 101/50 92 L Treatment: BiPap then Maintaining O2 saturations in the 90s on 6 HFNC Is there an additional diagnosis that is clinically appropriate for this patient? [ #### ] Acute Hypoxic Respiratory Failure (pO2 <60 mm Hg or SpO2 <91% on room air) [ ] Other Diagnosis, please specify [ ] Unable to determine (Template Last Revised: November 2020) MTDD
--- NOTE | 2023-09-08 21:16 | CDI ---
Documentation Clarification Form Date: 09/08/2023 09:09:00 PM From: Vanessa Ambrosio Phone: Admit Date: 08/31/2023 09:09:00 PM Patient Name: Michelle Laboy Visit Number: [id number] Discharge Date: 09/05/2023 04:08:00 PM ATTENTION: The Clinical Documentation Specialists (CDI) and [facility] Coding Staff appreciate your assistance in clarifying documentation. Please respond to the clarification below the line at the bottom and electronically sign. The CDI & [facility] Coding staff will review the response and follow-up if needed. Please note: Queries are made part of the Legal Health Record. If you have any questions, please contact the author of this message via ITS. Dr. Kunal Oviedo Hypotension is documented in the Progress Note 09/02. Additional clarification regarding this diagnosis is requested. History/Risk Factors: 83yo F, [place], ATN on CKD III, HTN, CAD w CABG (29yo), DMII, PAF, ACSHF, MR, ICM, Hx [place] Clinical Indicators: Temp 98.1 F Pulse 56 L Resp 24 BP 100/52 Pulse Ox 90 L FiO2 40 Treatment: Maintained on angiotensin receptor blockers at home prior to admission, currently on hold. Bloodpressurehas been low. She is maintained on IV fluids. Can the hypotension be further specified? [ ] Drug Induced Hypotension [ ] Postoperative Hypotension [ ] Hypotension is not clinically significant [ ] Other Condition, please specify [#### ] Unable to determine (Template Last Revised: November 2020) MTDD
== END 2023-09-05 16:08 | disposition home or self-care (01) | DRG 321 ==
LOC: EC 18:07 → 3SCARD 21:09 → 2SICU 09-01 16:02 → 3SCARD 09-02 21:37
PROVIDERS: ADMIT Hospitalist; ATTEND Hospitalist
PROC: 4A023N7 Measurement of Cardiac Sampling and Pressure, Left Heart, Percutaneous Approach (ICD-10-PCS; 2023-09-01)
PROC: B2121ZZ Fluoroscopy of Single Coronary Artery Bypass Graft using Low Osmolar Contrast (ICD-10-PCS; 2023-09-01)
PROC: B2111ZZ Fluoroscopy of Multiple Coronary Arteries using Low Osmolar Contrast (ICD-10-PCS; 2023-09-01)
PROC: 027034Z Dilation of Coronary Artery, One Artery with Drug-eluting Intraluminal Device, Percutaneous Approach (ICD-10-PCS; principal; 2023-09-01 12:00)
PROC: 027037Z Dilation of Coronary Artery, One Artery with Four or More Drug-eluting Intraluminal Devices, Percutaneous Approach (ICD-10-PCS; 2023-09-01 12:00)
PROC: 5A09357 Assistance with Respiratory Ventilation, Less than 24 Consecutive Hours, Continuous Positive Airway Pressure (ICD-10-PCS; 2023-09-02)
PROC: 5A0935A Assistance with Respiratory Ventilation, Less than 24 Consecutive Hours, High Flow/Velocity Cannula (ICD-10-PCS; 2023-09-02)
DX: I21.4 Non-ST elevation (NSTEMI) myocardial infarction (principal); I50.23 Acute on chronic systolic (congestive) heart failure; N17.0 Acute kidney failure with tubular necrosis; J96.01 Acute respiratory failure with hypoxia; T82.855A Stenosis of coronary artery stent, initial encounter; I13.0 Hypertensive heart and chronic kidney disease with heart failure and stage 1 through stage 4 chronic kidney disease, or unspecified chronic kidney disease; I25.719 Atherosclerosis of autologous vein coronary artery bypass graft(s) with unspecified angina pectoris; E11.22 Type 2 diabetes mellitus with diabetic chronic kidney disease; I95.9 Hypotension, unspecified; N18.30 Chronic kidney disease, stage 3 unspecified; E11.65 Type 2 diabetes mellitus with hyperglycemia; I48.0 Paroxysmal atrial fibrillation; I34.0 Nonrheumatic mitral (valve) insufficiency; E66.9 Obesity, unspecified; I25.5 Ischemic cardiomyopathy; M81.0 Age-related osteoporosis without current pathological fracture; I25.10 Atherosclerotic heart disease of native coronary artery without angina pectoris; E78.5 Hyperlipidemia, unspecified; Y71.1 Therapeutic (nonsurgical) and rehabilitative cardiovascular devices associated with adverse incidents; I25.2 Old myocardial infarction; Z85.3 Personal history of malignant neoplasm of breast; Z68.30 Body mass index [BMI] 30.0-30.9, adult; Z95.1 Presence of aortocoronary bypass graft; Z95.5 Presence of coronary angioplasty implant and graft; Z79.84 Long term (current) use of oral hypoglycemic drugs; Z79.82 Long term (current) use of aspirin; Z79.890 Hormone replacement therapy; Z79.891 Long term (current) use of opiate analgesic; Z79.899 Other long term (current) drug therapy; Z79.01 Long term (current) use of anticoagulants; Z88.1 Allergy status to other antibiotic agents; Z88.0 Allergy status to penicillin; Z88.2 Allergy status to sulfonamides; Z90.13 Acquired absence of bilateral breasts and nipples
CPT/HCPCS: 36415; 71045; 71046; 76770; 80048; 80053; 80061; 81001; 82805; 83036; 83735; 83880; 84484; 85025; 85610; 85730; 92978; 93005; 93306; 93454; 93459; 94660; 94760; 96365; 99291

== ENCOUNTER → 2023-09-08 | Outpatient (CLI) | payer MEDICARE ==
[2023-09-08 19:32] LABS: Blood Urea Nitrogen 38.8 mg/dL (9.0-27.0); Carbon Dioxide 22.6 mmol/L (21.6-31.8); Chloride 101 mmol/L (96-109); Potassium 4.3 mmol/L (3.5-5.5); Sodium 136 mmol/L (135-145)
[2023-09-08 21:18] LABS: HCT 31.4 % (37.2-46.3); HGB 9.9 g/dL (12.0-15.0); MCH 31.1 pg (27.0-32.0); MCHC 31.5 g/dL (32.0-37.0); MCV 98.7 FL (80.0-97.0); Mean Platelet Volume 10.3 FL (9.5-12.2); NRBC Per 100 WBC 0 X 10*3/uL (0.00-0.01); Platelet Count 291 X 10*3/uL (140-440); RBC 3.18 X 10*6/uL (4.10-5.20); RDW 13.9 % (11.5-14.5); WBC 8.05 X 10*3/uL (4.50-10.00)
== END | disposition home or self-care (01) ==
LOC: LABWHC1 14:31
PROVIDERS: ATTEND Internal Medicine Cardiovascular Disease
DX: I22.2 Subsequent non-ST elevation (NSTEMI) myocardial infarction (principal)
CPT/HCPCS: 36415; 80051; 82565; 84520; 85027

== ENCOUNTER → 2023-09-16 | Outpatient (CLI) | payer MEDICARE ==
[2023-09-16 13:02] VITALS: BP 144/76; PULSE 60; RESP 18; TEMP 98
--- NOTE | 2023-09-16 13:10 | P.PN ---
Subjective Progress Note Date: 09/16/23 bilateral breast cancer/bilateral mastectomies bilateral breast cancer bilateral mastectomies/ bilateral breast cancer left January 2007, right mastectomy August 2016 Michelle is an 83 year old white female with a history of bilateral breast cancer, and bilateral mastectomy. Her first mastectomy was the left breast January 2007. She had the right mastectomy, August 2016. The patient did not have any chemo or radiation therapy after either of the surgeries. She is presently taking Femara (letrazole). She is not complaining of any pain in her chest at this time. She does not complain of any lumps masses or nodules on her chest wall. She had a coronary stent placed on [id number]. She does complain of intermittent right axillary discomfort, this has been present since 2015 and some limitation of motion which has not changed. She continues to follow with Dr. Deutsch. Underwent a myocardial infarction on [id number] and had a stent placed. She is not complaining of any chest pain on today's examination. She did have a CBC done on [id number] which revealed hemoglobin of 9.9. She has been followed by Dr. Deutsch for anemia in the past. Note Dr. Deutsch from [id number] reviewed. Patient to continue on Femora. Family history: 1. maternal grandmother: cancer ? type 2. daughter: breast cancer Surgical history: 1. Bilateral mastectomy 2. Cholecystectomy 3. Hysterectomy ovaries not removed 4. Open heart surgery 5. Cardiac stents 6. Hemorrhoidectomy 7. Trigeminal neuralgia 8. left cataract surgery 9. Coronary stint 08-22-21 Medical history: 1. Hypertension 2. High cholesterol 3. Diabetes 4. Arthritis 5. history of bilateral breast cancer 6. ME 7. admited with [facility] November 2021 8. recent ME 08-31-23; stint placed Social history: Smoke: Negative Alcohol: Negative Drugs: Negative Review of systems: HEENT: Wears glasses, diabetic retinopathy in eye lungs: negative heart: HTN, status post cardiac surgery. ME GI: constipation : negative, hysterectomy Musculoskeletal: Arthritis Psychiatric: negative hematologic: aspirin/plavix integument: none allergies: as per HPI/ seasonal allergies history of bilateral breast cancer Objective - Vital Signs Vital signs: Vital Signs Temp 98.0 F 09/16/23 12:52 Pulse 60 09/16/23 12:52 Resp 18 09/16/23 12:52 BP 144/76 09/16/23 12:52 Pulse Ox 96 09/16/23 12:52 FiO2 Intake & Output 09/15/23 09/16/23 09/16/23 18:59 06:59 18:59 Weight 67.132 kg - Constitutional General appearance: Present: cooperative - EENT Eyes: Present: EOMI - Neck Neck: Present: normal ROM - Respiratory Respiratory: bilateral: CTA - Cardiovascular Heart sounds: normal: S1, S2 Abnormal Heart Sounds: Present: systolic murmur - Integumentary Integumentary: Present: normal turgor - Musculoskeletal Musculoskeletal Comment(s): wheel chair dependant - Psychiatric Psychiatric: Present: A&O x's 3, appropriate affect, intact judgment & insight - Additional findings Additional findings: Chest Wall Exam: Inspection: Status post bilateral mastectomies Palpation: Right chest wall: No evidence of recurrent disease Right axilla: No adenopathy of concern Left chest wall: No evidence of recurrent disease Left axilla: No adenopathy of concern Assessment and Plan Assessment: Impression: 1. Hypertension 2. High cholesterol 3. Diabetes 4. Arthritis 5. history of bilateral breast cancer 6. ME 7. No evidence of any recurrent breast cancer 8. heart murmur 9. ME on 08-31-23, home on 09-05-23 Plan: 1. Continue Femara 2. Continue follow-up with medical oncology 3. Follow-up here 1 year 4. Follow up sooner if any questions or concerns CC: DR. Oreilly
== END ==
LOC: WWCWWP 11:56
PROVIDERS: ATTEND Surgery
DX: M79.621 Pain in right upper arm (principal); I10 Essential (primary) hypertension; E78.00 Pure hypercholesterolemia, unspecified; E11.9 Type 2 diabetes mellitus without complications; M19.90 Unspecified osteoarthritis, unspecified site; I25.2 Old myocardial infarction; R01.1 Cardiac murmur, unspecified; Z80.3 Family history of malignant neoplasm of breast; Z85.3 Personal history of malignant neoplasm of breast; Z88.2 Allergy status to sulfonamides; Z88.1 Allergy status to other antibiotic agents

== ENCOUNTER 2024-05-09 15:31 | Observation (INO) | payer MEDICARE ==
--- NOTE | 2024-05-09 16:30 | ED ---
General Adult HPI - General Chief complaint: Chest Pain Stated complaint: chest pain Time Seen by Provider: 05/09/24 16:17 Source: patient, RN notes reviewed, old records reviewed Mode of arrival: ambulatory Limitations: no limitations - History of Present Illness Initial comments: 84 yo female presenting for evaluation of chest pain which has been present since this morning. Patient does have history of atrial fibrillation and coronary artery disease. She is currently on Plavix and Eliquis. She has had an aching diffuse chest pain for 1 day. No associated nausea vomiting. No diaphoresis. No radiation. Patient denies pain or swelling in the lower extremities. - Related Data Home Medications Medication Instructions Recorded Confirmed Acarbose [Precose] 50 mg PO TID-W/MEALS 04/29/15 09/16/23 glipiZIDE [Glucotrol] 5 mg PO W/LUNCH 04/29/15 09/16/23 metFORMIN HCL [Glucophage] 1,000 mg PO W/SUPPER 04/29/15 09/16/23 Multivit-Min/FA/Lycopene/Lut 1 tab PO W/BRKFST 04/30/15 09/16/23 [Centrum Silver Tablet] Letrozole 2.5 mg PO DAILY 02/24/18 09/16/23 Risedronate Sodium [Actonel] 35 mg PO MITCHELL 02/24/18 09/16/23 Cyanocobalamin (Vitamin B-12) 5,000 mcg PO Q7D 09/27/19 09/16/23 [Vitamin B-12] Isosorbide Mononitrate ER [Imdur] 30 mg PO AC-BRKFST 01/27/22 09/16/23 Ubidecarenone [Co Q-10] 100 mg PO DAILY 01/27/22 09/16/23 Aspirin EC [Ecotrin Low Dose] 81 mg PO DAILY 04/22/23 09/16/23 Docusate [Colace] 100 mg PO DAILY 04/22/23 09/16/23 Furosemide [Lasix] 20 mg PO Q2D 04/22/23 09/16/23 Levothyroxine Sodium [Synthroid] 125 mcg PO AC-BRKFST 04/22/23 09/16/23 Nitroglycerin Sl Tabs [Nitrostat] 0.4 mg SL Q5M PRN 04/22/23 09/16/23 rOPINIRole HCL [Requip] 0.25 - 0.5 mg PO HS 08/31/23 09/16/23 Previous Rx's Medication Instructions Recorded Atorvastatin [Lipitor] 80 mg PO HS #30 tab 05/02/15 Dabigatran [Pradaxa] 150 mg PO BID #60 capsule 04/23/23 Metoprolol Tartrate [Lopressor] 25 mg PO BID #60 tab 04/23/23 Clopidogrel [Plavix] 75 mg PO DAILY 30 Days #30 tab 09/05/23 Allergies Allergy/AdvReac Type Severity Reaction Status Date / Time doxycycline calcium Allergy Unknown Verified 05/09/24 15:39 [From Vibramycin] doxycycline hyclate Allergy Unknown Verified 05/09/24 15:39 [From Vibramycin] doxycycline monohydrate Allergy Unknown Verified 05/09/24 15:39 [From Vibramycin] Penicillins Allergy Rash/Hives Verified 05/09/24 15:39 Sulfa (Sulfonamide Allergy Rash/Hives Verified 05/09/24 15:39 Antibiotics) sulfamethoxazole Allergy Rash/Hives Verified 05/09/24 15:39 [From Septra] trimethoprim [From Septra] Allergy Rash/Hives Verified 05/09/24 15:39 Review of Systems ROS Statement: Those systems with pertinent positive or pertinent negative responses have been documented in the HPI. ROS Other: All systems not noted in ROS Statement are negative. Past Medical History Past Medical History: Coronary Artery Disease (CAD), Cancer, Chest Pain / Angina, Diabetes Mellitus, Hyperlipidemia, Hypertension, Thyroid Disorder Additional Past Medical History / Comment(s): frequent constipation, arthritis, anemia, hx breast cancer, MD 08/21/21 History of Any Multi-Drug Resistant Organisms: None Reported Past Surgical History: Breast Surgery, Cholecystectomy, Coronary Bypass/CABG, Heart Catheterization, Heart Catheterization With Stent, Hysterectomy Additional Past Surgical History / Comment(s): left mastectomy, trigeminal nerve surgery, hemorrhoidectomy, right mastectomy 08/2016, stent 08/22/21 Past Anesthesia/Blood Transfusion Reactions: Motion Sickness Date of Last Stent Placement:: 08/22/21 Past Psychological History: No Psychological Hx Reported Smoking Status: Never smoker Past Alcohol Use History: Rare Past Drug Use History: None Reported - Past Family History Mother Family Medical History: No Reported History General Exam Limitations: no limitations General appearance: alert, in no apparent distress Head exam: Present: atraumatic, normocephalic Eye exam: Present: normal appearance, PERRL Respiratory exam: Present: normal lung sounds bilaterally. Absent: respiratory distress, wheezes Cardiovascular Exam: Present: regular rate, normal rhythm GI/Abdominal exam: Absent: distended Extremities exam: Present: pedal edema (Trace). Absent: calf tenderness Course Vital Signs 05/09/24 15:35 Temperature 98.1 F Pulse Rate 67 Respiratory 18 Rate Blood Pressure 179/69 O2 Sat by Pulse 99 Oximetry Medical Decision Making - Medical Decision Making Was pt. sent in by a medical professional or institution (, [facility], NUCLEAR REACTOR ENGINEER, urgent care, hospital, or prison...) When possible be specific @ -No Did you speak to anyone other than the patient for history (EMS, parent, family, police, friend...)? What history was obtained from this source @ -No Did you review nursing and triage notes (agree or disagree)? Why? @ -I reviewed and agree with nursing and triage notes Were old charts reviewed (outside hosp., previous admission, EMS record, old EKG, old radiological studies, urgent care reports/EKG's, prison records)? Report findings @ -No old charts were reviewed Differential Chest Pain: Stable Angina, Unstable Angina, STEMI, NSTEMI Aortic Dissection, Pneumothorax, Musculoskeletal, Esophageal Spasm GERD, Cholecystitis, Pancreatitis, Zoster, this is not meant to be an all-inclusive list. EKG interpreted by me (3pts min.). @Sinus bradycardia with PVC rate of 58, SC interval 153, QRS duration 114, QTc [address] segment elevation X-rays interpreted by me (1pt min.). @ -Negative for acute cardiopulmonary findings CT interpreted by me (1pt min.). @ -None done U/S interpreted by me (1pt. min.). @ -None done What testing was considered but not performed or refused? (CT, X-rays, U/S, labs)? Why? @ -None What meds were considered but not given or refused? Why? @ -None Did you discuss the management of the patient with other professionals (professionals i.e. [facility] Valdes, NUCLEAR REACTOR ENGINEER, lab, RT, psych nurse, case management social worker, accounts receivable manager, teacher, marketing officer, case resolution specialist)? Give summary @ -EMH Was smoking cessation discussed for >3mins.? @ -No Was critical care preformed (if so, how long)? @ -No Were there social determinants of health that impacted care today? How? (Homelessness, low income, unemployed, alcoholism, drug addiction, transportation, low edu. Level, literacy, decrease access to med. care, assisted, rehab)? @ -No Was there de-escalation of care discussed even if they declined (Discuss DNR or withdrawal of care, Hospice)? DNR status @ -No What co-morbidities impacted this encounter? (DM, HTN, Smoking, COPD, CAD, Cancer, CVA, ARF, Chemo, Hep., AIDS, mental health diagnosis, sleep apnea, morbid obesity)? @ -Coronary artery disease Was patient admitted / discharged? Hospital course, mention meds given and route, prescriptions, significant lab abnormalities, going to OR and other pertinent info. @ -[84-year-old female presenting with central chest pain. No associated symptoms. EKG is sinus without ST segment elevation. Chest x-ray is clear. She has chronic mild anemia, chronic kidney disease at baseline, negative initial troponin. Patient will be observed overnight for serial cardiac enzymes, telemetry, cardiology consultation. Case discussed with Betty durham for [facility] hospitalist. Undiagnosed new problem with uncertain prognosis? @ -No Drug Therapy requiring intensive monitoring for toxicity (Heparin, Nitro, Insulin, Cardizem)? @ -No Were any procedures done? @ -No Diagnosis/symptom? @Chest pain rule out Acute, or Chronic, or Acute on Chronic? @ -Default Uncomplicated (without systemic symptoms) or Complicated (systemic symptoms)? @ -Default Side effects of treatment? @ -No Exacerbation, Progression, or Severe Exacerbation? @ -No Poses a threat to life or bodily function? How? (Chest pain, USA, MD, pneumonia, PE, COPD, DKA, ARF, appy, cholecystitis, CVA, Diverticulitis, Homicidal, Suicidal, threat to staff... and all critical care pts) @Yes, ACS - Lab Data Result diagrams: 05/09/24 16:28 05/09/24 16:28 Lab Results 05/09/24 05/09/24 05/09/24 Range/Units 16:28 16:28 16:28 WBC 5.0 (3.8-10.6) k/uL RBC 3.37 L (3.80-5.40) m/uL Hgb 11.0 L (11.4-16.0) gm/dL Hct 32.5 L (34.0-46.0) % MCV 96.3 (80.0-100.0) fL MCH 32.8 (25.0-35.0) pg MCHC 34.0 (31.0-37.0) g/dL RDW 12.5 (11.5-15.5) % Plt Count 209 (150-450) k/uL MPV 6.9 Neutrophils % 68 % Lymphocytes % 23 % Monocytes % 6 % Eosinophils % 1 % Basophils % 0 % Neutrophils # 3.4 (1.3-7.7) k/uL Lymphocytes # 1.2 (1.0-4.8) k/uL Monocytes # 0.3 (0-1.0) k/uL Eosinophils # 0.1 (0-0.7) k/uL Basophils # 0.0 (0-0.2) k/uL PT 10.9 (10.0-12.5) sec INR 1.0 (<1.2) APTT 22.0 (22.0-30.0) sec Sodium 132 L (137-145) mmol/L Potassium 4.4 (3.5-5.1) mmol/L Chloride 98 (98-107) mmol/L Carbon Dioxide 25 (22-30) mmol/L Anion Gap 9 mmol/L BUN 28 H (7-17) mg/dL Creatinine 1.31 H (0.52-1.04) mg/dL Est GFR (CKD-EPI)AfAm 43 (>60 ml/min/1.73 sqM) Est GFR (CKD-EPI)NonAf 37 (>60 ml/min/1.73 sqM) Glucose 107 H (74-99) mg/dL Calcium 9.0 (8.4-10.2) mg/dL Magnesium 1.6 (1.6-2.3) mg/dL Total Bilirubin 0.5 (0.2-1.3) mg/dL AST 26 (14-36) U/L ALT 25 (4-34) U/L Alkaline Phosphatase 56 (38-126) U/L Troponin I (0.000-0.034) ng/mL NT-Pro-B Natriuret Pep 1080 pg/mL Total Protein 6.1 L (6.3-8.2) g/dL Albumin 3.9 (3.5-5.0) g/dL 05/09/24 Range/Units 16:28 WBC (3.8-10.6) k/uL RBC (3.80-5.40) m/uL Hgb (11.4-16.0) gm/dL Hct (34.0-46.0) % MCV (80.0-100.0) fL MCH (25.0-35.0) pg MCHC (31.0-37.0) g/dL RDW (11.5-15.5) % Plt Count (150-450) k/uL MPV Neutrophils % % Lymphocytes % % Monocytes % % Eosinophils % % Basophils % % Neutrophils # (1.3-7.7) k/uL Lymphocytes # (1.0-4.8) k/uL Monocytes # (0-1.0) k/uL Eosinophils # (0-0.7) k/uL Basophils # (0-0.2) k/uL PT (10.0-12.5) sec INR (<1.2) APTT (22.0-30.0) sec Sodium (137-145) mmol/L Potassium (3.5-5.1) mmol/L Chloride (98-107) mmol/L Carbon Dioxide (22-30) mmol/L Anion Gap mmol/L BUN (7-17) mg/dL Creatinine (0.52-1.04) mg/dL Est GFR (CKD-EPI)AfAm (>60 ml/min/1.73 sqM) Est GFR (CKD-EPI)NonAf (>60 ml/min/1.73 sqM) Glucose (74-99) mg/dL Calcium (8.4-10.2) mg/dL Magnesium (1.6-2.3) mg/dL Total Bilirubin (0.2-1.3) mg/dL AST (14-36) U/L ALT (4-34) U/L Alkaline Phosphatase (38-126) U/L Troponin I 0.017 (0.000-0.034) ng/mL NT-Pro-B Natriuret Pep pg/mL Total Protein (6.3-8.2) g/dL Albumin (3.5-5.0) g/dL Disposition Clinical Impression: Chest pain Disposition: ADMITTED IP TO THIS HOSP Condition: Stable Is patient prescribed a controlled substance at d/c from ED?: No Referrals: Elmer Oreilly MD [Primary Care Provider] - 1-2 days Time of Disposition: 17:51
[2024-05-09 16:48] LABS: Basophils % (A) 0 %; Eosinophils # (A) 0.1 k/uL (0-0.7); Eosinophils % (A) 1 %; HCT 32.5 % (34.0-46.0); Lymphocytes # (A) 1.2 k/uL (1.0-4.8); Lymphocytes % (A) 23 %; MCH 32.8 pg (25.0-35.0); MCV 96.3 fL (80.0-100.0); Mean Platelet Volume 6.9; Monocytes # (A) 0.3 k/uL (0-1.0); Monocytes % (A) 6 %; Neutrophils # (A) 3.4 k/uL (1.3-7.7); Neutrophils % (A) 68 %; Platelet Count 209 k/uL (150-450); RBC 3.37 m/uL (3.80-5.40); RDW 12.5 % (11.5-15.5)
[2024-05-09 17:04] LABS: ALT 25 U/L (4-34); AST 26 U/L (14-36); African American GFR (CKD) 43 (>60 ml/min/1.73 sqM); Albumin 3.9 g/dL (3.5-5.0); Alkaline Phosphatase 56 U/L (38-126); Anion Gap 9 mmol/L; Blood Urea Nitrogen 28 mg/dL (7-17); Carbon Dioxide 25 mmol/L (22-30); Chloride 98 mmol/L (98-107); Glucose 107 mg/dL (74-99); Magnesium 1.6 mg/dL (1.6-2.3); Non-African American GFR(CKD) 37 (>60 ml/min/1.73 sqM); Potassium 4.4 mmol/L (3.5-5.1); Prothrombin Time 10.9 sec (10.0-12.5); Sodium 132 mmol/L (137-145); Total Bilirubin 0.5 mg/dL (0.2-1.3); Total Protein 6.1 g/dL (6.3-8.2)
--- NOTE | 2024-05-09 17:10 | XR ---
EXAMINATION TYPE: XR chest 2V DATE OF EXAM: 05/09/2024 COMPARISON: 09/04/2023 INDICATION: Chest pain TECHNIQUE: Frontal and lateral views of the chest are obtained. FINDINGS: The heart size is large. The pulmonary vasculature is normal. No suspicious infiltrates present. Sternotomy wires are present from prior CABG.. IMPRESSION: 1. Mild cardiomegaly.
[2024-05-09 17:12] LABS: NT-Pro-B-Type Natriuretic Pept 1080 pg/mL
[2024-05-09] MEDS ORDERED: NALOXONE 0.4 MG/ML 1 ML VIAL IV PRN (17:48)
[2024-05-09] MEDS ORDERED: ONDANSETRON 4 MG/2 ML VIAL IVP PRN (17:48)
[2024-05-09] MEDS ORDERED: ACETAMINOPHEN TAB 325 MG TAB PO PRN (17:48)
[2024-05-09 18:47] LABS: Glucose,Whole Blood 223 mg/dL (70-110)
[2024-05-09] MEDS ORDERED: NITROGLYCERIN SL TABS 0.4 MG TAB SUBLINGUAL PRN (20:44)
[2024-05-09] MEDS: traZODone HCL 50 MG TAB PO SCH (20:56)
[2024-05-09] MEDS: ATORVASTATIN 80 MG TAB PO SCH (20:56)
[2024-05-09] MEDS: SENNOSIDES-DOCUSATE SODIUM 1 EACH TAB PO SCH (20:56)
[2024-05-10 08:11] LABS: Glucose,Whole Blood 126 mg/dL (70-110)
[2024-05-10] MEDS: ISOSORBIDE MONONITRATE ER 30 MG TAB.ER.24H PO SCH (08:12)
[2024-05-10] MEDS: LOSARTAN 25 MG TAB PO SCH (08:12)
[2024-05-10] MEDS: LORATADINE 10 MG TAB PO SCH (08:12)
[2024-05-10] MEDS: DOCUSATE 100 MG CAP PO SCH (08:13)
[2024-05-10] MEDS: APIXABAN 2.5 MG TABLET PO SCH (08:13)
[2024-05-10] MEDS: MULTIVITAMINS, THERA 1 EACH TAB PO SCH (08:13)
[2024-05-10] MEDS: AMIODARONE 100 MG TAB PO SCH (08:14)
[2024-05-10] MEDS: LEVOTHYROXINE 125 MCG TAB PO SCH (08:14)
[2024-05-10] MEDS: CLOPIDOGREL 75 MG TAB PO SCH (08:15)
[2024-05-10] MEDS: ACARBOSE 25 MG TAB PO SCH (08:59)
[2024-05-10] MEDS ORDERED: BIOTIN PO SCH (09:00)
[2024-05-10] MEDS ORDERED: NON FORMULARY DRUG (Ubidecarenone [Co Q-10] 100 MG Capsule) PO SCH (09:00)
[2024-05-10] MEDS ORDERED: VITAMIN B COMPLEX PO SCH (09:00)
[2024-05-10] MEDS ORDERED: SLOW IRON PO SCH (09:00)
--- NOTE | 2024-05-10 09:00 | P.CRDCN ---
History of Present Illness History of present illness: HISTORY OF PRESENT ILLNESS: This is a 84-year-old female with a past medical history significant for coronary artery disease with previous bypass and stenting, paroxysmal atrial fibrillation, hypertension, hyperlipidemia, and diabetes. Patient follows in the office with Dr. Ventura. We have been asked to see the patient in consultation for chest pain. Patient examined at the bedside in the emergency room. Patient states yesterday when she woke up she was having chest discomfort. She states the pain was across her entire chest and felt like an aching type sensation. She states that she did take nitro at home with no relief. She states symptoms are not similar to the symptoms she experienced in August when she required stenting. She states her pain has since resolved and she has had no further episodes of chest pain since being in the hospital. She denies any shortness of breath. Denies any fever or chills. She is hoping to be discharged home today. DIAGNOSTICS: - EKG reveals sinus mechanism with no signs of acute ischemia. PVC. - Chest xray mild cardiomegaly. - Laboratory data: WBC 5.0. Hemoglobin 11.0. Platelet count 209. Sodium 132. Potassium 4.4. BUN 28. Creatinine 1.31. Negative x 3. proBNP 1080. - Current home cardiac medications include losartan 25 mg daily, Lasix 20 mg daily, Plavix 75 mg daily, Eliquis 2.5 mg twice a day, amiodarone 100 mg daily, Imdur 30 mg daily, Lipitor 80 mg at night. - Most recent echocardiogram obtained in August 2023 revealed ejection fraction 35 to 40%, apex hypokinetic, anterior apical and apical lateral hypo kinesis, mild AI, moderate to severe mitral regurgitation, mild tricuspid regurgitation - Cardiac catheterization history: August [address] Esqueda with stenting of the SVG to diagonal REVIEW OF SYSTEMS: At the time of my exam: CONSTITUTIONAL: Denies fever or chills. HEENT: Denies blurred vision, vision changes, or eye pain. Denies hemoptysis CARDIOVASCULAR: Denies chest pain. Denies orthopnea. Denies PND. Denies palpitations RESPIRATORY: Denies shortness of breath. GASTROINTESTINAL: Denies abdominal pain. Denies nausea or vomiting. HEMATOLOGIC: Denies bleeding disorders. GENITOURINARY: Denies any blood in urine. SKIN: Denies pruitis. Denies rash. PHYSICAL EXAM: VITAL SIGNS: Reviewed. GENERAL: Well-developed in no acute distress. HEENT: Head is normocephalic. Pupils are equal, round. Sclerae anicteric. Mucous membranes of the mouth are moist. Neck supple. No JVD or thyromegaly LUNGS: Respirations even and unlabored. Lungs essentially clear to auscultation bilaterally. HEART: Regular rate and rhythm. S1 and S2 heard. ABDOMEN: Soft. Nondistended. Nontender. EXTREMITIES: Normal range of motion. No clubbing or cyanosis. Peripheral pulses intact. No lower extremity edema NEUROLOGIC: Awake and alert. Oriented x 3. ASSESSMENT: Chest pain, atypical, troponin negative x 3 Coronary artery disease with previous CABG and subsequent stenting, most recently SVG to diagonal in 08/2023 Ischemic cardiomyopathy, 35 to 40% Paroxysmal atrial fibrillation Hypertension Hyperlipidemia Diabetes PLAN: An acute coronary event has been ruled out Resume home cardiac medications Obtain 2D echo to assess cardiac structure and function Patient may be discharged home this afternoon pending echocardiogram results She is to follow-up postdischarge with Dr. Ventura Nurse practitioner note has been reviewed by physician. Signing provider agrees with the documented findings, assessment, and plan of care documented by BALANCE WHEEL SCREW HOLE TAPPER as a scribe. Past Medical History Past Medical History: Coronary Artery Disease (CAD), Cancer, Chest Pain / Angina, Diabetes Mellitus, Hyperlipidemia, Hypertension, Thyroid Disorder Additional Past Medical History / Comment(s): frequent constipation, arthritis, anemia, hx breast cancer, [place] 08/21/21 History of Any Multi-Drug Resistant Organisms: None Reported Past Surgical History: Breast Surgery, Cholecystectomy, Coronary Bypass/CABG, Heart Catheterization, Heart Catheterization With Stent, Hysterectomy Additional Past Surgical History / Comment(s): left mastectomy, trigeminal nerve surgery, hemorrhoidectomy, right mastectomy 08/2016, stent 08/22/21 Past Anesthesia/Blood Transfusion Reactions: Motion Sickness Date of Last Stent Placement:: 08/22/21 Past Psychological History: No Psychological Hx Reported Smoking Status: Never smoker Past Alcohol Use History: Rare Past Drug Use History: None Reported - Past Family History Mother Family Medical History: No Reported History Medications and Allergies Home Medications Medication Instructions Recorded Confirmed Type Acarbose [Precose] 50 mg PO TID-W/MEALS 04/29/15 05/09/24 History metFORMIN HCL [Glucophage] 1,000 mg PO W/SUPPER 04/29/15 05/09/24 History Multivit-Min/FA/Lycopene/Lut 1 tab PO W/BRKFST 04/30/15 05/09/24 History [Centrum Silver Tablet] Atorvastatin [Lipitor] 80 mg PO HS #30 tab 05/02/15 05/09/24 Rx Letrozole 2.5 mg PO DAILY 02/24/18 05/09/24 History Risedronate Sodium [Actonel] 35 mg PO MITCHELL 02/24/18 05/09/24 History Isosorbide Mononitrate ER [Imdur] 30 mg PO AC-BRKFST 01/27/22 05/09/24 History Ubidecarenone [Co Q-10] 100 mg PO DAILY 01/27/22 05/09/24 History Docusate [Colace] 100 mg PO DAILY 04/22/23 05/09/24 History Furosemide [Lasix] 20 mg PO DAILY 04/22/23 05/09/24 History Levothyroxine Sodium [Synthroid] 125 mcg PO AC-BRKFST 04/22/23 05/09/24 History Nitroglycerin Sl Tabs [Nitrostat] 0.4 mg SL Q5M PRN 04/22/23 05/09/24 History Clopidogrel [Plavix] 75 mg PO DAILY 30 Days #30 tab 09/05/23 05/09/24 Rx Amiodarone [Cordarone] 100 mg PO W/SUPPER 05/09/24 05/09/24 History Apixaban [Eliquis] 2.5 mg PO BID-W/MEALS 05/09/24 05/09/24 History Cetirizine HCl [Zyrtec] 10 mg PO DAILY 05/09/24 05/09/24 History Losartan [Cozaar] 25 mg PO W/BRKFST 05/09/24 05/09/24 History Mupirocin 2% Oint [Bactroban 2% 1 applic TOPICAL DAILY 05/09/24 05/09/24 History Oint] Omeprazole 20 mg PO AC-SUPPER 05/09/24 05/09/24 History Sennosides/Docusate Sodium 1 tab PO HS 05/09/24 05/09/24 History [Senna-S 8.6-50 mg Tablet] Slow Release Iron 45 mg PO DAILY 05/09/24 05/09/24 History Vitamin B Complex W/Biotin 1,000 mcg PO DAILY 05/09/24 05/09/24 History glipiZIDE [Glucotrol] 2.5 mg PO AC-BID 05/09/24 05/09/24 History rOPINIRole HCL [Requip] 0.25 mg PO HS 05/09/24 05/09/24 History traZODone HCL [Desyrel] 50 mg PO HS 05/09/24 05/09/24 History Allergies Allergy/AdvReac Type Severity Reaction Status Date / Time doxycycline calcium Allergy Unknown Verified 05/09/24 17:54 [From Vibramycin] doxycycline hyclate Allergy Unknown Verified 05/09/24 17:54 [From Vibramycin] doxycycline monohydrate Allergy Unknown Verified 05/09/24 17:54 [From Vibramycin] Penicillins Allergy Rash/Hives Verified 05/09/24 17:54 Sulfa (Sulfonamide Allergy Rash/Hives Verified 05/09/24 17:54 Antibiotics) sulfamethoxazole Allergy Rash/Hives Verified 05/09/24 17:54 [From Septra] trimethoprim [From Septra] Allergy Rash/Hives Verified 05/09/24 17:54 Physical Exam Vitals: Vital Signs Temp Pulse Resp BP Pulse Ox 05/10/24 06:36 66 18 146/69 97 05/10/24 04:02 56 L 17 145/50 97 05/10/24 00:19 58 L 18 146/67 97 05/09/24 23:59 58 L 16 148/61 96 05/09/24 17:51 98.8 F 59 L 18 184/85 96 05/09/24 15:35 98.1 F 67 18 179/69 99 Intake and Output 05/09/24 05/10/24 05/10/24 22:59 06:59 14:59 Other: Weight 64.41 kg Results 05/09/24 16:28 05/09/24 16:28 Cardiac Enzymes 05/09/24 05/09/24 05/09/24 Range/Units 16:28 16:28 19:23 AST 26 (14-36) U/L Troponin I 0.017 <0.012 (0.000-0.034) ng/mL 05/09/24 Range/Units 22:22 AST (14-36) U/L Troponin I 0.013 (0.000-0.034) ng/mL Coagulation 05/09/24 Range/Units 16:28 PT 10.9 (10.0-12.5) sec APTT 22.0 (22.0-30.0) sec CBC 05/09/24 Range/Units 16:28 WBC 5.0 (3.8-10.6) k/uL RBC 3.37 L (3.80-5.40) m/uL Hgb 11.0 L (11.4-16.0) gm/dL Hct 32.5 L (34.0-46.0) % Plt Count 209 (150-450) k/uL Comprehensive Metabolic Panel 05/09/24 Range/Units 16:28 Sodium 132 L (137-145) mmol/L Potassium 4.4 (3.5-5.1) mmol/L Chloride 98 (98-107) mmol/L Carbon Dioxide 25 (22-30) mmol/L BUN 28 H (7-17) mg/dL Creatinine 1.31 H (0.52-1.04) mg/dL Glucose 107 H (74-99) mg/dL Calcium 9.0 (8.4-10.2) mg/dL AST 26 (14-36) U/L ALT 25 (4-34) U/L Alkaline Phosphatase 56 (38-126) U/L Total Protein 6.1 L (6.3-8.2) g/dL Albumin 3.9 (3.5-5.0) g/dL Current Medications Generic Name Dose Route Start Last Admin Trade Name Freq PRN Reason Stop Dose Admin Acarbose 50 mg 05/10/24 07:30 Acarbose 25 Mg Tab PO TID-W/MEALS [facility] Acetaminophen 650 mg 05/09/24 17:48 Acetaminophen Tab 325 Mg Tab PO Q6HR PRN Mild Pain or Fever > 100.5 Amiodarone HCl 100 mg 05/10/24 17:30 Amiodarone 100 Mg Tab PO W/SUPPER [facility] Apixaban 2.5 mg 05/10/24 07:30 Apixaban 2.5 Mg Tablet PO BID-W/MEALS [facility] Protocol Atorvastatin Calcium 80 mg 05/09/24 21:00 05/09/24 20:56 Atorvastatin 80 Mg Tab PO 80 mg HS [facility] Administration Clopidogrel Bisulfate 75 mg 08/28/24 09:00 Clopidogrel 75 Mg Tab PO DAILY [facility] Docusate Sodium 100 mg 05/10/24 09:00 Docusate 100 Mg Cap PO DAILY [facility] Isosorbide Mononitrate 30 mg 05/10/24 07:30 Isosorbide Mononitrate Er 30 Mg Tab.[facility]h [facility] Levothyroxine Sodium 125 mcg 05/10/24 07:30 Levothyroxine 125 Mcg Tab [facility] Loratadine 10 mg 05/10/24 09:00 Loratadine 10 Mg Tab PO DAILY [facility] Losartan Potassium 25 mg 05/10/24 07:30 Losartan 25 Mg Tab PO W/BRKFST [facility] Multivitamins 1 each 05/10/24 07:30 Multivitamins, Thera 1 Each Tab [facility] Mupirocin 1 applic 05/10/24 09:00 Mupirocin 2% Oint 22 Gm Tube TOPICAL DAILY [facility] Protocol Naloxone HCl 0.2 mg 05/09/24 17:48 Naloxone 0.4 Mg/Ml 1 Ml Vial IV Q2M PRN Opioid Reversal Nitroglycerin 0.4 mg 05/09/24 20:44 Nitroglycerin Sl Tabs 0.4 Mg Tab SUBLINGUAL Q5M PRN Chest Pain Non-Formulary Medication 35 mg 05/14/24 20:44 Risedronate Sodium [Actonel] PO MITCHELL [facility] Ondansetron HCl 4 mg 05/09/24 17:48 Ondansetron 4 Mg/2 Ml Vial IVP Q8HR PRN Nausea And Vomiting Pantoprazole Sodium 40 mg 05/10/24 17:30 Pantoprazole 40 Mg Tablet PO AC-SUPPER [facility] Ropinirole HCl 0.25 mg 05/09/24 21:00 05/09/24 20:56 Ropinirole Hcl 0.25 Mg Tab PO 0.25 mg HS [facility] Administration Senna/Docusate Sodium 1 each 05/09/24 21:00 05/09/24 20:56 Sennosides-Docusate Sodium 1 Each Tab PO 1 each HS [facility] Administration Trazodone HCl 50 mg 05/09/24 21:00 05/09/24 20:56 Trazodone Hcl 50 Mg Tab PO 50 mg HS [facility] Administration Intake and Output 05/09/24 05/10/24 05/10/24 22:59 06:59 14:59 Other: Weight 64.41 kg 05/09/24 16:28 05/09/24 16:28
[2024-05-10] MEDS: MUPIROCIN 2% OINT 22 GM TUBE TOPICAL SCH (09:01)
[2024-05-10 11:50] LABS: Glucose,Whole Blood 247 mg/dL (70-110)
--- NOTE | 2024-05-10 14:32 | P.HPIM ---
History of Present Illness H&P Date: 05/10/24 This is an 84-year-old female medical history significant for coronary artery disease with prior CABG and cardiac stenting, atrial fibrillation, cardiomyopathy with an EF of 35 to 40%, hypertension, hyperlipidemia, breast cancer with mastectomy. Patient woke up in the morning got up out of bed and b sayra having chest pain across her left chest no radiation into the back shoulder or jaw. She was not having any shortness of breath dizziness or lightheadedness. The chest pain was not getting better so patient came into the hospital for further evaluation. At this time she is now chest pain-free she feels this may be musculoskeletal in nature as she does have chronic back pain and may have slept wrong. She was admitted for cardiac evaluation. Recommended for echocardiogram which is pending at this time. She follows with Dr. Ventura in the office, her PCP is Dr. Oreilly. White blood cell count 5.0, hgb 11.0, sodium 132, potassium 4.4., BUN 28, creatinine 1.31. Blood glucose in the 200s. Magne sium 1.6. Troponin negative. proBNP 1080. REVIEW OF SYSTEMS: CONSTITUTIONAL: No fever, no malaise, no fatigue. HEENT: No recent visual problems or hearing problems. Denied any sore throat. CARDIOVASCULAR: No chest pain, orthopnea, PND, no palpitations, no syncope. PULMONARY: No shortness of breath, no cough, no hemoptysis. GASTROINTESTINAL: No diarrhea, no nausea, no vomiting, no abdominal pain. NEUROLOGICAL: No headaches, no weakness, no numbness. HEMATOLOGICAL: Denies any bleeding or petechiae. GENITOURINARY: Denies any burning micturition, frequency, or urgency. MUSCULOSKELETAL/RHEUMATOLOGICAL: Denies any joint pain, swelling, or any muscle pain. ENDOCRINE: Denies any polyuria or polydipsia. The rest of the 14-point review of systems is negative. PHYSICAL EXAMINATION: GENERAL: The patient is alert and oriented x3, not in any acute distress. Well developed, well nourished. HEENT: Pupils are round and equally reacting to light. EOMI. No scleral icterus. No conjunctival pallor. Normocephalic, atraumatic. No pharyngeal erythema. No thyromegaly. CARDIOVASCULAR: S1 and S2 present. No murmurs, rubs, or gallops. PULMONARY: Chest is clear to auscultation, no wheezing or crackles. ABDOMEN: Soft, nontender, nondistended, normoactive bowel sounds. No palpable organomegaly. MUSCULOSKELETAL: No joint swelling or deformity. EXTREMITIES: No cyanosis, clubbing, or pedal edema. NEUROLOGICAL: Gross neurological examination did not reveal any focal deficits. SKIN: No rashes. Assessment Chest pain, atypical likely musculoskeletal in nature, has resolved at this time Hx coronary artery disease with prior CABG, Cardiac stenting Atrial fibrillation, paroxysmal anticoagulated with eliquis Ischemic cardiomyopathy EF 35-40% Hypertension Hyperlipidemia hx of breast cancer with mastectomy Diabetes Mellitus type 2 with hyperglycemia CKD Hypothyroidism Hx of arthritis and chronic back pain GI prophylaxis DVT prophylaxis Full Code Plan Resume all same home medications Cardiology consultation Recommending echocardiogram and if no significant findings/stable can discharge home. Recommending to see her usual admission liaison Dr. Ventura in the office Echocardiogram has not been done yet patient has been chest pain free if ok with cardiology will send home and can get echo outpatient. Accuchecks ACHS and sliding scale inpatient recommend to discuss with her PCP regarding injectible insulins outpatient. The impression and plan of care has been dictated by Tiffanie Vasquez Nurse Practitioner as directed. Dr. Yesenia MD I have performed a history and physical examination and medical decision making of this patient, discussed the same with the dictator, and agree with the dictators assessment and plan as written, documented as a scribe. Based on total visit time, I have performed more than 50% of this visit. Past Medical History Past Medical History: Coronary Artery Disease (CAD), Cancer, Chest Pain / Angina, Diabetes Mellitus, Hyperlipidemia, Hypertension, Thyroid Disorder Additional Past Medical History / Comment(s): frequent constipation, arthritis, anemia, hx breast cancer, [place] 08/21/21 History of Any Multi-Drug Resistant Organisms: None Reported Past Surgical History: Breast Surgery, Cholecystectomy, Coronary Bypass/CABG, Heart Catheterization, Heart Catheterization With Stent, Hysterectomy Additional Past Surgical History / Comment(s): left mastectomy, trigeminal nerve surgery, hemorrhoidectomy, right mastectomy 08/2016, stent 08/22/21 Past Anesthesia/Blood Transfusion Reactions: Motion Sickness Date of Last Stent Placement:: 08/22/21 Past Psychological History: No Psychological Hx Reported Smoking Status: Never smoker Past Alcohol Use History: Rare Past Drug Use History: None Reported - Past Family History Mother Family Medical History: No Reported History Medications and Allergies Home Medications Medication Instructions Recorded Confirmed Type Acarbose [Precose] 50 mg PO TID-W/MEALS 04/29/15 05/09/24 History metFORMIN HCL [Glucophage] 1,000 mg PO W/SUPPER 04/29/15 05/09/24 History Multivit-Min/FA/Lycopene/Lut 1 tab PO W/BRKFST 04/30/15 05/09/24 History [Centrum Silver Tablet] Atorvastatin [Lipitor] 80 mg PO HS #30 tab 05/02/15 05/09/24 Rx Letrozole 2.5 mg PO DAILY 02/24/18 05/09/24 History Risedronate Sodium [Actonel] 35 mg PO MITCHELL 02/24/18 05/09/24 History Isosorbide Mononitrate ER [Imdur] 30 mg PO AC-BRKFST 01/27/22 05/09/24 History Ubidecarenone [Co Q-10] 100 mg PO DAILY 01/27/22 05/09/24 History Docusate [Colace] 100 mg PO DAILY 04/22/23 05/09/24 History Furosemide [Lasix] 20 mg PO DAILY 04/22/23 05/09/24 History Levothyroxine Sodium [Synthroid] 125 mcg PO AC-BRKT 04/22/23 05/09/24 History Nitroglycerin Sl Tabs [Nitrostat] 0.4 mg SL Q5M PRN 04/22/23 05/09/24 History Clopidogrel [Plavix] 75 mg PO DAILY 30 Days #30 tab 09/05/23 05/09/24 Rx Amiodarone [Cordarone] 100 mg PO W/SUPPER 05/09/24 05/09/24 History Apixaban [Eliquis] 2.5 mg PO BID-W/MEALS 05/09/24 05/09/24 History Cetirizine HCl [Zyrtec] 10 mg PO DAILY 05/09/24 05/09/24 History Losartan [Cozaar] 25 mg PO W/BRKFST 05/09/24 05/09/24 History Mupirocin 2% Oint [Bactroban 2% 1 applic TOPICAL DAILY 05/09/24 05/09/24 History Oint] Omeprazole 20 mg PO AC-SUPPER 05/09/24 05/09/24 History Sennosides/Docusate Sodium 1 tab PO HS 05/09/24 05/09/24 History [Senna-S 8.6-50 mg Tablet] Slow Release Iron 45 mg PO DAILY 05/09/24 05/09/24 History Vitamin B Complex W/Biotin 1,000 mcg PO DAILY 05/09/24 05/09/24 History glipiZIDE [Glucotrol] 2.5 mg PO AC-BID 05/09/24 05/09/24 History rOPINIRole HCL [Requip] 0.25 mg PO HS 05/09/24 05/09/24 History traZODone HCL [Desyrel] 50 mg PO HS 05/09/24 05/09/24 History Allergies Allergy/AdvReac Type Severity Reaction Status Date / Time doxycycline calcium Allergy Unknown Verified 05/09/24 17:54 [From Vibramycin] doxycycline hyclate Allergy Unknown Verified 05/09/24 17:54 [From Vibramycin] doxycycline monohydrate Allergy Unknown Verified 05/09/24 17:54 [From Vibramycin] Penicillins Allergy Rash/Hives Verified 05/09/24 17:54 Sulfa (Sulfonamide Allergy Rash/Hives Verified 05/09/24 17:54 Antibiotics) sulfamethoxazole Allergy Rash/Hives Verified 05/09/24 17:54 [From Septra] trimethoprim [From Septra] Allergy Rash/Hives Verified 05/09/24 17:54 Physical Exam Vitals: Vital Signs Temp Pulse Resp BP Pulse Ox 05/10/24 11:08 58 L 16 123/49 98 05/10/24 08:07 54 L 18 162/58 96 05/10/24 06:36 66 18 146/69 97 05/10/24 04:02 56 L 17 145/50 97 05/10/24 00:19 58 L 18 146/67 97 05/09/24 23:59 58 L 16 148/61 96 05/09/24 17:51 98.8 F 59 L 18 184/85 96 05/09/24 15:35 98.1 F 67 18 179/69 99 Intake and Output 05/09/24 05/10/24 05/10/24 22:59 06:59 14:59 Other: Weight 64.41 kg Results CBC & Chem 7: 05/09/24 16:28 05/09/24 16:28 Labs: Abnormal Lab Results - Last 24 Hours (Table) 05/09/24 05/09/24 05/09/24 Range/Units 16:28 16: 18:46 RBC 3.37 L (3.80-5.40) m/uL Hgb 11.0 L (11.4-16.0) gm/dL Hct 32.5 L (34.0-46.0) % Sodium 132 L (137-145) mmol/L BUN 28 H (7-17) mg/dL Creatinine 1.31 H (0.52-1.04) mg/dL Glucose 107 H (74-99) mg/dL POC Glucose (mg/dL) 223 H (70-110) mg/dL Total Protein 6.1 L (6.3-8.2) g/dL 05/10/24 05/10/24 Range/Units 08:10 11:48 RBC (3.80-5.40) m/uL Hgb (11.4-16.0) gm/dL Hct (34.0-46.0) % Sodium (137-145) mmol/L BUN (7-17) mg/dL Creatinine (0.52-1.04) mg/dL Glucose (74-99) mg/dL POC Glucose (mg/dL) 126 H 247 H (70-110) mg/dL Total Protein (6.3-8.2) g/dL Assessment and Plan Time with Patient: Greater than 30
[2024-05-10] MEDS: PANTOPRAZOLE 40 MG TABLET PO SCH (17:20)
[2024-05-10 17:21] LABS: Glucose,Whole Blood 147 mg/dL (70-110)
[2024-05-10 20:45] LABS: Glucose,Whole Blood 235 mg/dL (70-110)
[2024-05-11 05:59] LABS: Glucose,Whole Blood 135 mg/dL (70-110)
[2024-05-11] MEDS: LETROZOLE 2.5 MG TAB PO SCH (06:05)
[2024-05-11 07:52] VITALS: BP 139/63; PULSE 60; RESP 18; TEMP 97.8
[2024-05-11] MEDS: FUROSEMIDE 20 MG TAB PO SCH (09:30)
--- NOTE | 2024-05-11 10:08 | P.PN ---
Subjective HISTORY OF PRESENT ILLNESS: This is a 84-year-old female with a past medical history significant for coronary artery disease with previous bypass and stenting, paroxysmal atrial fibrillation, hypertension, hyperlipidemia, and diabetes. Patient follows in the office with Dr. Ventura. We have been asked to see the patient in consultation for chest pain. Patient examined at the bedside in the emergency room. Patient states yesterday when she woke up she was having chest discomfort. She states the pain was across her entire chest and felt like an aching type sensation. She states that she did take nitro at home with no relief. She states symptoms are not similar to the symptoms she experienced in August when she required stenting. She states her pain has since resolved and she has had no further episodes of chest pain since being in the hospital. She denies any shortness of breath. Denies any fever or chills. She is hoping to be discharged home today. DIAGNOSTICS: - EKG reveals sinus mechanism with no signs of acute ischemia. PVC. - Chest xray mild cardiomegaly. - Laboratory data: WBC 5.0. Hemoglobin 11.0. Platelet count 209. Sodium 132. Potassium 4.4. BUN 28. Creatinine 1.31. Negative x 3. proBNP 1080. - Current home cardiac medications include losartan 25 mg daily, Lasix 20 mg daily, Plavix 75 mg daily, Eliquis 2.5 mg twice a day, amiodarone 100 mg daily, Imdur 30 mg daily, Lipitor 80 mg at night. - Most recent echocardiogram obtained in August 2023 revealed ejection fraction 35 to 40%, apex hypokinetic, anterior apical and apical lateral hypokinesis, mild AI, moderate to severe mitral regurgitation, mild tricuspid regurgitation - Cardiac catheterization history: August [address] Esqueda with stenting of the SVG to diagonal 05/11/2024 Patient examined this morning the bedside. Patient denies chest pain or pressure. Denies SOB. She reports she is under alot of stress recently due to losing her earlier this year. PHYSICAL EXAM: VITAL SIGNS: Reviewed. GENERAL: Well-developed in no acute distress. HEENT: Head is normocephalic. Pupils are equal, round. Sclerae anicteric. Mucous membranes of the mouth are moist. Neck supple. No JVD or thyromegaly LUNGS: Respirations even and unlabored. Lungs essentially clear to auscultation bilaterally. HEART: Regular rate and rhythm. S1 and S2 heard. ABDOMEN: Soft. Nondistended. Nontender. EXTREMITIES: Normal range of motion. No clubbing or cyanosis. Peripheral pulses intact. No lower extremity edema NEUROLOGIC: Awake and alert. Oriented x 3. ASSESSMENT: Chest pain, atypical, troponin negative x 3 Coronary artery disease with previous CABG and subsequent stenting, most recently SVG to diagonal in 08/2023 Ischemic cardiomyopathy, 35 to 40% Paroxysmal atrial fibrillation Hypertension Hyperlipidemia Diabetes PLAN: 2D echo pending Continue current cardiac medications Patient may be discharged home today from a cardiac standpoint She is to follow-up postdischarge with Dr. Ventura Nurse practitioner note has been reviewed by physician. Signing provider agrees with the documented findings, assessment, and plan of care documented by INTERIOR DESIGN PROGRAM CHAIR as a scribe. Objective - Vital Signs Vital signs: Vital Signs Temp 97.8 F 05/11/24 07:00 Pulse 60 05/11/24 07:00 Resp 18 05/11/24 07:00 BP 139/63 05/11/24 07:00 Pulse Ox 99 05/11/24 07:00 FiO2 Intake & Output 05/10/24 05/11/24 05/11/24 18:59 06:59 18:59 Weight 64.41 kg Other: # Voids 1 - Labs CBC & Chem 7: 05/09/24 16:28 05/09/24 16:28 Labs: Abnormal Lab Results - Last 24 Hours (Table) 05/10/24 05/10/24 05/10/24 Range/Units 11:48 17:20 20:44 POC Glucose (mg/dL) 247 H 147 H 235 H (70-110) mg/dL 05/11/24 Range/Units 05:58 POC Glucose (mg/dL) 135 H (70-110) mg/dL
--- NOTE | 2024-05-11 13:09 | CA ---
Transthoracic Echo Report Name: Michelle Laboy Age: 84 Gender: F : 1940 Exam Date: 05/11/2024 09:13 Exam Location: [place] [facility] Ht (in): 59 Wt (lb): 142 Ordering Physician: Isamar Ramon Attending/Referring Phys: [id number], Yenny Crystal Evaluator Lizbeth Allred RDCS Procedure CPT: Indications: LV function, CP Cardiac Hx: CABG Technical Quality: Fair Contrast 1: Total Dose (mL): Contrast 2: Total Dose (mL): MEASUREMENTS (Male / Female) Normal Values 2D ECHO LV Diastolic Diameter PLAX 4.6 cm 4.2 - 5.9 / 3.9 - 5.3 cm LV Systolic Diameter PLAX 2.6 cm IVS Diastolic Thickness 1.4 cm 0.6 - 1.0 / 0.6 - 0.9 cm LVPW Diastolic Thickness 1.2 cm 0.6 - 1.0 / 0.6 - 0.9 cm LV Relative Wall Thickness 0.6 RV Internal Dim ED PLAX 3.0 cm LVOT Diameter 1.9 cm LA Systolic Diameter LX 5.5 cm 3.0 - 4.0 / 2.7 - 3.8 cm LV Diastolic Volume MOD BP 72.8 cm??? 67 - 155 / 56 - 104 cm??? LV Systolic Volume MOD BP 27.4 cm??? 22 - 58 / 19 - 49 cm??? LV Ejection Fraction MOD BP 62.4 % >= 55 % LV Cardiac Index MOD BP 1448.5 cm???/min???m??? LV Diastolic Volume MOD 4C 77.0 cm??? LV Systolic Volume MOD 4C 29.0 cm??? LV Ejection Fraction MOD 4C 62.3 % LV Cardiac Index MOD 4C 1531.1 cm???/min???m??? LV Diastolic Length 4C 6.6 cm LV Systolic Length 4C 5.6 cm LV Diastolic Volume MOD 2C 66.2 cm??? LV Systolic Volume MOD 2C 23.1 cm??? LV Ejection Fraction MOD 2C 65.1 % LV Cardiac Index MOD 2C 1376.3 cm???/min???m??? LV Diastolic Length 2C 7.0 cm LV Systolic Length 2C 6.4 cm LA Volume 95.8 cm??? 18 - 58 / 22 - 52 cm??? LA Volume Index 57.7 cm???/m??? 16 - 28 cm???/m??? M-MODE Aortic Root Diameter MM 2.6 cm LA Systolic Diameter MM 4.7 cm LA Ao Ratio MM 1.8 AV Cusp Separation MM 1.2 cm DOPPLER AV Peak Velocity 282.7 cm/s AV Peak Gradient 32.0 mmHg AV Mean Velocity 193.6 cm/s AV Mean Gradient 17.0 mmHg AV Velocity Time Integral 75.7 cm AI Peak Velocity 355.8 cm/s AI Peak Gradient 50.6 mmHg AI Pressure Half Time 585.6 ms LVOT Peak Velocity 113.3 cm/s LVOT Peak Gradient 5.1 mmHg LVOT Velocity Time Integral 29.4 cm LVOT Stroke Volume 80.4 cm??? LVOT Stroke Volume Index 50.5 ml/m??? LVOT Cardiac Index 2567.2 cm???/min???m??? AV Area Cont Eq vti 1.1 cm??? AV Area Cont Eq pk 1.1 cm??? MV Area PHT 2.4 cm??? Mitral E Point Velocity 140.9 cm/s Mitral A Point Velocity 138.3 cm/s Mitral E to A Ratio 1.0 MV Deceleration Time 317.1 ms TR Peak Velocity 257.4 cm/s TR Peak Gradient 26.5 mmHg Right Ventricular Systolic Press 30.2 mmHg FINDINGS Left Ventricle Left ventricular ejection fraction is estimated at 60-65 %. Moderately increased septal wall thickness. Mildly increased posterior wall thickness. Normal left ventricular systolic function with no obvious regional wall motion abnormalities. Left ventricular cavity size normal. Right Ventricle Mild right ventricular dilatation. Right ventricular systolic pressure within normal limits. Right Atrium Mild right atrial dilatation. Left Atrium Severely increased left atrial diameter. Severely increased left atrial volume. Mildly increased left atrial area. Mitral Valve Structurally normal mitral valve. Mitral valve thickened. Mild mitral annular calcification. Moderate mitral regurgitation. Aortic Valve Trileaflet aortic valve. Mild aortic stenosis with a peak gradient of 32 mmHg and a mean gradient of 17mmHg. Mild aortic regurgitation. Tricuspid Valve Structurally normal tricuspid valve. Mild tricuspid regurgitation. No tricuspid stenosis. Pulmonic Valve Structurally normal pulmonic valve. Trace pulmonic regurgitation. No pulmonic stenosis. Pericardium No pericardial or pleural effusion. Aorta Normal size aortic root and proximal ascending aorta. CONCLUSIONS Left ventricular ejection fraction 60-65% Moderately increased left ventricular wall thickness RVSP 30 Moderately dilated left atrium Moderate mitral regurgitation Mild aortic stenosis Mild aortic regurgitation Previewed by: Dr. Jose Barajas DO (Electronically Signed) Final Date: 11 May 2024 13:08
--- NOTE | 2024-05-12 16:22 | P.DS ---
Providers Date of admission: 05/09/24 17:49 Attending physician: Giovana Alonzo Consults: 05/09/24 17:48 Consult Physician Routine Consulting Provider: Jose Barajas Consult Reason/Comments: CP Do you want consulting provider notified?: Yes Primary care physician: Elmer Oreilly Hospital Course: Final Diagnosis Chest pain, atypical likely musculoskeletal in nature, has resolved at this time Hx coronary artery disease with prior CABG, Cardiac stenting Atrial fibrillation, paroxysmal anticoagulated with eliquis Ischemic cardiomyopathy EF 35-40% Hypertension Hyperlipidemia hx of breast cancer with mastectomy Diabetes Mellitus type 2 with hyperglycemia CKD Hypothyroidism Hx of arthritis and chronic back pain Discharge Disposition Patient s stable for discharge home. Has been cleared by cardiology. Chest pain has resolved. She did have the echocardiogram done prior for DC can see Dr. Ventura in the office for reports. No changes to medications Hospital Course This is an 84-year-old female medical history significant for coronary artery disease with prior CABG and cardiac stenting, atrial fibrillation, cardiomyopathy with an EF of 35 to 40%, hypertension, hyperlipidemia, breast cancer with mastectomy. Patient woke up in the morning got up out of bed and began having chest pain across her left chest no radiation into the back shoulder or jaw. She was not having any shortness of breath dizziness or lightheadedness. The chest pain was not getting better so patient came into the hospital for further evaluation. At this time she is now chest pain-free she feels this may be musculoskeletal in nature as she does have chronic back pain and may have slept wrong. She was admitted for cardiac evaluation. Recommended for echocardiogram which is pending at this time. She follows with Dr. Ventura in the office, her PCP is Dr. Oreilly. White blood cell count 5.0, hgb 11.0, sodium 132, potassium 4.4., BUN 28, creatinine 1.31. Blood glucose in the 200s. Magnesium 1.6. Troponin negative. proBNP 1080. She states symptoms are not similar to the symptoms she experienced in August when she required stenting. She states her pain has since resolved and she has had no further episodes of chest pain since being in the hospital. She denies any shortness of breath. Denies any fever or chills. Patient did stay overnight for the echocardiogram can follow up with Dr. Blake office to review. She is not having chest pain, cleared for DC. Please see medication reconciliation for a list of current medications. Thank you for allowing us to participate in the care of this patient. The impression and plan of care has been dictated by Tiffanie Vasquez, Nurse Practitioner as directed. Dr. Yesenia MD I have performed a history and physical examination and medical decision making of this patient, discussed the same with the dictator, and agree with the dictators assessment and plan as written, documented as a scribe. Based on total visit time, I have performed more than 50% of this visit. Patient Condition at Discharge: Stable Plan - Discharge Summary New Discharge Prescriptions: Continue Acarbose [Precose] 50 mg PO TID-W/MEALS metFORMIN HCL [Glucophage] 1,000 mg PO W/SUPPER Multivit-Min/FA/Lycopene/Lut [Centrum Silver Tablet] 1 tab PO W/BRKFST Atorvastatin [Lipitor] 80 mg PO HS #30 tab Risedronate Sodium [Actonel] 35 mg PO MITCHELL Letrozole 2.5 mg PO DAILY Isosorbide Mononitrate ER [Imdur] 30 mg PO AC-BRKFST Ubidecarenone [Co Q-10] 100 mg PO DAILY Levothyroxine Sodium [Synthroid] 125 mcg PO AC-BRKFST Nitroglycerin Sl Tabs [Nitrostat] 0.4 mg SL Q5M PRN PRN Reason: Chest Pain Clopidogrel [Plavix] 75 mg PO DAILY 30 Days #30 tab Cetirizine HCl [Zyrtec] 10 mg PO DAILY Vitamin B Complex W/Biotin 1,000 mcg PO DAILY Losartan [Cozaar] 25 mg PO W/BRKFST Amiodarone [Cordarone] 100 mg PO W/SUPPER Omeprazole 20 mg PO AC-SUPPER Mupirocin 2% Oint [Bactroban 2% Oint] 1 applic TOPICAL DAILY Docusate [Colace] 100 mg PO DAILY Furosemide [Lasix] 20 mg PO DAILY Slow Release Iron 45 mg PO DAILY Apixaban [Eliquis] 2.5 mg PO BID-W/MEALS glipiZIDE [Glucotrol] 2.5 mg PO AC-BID traZODone HCL [Desyrel] 50 mg PO HS rOPINIRole HCL [Requip] 0.25 mg PO HS Sennosides/Docusate Sodium [Senna-S 8.6-50 mg Tablet] 1 tab PO HS Discharge Medication List Acarbose [Precose] 50 mg PO TID-W/MEALS 04/29/15 [History] metFORMIN HCL [Glucophage] 1,000 mg PO W/SUPPER 04/29/15 [History] Multivit-Min/FA/Lycopene/Lut [Centrum Silver Tablet] 1 tab PO W/BRKFST 04/30/15 [History] Atorvastatin [Lipitor] 80 mg PO HS #30 tab 05/02/15 [Rx] Letrozole 2.5 mg PO DAILY 02/24/18 [History] Risedronate Sodium [Actonel] 35 mg PO MITCHELL 02/24/18 [History] Isosorbide Mononitrate ER [Imdur] 30 mg PO AC-BRKFST 01/27/22 [History] Ubidecarenone [Co Q-10] 100 mg PO DAILY 01/27/22 [History] Docusate [Colace] 100 mg PO DAILY 04/22/23 [History] Furosemide [Lasix] 20 mg PO DAILY 04/22/23 [History] Levothyroxine Sodium [Synthroid] 125 mcg PO AC-BRKFST 04/22/23 [History] Nitroglycerin Sl Tabs [Nitrostat] 0.4 mg SL Q5M PRN 04/22/23 [History] Clopidogrel [Plavix] 75 mg PO DAILY 30 Days #30 tab 09/05/23 [Rx] Amiodarone [Cordarone] 100 mg PO W/SUPPER 05/09/24 [History] Apixaban [Eliquis] 2.5 mg PO BID-W/MEALS 05/09/24 [History] Cetirizine HCl [Zyrtec] 10 mg PO DAILY 05/09/24 [History] Losartan [Cozaar] 25 mg PO W/BRKFST 05/09/24 [History] Mupirocin 2% Oint [Bactroban 2% Oint] 1 applic TOPICAL DAILY 05/09/24 [History] Omeprazole 20 mg PO AC-SUPPER 05/09/24 [History] Sennosides/Docusate Sodium [Senna-S 8.6-50 mg Tablet] 1 tab PO HS 05/09/24 [History] Slow Release Iron 45 mg PO DAILY 05/09/24 [History] Vitamin B Complex W/Biotin 1,000 mcg PO DAILY 05/09/24 [History] glipiZIDE [Glucotrol] 2.5 mg PO AC-BID 05/09/24 [History] rOPINIRole HCL [Requip] 0.25 mg PO HS 05/09/24 [History] traZODone HCL [Desyrel] 50 mg PO HS 05/09/24 [History] Follow up Appointment(s)/Referral(s): Elmer Oreilly MD [Primary Care Provider] - 1-2 days Amadou Ventura MD [STAFF PHYSICIAN] - 05/25/24 3:45 pm Ambulatory/Diagnostic Orders: Basic Metabolic Panel [LAB.AMB] Time Frame: 4 Days, Location: None Selected Patient Instructions/Handouts: Chest Pain (DC) Activity/Diet/Wound Care/Special Instructions: Discuss with Dr Oreilly being started on injectible insulins. Blood glucose in the 200s. Follow up with Dr. Ventura in the office Discharge Disposition: HOME SELF-CARE
[2024-05-14] MEDS ORDERED: RISEDRONATE SODIUM 35 MG PO SCH (20:44)
== END 2024-05-11 12:11 | disposition home or self-care (01) ==
LOC: EC 15:31 → 6NMEDSUR 17:49
PROVIDERS: ADMIT Hospitalist; ATTEND Hospitalist
DX: R07.89 Other chest pain (principal); I25.810 Atherosclerosis of coronary artery bypass graft(s) without angina pectoris; E11.65 Type 2 diabetes mellitus with hyperglycemia; I25.5 Ischemic cardiomyopathy; I48.0 Paroxysmal atrial fibrillation; I12.9 Hypertensive chronic kidney disease with stage 1 through stage 4 chronic kidney disease, or unspecified chronic kidney disease; N18.9 Chronic kidney disease, unspecified; E11.22 Type 2 diabetes mellitus with diabetic chronic kidney disease; I49.3 Ventricular premature depolarization; I08.3 Combined rheumatic disorders of mitral, aortic and tricuspid valves; E78.5 Hyperlipidemia, unspecified; G89.29 Other chronic pain; M54.9 Dorsalgia, unspecified; E03.9 Hypothyroidism, unspecified; M19.90 Unspecified osteoarthritis, unspecified site; Z79.82 Long term (current) use of aspirin; Z79.01 Long term (current) use of anticoagulants; Z79.02 Long term (current) use of antithrombotics/antiplatelets; Z79.890 Hormone replacement therapy; Z79.84 Long term (current) use of oral hypoglycemic drugs; Z79.811 Long term (current) use of aromatase inhibitors; Z79.899 Other long term (current) drug therapy; Z88.1 Allergy status to other antibiotic agents; Z88.0 Allergy status to penicillin; Z88.2 Allergy status to sulfonamides; Z95.1 Presence of aortocoronary bypass graft; Z95.5 Presence of coronary angioplasty implant and graft; Z85.3 Personal history of malignant neoplasm of breast; Z90.13 Acquired absence of bilateral breasts and nipples
CPT/HCPCS: 36415; 71046; 80053; 83735; 83880; 84484; 85025; 85610; 85730; 93005; 93306; 99285

== ENCOUNTER 2024-09-01 09:00 | Emergency (ER) | payer MEDICARE ==
[2024-09-01 09:54] LABS: Basophils % (A) 0 %; Eosinophils # (A) 0.1 k/uL (0-0.7); Eosinophils % (A) 1 %; HCT 34.2 % (34.0-46.0); HGB 11.7 gm/dL (11.4-16.0); Lymphocytes # (A) 1.5 k/uL (1.0-4.8); Lymphocytes % (A) 22 %; MCH 33.5 pg (25.0-35.0); MCHC 34.2 g/dL (31.0-37.0); MCV 97.9 fL (80.0-100.0); Mean Platelet Volume 6.8; Monocytes # (A) 0.3 k/uL (0-1.0); Monocytes % (A) 5 %; Neutrophils # (A) 4.8 k/uL (1.3-7.7); Neutrophils % (A) 70 %; Platelet Count 192 k/uL (150-450); RBC 3.49 m/uL (3.80-5.40); RDW 12.6 % (11.5-15.5); WBC 6.8 k/uL (3.8-10.6)
--- NOTE | 2024-09-01 10:02 | ED ---
General Adult HPI - General Chief complaint: Neuro Symptoms/Deficit Stated complaint: L facial numbness Time Seen by Provider: 09/01/24 09:05 Source: patient, RN notes reviewed, old records reviewed Mode of arrival: wheelchair Limitations: no limitations - History of Present Illness Initial comments: This is an 84-year-old female who presents to the emergency department stating that she had been diagnosed with bronchitis yesterday and started on a cough medicine as well as an antibiotic. Patient states this morning he woke up and she had some numbness to the left side of her face. Patient states she has no weakness she has no slurred speech she has no facial droop. Patient states that when she touches her face it feels normal but there is a weird sensation on her face that goes from her forehead all the way down to her cheek. Patient's fam jacey member notices no difference by looking at her. - Related Data Home Medications Medication Instructions Recorded Confirmed Acarbose [Precose] 50 mg PO TID-W/MEALS 04/29/15 05/09/24 metFORMIN HCL [Glucophage] 1,000 mg PO W/SUPPER 04/29/15 05/09/24 Multivit-Min/FA/Lycopene/Lut 1 tab PO W/BRKFST 04/30/15 05/09/24 [Centrum Silver Tablet] Letrozole 2.5 mg PO DAILY 02/24/18 05/09/24 Risedronate Sodium [Actonel] 35 mg PO MITCHELL 02/24/18 05/09/24 Isosorbide Mononitrate ER [Imdur] 30 mg PO AC-BRKFST 01/27/22 05/09/24 Ubidecarenone [Co Q-10] 100 mg PO DAILY 01/27/22 05/09/24 Docusate [Colace] 100 mg PO DAILY 04/22/23 05/09/24 Furosemide [Lasix] 20 mg PO DAILY 04/22/23 05/09/24 Levothyroxine Sodium [Synthroid] 125 mcg PO AC-BRKFST 04/22/23 05/09/24 Nitroglycerin Sl Tabs [Nitrostat] 0.4 mg SL Q5M PRN 04/22/23 05/09/24 Amiodarone [Cordarone] 100 mg PO W/SUPPER 05/09/24 05/09/24 Apixaban [Eliquis] 2.5 mg PO BID-W/MEALS 05/09/24 05/09/24 Cetirizine HCl [Zyrtec] 10 mg PO DAILY 05/09/24 05/09/24 Losartan [Cozaar] 25 mg PO W/BRKFST 05/09/24 05/09/24 Mupirocin 2% Oint [Bactroban 2% 1 applic TOPICAL DAILY 05/09/24 05/09/24 Oint] Omeprazole 20 mg PO AC-SUPPER 05/09/24 05/09/24 Sennosides/Docusate Sodium 1 tab PO HS 05/09/24 05/09/24 [Senna-S 8.6-50 mg Tablet] Slow Release Iron 45 mg PO DAILY 05/09/24 05/09/24 Vitamin B Complex W/Biotin 1,000 mcg PO DAILY 05/09/24 05/09/24 glipiZIDE [Glucotrol] 2.5 mg PO AC-BID 05/09/24 05/09/24 rOPINIRole HCL [Requip] 0.25 mg PO HS 05/09/24 05/09/24 traZODone HCL [Desyrel] 50 mg PO HS 05/09/24 05/09/24 Previous Rx's Medication Instructions Recorded Atorvastatin [Lipitor] 80 mg PO HS #30 tab 05/02/15 Clopidogrel [Plavix] 75 mg PO DAILY 30 Days #30 tab 09/05/23 Allergies Allergy/AdvReac Type Severity Reaction Status Date / Time doxycycline calcium Allergy Unknown Verified 09/01/24 09:01 [From Vibramycin] doxycycline hyclate Allergy Unknown Verified 09/01/24 09:01 [From Vibramycin] doxycycline monohydrate Allergy Unknown Verified 09/01/24 09:01 [From Vibramycin] Penicillins Allergy Rash/Hives Verified 09/01/24 09:01 Sulfa (Sulfonamide Allergy Rash/Hives Verified 09/01/24 09:01 Antibiotics) sulfamethoxazole Allergy Rash/Hives Verified 09/01/24 09:01 [From Septra] trimethoprim [From Septra] Allergy Rash/Hives Verified 09/01/24 09:01 Review of Systems ROS Statement: Those systems with pertinent positive or pertinent negative responses have been documented in the HPI. ROS Other: All systems not noted in ROS Statement are negative. Past Medical History Past Medical History: Coronary Artery Disease (CAD), Cancer, Chest Pain / Angina, Diabetes Mellitus, Hyperlipidemia, Hypertension, Myocardial Infarction ([place]), Thyroid Disorder Additional Past Medical History / Comment(s): frequent constipation, arthritis, anemia, hx breast cancer, , skin cancer in leg 2023 Last Myocardial Infarction Date:: 08/2023 History of Any Multi-Drug Resistant Organisms: None Reported Past Surgical History: Breast Surgery, Cholecystectomy, Coronary Bypass/CABG, Heart Catheterization, Heart Catheterization With Stent, Hysterectomy Additional Past Surgical History / Comment(s): left mastectomy, trigeminal nerve surgery, hemorrhoidectomy, right mastectomy 08/2016, biopsy to left leg for skin cancer 2023 Past Anesthesia/Blood Transfusion Reactions: Motion Sickness Date of Last Stent Placement:: 08/2023 Past Psychological History: No Psychological Hx Reported Smoking Status: Never smoker Past Alcohol Use History: Rare Past Drug Use History: None Reported - Past Family History Mother Family Medical History: No Reported History General Exam - General Exam Comments Initial Comments: GENERAL: Patient is well-developed and well-nourished. Patient is nontoxic and well- hydrated and is in no acute distress. ENT: Neck is soft and supple. No significant lymphadenopathy is noted. Oropharynx is clear. Moist mucous membranes. Neck has full range of motion without eliciting any pain. EYES: The sclera were anicteric and conjunctiva were pink and moist. Extraocular movements were intact and pupils were equal round and reactive to light. Eyelids were unremarkable. PULMONARY: Unlabored respirations. Good breath sounds bilaterally. No audible rales rhonchi or wheezing was noted. CARDIOVASCULAR: There is a regular rate and rhythm without any murmurs gallops or rubs. Femoral pulses are equal bilaterally ABDOMEN: Soft and nontender with normal bowel sounds. No palpable organomegaly was noted. There is no palpable pulsatile mass. SKIN: Skin is clear with no lesions or rashes and otherwise unremarkable. NEUROLOGIC: Patient is alert and oriented x3. Cranial nerves II through XII are grossly intact. Motor and sensory are also intact. Normal speech, volume and content. Symmetrical smile. NIH is 0. When I touch the patient's face on the left she states it feels the same as the right but it still feels weird when I am not touching it. MUSCULOSKELETAL: Normal extremities with adequate strength and full range of motion. No lower extremity swelling or edema. No calf tenderness. LYMPHATICS: No significant lymphadenopathy is noted PSYCHIATRIC: Normal psychiatric exam Limitations: no limitations Course Vital Signs 09/01/24 09:01 Temperature 98.5 F Pulse Rate 75 Respiratory 18 Rate Blood Pressure 221/89 O2 Sat by Pulse 100 Oximetry Medical Decision Making - Medical Decision Making EKG is interpreted by myself. EKG shows a sinus bradycardia 56 bpm LA interval 194 QRS is 107 QT interval is 467 QTc is 460. Patient's EKG shows no ST segment elevation or depression. Was pt. sent in by a medical professional or institution ([facility], [employer]IT [employer]CIAL [employer], urgent care, hospital, or alf...) When possible be specific @ -No Did you speak to anyone other than the patient for history (EMS, parent, family, police, friend...)? What history was obtained from this source @ -No Did you review nursing and triage notes (agree or disagree)? Why? @ -I reviewed and agree with nursing and triage notes Were old charts reviewed (outside hosp., previous admission, EMS record, old E KG, old radiological studies, urgent care reports/EKG's, alf records)? Report findings @ -No old charts were reviewed Differential Diagnosis? @ -Differential CVA Ischemic stroke, hemorrhagic stroke, brain tumor, atypical migraine, Wernicke's encephalopathy, seizure, multiple sclerosis, meningitis, encephalitis, hypoglycemia, Guillain-Devine, electrolytes disturbance, myasthenia gravis.... This is not meant to be an all-inclusive list EKG interpreted by me (3pts min.). @ -As above X-rays interpreted by me (1pt min.). @ -None done CT interpreted by me (1pt min.). @ -CT of the brain shows no acute abnormality U/S interpreted by me (1pt. min.). @ -None done What testing was considered but not performed or refused? (CT, X-rays, U/S, labs)? Why? @ -None What meds were considered but not given or refused? Why? @ -None Did you discuss the management of the patient with other professionals (professionals i.e. [facility], NON[employer]OFIT FIN[employer]CIAL CONTRO[employer]ER, lab, RT, psych nurse, social psychologist, well control instructor, teacher, intelligence officer, top case assembler)? Give summary @ -No Was smoking cessation discussed for >3mins.? @ -No Was critical care preformed (if so, how long)? @ -No Were there social determinants of health that impacted care today? How? (Homelessness, low income, unemployed, alcoholism, drug addiction, transportation, low edu. Level, literacy, decrease access to med. care, fdc, rehab)? @ -No Was there de-escalation of care discussed even if they declined (Discuss DNR or withdrawal of care, Hospice)? DNR status @ -No What co-morbidities impacted this encounter? (DM, HTN, Smoking, COPD, CAD, Cancer, CVA, ARF, Chemo, Hep., AIDS, mental health diagnosis, sleep apnea, morbid obesity)? @ -None Was patient admitted / discharged? Hospital course, mention meds given and route, prescriptions, significant lab abnormalities, going to OR and other pertinent info. @ -I went back and reevaluated the patient she stated it felt like the odd sensation in the left side of her face was resolving. Patient had no objective findings of a stroke or Watson's palsy and she has been instructed to follow-up with us or with her primary medical care doctor if any of the symptoms worsen or there are any new symptoms Undiagnosed new problem with uncertain prognosis? @ -No Drug Therapy requiring intensive monitoring for toxicity (Heparin, Nitro, Insulin, Cardizem)? @ -No Were any procedures done? @ -No Diagnosis/symptom? @ -Facial paresthesia Acute, or Chronic, or Acute on Chronic? @ -Acute Uncomplicated (without systemic symptoms) or Complicated (systemic symptoms)? @ -Complicated Side effects of treatment? @ -No Exacerbation, Progression, or Severe Exacerbation? @ -No Poses a threat to life or bodily function? How? (Chest pain, [place], [place], pneumonia, PE, COPD, DKA, ARF, appy, cholecystitis, CVA, Diverticulitis, Homicidal, Suicidal, threat to staff... and all critical care pts) @ -No - Lab Data Result diagrams: 09/01/24 09:40 09/01/24 09:40 Lab Results 09/01/24 09/01/24 09/01/24 Range/Units 09:40 09:40 09:40 WBC 6.8 (3.8-10.6) k/uL RBC 3.49 L (3.80-5.40) m/uL Hgb 11.7 (11.4-16.0) gm/dL Hct 34.2 (34.0-46.0) % MCV 97.9 (80.0-100.0) fL MCH 33.5 (25.0-35.0) pg MCHC 34.2 (31.0-37.0) g/dL RDW 12.6 (11.5-15.5) % Plt Count 192 (150-450) k/uL MPV 6.8 Neutrophils % 70 % Lymphocytes % 22 % Monocytes % 5 % Eosinophils % 1 % Basophils % 0 % Neutrophils # 4.8 (1.3-7.7) k/uL Lymphocytes # 1.5 (1.0-4.8) k/uL Monocytes # 0.3 (0-1.0) k/uL Eosinophils # 0.1 (0-0.7) k/uL Basophils # 0.0 (0-0.2) k/uL PT (10.0-12.5) sec INR (<1.2) APTT (22.0-30.0) sec Sodium 136 L (137-145) mmol/L Potassium 4.4 (3.5-5.1) mmol/L Chloride 105 (98-107) mmol/L Carbon Dioxide 22 (22-30) mmol/L Anion Gap 9 mmol/L BUN 43 H (7-17) mg/dL Creatinine 1.44 H (0.52-1.04) mg/dL Est GFR (CKD-EPI)AfAm 38 (>60 ml/min/1.73 sqM) Est GFR (CKD-EPI)NonAf 33 (>60 ml/min/1.73 sqM) Glucose 111 H (74-99) mg/dL Calcium 9.0 (8.4-10.2) mg/dL Total Bilirubin 0.8 (0.2-1.3) mg/dL AST 32 (14-36) U/L ALT 26 (4-34) U/L Alkaline Phosphatase 61 (38-126) U/L Creatine Kinase 129 (30-135) U/L Troponin I 0.020 (0.000-0.034) ng/mL Total Protein 6.6 (6.3-8.2) g/dL Albumin 4.3 (3.5-5.0) g/dL 09/01/24 Range/Units 10:45 WBC (3.8-10.6) k/uL RBC (3.80-5.40) m/uL Hgb (11.4-16.0) gm/dL Hct (34.0-46.0) % MCV (80.0-100.0) fL MCH (25.0-35.0) pg MCHC (31.0-37.0) g/dL RDW (11.5-15.5) % Plt Count (150-450) k/uL MPV Neutrophils % % Lymphocytes % % Monocytes % % Eosinophils % % Basophils % % Neutrophils # (1.3-7.7) k/uL Lymphocytes # (1.0-4.8) k/uL Monocytes # (0-1.0) k/uL Eosinophils # (0-0.7) k/uL Basophils # (0-0.2) k/uL PT 11.4 (10.0-12.5) sec INR 1.0 (<1.2) APTT 19.5 L (22.0-30.0) sec Sodium (137-145) mmol/L Potassium (3.5-5.1) mmol/L Chloride (98-107) mmol/L Carbon Dioxide (22-30) mmol/L Anion Gap mmol/L BUN (7-17) mg/dL Creatinine (0.52-1.04) mg/dL Est GFR (CKD-EPI)AfAm (>60 ml/min/1.73 sqM) Est GFR (CKD-EPI)NonAf (>60 ml/min/1.73 sqM) Glucose (74-99) mg/dL Calcium (8.4-10.2) mg/dL Total Bilirubin (0.2-1.3) mg/dL AST (14-36) U/L ALT (4-34) U/L Alkaline Phosphatase (38-126) U/L Creatine Kinase (30-135) U/L Troponin I (0.000-0.034) ng/mL Total Protein (6.3-8.2) g/dL Albumin (3.5-5.0) g/dL Disposition Clinical Impression: Facial paresthesia Disposition: HOME SELF-CARE Condition: Good Instructions (If sedation given, give patient instructions): Paresthesia (ED) Is patient prescribed a controlled substance at d/c from ED?: No Referrals: Elmer Oreilly MD [Primary Care Provider] - 1-2 days Time of Disposition: 11:49
[2024-09-01 10:12] LABS: ALT 26 U/L (4-34); AST 32 U/L (14-36); African American GFR (CKD) 38 (>60 ml/min/1.73 sqM); Albumin 4.3 g/dL (3.5-5.0); Alkaline Phosphatase 61 U/L (38-126); Anion Gap 9 mmol/L; Blood Urea Nitrogen 43 mg/dL (7-17); Carbon Dioxide 22 mmol/L (22-30); Chloride 105 mmol/L (98-107); Creatine Kinase 129 U/L (30-135); Glucose 111 mg/dL (74-99); Non-African American GFR(CKD) 33 (>60 ml/min/1.73 sqM); Potassium 4.4 mmol/L (3.5-5.1); Sodium 136 mmol/L (137-145); Total Bilirubin 0.8 mg/dL (0.2-1.3); Total Protein 6.6 g/dL (6.3-8.2)
--- NOTE | 2024-09-01 10:16 | XR ---
EXAMINATION TYPE: XR chest 2V DATE OF EXAM: 09/01/2024 10:05 AM COMPARISON: Chest radiographs from 05/09/2024 CLINICAL INDICATION: Female, 84 years old with history of altered mental status; TECHNIQUE: XR chest 2V Frontal and lateral views of the chest. FINDINGS: Lungs/Pleura: There is no evidence of pleural effusion, focal consolidation, or pneumothorax. Pulmonary vascularity: Unremarkable. Heart/mediastinum: Cardiomediastinal silhouette is unremarkable. Musculoskeletal: No acute osseous pathology. Midline sternotomy wires are noted. Other findings: None IMPRESSION: No acute cardiopulmonary disease/process. [facility], , 09/01/2024 10:13 AM
--- NOTE | 2024-09-01 10:20 | CT ---
EXAMINATION TYPE: CT brain wo con DATE OF EXAM: 09/01/2024 COMPARISON: None CLINICAL INDICATION: Female, 84 years old with history of Neuro deficit, acute, stroke suspected; PHH , NUMBNESS IN HEAD TECHNIQUE: CT of the brain performed without contrast with sagittal and coronal reformats. CT DLP: 1094.[address] CTDI: mGy Automated exposure control for dose reduction was used. FINDINGS: There is no acute intracranial hemorrhage, mass effect, or midline shift identified. The ventricles and sulci are within normal limits in size. The globes are intact and the visualized sinuses are feliciano ar. IMPRESSION: No acute intracranial hemorrhage, mass effect, or midline shift is seen. [facility], , 09/01/2024 10:18 AM
[2024-09-01 11:28] LABS: Prothrombin Time 11.4 sec (10.0-12.5)
[2024-09-01 11:30] LABS: Partial Thromboplastin Time 19.5 sec (22.0-30.0)
[2024-09-01 12:04] VITALS: BP 173/66; PULSE 59; RESP 16; TEMP 98.8
== END 2024-09-01 12:07 | disposition home or self-care (01) ==
LOC: EC 09:00
DX: R20.2 Paresthesia of skin (principal); Z88.0 Allergy status to penicillin; Z88.2 Allergy status to sulfonamides; Z88.8 Allergy status to other drugs, medicaments and biological substances
CPT/HCPCS: 36415; 70450; 71046; 80053; 82550; 84484; 85025; 85610; 85730; 93005; 99284

== ENCOUNTER → 2024-11-23 | Outpatient (CLI) | payer MEDICARE ==
[2024-11-23 14:06] VITALS: BP 115/71; PULSE 86; RESP 16; TEMP 97.9
--- NOTE | 2024-11-23 14:32 | P.PN ---
Subjective Progress Note Date: 11/23/24 Progress Note Date: 11-23-22 bilateral breast cancer/bilateral mastectomies bilateral breast cancer bilateral mastectomies/ bilateral breast cancer left January 2007, right mastectomy August 2016 Michelle is an 84 year old white female with a history of bilateral breast cancer, and bilateral mastectomy. Her first mastectomy was the left breast January 2007. She had the right mastectomy, August 2016. The patient did not have any chemo or radiation therapy after either of the surgeries. She is presently taking Femara (letrazole). She is not complaining of any pain in her chest at this time. She does not complain of any lumps masses or nodules on her chest wall. She had a coronary stent placed on 12091014. She does complain of intermittent right axillary discomfort, this has been present since 2015 and some limitation of motion which has not changed. She continues to follow with Dr. Deutsch. Underwent a myocardial infarction on 12181016 and had a stent placed. She did have a CBC done on 1220 723 which revealed hemoglobin of 9.9. She has been followed by Dr. Deutsch for anemia in the past. Note Dr. Deutsch from reviewed. Patient to continue on Femora. Oct 29 admitted with Afib, complains of dizzy, and a head cold form the hospital She has persistent tenderness over the lateral aspect of her right chest wall. Coughing frequently and this makes the pain worse. Family history: 1. maternal grandmother: cancer ? type 2. daughter: breast cancer Surgical history: 1. Bilateral mastectomy 2. Cholecystectomy 3. Hysterectomy ovaries not removed 4. Open heart surgery 5. Cardiac stents 6. Hemorrhoidectomy 7. Trigeminal neuralgia 8. left cataract surgery 9. Coronary stint 08-22-21 Medical history: 1. Hypertension 2. High cholesterol 3. Diabetes 4. Arthritis 5. history of bilateral breast cancer 6. SD 7. admited with A-FIB November 2021 8. recent SD 08-31-23; stint placed 9. 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 SD GI: constipation : negative, hysterectomy Musculoskeletal: Arthritis Psychiatric: negative hematologic: aspirin/plavix integument: none allergies: as per HPI/ seasonal allergies history of bilateral breast cancer Objective - Vital Signs Vital signs: Vital Signs Temp 97.9 F 11/23/24 14:03 Pulse 86 11/23/24 14:03 Resp 16 11/23/24 14:03 BP 115/71 11/23/24 14:03 Pulse Ox 99 11/23/24 14:03 FiO2 Intake & Output 11/22/24 11/23/24 11/23/24 18:59 06:59 18:59 Weight 68.492 kg - Constitutional General appearance: Present: cooperative - EENT Eyes: Present: EOMI - Neck Neck: Present: normal ROM - Respiratory Respiratory: bilateral: CTA - Cardiovascular Rhythm: regular Heart sounds: normal: S1, S2 - Integumentary Integumentary: Present: normal turgor - Musculoskeletal Musculoskeletal: Present: gait normal - Psychiatric Psychiatric: Present: A&O x's 3, appropriate affect, intact judgment & insight - Additional findings Additional findings: Chest Wall Exam: Inspection: Status post bilateral mastectomies Palpation: Right chest wall: No evidence of recurrent disease Right axilla: No adenopathy of concern Left chest wall: No evidence of recurrent disease Left axilla: No adenopathy of concern Assessment and Plan Assessment: Impression: 1. Hypertension 2. High cholesterol 3. Diabetes 4. Arthritis 5. history of bilateral breast cancer 6. SD 7. No evidence of any recurrent breast cancer 8. heart murmur 9. SD on 08-31-23, home on 09-05-23 Plan: 1. Continue Femara 2. Continue follow-up with medical oncology 3. Follow-up here 1 year 4. Follow up sooner if any questions or concerns CC: DR. Oreilly
== END ==
LOC: WWCWWP 12:24
PROVIDERS: ATTEND Surgery
DX: E11.9 Type 2 diabetes mellitus without complications (principal); E78.00 Pure hypercholesterolemia, unspecified; I10 Essential (primary) hypertension; I21.9 Acute myocardial infarction, unspecified; M19.90 Unspecified osteoarthritis, unspecified site; R01.1 Cardiac murmur, unspecified; Z85.3 Personal history of malignant neoplasm of breast; Z80.3 Family history of malignant neoplasm of breast; Z88.1 Allergy status to other antibiotic agents; Z88.0 Allergy status to penicillin; Z88.2 Allergy status to sulfonamides

== ENCOUNTER → 2024-11-23 | Outpatient (CLI) | payer MEDICARE ==
--- NOTE | 2024-11-24 08:42 | BD ---
EXAMINATION TYPE: Axial Bone Density DATE OF EXAM: 11/23/2024 CLINICAL HISTORY: 84 years old Female. ICD-10 CODE: M81.0 AGE-RELATED OSTEOPOROSIS W/O CURRENT PATHO LO , Additional History: Height: 59 Weight: 151.5 FRAX RISK QUESTIONS: Alcohol (3 or more units per day): no Family History (Parent hip fracture): no Glucocorticoids (More than 3mos): no (Ex: prednisone, prednisolone, methylprednisolone, dexamethasone, and hydrocortisone). History of Fracture in Adulthood: no Secondary Osteoporosis: 1. Type 1 Diabetes: no 2. Hyperthyroidism: no 3. Menopause before 45: no 4. Malnutrition: no 5. Chronic liver disease: no Rheumatoid Arthritis: no Current Tobacco Use: no RISK FACTORS HISTORY OF: Hip Fracture (Right/Left): no Spine Fracture: no History of Wrist Fracture: no Surgery to Spine/Hip(right/left)/Wrist (right/left): no MEDICATIONS: Thyroid Medications: Levothyroxine How Long: past 20 years Osteoporosis Medications: Actonel How Long: past 10 years EXAM MEASUREMENTS: Bone mineral densitometry was performed using the [employer] System. Bone mineral density as measured about the Lumbar spine is: ----- L1-L4(G/cm2): 1.064 T Score Values are as follows: ----- L1: -1.4 ----- L2: -1.1 ----- L3: -1.1 ----- L4: -0.7 ----- L1-L4: -1.0 Z Score Values are as follows: ----- L1: 0.4 ----- L2: 0.7 ----- L3: 0.7 ----- L4: 1.1 ----- L1-L4: 0.8 Bone mineral density has: decreased -2.1 % since study of: 09/18/2022 Bone mineral density about the R hip (g/cm2): 0.620 Bone mineral density about the L hip (g/cm2): 0.680 T Score values are as follows: -----R Neck: -3.4 -----L Neck: -2.5 -----R Total: -3.1 -----L Total: -2.6 Z Score values are as follows: -----R Neck: -1.0 -----L Neck: -0.2 -----R Total: -0.8 -----L Total: -0.4 Bone mineral density has: decreased -3.7 % since study of: 09/18/2022 FRAX%s: The graph provided illustrates a 26.2% chance for a major osteoporotic fx and a 11.3% chance for the hips probability for fx in 10 years time. IMPRESSION: Osteoporosis (T Score less than -2.5). There is increased fracture risk and therapy is usually indicated based on age. Re-Screen 1-2 years. NOTE: T-SCORE=SD OF THE YOUNG ADULT MEAN. [facility], , 11/24/2024 8:40 AM
== END | disposition home or self-care (01) ==
LOC: RADBDWWP 12:26
PROVIDERS: ATTEND Internal Medicine Hematology & Oncology
DX: M81.0 Age-related osteoporosis without current pathological fracture (principal); C50.112 Malignant neoplasm of central portion of left female breast; C50.411 Malignant neoplasm of upper-outer quadrant of right female breast; I10 Essential (primary) hypertension; Z17.0 Estrogen receptor positive status [ER+]; Z71.89 Other specified counseling
CPT/HCPCS: 77080